=== PATIENT | male | born 1965 | race Caucasian/White ===

== ENCOUNTER 2016-11-04 05:54 | Observation (INO) | payer MEDICARE, MEDICAID ==
[2016-11-04] VITALS (7 sets, daily range): BP systolic 104–140; BP diastolic 55–72; PULSE 74–98; RESP 16–19; TEMP 97.4–99; O2SAT 95–99
[~2016-11-04] VITALS: Ht 167.6 cm; Wt 62.8 kg
[~2016-11-04 05:54] MED LIST: 1-ME1LIQ PO; ACET325 PO; ASPI1TAB7 PO; BISA10R PR; CLON.1 PO; DIAL800T3 PO; FERR324T4 PO; FURO20 PO; HYDR100T2 PO; IMOD2TAB PO; LANTUS2P SQ; LEVA250T14 PO; LISI-366 PO; LORTA5 PO; METO50TA PO; MILKSUS5 PO; NOVOLOGP2 SQ; PARO40TA PO; PRIL20CA PO; SEVEL800 PO; TAMS0.4C67 PO
--- NOTE | 2016-11-04 06:04 | PD ---
HPI Chief Complaint: Hyperglycemia Time Seen by Provider: 06:01 Travel History International Travel<30 days: No Contact w/Intl Traveler<30days: No Traveled to known affect area: No History of Present Illness HPI Patient arrives to the ER by EMS from [facility]. He is 50 and he is diabetic and suffers with end-stage renal disease. He is dialyzed Saturday. He was dialyzed yesterday (Saturday). His blood sugar has been high for about 2 days or so. Earlier this morning about 4 hours prior to ER transport he received 20 units of insulin with a plan to repeat blood glucose and if no improvement call EMS. When EMS arrived on scene his blood glucose was read as high the bedside. In the ER the patient is reported by EMS due to have vomited green emesis for the past 2 days, nonbloody. No fever. He complains of pain in the left middle finger worse with palpation. PFSH Past Medical History Hx Anticoagulant Therapy: Yes Anemia: Yes Anxiety: Yes Depression: Yes Heart Rhythm Problems: No Cancer: No Cardiovascular Problems: Yes High Cholesterol: Yes Chest Pain: No Congestive Heart Failure: No Cerebrovascular Accident: Yes Coronary Artery Disease: Yes Diabetes: Yes Dialysis: Yes (M,W,F) Diminished Hearing: No Endocrine: Yes Gastrointestinal Disorders: Yes (GERD) GERD: Yes Genitourinary: Yes Hiatal Hernia: No Hypertension: Yes Immune Disorder: No Kidney Stones: No Musculoskeletal: No Neurologic: Yes (TIA HX x2, ATAXIA) Psychiatric: Yes (ANXIETY/ DEPRESSION) Reproductive: No Respiratory: No Immunizations Current: Yes Myocardial Infarction: Yes (X 2) Pneumonia: Yes (X 2) Renal Failure: Yes Seizures: No Thyroid Disease: No Ulcer: No Past Surgical History Appendectomy: Yes Other Surgery: Yes (SHUNT PLACED TO LEFT ARM ) Social History Alcohol Use: No Tobacco Use: Yes (12 PPD) Substance Use: No Allergies-Medications (Allergen,Severity, Reaction): Coded Allergies: Bee Sting (Unverified Allergy, Severe, 11/04/16) Contrast Media (Unverified Allergy, Severe, 11/04/16) Reported Meds & Prescriptions Reported Meds & Active Scripts Active Reported Prochlorperazine Maleate 10 Mg Tab 10 Mg PO Q4H PRN Glucagon Inj 1 Mg/Ml Inj 1 Mg IM ONCE PRN Novolog Inj (Insulin Aspart) 1,000 Unit/10 Ml Vial 0 SQ DIRECTED Sliding Scale as directed. Nepro (Nutritional Supplements) 1 Liq Liq Tamsulosin (Tamsulosin HCl) 0.4 Mg Cap 0.4 Mg PO DAILY Renvela (Sevelamer Carbonate) 800 Mg Tab 800 Mg PO TID Omeprazole 20 Mg Tab 20 Mg PO DAILY Metoprolol Tartrate 50 Mg Tab 75 Mg PO BID Lisinopril 40 Mg Tab 40 Mg PO DAILY Hydralazine (Hydralazine HCl) 100 Mg Tab 100 Mg PO Q8HR Take with meals Furosemide 20 Mg Tab 20 Mg PO DAILY Folbee Plus (B-Complex W/ C & Folic Acid) 1 Tab 1 Tab PO DAILY Ferrous Sulfate 325 Mg Tab 325 Mg PO DAILY Escitalopram (Escitalopram Oxalate) 10 Mg Tab 10 Mg PO DAILY Bupropion HCl 75 Mg Tab 75 Mg PO TID Aspirin 81 Mg Chew 81 Mg CHEW DAILY Amlodipine (Amlodipine Besylate) 10 Mg Tab 10 Mg PO DAILY Review of Systems Except as stated in HPI: all other systems reviewed are Neg Physical Exam Narrative GENERAL: 50-year-old male pleasant and appears quite dehydrated and chronically ill SKIN: Warm and dry. HEAD: Atraumatic. Normocephalic. EYES: Pupils equal and round. No scleral icterus. No injection or drainage. ENT: No nasal bleeding or discharge. Mucous membranes are quite dry NECK: Trachea midline. No JVD. CARDIOVASCULAR: Regular rate and rhythm. No murmur appreciated. RESPIRATORY: No accessory muscle use. Clear to auscultation. Breath sounds equal bilaterally. GASTROINTESTINAL: Abdomen soft, non-tender, nondistended. Hepatic and splenic margins not palpable. MUSCULOSKELETAL: No obvious deformities. No clubbing. No cyanosis. No edema. Along the ulnar aspect of the left middle finger there is a paronychia. NEUROLOGICAL: Awake and alert. No obvious cranial nerve deficits. Motor grossly within normal limits. Normal speech. PSYCHIATRIC: Appropriate mood and affect; insight and judgment normal. Data Data Last Documented VS Vital Signs Date Time Temp Pulse Resp B/P Pulse Ox O2 Delivery O2 Flow Rate FiO2 11/04/16 07:14 84 19 104/55 Room Air 11/04/16 05:59 99.0 99 Orders Complete Blood Count With Diff (11/04/16 06:01) Comprehensive Metabolic Panel (11/04/16 06:01) Magnesium (Mg) (11/04/16 06:01) Phosphorus (Po4) (11/04/16 06:01) Beta Hydroxybutyrate (Acetone) (11/04/16 06:01) Osmolality,Serum (11/04/16 06:01) Lactic Acid (11/04/16 06:01) Arterial Blood Gas (Abg) (11/04/16 06:01) Blood Glucose (11/04/16 06:01) Blood Glucose (11/04/16 07:01) Ecg Monitoring (11/04/16 06:01) Iv Access Insert/Monitor (11/04/16 06:01) Oximetry (11/04/16 06:01) NPO (11/04/16 06:01) Sodium Chloride 0.9% Flush (Ns Flush) (11/04/16 06:15) Lipase (11/04/16 06:01) Blood Glucose (11/04/16 06:01) Insulin Human Regular Inj (Novolin R Inj (11/04/16 06:15) Sodium Chlorid 0.9% 500 Ml Inj (Ns 500 M (11/04/16 06:30) Chest, Single Ap (11/04/16 ) Piperacil-Tazo 2.25 Gm Premix (Zosyn 2.2 (11/04/16 07:15) Vancomycin Inj (Vancomycin Inj) (11/04/16 07:15) Blood Culture (11/04/16 07:01) Bedside Glucose ONCE (11/04/16 07:14) Admit Order (Ed Use Only) (11/04/16 07:15) Labs Laboratory Tests Test 11/04/16 11/04/16 06:05 06:19 Sodium Level 136 MEQ/L Potassium Level 3.1 MEQ/L Chloride Level 93 MEQ/L Carbon Dioxide Level 24.0 MEQ/L Anion Gap 19 MEQ/L Blood Urea Nitrogen 29 MG/DL Creatinine 5.60 MG/DL Estimat Glomerular Filtration 11 ML/MIN Rate Random Glucose 443 MG/DL Serum Osmolality 329 MOSM/KG Lactic Acid Level 3.7 mmol/L Calcium Level 8.8 MG/DL Phosphorus Level 2.6 MG/DL Magnesium Level 2.5 MG/DL Total Bilirubin 0.4 MG/DL Aspartate Amino Transf 10 U/L (AST/SGOT) Alanine Aminotransferase 19 U/L (ALT/SGPT) Alkaline Phosphatase 150 U/L Total Protein 7.1 GM/DL Albumin 3.3 GM/DL Lipase 291 U/L B-Hydroxybutyrate 4.17 MMOL/L White Blood Count 14.0 TH/MM3 Red Blood Count 2.97 MIL/MM3 Hemoglobin 10.2 GM/DL Hematocrit 29.9 % Mean Corpuscular Volume 100.9 FL Mean Corpuscular Hemoglobin 34.5 PG Mean Corpuscular Hemoglobin 34.2 % Concent Red Cell Distribution Width 14.2 % Platelet Count 359 TH/MM3 Mean Platelet Volume 8.1 FL Neutrophils (%) (Auto) 84.1 % Lymphocytes (%) (Auto) 7.8 % Monocytes (%) (Auto) 7.2 % Eosinophils (%) (Auto) 0.3 % Basophils (%) (Auto) 0.6 % Neutrophils # (Auto) 11.8 TH/MM3 Lymphocytes # (Auto) 1.1 TH/MM3 Monocytes # (Auto) 1.0 TH/MM3 Eosinophils # (Auto) 0.0 TH/MM3 Basophils # (Auto) 0.1 TH/MM3 CBC Comment DIFF FINAL Differential Comment Blood Gas Puncture Site RT BRACHIAL Blood Gas Patient Temperature 98.6 Blood Gas HCO3 24 mmol/L Blood Gas Base Excess 0.1 mmol/L Blood Gas Oxygen Saturation 95 % Arterial Blood pH 7.46 Arterial Blood Partial 34 mmHg Pressure CO2 Arterial Blood Partial 102 mmHG Pressure O2 Arterial Blood Oxygen Content 14.1 Vol % Arterial Blood 1.4 % Carboxyhemoglobin Arterial Blood Methemoglobin 1.4 % Blood Gas Hemoglobin 10.5 G/DL Oxygen Delivery Device RA Blood Gas Inspired Oxygen 21 % MDM Medical Decision Making Medical Screen Exam Complete: Yes Emergency Medical Condition: Yes Medical Record Reviewed: Yes Differential Diagnosis Diabetic ketoacidosis, electrolyte imbalance, sepsis, anemia Narrative Course CBC & BMP Diagram 11/04/16 06:05 LA 3.7 LFTs essentially normal Lipase 291 ABG 7.457 / 33.8 / 23.5 Beta hydroxybutyrate 4.17 Anion gap 19 The patient has received 10 units of insulin. He received 500 cc normal saline. He'll require admission for management of hyperglycemia with metabolic acidosis. D/w Jean Saldaña for [facility]. Nephrology is Dr Kelly Reyes. Diagnosis Primary Impression: DKA, type 1 Qualified Code: E10.10 - Type 1 diabetes mellitus with ketoacidosis without coma Additional Impressions: Vomiting Qualified Code: R11.2 - Non-intractable vomiting with nausea, unspecified vomiting type ESRD (end stage renal disease) Admitting Information Admitting Physician Requests: Admit Scripts Insulin Detemir Inj (Levemir Inj)1,000 unit/ 10 ML Vial4 Units SQ HS #30 INJECTION Prov:Ree Galeana MD 11/05/16 Amoxicillin-Clavulanate (Augmentin)500-125 mg [id number] Mg PO Q8HR 7 Days Prov:Ree Galeana MD 11/05/16 Mango Granados MD Nov 04, 2016 06:04
[2016-11-04] MEDS ORDERED: INSULIN HUMAN REGULAR 1,000 UNITS/10 ML VIAL IVP ONE (06:15)
[2016-11-04] MEDS ORDERED: SODIUM CHLORIDE 0.9% FLUSH 5 ML FLUSH IVF PRN (06:15)
--- NOTE | 2016-11-04 06:19 | PD ---
Physical Exam Date Seen by Provider: Nov 04, 2016 Time Seen by Provider: 06:17 Narrative Left middle finger: Patient has a paronychia Data Data Last Documented VS Vital Signs Date Time Temp Pulse Resp B/P Pulse Ox O2 Delivery O2 Flow Rate FiO2 11/04/16 05:59 99.0 90 16 140/72 99 Orders Complete Blood Count With Diff (11/04/16 06:01) Comprehensive Metabolic Panel (11/04/16 06:01) Magnesium (Mg) (11/04/16 06:01) Phosphorus (Po4) (11/04/16 06:01) Beta Hydroxybutyrate (Acetone) (11/04/16 06:01) Osmolality,Serum (11/04/16 06:01) Lactic Acid (11/04/16 06:01) Urinalysis - C+S If Indicated (11/04/16 06:01) Arterial Blood Gas (Abg) (11/04/16 06:01) Blood Glucose (11/04/16 06:01) Blood Glucose (11/04/16 07:01) Ecg Monitoring (11/04/16 06:01) Iv Access Insert/Monitor (11/04/16 06:01) Oximetry (11/04/16 06:01) NPO (11/04/16 06:01) Sodium Chloride 0.9% Flush (Ns Flush) (11/04/16 06:15) Lipase (11/04/16 06:01) Blood Glucose (11/04/16 06:01) Insulin Human Regular Inj (Novolin R Inj (11/04/16 06:15) MDM Medical Record Reviewed: Yes Supervised Visit with OSCAR: Yes Differential Diagnosis ' Narrative Course Incision and drainage of the left middle finger paronychia has been performed Procedures Procedure Narrative Incision and drainage left paronychia: The skin is prepped with ethyl chloride as a topical refrigerant. After adequate anesthesia and 11 blade scalpel is used to make a stab incision along the lateral edge of the nailbed. Purulent material is expressed. Patient tolerates procedure well. Dressing applied. Condition: Stable Scot Pichardo Nov 04, 2016 06:19
[2016-11-04 06:21] LABS: AUTOMATED NEUTROPHIL # 11.8 TH/MM3 (1.8-7.7); BASOPHIL # 0.1 TH/MM3 (0-0.2); BASOPHIL % 0.6 % (0.0-2.0); EOSINOPHIL % 0.3 % (0.0-4.0); HEMATOCRIT 29.9 % (39.0-51.0); HEMO FLAGS DIFF FINAL; LYMPH % 7.8 % (9.0-44.0); LYMPHOCYTE # 1.1 TH/MM3 (1.0-4.8); MEAN CELL VOLUME 100.9 FL (80.0-100.0); MEAN CORPUSCULAR HEMOGLOBIN 34.5 PG (27.0-34.0); MEAN CORPUSCULAR HGB CONC 34.2 % (32.0-36.0); MONO % 7.2 % (0.0-8.0); NEUT % 84.1 % (16.0-70.0); PLATELET COUNT 359 TH/MM3 (150-450); RED BLOOD COUNT 2.97 MIL/MM3 (4.50-5.90); RED CELL DISTRIBUTION WIDTH 14.2 % (11.6-17.2)
[2016-11-04] MEDS ORDERED: SODIUM CHLORID 0.9% 500 ML INJ 500 ML IV ONE (06:30)
[2016-11-04 06:31] LABS: BLOOD GAS BASE EXCESS 0.1 mmol/L (-2-2); BLOOD GAS CARBOXYHEMOGLOBIN 1.4 % (0-4); BLOOD GAS HCO3 24 mmol/L (22-26); BLOOD GAS METHEMOGLOBIN 1.4 % (0-2); BLOOD GAS O2 HGB SATURATION 95 % (90-100); BLOOD GAS OXYGEN CONTENT 14.1 Vol % (12.0-20.0); BLOOD GAS PCO2 34 mmHg (38-42); BLOOD GAS PO2 102 mmHG (61-120); BLOOD GAS TOTAL HGB 10.5 G/DL (12.0-16.0); CRITICAL VALUE NO; TEMP CORR TO 98.6
[2016-11-04 06:32] LABS: DRAW SITE RT BRACHIAL; FIO2 21 %; NUMBER OF ARTERIAL PUNCTURES 1; OXYGEN DEVICE RA; STAT YES
[2016-11-04 06:38] LABS: ANION GAP 19 MEQ/L (5-15); AST (GOT) 10 U/L (15-37); BLOOD UREA NITROGEN 29 MG/DL (7-18); CHLORIDE 93 MEQ/L (98-107); GLOMERULAR FILTRATION RATE 11 ML/MIN (>89); MAGNESIUM 2.5 MG/DL (1.5-2.5); POTASSIUM 3.1 MEQ/L (3.5-5.1); SODIUM (NA) 136 MEQ/L (136-145)
[2016-11-04] MEDS ORDERED: SEVEL800 PO ×2 (06:38)
[2016-11-04] MEDS ORDERED: IBUP800T23 PO (06:38)
[2016-11-04] MEDS ORDERED: LISI40TA PO (06:38)
[2016-11-04] MEDS ORDERED: OMEP20TA PO (06:38)
[2016-11-04] MEDS ORDERED: FURO20TA PO (06:38)
[2016-11-04] MEDS ORDERED: BUPR75TA PO (06:38)
[2016-11-04] MEDS ORDERED: NEPRLIQ (06:38)
[2016-11-04] MEDS ORDERED: METO50TA PO (06:38)
[2016-11-04] MEDS ORDERED: HYDR-3801 PO (06:38)
[2016-11-04] MEDS ORDERED: FERR325T PO (06:38)
[2016-11-04] MEDS ORDERED: INSU1INJ14 SQ (06:38)
[2016-11-04] MEDS ORDERED: AMLO10TA2 PO (06:38)
[2016-11-04] MEDS ORDERED: ESCI10TA PO (06:38)
[2016-11-04] MEDS ORDERED: GLUC0.8I2 IM (06:38)
[2016-11-04] MEDS ORDERED: FOLBTAB2 PO (06:38)
[2016-11-04] MEDS ORDERED: NOVOLOGP2 SQ (06:38)
[2016-11-04] MEDS ORDERED: NOVOLOGSS SQ ×2 (06:38)
[2016-11-04] MEDS ORDERED: ASPI81CH PO (06:38)
[2016-11-04] MEDS ORDERED: TAMS0.4C4 PO (06:38)
[2016-11-04] MEDS ORDERED: PROC10TA PO (06:38)
[2016-11-04 06:43] LABS: ALKALINE PHOSPHATASE 150 U/L (45-117); ALT (GPT) 19 U/L (12-78); BETA-HYDROXYBUTYRATE 4.17 MMOL/L (0.00-0.39); TOTAL BILIRUBIN ADULT 0.4 MG/DL (0.2-1.0)
[2016-11-04] MEDS ORDERED: VANCOMYCIN INJ 1,000 MG in SODIUM CHLOR 0.9% 250 ML INJ 250 ML IV SCH (07:15)
[2016-11-04] MEDS ORDERED: PIPERACIL-TAZO 2.25 GM PREMIX 50 ML IV ONE (07:15)
[2016-11-04] MEDS ORDERED: SODIUM CHLORIDE 0.9% FLUSH 5 ML FLUSH FLUSH PRN (07:30)
[2016-11-04] MEDS ORDERED: ACETAMINOPHEN 325 MG TAB PO PRN (07:30)
[2016-11-04] MEDS ORDERED: ONDANSETRON HCL 4 MG/2 ML VIAL IVP PRN (07:30)
[2016-11-04] MEDS ORDERED: NALOXONE HCL 0.4 MG/ML AMP IV PRN (07:30)
--- NOTE | 2016-11-04 07:32 | RADRPT ---
EXAM DATE/TIME: 11/04/2016 07:14 [place] COMPARISON: CHEST SINGLE AP, July 02, 2015, 14:11. INDICATIONS : Fever MEDICAL HISTORY : None. SURGICAL HISTORY : None. ENCOUNTER: Initial ACUITY: 1 day PAIN SCORE: Non-responsive. LOCATION: Bilateral chest FINDINGS: A single view of the chest demonstrates the lungs to be symmetrically aerated without evidence of mas s, infiltrate or effusion. Previously noted infiltrate in the right lower lung has resolved. The card iomediastinal contours are unremarkable. Osseous structures are intact. CONCLUSION: No acute disease. Thanh Borja MD on November 04, 2016 at 7:30 Board Certified Radiologist. This report was verified electronically.
[2016-11-04] MEDS ORDERED: DEXTROSE 50% IN WATER 50 ML VIAL(D50) IV PUSH PRN (07:45)
[2016-11-04] MEDS ORDERED: GLUCAGON 1 MG/ML VIAL OTHER PRN (07:45)
--- NOTE | 2016-11-04 08:20 | HHI.HP ---
HPI Service [facility] Primary Care Physician Steve Tobar M.D. Admission Diagnosis DKA Diagnoses: Travel History International Travel<30 Days: No Contact w/Intl Traveler <30 Da: No Traveled to Known Affected Are: No Past Family Social History Reported Medications Reported Meds & Active Scripts Active Reported Prochlorperazine Maleate 10 Mg Tab 10 Mg PO Q4H PRN Ibuprofen 800 Mg Tab 800 Mg PO Q8H PRN Glucagon Inj 1 Mg/Ml Inj 1 Mg IM ONCE PRN Tresiba Flextouch Pen Inj (Insulin Degludec Inj) 300 unit/3 ML Pen 50 Units SQ HS Novolog Inj (Insulin Aspart) 1,000 Unit/10 Ml Vial 0 SQ DIRECTED Sliding Scale as directed. Novolog Inj (Insulin Aspart) 100 Unit/Ml Inj 7 SQ HS Novolog Inj (Insulin Aspart) 100 Unit/Ml Inj 15 SQ BID Nepro (Nutritional Supplements) 1 Liq Liq Tamsulosin (Tamsulosin HCl) 0.4 Mg Cap 0.4 Mg PO DAILY Renvela (Sevelamer Carbonate) 800 Mg Tab 800 Mg PO TID Renvela (Sevelamer Carbonate) 800 Mg Tab 800 Mg PO BID Omeprazole 20 Mg Tab 20 Mg PO DAILY Metoprolol Tartrate 50 Mg Tab 75 Mg PO BID Lisinopril 40 Mg Tab 40 Mg PO DAILY Hydralazine (Hydralazine HCl) 100 Mg Tab 100 Mg PO Q8HR Take with meals Furosemide 20 Mg Tab 20 Mg PO DAILY Folbee Plus (B-Complex W/ C & Folic Acid) 1 Tab 1 Tab PO DAILY Ferrous Sulfate 325 Mg Tab 325 Mg PO DAILY Escitalopram (Escitalopram Oxalate) 10 Mg Tab 10 Mg PO DAILY Bupropion HCl 75 Mg Tab 75 Mg PO TID Aspirin 81 Mg Chew 81 Mg CHEW DAILY Amlodipine (Amlodipine Besylate) 10 Mg Tab 10 Mg PO DAILY Allergies: Coded Allergies: Bee Sting (Unverified Allergy, Severe, 11/04/16) Contrast Media (Unverified Allergy, Severe, 11/04/16) Active Ordered Medications Inpatient Medications Acetaminophen (Tylenol) 650 mg Q4H PRN PO TEMP > 100.4; Start 11/04/16 at 07:30 Dextrose (D50w (Vial) Inj) 25 ml UNSCH PRN IV PUSH HYPOGLYCEMIA-SEE COMMENTS; Start 11/04/16 at 07:45 Glucagon (Glucagon Inj) 1 mg UNSCH PRN OTHER HYPOGLYCEMIA-SEE COMMENTS; Start 11/04/16 at 07:45 Heparin Sodium (Porcine) (Heparin Inj) 5,000 units Q12H SQ ; Start 11/04/16 at 08:00 Insulin Aspart (NovoLOG SUPPLEMENTAL SCALE) 1 ACHS SLIDING SCALE SQ ; Start at 11:00 Insulin Human Regular 10 units 10 units ONCE ONCE IVP Last administered on 06:27; Start 11/04/16 at 06:15; Stop 11/04/16 at 06:16; Status DC IV Flush (NS Flush) 2 ml BID FLUSH ; Start 11/04/16 at 09:00 Naloxone HCl (Narcan Inj) 0.4 mg UNSCH PRN IV SEE LABEL COMMENTS; Start at 07:30 Ondansetron HCl (Zofran Inj) 4 mg Q6H PRN IVP NAUSEA OR VOMITING; Start at 07:30 Piperacillin Sod/ Tazobactam Sod 50 ml @ 100 mls/hr ONCE ONCE IV Last administered on 11/04/16 07:50; Start 11/04/16 at 07:15; Stop 11/04/16 at 07:44 ; Status DC Sodium Chloride (NS 1000 ml Inj) 1,000 ml @ 50 mls/hr Q20H IV ; Start 11/04/16 at 07:23 Vancomycin HCl 1000 mg/Sodium Chloride 250 ml @ 250 mls/hr VOLTAGE TESTER IV ; Start 11/04/16 at 07:15; Stop 11/07/16 at 07:14 Physical Exam Vital Signs Vital Signs Date Time Temp Pulse Resp B/P Pulse Ox O2 Delivery O2 Flow Rate FiO2 11/04/16 07:14 84 19 104/55 Room Air 11/04/16 05:59 99.0 90 16 140/72 99 Physical Exam GENERAL: This is a well-nourished, well-developed patient, in no apparent distress. SKIN: No rashes, ecchymoses or lesions. Cool and dry. HEAD: Atraumatic. Normocephalic. No temporal or scalp tenderness. EYES: Pupils equal round and reactive. Extraocular motions intact. No scleral icterus. No injection or drainage. ENT: Nose without bleeding, purulent drainage or septal hematoma. Throat without erythema, tonsillar hypertrophy or exudate. Uvula midline. Airway patent. NECK: Trachea midline. No JVD or lymphadenopathy. Supple, nontender, no meningeal signs. CARDIOVASCULAR: Regular rate and rhythm without murmurs, gallops, or rubs. RESPIRATORY: Clear to auscultation. Breath sounds equal bilaterally. No wheezes , rales, or rhonchi. GASTROINTESTINAL: Abdomen soft, non-tender, nondistended. No hepato-splenomegaly , or palpable masses. No guarding. MUSCULOSKELETAL: Extremities without clubbing, cyanosis, or edema. No joint tenderness, effusion, or edema noted. No calf tenderness. Negative Homans sign bilaterally. NEUROLOGICAL: Awake and alert. Cranial nerves II through XII intact. Motor and sensory grossly within normal limits. Five out of 5 muscle strength in all muscle groups. Normal speech. Laboratory Laboratory Tests Test 11/04/16 11/04/16 06:05 06:19 White Blood Count 14.0 Red Blood Count 2.97 Hemoglobin 10.2 Hematocrit 29.9 Mean Corpuscular Volume 100.9 Mean Corpuscular Hemoglobin 34.5 Mean Corpuscular Hemoglobin 34.2 Concent Red Cell Distribution Width 14.2 Platelet Count 359 Mean Platelet Volume 8.1 Neutrophils (%) (Auto) 84.1 Lymphocytes (%) (Auto) 7.8 Monocytes (%) (Auto) 7.2 Eosinophils (%) (Auto) 0.3 Basophils (%) (Auto) 0.6 Neutrophils # (Auto) 11.8 Lymphocytes # (Auto) 1.1 Monocytes # (Auto) 1.0 Eosinophils # (Auto) 0.0 Basophils # (Auto) 0.1 CBC Comment DIFF FINAL Differential Comment Sodium Level 136 Potassium Level 3.1 Chloride Level 93 Carbon Dioxide Level 24.0 Anion Gap 19 Blood Urea Nitrogen 29 Creatinine 5.60 Estimat Glomerular Filtration 11 Rate Random Glucose 443 Serum Osmolality 329 Lactic Acid Level 3.7 Calcium Level 8.8 Phosphorus Level 2.6 Magnesium Level 2.5 Total Bilirubin 0.4 Aspartate Amino Transf 10 (AST/SGOT) Alanine Aminotransferase 19 (ALT/SGPT) Alkaline Phosphatase 150 Total Protein 7.1 Albumin 3.3 Lipase 291 B-Hydroxybutyrate 4.17 Blood Gas Puncture Site RT BRACHIAL Blood Gas Patient Temperature 98.6 Blood Gas HCO3 24 Blood Gas Base Excess 0.1 Blood Gas Oxygen Saturation 95 Arterial Blood pH 7.46 Arterial Blood Partial 34 Pressure CO2 Arterial Blood Partial 102 Pressure O2 Arterial Blood Oxygen Content 14.1 Arterial Blood 1.4 Carboxyhemoglobin Arterial Blood Methemoglobin 1.4 Blood Gas Hemoglobin 10.5 Oxygen Delivery Device RA Blood Gas Inspired Oxygen 21 Date/Time Procedure Status Source Growth 11/04/16 07:20 Aerobic Blood Culture Received Blood Peripheral Pending 11/04/16 07:20 Anaerobic Blood Culture Received Blood Peripheral Pending Result Diagram: 11/04/16 0605 11/04/16 0605 Imaging Last Impressions Chest X-Ray 11/04/16 0000 Signed Impressions: Service Date/Time: Friday, November 04, 2016 07:14 - CONCLUSION: No acute disease. Thanh Borja MD Assessment and Plan Problem List: (1) Hyperglycemia due to type 1 diabetes mellitus (2) Leukocytosis (3) Vomiting (4) ESRD (end stage renal disease) (5) Hypertension (6) Anemia of renal disease (7) Lactic acid acidosis Physician Certification 2 Midnight Certification Type: Admission for Inpatient Services Order for Inpatient Services The services are ordered in accordance with Medicare regulations or non- Medicare payer requirements, as applicable. In the case of services not specified as inpatient-only, they are appropriately provided as inpatient services in accordance with the 2-midnight benchmark. Estimated LOS (days): 2 2 days is the estimated time the patient will need to remain in the hospital, assuming treatment plan goals are met and no additional complications. Post-Hospital Plan: SNF Problem Qualifiers (1) Vomiting: Qualified Code: R11.2 - Non-intractable vomiting with nausea, unspecified vomiting type Yandy Goldstein Nov 04, 2016 08:19
[2016-11-04] MEDS ORDERED: SEVELAMER CARBONATE 800 MG TAB PO SCH (09:00)
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
[2016-11-04] MEDS: SODIUM CHLORIDE 0.9% FLUSH 5 ML FLUSH FLUSH SCH ×2 (09:55→20:54)
[2016-11-04] MEDS: HEPARIN SODIUM - SQ 10,000 UNITS/ML VIAL SQ SCH ×2 (09:55→20:54)
[2016-11-04] MEDS: TAMSULOSIN HCL 0.4 MG CAP PO SCH ×2 (10:00→13:45)
[2016-11-04] MEDS: buPROPion HCL 75 MG TAB PO SCH ×3 (10:00→19:44)
[2016-11-04] MEDS: ESCITALOPRAM OXALATE 10 MG TAB PO SCH (10:00)
[2016-11-04] MEDS ORDERED: INSULIN DETEMIR 100 UNITS/ML VIAL SQ SCH (10:00)
[2016-11-04] MEDS: ASPIRIN 81 MG CHEW TAB CHEW SCH (10:00)
[2016-11-04 10:13] LABS: BICARBONATE 30.8 MEQ/L (21.0-32.0); POTASSIUM 3.3 MEQ/L (3.5-5.1)
[2016-11-04] MEDS ORDERED: DEXTROSE 5% IN WATE 1000ML INJ 1,000 ML IV SCH (11:00)
[2016-11-04] MEDS: INSULIN ASPART SUPPLEMENTAL SCALE SQ SCH ×3 (11:00→20:55)
[2016-11-04] MEDS: SODIUM CHLOR 0.9% 1000 ML INJ 1,000 ML IV SCH (11:04)
[2016-11-04] MEDS ORDERED: MORPHINE SULFATE 4 MG/ML INJ IV PUSH PRN (17:00)
[2016-11-04] MEDS: PIPERACIL-TAZO 2.25 GM PREMIX 50 ML IV SCH ×2 (17:05→23:58)
[2016-11-04] MEDS: ACETAMINOPHEN/HYDROcodone 325 MG/5 MG TAB PO PRN ×2 (17:13→23:57)
[2016-11-04] MEDS: INSULIN DETEMIR 100 UNITS/ML VIAL SQ SCH (20:54)
[2016-11-05] VITALS (8 sets, daily range): BP systolic 106–171; BP diastolic 54–76; PULSE 76–100; RESP 17–20; TEMP 97.2–98; O2SAT 96–99
[2016-11-05] MEDS: SODIUM CHLOR 0.9% 1000 ML INJ 1,000 ML IV SCH (04:09)
[2016-11-05] MEDS: ACETAMINOPHEN/HYDROcodone 325 MG/5 MG TAB PO PRN ×3 (04:48→20:35)
[2016-11-05] MEDS: INSULIN ASPART SUPPLEMENTAL SCALE SQ SCH ×4 (06:09→20:34)
[2016-11-05 07:45] LABS: AUTOMATED NEUTROPHIL # 9.5 TH/MM3 (1.8-7.7); BASOPHIL # 0.1 TH/MM3 (0-0.2); BASOPHIL % 0.7 % (0.0-2.0); EOSINOPHIL # 0.2 TH/MM3 (0-0.4); EOSINOPHIL % 1.4 % (0.0-4.0); HEMATOCRIT 27.9 % (39.0-51.0); HEMO FLAGS DIFF FINAL; LYMPH % 10.9 % (9.0-44.0); LYMPHOCYTE # 1.3 TH/MM3 (1.0-4.8); MEAN CELL VOLUME 100.6 FL (80.0-100.0); MEAN CORPUSCULAR HEMOGLOBIN 34.5 PG (27.0-34.0); MEAN CORPUSCULAR HGB CONC 34.3 % (32.0-36.0); MONO % 5.7 % (0.0-8.0); NEUT % 81.3 % (16.0-70.0); PLATELET COUNT 243 TH/MM3 (150-450); RED BLOOD COUNT 2.78 MIL/MM3 (4.50-5.90); RED CELL DISTRIBUTION WIDTH 13.8 % (11.6-17.2); WHITE BLOOD COUNT 11.7 TH/MM3 (4.0-11.0)
[2016-11-05 08:28] LABS: ANION GAP 12 MEQ/L (5-15); BICARBONATE 29.5 MEQ/L (21.0-32.0); BLOOD UREA NITROGEN 31 MG/DL (7-18); CHLORIDE 96 MEQ/L (98-107); GLOMERULAR FILTRATION RATE 8 ML/MIN (>89); SODIUM (NA) 137 MEQ/L (136-145)
[2016-11-05] MEDS: PANTOPRAZOLE SOD 40 MG DELAYED RELEASE TAB PO SCH (09:13)
[2016-11-05] MEDS: buPROPion HCL 75 MG TAB PO SCH ×3 (09:13→17:43)
[2016-11-05] MEDS: ASPIRIN 81 MG CHEW TAB CHEW SCH (09:13)
[2016-11-05] MEDS: ESCITALOPRAM OXALATE 10 MG TAB PO SCH (09:13)
[2016-11-05] MEDS: TAMSULOSIN HCL 0.4 MG CAP PO SCH (09:14)
[2016-11-05] MEDS: SODIUM CHLORIDE 0.9% FLUSH 5 ML FLUSH FLUSH SCH ×2 (09:14→20:34)
[2016-11-05] MEDS: HEPARIN SODIUM - SQ 10,000 UNITS/ML VIAL SQ SCH ×2 (09:15→20:34)
[2016-11-05] MEDS: PIPERACIL-TAZO 2.25 GM PREMIX 50 ML IV SCH ×2 (09:15→16:56)
[2016-11-05] MEDS ORDERED: SODIUM CHLOR 0.9% 1000 ML INJ 1,000 ML IV PRN ×3 (10:03)
[2016-11-05] MEDS ORDERED: MANNITOL 12.5 GM/50 ML VIAL IV PRN (10:15)
[2016-11-05] MEDS ORDERED: GELATIN 12 MM/7 MM FOAM TOP PRN (10:15)
[2016-11-05] MEDS ORDERED: diphenhydrAMINE HCL 25 MG CAP PO PRN (10:15)
[2016-11-05] MEDS ORDERED: HEPARIN SODIUM - IV 10,000 UNITS/10 ML VIAL IVF PRN (10:15)
[2016-11-05] MEDS ORDERED: GENTAMICIN SULFATE (DIALYSIS USE ONLY) 20 MG/2 ML VIAL IV PRN (10:15)
[2016-11-05] MEDS ORDERED: ONDANSETRON HCL 4 MG/2 ML VIAL IV PRN (10:15)
[2016-11-05] MEDS ORDERED: ALBUMIN HUMAN 25% 25 GM/100 ML BAGP IV PRN (10:15)
[2016-11-05] MEDS ORDERED: POTASSIUM CHLORIDE 10 MEQ CONTROLLED RELEASE TAB PO ONE (10:15)
[2016-11-05] MEDS ORDERED: HEPARIN SODIUM - IV 10,000 UNITS/10 ML VIAL PRN (10:15)
[2016-11-05] MEDS ORDERED: NITROGLYCERIN 0.4 MG SL 25 TABS/BTL SL PRN (10:15)
[2016-11-05] MEDS ORDERED: ACETAMINOPHEN 325 MG TAB PO PRN (10:15)
[2016-11-05] MEDS ORDERED: SODIUM CHLORIDE 0.9% FLUSH 5 ML FLUSH IVF PRN (10:15)
[2016-11-05] MEDS ORDERED: cloNIDine HCL 0.1 MG TAB PO PRN (10:15)
[2016-11-05] MEDS ORDERED: EPOETIN ALFA 4,000 UNITS/ML VIAL IV PRN (10:15)
--- NOTE | 2016-11-05 10:16 | PD.CONS ---
HPI Service Nephrology Consult Requested By Reason for Consult Known to our services for ESRD on HD Primary Care Physician Steve Tobar M.D. History of Present Illness The patient is a 50 yo [place] male who is known to our services for ESRD on HD TTS. He came to this facility on 11/04 with complaints of vomiting. It was noted that his blood sugars were very elevated and a beta-hydroxybutyrate level was drawn which indicated that he was in DKA. He has a long-standing hx of DM and is often not controlled. He was also c/o L middle finger pain which was noted to have a paronychia which was drained. Did have his regular HD on Saturday that was uneventful. He reports no longer having nausea or vomiting. 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 hypertensive nephrosclerosis Insulin-dependent diabetes mellitus Hypertension History of CVA x2 with chronic aphasia Anemia renal disease Secondary hyperparathyroidism renal disease Past Surgical History L upper arm AVF formation Appendectomy Reported Medications Reported Meds & Active Scripts Active Reported Prochlorperazine Maleate 10 Mg Tab 10 Mg PO Q4H PRN Ibuprofen 800 Mg Tab 800 Mg PO Q8H PRN Glucagon Inj 1 Mg/Ml Inj 1 Mg IM ONCE PRN Tresiba Flextouch Pen Inj (Insulin Degludec Inj) 300 unit/3 ML Pen 50 Units SQ HS Novolog Inj (Insulin Aspart) 1,000 Unit/10 Ml Vial 0 SQ DIRECTED Sliding Scale as directed. Novolog Inj (Insulin Aspart) 100 Unit/Ml Inj 7 SQ HS Novolog Inj (Insulin Aspart) 100 Unit/Ml Inj 15 SQ BID Nepro (Nutritional Supplements) 1 Liq Liq Tamsulosin (Tamsulosin HCl) 0.4 Mg Cap 0.4 Mg PO DAILY Renvela (Sevelamer Carbonate) 800 Mg Tab 800 Mg PO TID Renvela (Sevelamer Carbonate) 800 Mg Tab 800 Mg PO BID Omeprazole 20 Mg Tab 20 Mg PO DAILY Metoprolol Tartrate 50 Mg Tab 75 Mg PO BID Lisinopril 40 Mg Tab 40 Mg PO DAILY Hydralazine (Hydralazine HCl) 100 Mg Tab 100 Mg PO Q8HR Take with meals Furosemide 20 Mg Tab 20 Mg PO DAILY Folbee Plus (B-Complex W/ C & Folic Acid) 1 Tab 1 Tab PO DAILY Ferrous Sulfate 325 Mg Tab 325 Mg PO DAILY Escitalopram (Escitalopram Oxalate) 10 Mg Tab 10 Mg PO DAILY Bupropion HCl 75 Mg Tab 75 Mg PO TID Aspirin 81 Mg Chew 81 Mg CHEW DAILY Amlodipine (Amlodipine Besylate) 10 Mg Tab 10 Mg PO DAILY Active Ordered Medications Current Medications Medications (Trade) Dose Ordered Sig/Mateo Route Start Time Stop Time Status Last Admin IV Flush 2 ml 2 ml UNSCH PRN IVF 11/04/16 06:15 (NS 1000 ml Inj) 1,000 ml @ 50 mls/hr Q20H IV 11/04/16 07:23 11/05/16 04:09 (NS Flush) 2 ml UNSCH PRN FLUSH 11/04/16 07:30 (NS Flush) 2 ml BID FLUSH 11/04/16 09:00 11/05/16 09:14 (Tylenol) 650 mg Q4H PRN PO 11/04/16 07:30 (Zofran Inj) 4 mg Q6H PRN IVP 11/04/16 07:30 (Heparin Inj) 5,000 units Q12H SQ 11/04/16 08:00 11/05/16 09:15 (Narcan Inj) 0.4 mg UNSCH PRN IV 11/04/16 07:30 (D50w (Vial) Inj) 25 ml UNSCH PRN IV PUSH 11/04/16 07:45 (Glucagon Inj) 1 mg UNSCH PRN OTHER 11/04/16 07:45 (Aspirin Chew) 81 mg DAILY CHEW 11/04/16 10:00 11/05/16 09:13 (Wellbutrin) 75 mg TID PO 11/04/16 10:00 11/05/16 09:13 (Lexapro) 10 mg DAILY PO 11/04/16 10:00 11/05/16 09:13 (Renvela) 1,600 mg TuThSa@, PO 11/06/16 09:00 (Flomax) 0.4 mg DAILY PO 11/04/16 10:00 11/05/16 09:14 Sevelamer Carbonate 1600 mg 1,600 mg SuMoWeFr@1300 PO 11/05/16 13:00 (Zosyn 2.25 Gm Premix) 50 ml @ 100 mls/hr Q8H IV 11/04/16 16:00 11/05/16 09:15 (Protonix) 40 mg DAILY PO 11/05/16 09:00 11/05/16 09:13 ([place] 5-325 Mg) 1 tab Q4H PRN PO 11/04/16 17:00 11/05/16 09:14 (Morphine Inj) 2 mg Q3H PRN IV PUSH 11/04/16 17:00 (Levemir Inj) 4 units HS SQ 11/04/16 21:00 11/04/16 20:54 Family History Noncontributory Social History Lives in a nursing facility Chronic tobacco use No EtOH use No illicits (Stella Faulkner) Physical Exam Vital Signs Vital Signs Date Time Temp Pulse Resp B/P Pulse Ox O2 Delivery O2 Flow Rate FiO2 11/05/16 06:55 97.2 80 20 137/65 96 11/05/16 04:03 98.0 76 17 106/54 96 11/05/16 01:28 98.0 80 17 126/65 96 11/04/16 21:01 97.4 89 18 119/60 95 11/04/16 20:00 98 11/04/16 18:13 17 11/04/16 12:00 97.6 74 18 120/65 96 Physical Exam GENERAL: Was sleeping on entering room. Arousable. Says he is ready to go home. SKIN: Warm and dry. HEAD: Atraumatic. Normocephalic. EYES: Pupils equal and round. No scleral icterus. No injection or drainage. ENT: No nasal bleeding or discharge. Mucous membranes pink and moist. NECK: Trachea midline. No JVD. CARDIOVASCULAR: Regular rate and rhythm. RESPIRATORY: No accessory muscle use. Clear to auscultation. Breath sounds equal bilaterally. GASTROINTESTINAL: Abdomen soft, non-tender, nondistended. Hepatic and splenic margins not palpable. MUSCULOSKELETAL: Extremities without clubbing, cyanosis, or edema. No obvious deformities. NEUROLOGICAL: Awake and alert. Aphasic speech pattern PSYCHIATRIC: Appropriate mood and affect; insight and judgment normal. Laboratory Laboratory Tests Test 11/04/16 11/05/16 11/05/16 12:23 06:09 07:09 Lactic Acid Level 1.0 White Blood Count 11.7 Red Blood Count 2.78 Hemoglobin 9.6 Hematocrit 27.9 Mean Corpuscular Volume 100.6 Mean Corpuscular Hemoglobin 34.5 Mean Corpuscular Hemoglobin 34.3 Concent Red Cell Distribution Width 13.8 Platelet Count 243 Mean Platelet Volume 7.9 Neutrophils (%) (Auto) 81.3 Lymphocytes (%) (Auto) 10.9 Monocytes (%) (Auto) 5.7 Eosinophils (%) (Auto) 1.4 Basophils (%) (Auto) 0.7 Neutrophils # (Auto) 9.5 Lymphocytes # (Auto) 1.3 Monocytes # (Auto) 0.7 Eosinophils # (Auto) 0.2 Basophils # (Auto) 0.1 CBC Comment DIFF FINAL Differential Comment Sodium Level 137 Potassium Level 3.0 Chloride Level 96 Carbon Dioxide Level 29.5 Anion Gap 12 Blood Urea Nitrogen 31 Creatinine 7.06 Estimat Glomerular Filtration 8 Rate Random Glucose 53 Calcium Level 8.8 Vitamin B12 Level GREATER THAN 2000 Folate GREATER THAN 20.0 Date/Time Procedure Status Source Growth 11/04/16 07:20 Aerobic Blood Culture Received Blood Peripheral Pending 11/04/16 07:20 Anaerobic Blood Culture Received Blood Peripheral Pending (Stella Faulkner) Result Diagram: 11/05/16 0609 11/05/16 0709 Imaging Last Impressions Chest X-Ray 11/04/16 0000 Signed Impressions: Service Date/Time: Friday, November 04, 2016 07:14 - CONCLUSION: No acute disease. Thanh Borja MD (Stella Faulkner) Assessment and Plan Problem List: (1) ESRD (end stage renal disease) Plan: Continue on HD as per TTS schedule. D/C IVF Adjusted Renvela Medications should be adjusted for the patient's ESRD. Avoid gadolinium. (2) DKA, type 1 Plan: Mgmt as per primary. (3) Hypokalemia Plan: Repletion ordered today. (4) Anemia of renal disease Plan: Continue on Epo with HD (5) Hypertension Plan: BP stable. Continue on home regimen (6) Paronychia of left middle finger Plan: s/p I&D. Mgmt as per primary (Stella Faulkner) Assessment and Plan The exam, history, and the medical decision-making described in the above note were completed with the assistance of the MADDY. I reviewed and agree with the findings presented. (Wilfredo Reyes MD) Problem Qualifiers (1) DKA, type 1: Qualified Code: E10.10 - Type 1 diabetes mellitus with ketoacidosis without coma (2) Hypertension: Qualified Code: I10 - Essential hypertension Stella Faulkner Nov 05, 2016 10:16 Wilfredo Reyes MD Nov 06, 2016 12:35
[2016-11-05] MEDS ORDERED: SEVELAMER CARBONATE 800 MG TAB PO SCH (13:00)
--- NOTE | 2016-11-05 14:18 | HHI.PR ---
Subjective Remarks "I feel better" no fever no cough no cp no sob eating well no n/v no diarrhea asking when he is going home blood sugars now 270s, yesterday dropped to 50-110s Objective Objective Results - Vital Signs Date Time Temp Pulse Resp B/P Pulse Ox O2 Delivery O2 Flow Rate FiO2 11/05/16 11:05 97.9 90 20 118/61 96 11/05/16 06:55 97.2 80 20 137/65 96 11/05/16 04:03 98.0 76 17 106/54 96 11/05/16 01:28 98.0 80 17 126/65 96 11/04/16 21:01 97.4 89 18 119/60 95 11/04/16 20:00 98 11/04/16 18:13 17 I/O 11/04/16 11/04/16 11/04/16 11/05/16 11/05/16 11/05/16 07:00 15:00 23:00 07:00 15:00 23:00 Intake Total 700 ml Balance 700 ml Intake IV Total 700 ml # Voids 1 2 Result Diagram: 11/05/16 0609 11/05/16 0709 Imaging Last Impressions Chest X-Ray 11/04/16 0000 Signed Impressions: Service Date/Time: Friday, November 04, 2016 07:14 - CONCLUSION: No acute disease. Thanh Borja MD Other Results Laboratory Tests Test 11/05/16 11/05/16 06:09 07:09 White Blood Count 11.7 Red Blood Count 2.78 Hemoglobin 9.6 Hematocrit 27.9 Mean Corpuscular Volume 100.6 Mean Corpuscular Hemoglobin 34.5 Mean Corpuscular Hemoglobin 34.3 Concent Red Cell Distribution Width 13.8 Platelet Count 243 Mean Platelet Volume 7.9 Neutrophils (%) (Auto) 81.3 Lymphocytes (%) (Auto) 10.9 Monocytes (%) (Auto) 5.7 Eosinophils (%) (Auto) 1.4 Basophils (%) (Auto) 0.7 Neutrophils # (Auto) 9.5 Lymphocytes # (Auto) 1.3 Monocytes # (Auto) 0.7 Eosinophils # (Auto) 0.2 Basophils # (Auto) 0.1 CBC Comment DIFF FINAL Differential Comment Sodium Level 137 Potassium Level 3.0 Chloride Level 96 Carbon Dioxide Level 29.5 Anion Gap 12 Blood Urea Nitrogen 31 Creatinine 7.06 Estimat Glomerular Filtration 8 Rate Random Glucose 53 Calcium Level 8.8 Vitamin B12 Level GREATER THAN 2000 Folate GREATER THAN 20.0 Date/Time Procedure Status Source Growth 11/04/16 07:20 Aerobic Blood Culture - Preliminary Resulted Blood Peripheral NO GROWTH IN 1 DAY 11/04/16 07:20 Anaerobic Blood Culture - Preliminary Resulted Blood Peripheral NO GROWTH IN 1 DAY ROS General: Other (12 point ROS completed, unreliable. ) Physical Exam Physical Exam GENERAL: This is a well-nourished, chronically ill appearing male SKIN: No rashes, ecchymoses or lesions. Cool and dry. HEAD: Atraumatic. Normocephalic. No temporal or scalp tenderness. EYES: Pupils equal round and reactive. Extraocular motions intact. No scleral icterus. No injection or drainage. ENT: Nose without bleeding, purulent drainage or septal hematoma. Throat without erythema, tonsillar hypertrophy or exudate. Uvula midline. Airway patent. Acetone odor to breath. NECK: Trachea midline. No JVD or lymphadenopathy. Supple, nontender, no meningeal signs. CARDIOVASCULAR: Regular rate and rhythm without murmurs, gallops, or rubs. RESPIRATORY: Faint exp. wheeze, diminished at bases. GASTROINTESTINAL: Abdomen soft, non-tender, nondistended. No hepato-splenomegaly , or palpable masses. No guarding. MUSCULOSKELETAL: Extremities without clubbing, cyanosis, or edema. No joint tenderness, effusion, or edema noted. No calf tenderness. Negative Homans sign bilaterally. Left arm with AVF + B/T. Tenderness and mild swelling to left hand middle finger, dressing in place. NEUROLOGICAL: Awake, speech slightly dysarthric from previous stroke, slow to respond but otherwise appropriate, left upper extremity weakness, facial droop. Following commands. Urinary Catheter: No Vascular Central Line Catheter: No A/P Diagnosis: (1) Hyperglycemia due to type 1 diabetes mellitus (2) Leukocytosis (3) Vomiting (4) ESRD (end stage renal disease) (5) Hypertension (6) Anemia of renal disease (7) Lactic acid acidosis (8) Dehydration (9) Paronychia of left middle finger (10) CAD (coronary artery disease) (11) History of CVA with residual deficit (12) Hypokalemia Assessment and Plan 50-year-old male with history of type 1 diabetes and prior stroke, presented from skilled nursing with elevated blood glucose and reported nausea vomiting 2. Was found with lactic acidosis, mild fever 99, presence of paronychia left middle finger. Admitted for hyperglycemia, elevated hydroxybutyrate consistent with DKA, possible sepsis. -Continue with empiric antibiotics Follow cultures-negative so far Repeat lactic acid 1 Nausea and vomiting with dehydration, now resolved -monitor for now -Antiemetics PRN DKA Blood glucose has come down to 110, we will start sliding scale, Accu-Cheks before meals and at bedtime with insulin therapy as needed -labile blood sugars, today elevated 200s Paronychia, status post I&D of left middle finger -Follow cultures Continue with antibiotic End-stage renal disease on dialysis Saturday and Saturday Consult nephrology for management, input appreciated -nephro replaced K po History of CVA with residual left-sided weakness Continue with home medication History of Hypertension, blood pressure noted 100s BP remains 110, continue to hold Anxiety and depression Continue with home medication Heparin for DVT prophylaxis Protonix for GI prophylaxis Repeat labs in the morning PT eval and tx Labs reviewed, K replaced lactic acid better poss. discharge tomorrow based on cultures D/W RN D/W Dr. Galeana D/W pt and mother This patient was seen by myself and Dr. Galeana, this note is written on his behalf Problem Qualifiers (1) Leukocytosis: Qualified Code: D72.829 - Leukocytosis, unspecified type (2) Vomiting: Qualified Code: R11.2 - Non-intractable vomiting with nausea, unspecified vomiting type (3) Hypertension: Qualified Code: I10 - Essential hypertension (4) CAD (coronary artery disease): Qualified Code: I25.10 - Coronary artery disease involving teller coronary artery of teller heart without angina pectoris Yandy Goldstein Nov 05, 2016 14:17
[2016-11-05] MEDS ORDERED: AUGM500T7 PO (18:50)
[2016-11-05] MEDS ORDERED: LEVEMIR SQ (18:50)
[2016-11-05] MEDS: AMOXICILLIN/CLAVULANATE K 500 MG TAB PO SCH (20:34)
[2016-11-05] MEDS: INSULIN DETEMIR 100 UNITS/ML VIAL SQ SCH (20:34)
[2016-11-06] VITALS: BP 170/76; PULSE 80; RESP 18; TEMP 97.7; O2SAT 100
[2016-11-06] MEDS: AMOXICILLIN/CLAVULANATE K 500 MG TAB PO SCH ×2 (05:03→14:09)
[2016-11-06 05:55] VITALS: BP 181/79; PULSE 80; RESP 18; TEMP 96.4; O2SAT 99
[2016-11-06] MEDS: INSULIN ASPART SUPPLEMENTAL SCALE SQ SCH ×2 (06:32→11:00)
[2016-11-06 07:56] LABS: HEMATOCRIT 25.4 % (39.0-51.0); MEAN CELL VOLUME 98.6 FL (80.0-100.0); MEAN CORPUSCULAR HEMOGLOBIN 34.3 PG (27.0-34.0); MEAN CORPUSCULAR HGB CONC 34.8 % (32.0-36.0); PLATELET COUNT 167 TH/MM3 (150-450); RED BLOOD COUNT 2.58 MIL/MM3 (4.50-5.90); RED CELL DISTRIBUTION WIDTH 13.7 % (11.6-17.2); REVIEW FLAG FINAL; WHITE BLOOD COUNT 6.7 TH/MM3 (4.0-11.0)
[2016-11-06] MEDS: HEPARIN SODIUM - SQ 10,000 UNITS/ML VIAL SQ SCH (08:00)
[2016-11-06 08:08] LABS: BICARBONATE 27.8 MEQ/L (21.0-32.0); POTASSIUM 4.1 MEQ/L (3.5-5.1)
[2016-11-06] MEDS ORDERED: SEVELAMER CARBONATE 800 MG TAB PO SCH (09:00)
[2016-11-06] MEDS: ASPIRIN 81 MG CHEW TAB CHEW SCH (09:00)
[2016-11-06] MEDS: buPROPion HCL 75 MG TAB PO SCH ×2 (09:00→14:09)
[2016-11-06] MEDS ORDERED: CALCITRIOL 0.25 MCG CAP PO SCH (09:00)
[2016-11-06] MEDS: ESCITALOPRAM OXALATE 10 MG TAB PO SCH (09:00)
[2016-11-06] MEDS: SODIUM CHLORIDE 0.9% FLUSH 5 ML FLUSH FLUSH SCH (09:00)
[2016-11-06] MEDS: SEVELAMER CARBONATE 800 MG TAB PO SCH ×2 (09:00→14:10)
[2016-11-06] MEDS: TAMSULOSIN HCL 0.4 MG CAP PO SCH (09:00)
[2016-11-06] MEDS: PANTOPRAZOLE SOD 40 MG DELAYED RELEASE TAB PO SCH (09:00)
--- NOTE | 2016-11-06 09:55 | HHI.NPPN ---
Subjective History of Present Illness The patient is a 50 yo [place] male who is known to our services for ESRD on HD TTS. He came to this facility on 11/04 with complaints of vomiting. It was noted that his blood sugars were very elevated and a beta-hydroxybutyrate level was drawn which indicated that he was in DKA. He has a long-standing hx of DM and is often not controlled. He was also c/o L middle finger pain which was noted to have a paronychia which was drained. Did have his regular HD on Saturday that was uneventful. He reports no longer having nausea or vomiting. Interval History Seen during HD today. Tolerating session well. Resting. (Stella Faulkner) Objective Data Data 11/05/16 11/06/16 19:00 07:00 # Voids 4 2 # Bowel Movements 0 Vital Signs Date Time Temp Pulse Resp B/P Pulse Ox O2 Delivery O2 Flow Rate FiO2 11/06/16 05:55 96.4 80 18 181/79 99 11/06/16 00:00 97.7 80 18 170/76 100 11/05/16 23:30 79 11/05/16 21:00 97.9 83 18 171/74 97 11/05/16 15:35 97.5 100 20 137/76 99 11/05/16 11:05 97.9 90 20 118/61 96 11/05/16 10:55 98 21 (Stella Faulkner) -: 11/06/16 0630 11/06/16 0712 Medication Review Current Medications Medications (Trade) Dose Ordered Sig/Mateo Route Start Time Stop Time Status Last Admin (NS Flush) 2 ml UNSCH PRN IVF 11/04/16 06:15 (NS Flush) 2 ml UNSCH PRN FLUSH 11/04/16 07:30 (NS Flush) 2 ml BID FLUSH 11/04/16 09:00 11/05/16 20:34 (Tylenol) 650 mg Q4H PRN PO 11/04/16 07:30 (Zofran Inj) 4 mg Q6H PRN IVP 11/04/16 07:30 (Heparin Inj) 5,000 units Q12H SQ 11/04/16 08:00 11/05/16 20:34 (Narcan Inj) 0.4 mg UNSCH PRN IV 11/04/16 07:30 (D50w (Vial) Inj) 25 ml UNSCH PRN IV PUSH 11/04/16 07:45 (Glucagon Inj) 1 mg UNSCH PRN OTHER 11/04/16 07:45 (Aspirin Chew) 81 mg DAILY CHEW 11/04/16 10:00 11/05/16 09:13 (Wellbutrin) 75 mg TID PO 11/04/16 10:00 11/05/16 17:43 (Lexapro) 10 mg DAILY PO 11/04/16 10:00 11/05/16 09:13 (Flomax) 0.4 mg DAILY PO 11/04/16 10:00 11/05/16 09:14 (Protonix) 40 mg DAILY PO 11/05/16 09:00 11/05/16 09:13 ([place] 5-325 Mg) 1 tab Q4H PRN PO 11/04/16 17:00 11/05/16 20:35 (Morphine Inj) 2 mg Q3H PRN IV PUSH 11/04/16 17:00 (Levemir Inj) 4 units HS SQ 11/04/16 21:00 11/05/16 20:34 Sevelamer Carbonate 1600 mg 1,600 mg TID PO 11/06/16 09:00 (NS 1000 ml Inj) 1,000 ml @ 0 mls/hr Q0M PRN IV 11/05/16 10:03 Heparin Sodium (Porcine) 8000 units 8,000 units UNSCH PRN IVF 11/05/16 10:15 Sodium Chloride 1,000 ml @ 200 mls/hr Q5H PRN IV 11/05/16 10:03 (NS 1000 ml Inj) 1,000 ml @ 0 mls/hr Q0M PRN IV 11/05/16 10:03 (Mannitol Inj) 12.5 gm UNSCH PRN IV 11/05/16 10:15 (Albumin 25% Inj) 25 gm UNSCH PRN IV 11/05/16 10:15 (NS Flush) 5 ml UNSCH PRN IVF 11/05/16 10:15 (Heparin Inj) UNSCH PRN .XX 11/05/16 10:15 (Gentamicin (Dialysis) Inj) 20 mg UNSCH PRN IV 11/05/16 10:15 (Zofran Inj) 4 mg UNSCH PRN IV 11/05/16 10:15 (Tylenol) 650 mg UNSCH PRN PO 11/05/16 10:15 (Benadryl) 25 mg UNSCH PRN PO 11/05/16 10:15 (Nitrostat Sl) 0.4 mg UNSCH PRN SL 11/05/16 10:15 (Catapres) 0.1 mg UNSCH PRN PO 11/05/16 10:15 11/06/16 05:03 (Epogen Inj) 3,000 units UNSCH PRN IV 11/05/16 10:15 (Gelfoam 12 Mm/7 Mm Top) 1 foam UNSCH PRN TOP 11/05/16 10:15 (Rocaltrol) 1 mcg TuThSa PO 11/06/16 09:00 (Augmentin) 500 mg Q8HR PO 11/05/16 22:00 11/11/16 23:00 11/06/16 05:03 (Stella Faulkner) Physical Exam General Appearance: No Acute Distress, Comfortable (Stella Faulkner) Neck Neck Exam: Neck Supple, Trachea Midline (Stella Faulkner) Pulmonary Resp Exam: Clear Bilaterally, No Distress (Stella Faulkner) Cardiology CV Exam: Regular, Normal Sinus Rhythm (Stella Faulkner) Gastrointestinal/Abdomen GI Exam: Soft, Non-Tender (Stella Faulkner) Integumentary Skin Exam: Clear, Warm (Stella Faulkner) Extremeties Extremities Exam: Trace Edema Extremeties Remarks BLE (Stella Faulkner) Assessment/Plan Problem List: (1) ESRD (end stage renal disease) Plan: Seen during HD today. Continue TTS schedule Medications should be adjusted for the patient's ESRD. Avoid gadolinium. (2) DKA, type 1 Plan: Mgmt as per primary. (3) Hypokalemia Plan: Resolved with supplement (4) Anemia of renal disease Plan: Continue on Epo with HD (5) Hypertension Plan: BP stable. Continue on home regimen (6) Paronychia of left middle finger Plan: s/p I&D. Mgmt as per primary (Stella Faulkner) Plan The exam, history, and the medical decision-making described in the above note were completed with the assistance of the PA-C. I reviewed and agree with the findings presented. I attest that I had a [id number] encounter with the patient on the same day, and personally performed and documented my assessment and findings in the medical record. (Wilfredo Reyes MD) Problem Qualifiers (1) DKA, type 1: Qualified Code: E10.10 - Type 1 diabetes mellitus with ketoacidosis without coma (2) Hypertension: Qualified Code: I10 - Essential hypertension Stella Faulkner Nov 06, 2016 09:55 Wilfredo Reyes MD Nov 06, 2016 12:35
[2016-11-06 12:00] VITALS: BP 135/64; PULSE 80; RESP 18; TEMP 96.9; O2SAT 98
[2016-11-06 16:00] VITALS: BP 132/68; PULSE 80; RESP 20; TEMP 96.9; O2SAT 99
--- NOTE | 2016-11-06 18:38 | HHI.PR ---
Subjective Remarks No complaints of pain Alert, responsive Appetite good No chest pain no shortness of breath Objective Objective Results - Vital Signs Date Time Temp Pulse Resp B/P Pulse Ox O2 Delivery O2 Flow Rate FiO2 11/06/16 16:00 96.9 80 20 132/68 99 11/06/16 12:00 96.9 80 18 135/64 98 11/06/16 05:55 96.4 80 18 181/79 99 11/06/16 00:00 97.7 80 18 170/76 100 11/05/16 23:30 79 11/05/16 21:00 97.9 83 18 171/74 97 I/O 11/05/16 11/05/16 11/05/16 11/06/16 11/06/16 11/06/16 07:00 15:00 23:00 07:00 15:00 23:00 Intake Total 700 ml 360 ml Output Total 3400 ml Balance 700 ml -3040 ml Intake Oral 360 ml IV Total 700 ml Output Urine Total 400 ml Hemodialysis 3000 ml # Voids 2 4 2 # Bowel Movements 0 Result Diagram: 11/06/16 0630 11/06/16 0712 Physical Exam Physical Exam Physical Exam GENERAL: This is a well-nourished, chronically ill appearing male SKIN: No rashes, ecchymoses or lesions. Cool and dry. HEAD: Atraumatic. Normocephalic. No temporal or scalp tenderness. EYES: Pupils equal round and reactive. Extraocular motions intact. No scleral icterus. No injection or drainage. ENT: Nose without bleeding, purulent drainage or septal hematoma. Throat without erythema, tonsillar hypertrophy or exudate. Uvula midline. Airway patent. Acetone odor to breath. NECK: Trachea midline. No JVD or lymphadenopathy. Supple, nontender, no meningeal signs. CARDIOVASCULAR: Regular rate and rhythm without murmurs, gallops, or rubs. RESPIRATORY: Faint exp. wheeze, diminished at bases. GASTROINTESTINAL: Abdomen soft, non-tender, nondistended. No hepato-splenomegaly , or palpable masses. No guarding. MUSCULOSKELETAL: Extremities without clubbing, cyanosis, or edema. No joint tenderness, effusion, or edema noted. No calf tenderness. Negative Homans sign bilaterally. Left arm with AVF + B/T. Tenderness and mild swelling to left hand middle finger, dressing in place. NEUROLOGICAL: Awake, speech slightly dysarthric from previous stroke, slow to respond but otherwise appropriate, left upper extremity weakness, facial droop. Following commands. Urinary Catheter: No Vascular Central Line Catheter: No Objective Remarks Ready to go home A/P Assessment and Plan Diagnosis: (1) Hyperglycemia due to type 1 diabetes mellitus (2) Leukocytosis (3) Vomiting (4) ESRD (end stage renal disease) (5) Hypertension (6) Anemia of renal disease (7) Lactic acid acidosis (8) Dehydration (9) Paronychia of left middle finger (10) CAD (coronary artery disease) (11) History of CVA with residual deficit (12) Hypokalemia Assessment and Plan 50-year-old male with history of type 1 diabetes and prior stroke, [facility] elevated blood glucose and reported nausea vomiting 2. Was found with lactic acidosis, mild fever 99, presence of paronychia left middle finger. Admitted for hyperglycemia, elevated hydroxybutyrate consistent with DKA, possible sepsis. -Continue with empiric antibiotics Follow cultures-negative so far Repeat lactic acid 1 Nausea and vomiting with dehydration, now resolved -monitor for now -Antiemetics PRN DKA resolved Blood glucose has come down to 110, we will start sliding scale, Accu-Cheks before meals and at bedtime with insulin therapy as needed -labile blood sugars, today elevated 200s Paronychia, status post I&D of left middle finger -Follow cultures Continue with antibiotic End-stage renal disease on dialysis Saturday and Saturday Consult nephrology for management, input appreciated -nephro replaced K po stable History of CVA with residual left-sided weakness Continue with home medication History of Hypertension, blood pressure noted 100s BP remains 110, continue to hold Anxiety and depression Continue with home medication Heparin for DVT prophylaxis Protonix for GI prophylaxis Repeat labs in the morning PT eval and tx Labs reviewed, K replaced Patient is stable with labs and vital signs. Will return to SNF. Stable on discharge Discussed with Dr. Galeana Discharge Planning SNF Discussed With: Nurse, Family (patient), Other (Dr. Galeana. Patient seen on his behalf) Hortencia Birch Nov 06, 2016 18:38
--- NOTE | 2016-11-07 07:04 | HHI.DS ---
Discharge Summary Admission Date Nov 04, 2016 at 07:24 Discharge Date: Nov 06, 2016 Admitting Diagnosis DKA (1) Hyperglycemia due to type 1 diabetes mellitus Diagnosis: Principal (2) Leukocytosis Diagnosis: Principal (3) Vomiting Diagnosis: Secondary (4) ESRD (end stage renal disease) Diagnosis: Secondary (5) Hypertension Diagnosis: Secondary (6) Anemia of renal disease Diagnosis: Secondary (7) Lactic acid acidosis Diagnosis: Secondary (8) Dehydration Diagnosis: Secondary (9) Paronychia of left middle finger Diagnosis: Secondary (10) CAD (coronary artery disease) Diagnosis: Secondary (11) History of CVA with residual deficit Diagnosis: Secondary (12) Hypokalemia Diagnosis: Principal Brief History This was a 50-year-old male from a local [facility] with history of type 1 diabetes, prior CVA x 2 with left-sided weakness, end-stage renal disease on dialysis Saturday, hypertension, COPD, anxiety depression. Patient presented to the emergency room for evaluation of elevated blood sugars. Patient was also vomiting for the last 2 days, no reported fever, no chills. Emesis cleared color. He complained of pain to the left middle finger worse with palpation. Patient was evaluated in the emergency room, he was noted with leukocytosis, WBC 14, hemoglobin 10.2, hematocrit 29.2. Elevated neutrophil count, no bandemia. Lactic acid was 3.7. Blood glucose was 443, B- hydroxybutyrate was 4.17. Patient was given a 500 cc bolus normal saline, regular insulin 10 units IV push were given. Cultures were obtained, patient was started empirically on antibiotics. He underwent I&D of left middle finger paronychia. Patient is evaluated in room 1507. Denies any abdominal pain, no diarrhea, bowels are moving regularly no blood. Has not had any more episodes of nausea vomiting. Denies any recent cough. Chest x-ray does not reveal any significant findings. Patient was admitted for further evaluation and treatment. CBC/BMP: 11/06/16 0630 11/06/16 0712 Significant Findings Laboratory Tests Test 11/04/16 11/05/16 11/05/16 11/06/16 09:36 06:09 07:09 06:30 Potassium Level 3.3 MEQ/L 3.0 MEQ/L (3.5-5.1) (3.5-5.1) Blood Urea Nitrogen 29 MG/DL (7-18) 31 MG/DL (7-18) Creatinine 5.78 MG/DL 7.06 MG/DL (0.60-1.30) (0.60-1.30) Estimat Glomerular Filtration 10 ML/MIN (>89) 8 ML/MIN (>89) Rate Random Glucose 111 MG/DL 53 MG/DL (74-106) (74-106) White Blood Count 11.7 TH/MM3 (4.0-11.0) Red Blood Count 2.78 MIL/MM3 2.58 MIL/MM3 (4.50-5.90) (4.50-5.90) Hemoglobin 9.6 GM/DL 8.8 GM/DL (13.0-17.0) (13.0-17.0) Hematocrit 27.9 % 25.4 % (39.0-51.0) (39.0-51.0) Mean Corpuscular Volume 100.6 FL (80.0-100.0) Mean Corpuscular Hemoglobin 34.5 PG 34.3 PG (27.0-34.0) (27.0-34.0) Neutrophils (%) (Auto) 81.3 % (16.0-70.0) Neutrophils # (Auto) 9.5 TH/MM3 (1.8-7.7) Chloride Level 96 MEQ/L (98-107) Vitamin B12 Level GREATER THAN 2000 PG/ML (193-986) Folate GREATER THAN 20.0 NG/ML (3.1-17.5) Test 11/06/16 07:12 Sodium Level 133 MEQ/L (136-145) Chloride Level 92 MEQ/L (98-107) Blood Urea Nitrogen 34 MG/DL (7-18) Creatinine 8.85 MG/DL (0.60-1.30) Estimat Glomerular Filtration 6 ML/MIN (>89) Rate Random Glucose 156 MG/DL (74-106) Phosphorus Level 5.7 MG/DL (2.5-4.9) Albumin 2.7 GM/DL (3.4-5.0) Imaging Last Impressions Chest X-Ray 11/04/16 0000 Signed Impressions: Service Date/Time: Friday, November 04, 2016 07:14 - CONCLUSION: No acute disease. Thanh Borja MD PE at Discharge Physical Exam GENERAL: This is a well-nourished, chronically ill appearing male SKIN: No rashes, ecchymoses or lesions. Cool and dry. HEAD: Atraumatic. Normocephalic. No temporal or scalp tenderness. EYES: Pupils equal round and reactive. Extraocular motions intact. No scleral icterus. No injection or drainage. ENT: Nose without bleeding, purulent drainage or septal hematoma. Throat without erythema, tonsillar hypertrophy or exudate. Uvula midline. Airway patent. Acetone odor to breath. NECK: Trachea midline. No JVD or lymphadenopathy. Supple, nontender, no meningeal signs. CARDIOVASCULAR: Regular rate and rhythm without murmurs, gallops, or rubs. RESPIRATORY: Faint exp. wheeze, diminished at bases. GASTROINTESTINAL: Abdomen soft, non-tender, nondistended. No hepato-splenomegaly , or palpable masses. No guarding. MUSCULOSKELETAL: Extremities without clubbing, cyanosis, or edema. No joint tenderness, effusion, or edema noted. No calf tenderness. Negative Homans sign bilaterally. Left arm with AVF + B/T. Tenderness and mild swelling to left hand middle finger, dressing in place. NEUROLOGICAL: Awake, speech slightly dysarthric from previous stroke, slow to respond but otherwise appropriate, left upper extremity weakness, facial droop. Following commands. Urinary Catheter: No Vascular Central Line Catheter: No Objective Remarks Ready to go home Hospital Course These are the diagnosis used for patient treatment plan. (1) Hyperglycemia due to type 1 diabetes mellitus (2) Leukocytosis (3) Vomiting (4) ESRD (end stage renal disease) (5) Hypertension (6) Anemia of renal disease (7) Lactic acid acidosis (8) Dehydration (9) Paronychia of left middle finger (10) CAD (coronary artery disease) (11) History of CVA with residual deficit (12) Hypokalemia 50-year-old male with history of type 1 diabetes and prior stroke, presented from [facility] with elevated blood glucose and reported nausea vomiting 2. Was found with lactic acidosis, mild fever 99, presence of paronychia left middle finger. Admitted for hyperglycemia, elevated hydroxybutyrate consistent with DKA, possible sepsis. empiric antibiotics were initiated and continue through hospital stay. Blood cultures were done and had negative findings. Repeat lactic acid 1 for accurate medical plan. Other labs were treated for abnormals such as low Potassium level, and stablized. This was a relavant finding related to patient hyperglycemia and possible sepsis. Potassium given and stablized, verified with repeat labs. Gentle hydration stablized Nausea and vomiting and was monitored throughout hospital stay. -Antiemetics were given PRN DKA resolved quickly with appropriate treatment plan. Patient was chronically ill, but responded well to his fluids, insulin and meds that were reconciled. Blood glucose came down to 110, sliding scale was initiated , Accu-Cheks before meals and at bedtime with insulin therapy as needed stablized blood sugar. There were a few labile blood sugars elevated 200s, but were aggressively treated and normalized. Paronychia, status post I&D of left middle finger Wound cultures were followed Continue with antibiotic coverage per treatement plan. Stablized and will maintain antibiotics and plan. End-stage renal disease on dialysis Saturday and Saturday Consult nephrology for management, input appreciated -nephro replaced K po stable History of CVA with residual left-sided weakness Continue with home medication History of Hypertension, blood pressure noted 100s BP remains 110, continue to hold Anxiety and depression Continue with home medication during hospital stay. Heparin for DVT prophylaxis initiated along with Protonix for GI prophylaxis Repeat labs in the morning and monitored for positive trends. PT eval and treated during hospital stay for strengthing. Patient is stable with labs and vital signs on 11-06-16. Will return to SNF. Stable on discharge Patient examined day of discharge and agreed with plan to return to his home/ SNF. Pt Condition on Discharge: Stable Discharge Disposition: Discharge to SNF Discharge Instructions DIET: Follow Instructions for: Diabetic Diet Activities you can perform: Continue Bedrest New Medications: Amoxicillin-Clavulanate (Augmentin) 500-125 mg Tab 500 MG PO Q8HR Infection Days 7 TAB Insulin Detemir Inj (Levemir Inj) 1,000 unit/ 10 ML Vial 4 UNITS SQ HS diabetes #30 INJECTION Continued Medications: Amlodipine (Amlodipine) 10 Mg Tab 10 MG PO DAILY Blood Pressure Management #30 Ref 0 TAB Aspirin (Aspirin) 81 Mg Chew 81 MG CHEW DAILY Ref 0 TAB B-Complex W/ C & Folic Acid (Folbee Plus) 1 Tab 1 TAB PO DAILY Nutritional Supplement #30 Ref 0 TAB Bupropion HCl (Bupropion HCl) 75 Mg Tab 75 MG PO TID Control Depression Ref 0 TAB Escitalopram (Escitalopram) 10 Mg Tab 10 MG PO DAILY #30 Ref 0 TAB Ferrous Sulfate (Ferrous Sulfate) 325 Mg Tab 325 MG PO DAILY Nutritional Supplement #30 Ref 0 TAB Furosemide (Furosemide) 20 Mg Tab 20 MG PO DAILY #30 Ref 0 TAB Glucagon Inj (Glucagon Inj) 1 Mg/Ml Inj 1 MG IM ONCE PRN Blood Sugar Management #1 Ref 0 VIAL Hydralazine (Hydralazine) 100 Mg Tab 100 MG PO Q8HR Take with meals Blood Pressure Management Ref 0 TAB Insulin Aspart Inj (Novolog Inj) 1,000 Unit/10 Ml Vial 0 SQ DIRECTED Sliding Scale as directed. Blood Sugar Management #10 Ref 0 ML Lisinopril (Lisinopril) 40 Mg Tab 40 MG PO DAILY Blood Pressure Management #30 Ref 0 TAB Metoprolol Tartrate (Metoprolol Tartrate) 50 Mg Tab 75 MG PO BID #60 Ref 0 TAB Nutritional Supplements (Nepro) 1 Liq Liq Omeprazole (Omeprazole) 20 Mg Tab 20 MG PO DAILY #30 Ref 0 TAB Prochlorperazine Maleate (Prochlorperazine Maleate) 10 Mg Tab 10 MG PO Q4H PRN NAUSEA OR VOMITING Ref 0 TAB Sevelamer Carbonate (Renvela) 800 Mg Tab 800 MG PO TID Control phosphorous levels #90 Ref 0 TAB Tamsulosin (Tamsulosin) 0.4 Mg Cap 0.4 MG PO DAILY Manage Prostate Problems #30 Ref 0 CAP Discontinued Medications: Ibuprofen (Ibuprofen) 800 Mg Tab 800 MG PO Q8H PRN PAIN SCALE 1 TO 4 Ref 0 TAB Insulin Aspart Inj (Novolog Inj) 100 Unit/Ml Inj 15 SQ BID Insulin Aspart Inj (Novolog Inj) 100 Unit/Ml Inj 7 SQ HS Insulin Degludec Inj (Tresiba Flextouch Pen Inj) 300 unit/3 ML Pen 50 UNITS SQ HS Blood Sugar Management #15 Ref 0 ML Sevelamer Carbonate (Renvela) 800 Mg Tab 800 MG PO BID Control phosphorous levels #90 Ref 0 TAB Additional Information Follow up with PCP. Hortencia Birch Nov 07, 2016 07:04
== END 2016-11-06 17:39 ==
LOC: NEPC 05:54 → NEDA 07:24 → INTOOBSV 07:24 → N05A 08:46
PROVIDERS: ADMIT Specialist; ATTEND Specialist
DX: E10.10 Type 1 diabetes mellitus with ketoacidosis without coma (principal); D72.829 Elevated white blood cell count, unspecified; N18.6 End stage renal disease; I12.0 Hypertensive chronic kidney disease with stage 5 chronic kidney disease or end stage renal disease; D63.1 Anemia in chronic kidney disease; E10.22 Type 1 diabetes mellitus with diabetic chronic kidney disease; L03.012 Cellulitis of left finger; E86.0 Dehydration; E87.6 Hypokalemia; N25.81 Secondary hyperparathyroidism of renal origin; I25.10 Atherosclerotic heart disease of native coronary artery without angina pectoris; I69.354 Hemiplegia and hemiparesis following cerebral infarction affecting left non-dominant side; I69.320 Aphasia following cerebral infarction; J44.9 Chronic obstructive pulmonary disease, unspecified; F41.9 Anxiety disorder, unspecified; F32.9 Major depressive disorder, single episode, unspecified; I25.2 Old myocardial infarction; K21.9 Gastro-esophageal reflux disease without esophagitis; E78.00 Pure hypercholesterolemia, unspecified; F17.210 Nicotine dependence, cigarettes, uncomplicated; Z79.4 Long term (current) use of insulin; Z99.2 Dependence on renal dialysis
CPT/HCPCS: 10060; 36600; 71010; 80048; 80053; 80069; 82010; 82607; 82746; 82805; 82948; 83605; 83690; 83735; 83930; 84100; 85025; 85027; 87040; 92526; 92610; 96361; 96374; 97162; 99285; G0257; G0378; G8987; G8988; J1644; J1815; J2543; J7030; J7040; J7070; Q4081; 90935

== ENCOUNTER 2016-12-08 00:59 | Inpatient (IN) | payer MEDICARE, MEDICAID ==
[2016-12-08] VITALS (17 sets, daily range): BP systolic 19–125; BP diastolic 42–87; PULSE 86–109; RESP 14–24; TEMP 97.7–98.4; O2SAT 91–100
[~2016-12-08] VITALS: Ht 165.1 cm; Wt 57.9 kg
[~2016-12-08 00:59] MED LIST changes: -1-ME1LIQ PO; -ACET325 PO; +AMLO10TA2 PO; -ASPI1TAB7 PO; +ASPI81CH PO; +AUGM500T7 PO; -BISA10R PR; +BUPR75TA PO; -CLON.1 PO; -DIAL800T3 PO; +ESCI10TA PO; -FERR324T4 PO; +FERR325T PO; +FOLBTAB2 PO; -FURO20 PO; +FURO20TA PO; +GLUC0.8I2 IM; +HYDR-3801 PO; -HYDR100T2 PO; -IMOD2TAB PO; -LANTUS2P SQ; -LEVA250T14 PO; +LEVEMIR SQ; -LISI-366 PO; +LISI40TA PO; -LORTA5 PO; -MILKSUS5 PO; +NEPRLIQ; +OMEP20TA PO; -PARO40TA PO; -PRIL20CA PO; +PROC10TA PO; +TAMS0.4C4 PO; -TAMS0.4C67 PO
[2016-12-08] MEDS ORDERED: SODIUM CHLORIDE 0.9% FLUSH 5 ML FLUSH IVF PRN ×3 (01:15→11:30)
[2016-12-08] MEDS ORDERED: ONDANSETRON HCL 4 MG/2 ML VIAL IVP ONE (01:15)
[2016-12-08] MEDS ORDERED: SODIUM CHLOR 0.9% 250 ML INJ 250 ML IV ONE ×2 (01:15→02:15)
[2016-12-08] MEDS ORDERED: PANTOPRAZOLE INJ 80 MG in SODIUM CHLORIDE 0.9% INJ 100 ML IV SCH (02:15)
[2016-12-08] MEDS ORDERED: PANTOPRAZOLE INJ 80 MG in SODIUM CHLORIDE 0.9% INJ 35 ML IV ONE ×2 (02:15→05:15)
--- NOTE | 2016-12-08 02:39 | RADRPT ---
EXAM DATE/TIME: 12/08/2016 02:21 [facility] COMPARISON: CHEST SINGLE AP, November 04, 2016, 7:14. INDICATIONS : Cough. MEDICAL HISTORY : Myocardial infarction. SURGICAL HISTORY : None. ENCOUNTER: Initial ACUITY: 1 day PAIN SCORE: 0/10 LOCATION: Bilateral chest FINDINGS: A single view of the chest demonstrates the lungs to be symmetrically aerated without evidence of mas s, infiltrate or effusion. The cardiomediastinal contours are unremarkable. Osseous structures are intact. CONCLUSION: No acute disease. Bruce Mayorga MD on December 08, 2016 at 2:36 Board Certified Radiologist. This report was verified electronically.
[2016-12-08 02:59] LABS: AUTOMATED NEUTROPHIL # 14.8 TH/MM3 (1.8-7.7); BASOPHIL # 0.1 TH/MM3 (0-0.2); BASOPHIL % 0.4 % (0.0-2.0); BICARBONATE 9.6 MEQ/L (21.0-32.0); HEMATOCRIT 36.5 % (39.0-51.0); HEMO FLAGS DIFF FINAL; LYMPH % 2.1 % (9.0-44.0); LYMPHOCYTE # 0.3 TH/MM3 (1.0-4.8); MEAN CORPUSCULAR HEMOGLOBIN 33.9 PG (27.0-34.0); MONO % 6.6 % (0.0-8.0); NEUT % 90.9 % (16.0-70.0); PLATELET COUNT 197 TH/MM3 (150-450); POTASSIUM 4.8 MEQ/L (3.5-5.1); RED BLOOD COUNT 3.23 MIL/MM3 (4.50-5.90); RED CELL DISTRIBUTION WIDTH 15.9 % (11.6-17.2); WHITE BLOOD COUNT 16.3 TH/MM3 (4.0-11.0)
[2016-12-08 03:07] LABS: APTT (PATIENT) 24.1 SEC (24.3-30.1); PROTHROMBIN TIME - PATIENT 11.3 SEC (9.8-11.6)
[2016-12-08 03:12] LABS: BETA-HYDROXYBUTYRATE 10.97 MMOL/L (0.00-0.39); INDIRECT BILIRUBIN 0.6 MG/DL (0.0-0.8); TOTAL BILIRUBIN ADULT 0.7 MG/DL (0.2-1.0)
[2016-12-08] MEDS ORDERED: DEXT 5%-NACL 0.9% 1000 ML INJ 1,000 ML IV SCH ×3 (03:17→13:00)
[2016-12-08] MEDS ORDERED: SODIUM CHLORID 0.9% 500 ML INJ 500 ML IV ONE (03:30)
[2016-12-08] MEDS ORDERED: INSULIN HUMAN REGULAR 1,000 UNITS/10 ML VIAL IV PUSH ONE ×3 (03:30→05:30)
[2016-12-08] MEDS ORDERED: INSULIN REGULAR (IV INFUSION) 100 UNITS in SODIUM CHLORIDE 0.9% INJ 99 ML IV SCH ×2 (03:30→04:00)
[2016-12-08] MEDS ORDERED: POTASSIUM CHLOR 20 MEQ PREMIX 100 ML IV PRN ×4 (03:30)
[2016-12-08 03:50] LABS: BLOOD GAS BASE EXCESS -20.9 mmol/L (-2-2); BLOOD GAS HCO3 7 mmol/L (22-26); BLOOD GAS METHEMOGLOBIN 2.2 % (0-2); BLOOD GAS O2 HGB SATURATION 81 % (90-100); BLOOD GAS OXYGEN CONTENT 12.6 Vol % (12.0-20.0); BLOOD GAS PCO2 22 mmHg (38-42); BLOOD GAS PO2 66 mmHG (61-120); TEMP CORR TO 98.6
[2016-12-08 03:51] LABS: CRITICAL VALUE YES; DRAW SITE RT BRACHIAL; FIO2 21 %; NUMBER OF ARTERIAL PUNCTURES 1; STAT YES; ULNAR PULSE PRESENT
--- NOTE | 2016-12-08 03:58 | PD ---
HPI Chief Complaint: GI Complaint Time Seen by Provider: 01:12 Travel History International Travel<30 days: No Contact w/Intl Traveler<30days: No Traveled to known affect area: No History of Present Illness HPI Patient is a 51 year old male who is sent in from [place] for coffee ground emesis. He says that he has been vomiting dark brown for 4 days. He says he doesn't feel well. He is unable to provide much other history. He has been admitted for the past for DKA. PFSH Past Medical History Hx Anticoagulant Therapy: Yes Anemia: Yes Anxiety: Yes Depression: Yes Heart Rhythm Problems: No Cancer: No Cardiovascular Problems: Yes High Cholesterol: Yes Chest Pain: No Congestive Heart Failure: No Cerebrovascular Accident: Yes Coronary Artery Disease: Yes Diabetes: Yes Patient Takes Glucophage: No Dialysis: Yes (M,W,F) Diminished Hearing: No Endocrine: Yes Gastrointestinal Disorders: Yes (GERD) GERD: Yes Genitourinary: Yes Hiatal Hernia: No Hypertension: Yes Immune Disorder: No Kidney Stones: No Musculoskeletal: No Neurologic: Yes (TIA HX x2, ATAXIA) Psychiatric: Yes (ANXIETY/ DEPRESSION) Reproductive: No Respiratory: No Immunizations Current: Yes Myocardial Infarction: Yes (X 2) Pneumonia: Yes (X 2) Renal Failure: Yes Seizures: No Thyroid Disease: No Ulcer: No Past Surgical History Appendectomy: Yes Other Surgery: Yes (SHUNT PLACED TO LEFT ARM ) Social History Alcohol Use: No Tobacco Use: No (1/2 PPD) Substance Use: No Allergies-Medications (Allergen,Severity, Reaction): Coded Allergies: Bee Sting (Unverified Allergy, Severe, 11/04/16) Contrast Media (Unverified Allergy, Severe, 11/04/16) Reported Meds & Prescriptions Reported Meds & Active Scripts Active Levemir Inj (Insulin Detemir) 1,000 unit/ 10 ML Vial 4 Units SQ HS Augmentin (Amoxicillin-Clavulanate) 500-125 mg Tab 500 Mg PO Q8HR 7 Days Reported Prochlorperazine Maleate 10 Mg Tab 10 Mg PO Q4H PRN Glucagon Inj 1 Mg/Ml Inj 1 Mg IM ONCE PRN Novolog Inj (Insulin Aspart) 1,000 Unit/10 Ml Vial 0 SQ DIRECTED Sliding Scale as directed. Nepro (Nutritional Supplements) 1 Liq Liq Tamsulosin (Tamsulosin HCl) 0.4 Mg Cap 0.4 Mg PO DAILY Renvela (Sevelamer Carbonate) 800 Mg Tab 800 Mg PO TID Omeprazole 20 Mg Tab 20 Mg PO DAILY Metoprolol Tartrate 50 Mg Tab 75 Mg PO BID Lisinopril 40 Mg Tab 40 Mg PO DAILY Hydralazine (Hydralazine HCl) 100 Mg Tab 100 Mg PO Q8HR Take with meals Furosemide 20 Mg Tab 20 Mg PO DAILY Folbee Plus (B-Complex W/ C & Folic Acid) 1 Tab 1 Tab PO DAILY Ferrous Sulfate 325 Mg Tab 325 Mg PO DAILY Escitalopram (Escitalopram Oxalate) 10 Mg Tab 10 Mg PO DAILY Bupropion HCl 75 Mg Tab 75 Mg PO TID Aspirin 81 Mg Chew 81 Mg CHEW DAILY Amlodipine (Amlodipine Besylate) 10 Mg Tab 10 Mg PO DAILY Review of Systems ROS Limitations: Clinical Condition, Altered Mental Status Physical Exam Narrative GENERAL: Awake and alert, appears uncomfortable. Ketones on breath. SKIN: Warm and dry. HEAD: Atraumatic. Normocephalic. EYES: Pupils equal and round. No scleral icterus. ENT: Dry mucous membranes, dark brown sputum. NECK: Trachea midline. No JVD. CARDIOVASCULAR: Regular rate and rhythm. RESPIRATORY: No accessory muscle use. Clear to auscultation. Breath sounds equal bilaterally. GASTROINTESTINAL: Abdomen soft, non-tender, nondistended. MUSCULOSKELETAL: Extremities without clubbing, cyanosis, or edema. No obvious deformities. NEUROLOGICAL: Awake and alert. No obvious cranial nerve deficits. Motor grossly within normal limits. Five out of 5 muscle strength in the arms and legs. Data Data Last Documented VS Vital Signs Date Time Temp Pulse Resp B/P Pulse Ox O2 Delivery O2 Flow Rate FiO2 12/08/16 03:00 100 22 115/50 91 Nasal Cannula 2 Orders Basic Metabolic Panel (Bmp) (12/08/16 01:12) Complete Blood Count With Diff (12/08/16 01:12) Lipase (12/08/16 01:12) Lactic Acid (12/08/16 01:12) Prothrombin Time / Inr (Pt) (12/08/16 01:12) Act Partial Throm Time (Ptt) (12/08/16 01:12) Urinalysis - C+S If Indicated (12/08/16 01:12) Ua Includes Microscopic (12/08/16 01:12) Iv Access Insert/Monitor (12/08/16 01:12) Ecg Monitoring (12/08/16 01:12) Oximetry (12/08/16 01:12) Ondansetron Inj (Zofran Inj) (12/08/16 01:15) Sodium Chloride 0.9% Flush (Ns Flush) (12/08/16 01:15) Hepatic Functional Panel (12/08/16 01:12) Beta Hydroxybutyrate (Acetone) (12/08/16 01:12) Sodium Chlor 0.9% 250 Ml Inj (Ns 250 Ml (12/08/16 01:15) Chest, Single Ap (12/08/16 ) Sodium Chlor 0.9% 250 Ml Inj (Ns 250 Ml (12/08/16 02:15) Pantoprazole Inj (Protonix Inj) (12/08/16 02:15) Pantoprazole Inj (Protonix Inj) (12/08/16 02:15) Dext 5%-Nacl 0.9% 1000 Ml Inj (D5w-Ns 10 (12/08/16 03:17) Insulin Human Regular Inj (Novolin R Inj (12/08/16 03:30) Insulin Regular (Iv Infusion) (Novolin R (12/08/16 03:30) Potassium Chlor 20 Meq Premix (Kcl 20 Me (12/08/16 03:30) Potassium Chlor 20 Meq Premix (Kcl 20 Me (12/08/16 03:30) Potassium Chlor 20 Meq Premix (Kcl 20 Me (12/08/16 03:30) Potassium Chlor 20 Meq Premix (Kcl 20 Me (12/08/16 03:30) Sodium Chlorid 0.9% 500 Ml Inj (Ns 500 M (12/08/16 03:30) Dext 5%-Nacl 0.9% 1000 Ml Inj (D5w-Ns 10 (12/08/16 03:19) Insulin Human Regular Inj (Novolin R Inj (12/08/16 03:30) Arterial Blood Gas (Abg) (12/08/16 03:33) Sodium Chlor 0.9% 1000 Ml Inj (Ns 1000 M (12/08/16 04:00) ^ Notify Dr: Other (12/08/16 03:55) Bedside Glucose .As Directed (12/08/16 03:55) ^ Hypoglycemia Cc <80 Mg/Dl (12/08/16 03:55) Insulin Regular (Iv Infusion) (Novolin R (12/08/16 04:00) Dextrose 50% In Jacquelyn (Vial) Inj (D50w (Vi (12/08/16 04:00) Misc Information (12/08/16 04:00) Sodium Chlor 0.9% 1000 Ml Inj (Ns 1000 M (12/08/16 04:00) Sodium Bicarbonate 8.4% Inj (Sodium Bica (12/08/16 04:00) Sodium Bicarbonate 8.4% Inj (Sodium Bica (12/08/16 04:00) Blood Culture (12/08/16 03:56) Troponin I (12/08/16 03:56) Admit Order (Ed Use Only) (12/08/16 ) Consult Gastroenterology (12/08/16 ) Labs Laboratory Tests Test 12/08/16 12/08/16 12/08/16 01:12 02:10 03:33 Lactic Acid Level 4.1 mmol/L White Blood Count 16.3 TH/MM3 Red Blood Count 3.23 MIL/MM3 Hemoglobin 11.0 GM/DL Hematocrit 36.5 % Mean Corpuscular Volume 113.0 FL Mean Corpuscular Hemoglobin 33.9 PG Mean Corpuscular Hemoglobin 30.0 % Concent Red Cell Distribution Width 15.9 % Platelet Count 197 TH/MM3 Mean Platelet Volume 9.9 FL Neutrophils (%) (Auto) 90.9 % Lymphocytes (%) (Auto) 2.1 % Monocytes (%) (Auto) 6.6 % Eosinophils (%) (Auto) 0.0 % Basophils (%) (Auto) 0.4 % Neutrophils # (Auto) 14.8 TH/MM3 Lymphocytes # (Auto) 0.3 TH/MM3 Monocytes # (Auto) 1.1 TH/MM3 Eosinophils # (Auto) 0.0 TH/MM3 Basophils # (Auto) 0.1 TH/MM3 CBC Comment DIFF FINAL Differential Comment Prothrombin Time 11.3 SEC Prothromb Time International 1.0 RATIO Ratio Activated Partial 24.1 SEC Thromboplast Time Sodium Level 130 MEQ/L Potassium Level 4.8 MEQ/L Chloride Level 86 MEQ/L Carbon Dioxide Level 9.6 MEQ/L Anion Gap 34 MEQ/L Blood Urea Nitrogen 67 MG/DL Creatinine 7.81 MG/DL Estimat Glomerular Filtration 7 ML/MIN Rate Random Glucose 929 MG/DL Calcium Level 9.0 MG/DL Total Bilirubin 0.7 MG/DL Direct Bilirubin 0.1 MG/DL Indirect Bilirubin 0.6 MG/DL Aspartate Amino Transf 17 U/L (AST/SGOT) Alanine Aminotransferase 17 U/L (ALT/SGPT) Alkaline Phosphatase 120 U/L Total Protein 5.9 GM/DL Albumin 2.7 GM/DL Lipase 54 U/L B-Hydroxybutyrate 10.97 MMOL/L Blood Gas Puncture Site RT BRACHIAL Blood Gas Patient Temperature 98.6 Blood Gas HCO3 7 mmol/L Blood Gas Base Excess -20.9 mmol/L Blood Gas Oxygen Saturation 81 % Arterial Blood pH 7.12 Arterial Blood Partial 22 mmHg Pressure CO2 Arterial Blood Partial 66 mmHG Pressure O2 Arterial Blood Oxygen Content 12.6 Vol % Arterial Blood 2.0 % Carboxyhemoglobin Arterial Blood Methemoglobin 2.2 % Blood Gas Hemoglobin 11.0 G/DL Blood Gas Inspired Oxygen 21 % MDM Medical Decision Making Medical Screen Exam Complete: Yes Emergency Medical Condition: Yes Medical Record Reviewed: Yes Differential Diagnosis DKA vs GI bleed vs sepsis Narrative Course Patient is a 51 year old male who comes in because of coffee ground emesis at his [place]. Exam shows patient smells of ketones, is obviously uncomfortable. IV established, patient placed on panel monitor. Labs show glucose of 929. AG is 34 and pH is 7.1 Patient given IVF, with careful attention paid to not fluid overload due to ESRD. Given Insulin bolus and started on Insulin drip. Started on protonix for history of coffee ground emesis. Patient admitted to the ICU. Critical Care Narrative Critical Care: The total critical care time was 35 minutes. Time to perform other separately billable procedures was not included in the critical care time. [facility] Point of Care Internal Pos. & Neg. Controls: Passed Fecal Specimen Occult Blood: Negative Diagnosis Primary Impression: DKA, type 1 Qualified Code: E10.10 - Type 1 diabetes mellitus with ketoacidosis without coma Additional Impressions: UGIB (upper gastrointestinal bleed) Lactic acidosis Admitting Information Admitting Physician Requests: Admit Shakira Troy MD Dec 08, 2016 03:58
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
[2016-12-08] MEDS ORDERED: MISC INFORMATION XX ONE (04:00)
[2016-12-08] MEDS ORDERED: RESP: ALBUTEROL 2.5 MG/IPRATROPIUM 0.5 MG NEB (PRN) INH (04:00)
[2016-12-08] MEDS ORDERED: MISCELLANEOUS NURSING INFORMATION XX SCH (04:00)
[2016-12-08] MEDS ORDERED: CHLORHEXIDINE GLUCONATE 2 % 1 PACK (2 CLOTHS) TOP PRN (04:00)
[2016-12-08] MEDS ORDERED: SODIUM CHLOR 0.9% 1000 ML INJ 1,000 ML IV ONE ×4 (04:00→09:15)
[2016-12-08] MEDS ORDERED: SODIUM CHLOR 0.9% 1000 ML INJ 1,000 ML IV SCH (04:00)
[2016-12-08] MEDS ORDERED: DEXTROSE 50% IN WATER 50 ML VIAL(D50) IV PUSH PRN (04:00)
[2016-12-08] MEDS ORDERED: SODIUM BICARBONATE 8.4% INJ 50 MEQ/50 ML SYR IV PUSH ONE ×2 (04:00)
[2016-12-08] MEDS ORDERED: SODIUM CHLORIDE 0.9% FLUSH 5 ML FLUSH IV FLUSH PRN (04:00)
[2016-12-08] MEDS ORDERED: Vancomycin Consult Pharmacy 1 EA OTHER SCH (04:15)
[2016-12-08] MEDS: PIPERACIL-TAZO 2.25 GM PREMIX 50 ML IV SCH ×3 (04:35→19:50)
[2016-12-08] MEDS ORDERED: VANCOMYCIN INJ 1,000 MG in SODIUM CHLOR 0.9% 250 ML INJ 250 ML IV ONE (05:00)
[2016-12-08 05:41] LABS: BLOOD GAS BASE EXCESS -15.2 mmol/L (-2-2); BLOOD GAS CARBOXYHEMOGLOBIN 2.5 % (0-4); BLOOD GAS HCO3 10 mmol/L (22-26); BLOOD GAS METHEMOGLOBIN 2.2 % (0-2); BLOOD GAS O2 HGB SATURATION 93 % (90-100); BLOOD GAS OXYGEN CONTENT 14.4 Vol % (12.0-20.0); BLOOD GAS PCO2 23 mmHg (38-42); BLOOD GAS PO2 138 mmHG (61-120); BLOOD GAS TOTAL HGB 10.8 G/DL (12.0-16.0); TEMP CORR TO 98.6
[2016-12-08 05:42] LABS: CRITICAL VALUE YES; DRAW SITE RT BRACHIAL; FIO2 21 %; NUMBER OF ARTERIAL PUNCTURES 1; ULNAR PULSE PRESENT
[2016-12-08 05:43] LABS: STAT NO
[2016-12-08 09:49] LABS: BLOOD GAS BASE EXCESS -3.2 mmol/L (-2-2); BLOOD GAS CARBOXYHEMOGLOBIN 2.2 % (0-4); BLOOD GAS HCO3 21 mmol/L (22-26); BLOOD GAS METHEMOGLOBIN 1.3 % (0-2); BLOOD GAS O2 HGB SATURATION 96 % (90-100); BLOOD GAS OXYGEN CONTENT 14.4 Vol % (12.0-20.0); BLOOD GAS PCO2 34 mmHg (38-42); BLOOD GAS PO2 155 mmHg (61-120); BLOOD GAS TOTAL HGB 10.5 G/DL (12.0-16.0); CRITICAL VALUE NO; DRAW SITE RT BRACHIAL; LITER FLOW 3 L/M; NUMBER OF ARTERIAL PUNCTURES 1; OXYGEN DEVICE NASAL CANNULA; STAT NO; TEMP CORR TO 98.6; ULNAR PULSE PRESENT
[2016-12-08] MEDS: SODIUM CHLORIDE 0.9% FLUSH 5 ML FLUSH IV FLUSH SCH ×2 (10:06→19:49)
[2016-12-08 11:22] LABS: BICARBONATE 13.1 MEQ/L (21.0-32.0)
[2016-12-08] MEDS ORDERED: SODIUM CHLOR 0.9% 1000 ML INJ 1,000 ML IV PRN ×5 (11:22→11:25)
[2016-12-08] MEDS ORDERED: ALBUMIN HUMAN 25% 25 GM/100 ML BAGP IV PRN ×2 (11:30)
[2016-12-08] MEDS ORDERED: ONDANSETRON HCL 4 MG/2 ML VIAL IV PRN ×2 (11:30)
[2016-12-08] MEDS ORDERED: diphenhydrAMINE HCL 25 MG CAP PO PRN ×2 (11:30)
[2016-12-08] MEDS ORDERED: NITROGLYCERIN 0.4 MG SL 25 TABS/BTL SL PRN ×2 (11:30)
[2016-12-08] MEDS ORDERED: ACETAMINOPHEN 325 MG TAB PO PRN ×2 (11:30)
[2016-12-08] MEDS ORDERED: GENTAMICIN SULFATE (DIALYSIS USE ONLY) 20 MG/2 ML VIAL IV PRN ×2 (11:30)
[2016-12-08] MEDS ORDERED: GELATIN 12 MM/7 MM FOAM TOP PRN (11:30)
[2016-12-08] MEDS ORDERED: cloNIDine HCL 0.1 MG TAB PO PRN ×2 (11:30)
[2016-12-08] MEDS ORDERED: HEPARIN SODIUM - IV 10,000 UNITS/10 ML VIAL IVF PRN ×2 (11:30)
[2016-12-08] MEDS ORDERED: HEPARIN SODIUM - IV 10,000 UNITS/10 ML VIAL PRN ×2 (11:30)
[2016-12-08] MEDS ORDERED: MANNITOL 12.5 GM/50 ML VIAL IV PRN ×2 (11:30)
[2016-12-08 11:43] LABS: CALCIUM-PROTEIN CORRECTED 7.7 MG/DL (8.5-10.1)
[2016-12-08 11:45] LABS: POTASSIUM 2.3 MEQ/L (3.5-5.1)
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
[2016-12-08] MEDS: GELATIN 12 MM/7 MM FOAM TOP PRN (14:30)
--- NOTE | 2016-12-08 14:50 | PD.CONS ---
HPI Consult Requested By Reason for Consult End-stage renal disease. Primary Care Physician Steve Tobar M.D. History of Present Illness This patient is a 51-year-old male with a history of multiple medical problems including diabetes mellitus, hypertension, previous CVA and end-stage renal disease. Patient receives hemodialysis as an outpatient TTS. Patient presented to the emergency room with hematemesis but was subsequently noted to have a blood sugar of 929 and evidence of metabolic acidosis. Patient also hypotensive. Being treated empirically for possible sepsis by critical care as well as for diabetic ketoacidosis. Review of Systems Constitutional: COMPLAINS OF: Weight loss, Change in appetite, DENIES: Diaphoretic episodes, Fatigue, Fever, Weight gain, Chills, Dizziness, Night Sweats Cardiovascular: DENIES: Chest pain, Palpitations, Syncope, Dyspnea on Exertion , PND, Lower Extremity Edema, Orthopnea, Claudication Gastrointestinal: COMPLAINS OF: Vomiting, DENIES: Abdominal pain, Black stools , Bloody stools, Constipation, Diarrhea, Nausea, Difficulty Swallowing, Anorexia Musculoskeletal: COMPLAINS OF: Joint pain, DENIES: Muscle aches, Stiffness, Joint Swelling, Back pain, Neck pain Psychiatric: COMPLAINS OF: Confusion Past Family Social History Allergies: Coded Allergies: Bee Sting (Unverified Allergy, Severe, 11/04/16) Contrast Media (Unverified Allergy, Severe, 11/04/16) Past Medical History End-stage renal disease Diabetes mellitus Hypertension History of CVA Anemia renal disease Secondary hyperparathyroidism of renal disease COPD. Past Surgical History Placement of a left upper extremity brachiocephalic fistula. Appendectomy. Reported Medications Reported Meds & Active Scripts Active Levemir Inj (Insulin Detemir) 1,000 unit/ 10 ML Vial 4 Units SQ HS Augmentin (Amoxicillin-Clavulanate) 500-125 mg Tab 500 Mg PO Q8HR 7 Days Reported Prochlorperazine Maleate 10 Mg Tab 10 Mg PO Q4H PRN Glucagon Inj 1 Mg/Ml Inj 1 Mg IM ONCE PRN Novolog Inj (Insulin Aspart) 1,000 Unit/10 Ml Vial 0 SQ DIRECTED Sliding Scale as directed. Nepro (Nutritional Supplements) 1 Liq Liq Tamsulosin (Tamsulosin HCl) 0.4 Mg Cap 0.4 Mg PO DAILY Renvela (Sevelamer Carbonate) 800 Mg Tab 800 Mg PO TID Omeprazole 20 Mg Tab 20 Mg PO DAILY Metoprolol Tartrate 50 Mg Tab 75 Mg PO BID Lisinopril 40 Mg Tab 40 Mg PO DAILY Hydralazine (Hydralazine HCl) 100 Mg Tab 100 Mg PO Q8HR Take with meals Furosemide 20 Mg Tab 20 Mg PO DAILY Folbee Plus (B-Complex W/ C & Folic Acid) 1 Tab 1 Tab PO DAILY Ferrous Sulfate 325 Mg Tab 325 Mg PO DAILY Escitalopram (Escitalopram Oxalate) 10 Mg Tab 10 Mg PO DAILY Bupropion HCl 75 Mg Tab 75 Mg PO TID Aspirin 81 Mg Chew 81 Mg CHEW DAILY Amlodipine (Amlodipine Besylate) 10 Mg Tab 10 Mg PO DAILY Active Ordered Medications Current Medications Ondansetron HCl (Zofran Inj) 4 mg ONCE ONCE IVP Last administered on 12/08/16 01:48; Start 12/08/16 at 01:15; Stop 12/08/16 at 01:16; Status DC IV Flush 2 ml 2 ml UNSCH PRN IVF FLUSH AFTER USING IV ACCESS; Start 12/08/16 at 01:15; Stop 12/08/16 at 04:08; Status DC Sodium Chloride 250 ml @ 250 mls/hr BOLUS ONCE IV Last administered on 01:47; Start 12/08/16 at 01:15; Stop 12/08/16 at 02:14; Status DC Sodium Chloride 250 ml @ 250 mls/hr BOLUS ONCE IV Last administered on 02:20; Start 12/08/16 at 02:15; Stop 12/08/16 at 03:14; Status DC Pantoprazole Sodium 80 mg/ Sodium Chloride 100 ml @ 10 mls/hr CONTINUOUS IV Last administered on 12/08/16 03:49; Start 12/08/16 at 02:15; Stop 12/08/16 at 06: 21; Status DC Pantoprazole Sodium 80 mg/ Sodium Chloride 35 ml @ 420 mls/hr BOLUS ONCE IV Last administered on 12/08/16 02:20; Start 12/08/16 at 02:15; Stop 12/08/16 at 02: 19; Status DC Dextrose/Sodium Chloride (D5W-NS 1000 ml Inj) 1,000 ml @ 200 mls/hr Q5H IV ; Start 12/08/16 at 03:17; Stop 12/08/16 at 03:26; Status DC Insulin Human Regular 6 units 6 units BOLUS ONCE IV PUSH ; Start 12/08/16 at 03: 30; Stop 12/08/16 at 03:30; Status DC Insulin Human Regular 100 units/ Sodium Chloride 100 ml @ 0 mls/hr TITRATE IV ; Start 12/08/16 at 03:30; Stop 12/08/16 at 03:30; Status DC Potassium Chloride 100 ml @ 50 mls/hr Q2H PRN IV SEE LABEL COMMENTS; Start 12/08/16 at 03:30; Stop 12/08/16 at 03:30; Status DC Potassium Chloride 100 ml @ 50 mls/hr Q2H PRN IV SEE LABEL COMMENTS; Start 12/08/16 at 03:30; Stop 12/08/16 at 03:30; Status DC Potassium Chloride 100 ml @ 50 mls/hr Q2H PRN IV SEE LABEL COMMENTS; Start 12/08/16 at 03:30; Stop 12/08/16 at 03:30; Status DC Potassium Chloride 100 ml @ 50 mls/hr Q2H PRN IV SEE LABEL COMMENTS; Start 12/08/16 at 03:30; Stop 12/08/16 at 03:30; Status DC Sodium Chloride 500 ml @ 500 mls/hr BOLUS ONCE IV Last administered on 03:41; Start 12/08/16 at 03:30; Stop 12/08/16 at 04:29; Status DC Dextrose/Sodium Chloride (D5W-NS 1000 ml Inj) 1,000 ml @ 200 mls/hr Q5H IV ; Start 12/08/16 at 03:19; Stop 12/08/16 at 12:29; Status DC Insulin Human Regular 6 units 6 units BOLUS ONCE IV PUSH Last administered on 12/08/16 03:42; Start 12/08/16 at 03:30; Stop 12/08/16 at 03:31; Status DC Sodium Chloride 1,000 ml @ 999 mls/hr BOLUS ONCE IV Last administered on 04:13; Start 12/08/16 at 04:00; Stop 12/08/16 at 05:00; Status DC Insulin Human Regular/Sodium Chloride (NovoLIN R (IV INFUSION)/NS Inj) 100 ml @ 0 mls/hr TITRATE IV Last administered on 3/4/17at 04:37; Start 12/08/16 at 04:00 Dextrose (D50w (Vial) Inj) 25 ml UNSCH PRN IV PUSH SEE LABEL COMMENTS; Start at 04:00 Miscellaneous Information 1 1 ONCE ONCE XX ; Start 12/08/16 at 04:00; Stop at 04:01; Status DC Sodium Chloride (NS 1000 ml Inj) 1,000 ml @ 50 mls/hr Q20H IV ; Start 12/08/16 at 04:00 Sodium Bicarbonate (Sodium Bicarbonate 8.4% Inj) 50 meq ONCE ONCE IV PUSH Last administered on 12/08/16 04:12; Start 12/08/16 at 04:00; Stop 12/08/16 at 04: 01; Status DC Sodium Bicarbonate (Sodium Bicarbonate 8.4% Inj) 50 meq ONCE ONCE IV PUSH Last administered on 12/08/16 04:24; Start 12/08/16 at 04:00; Stop 12/08/16 at 04: 01; Status DC IV Flush (NS Flush) 2 ml UNSCH PRN IV FLUSH FLUSH AFTER USING IV ACCESS; Start 12/08/16 at 04:00 IV Flush (NS Flush) 2 ml BID IV FLUSH Last administered on 12/08/16 10:06; Start 12/08/16 at 09:00 Albuterol/ Ipratropium (Duoneb Neb) 1 ampule Q4HR NEB PRN INH WHEEZING; Start 12/08/16 at 04:00 Miscellaneous Information 1 Q361D XX ; Start 12/08/16 at 04:00 Chlorhexidine Gluconate (Chlorhexidine 2% Cloth) 3 pack Taper DAILY@04 TOP ; Start 12/08/16 at 04:00; Stop 12/04/17 at 03:59 Chlorhexidine Gluconate 3 pack 3 pack UNSCH PRN TOP HYGIENIC CARE; Start at 04:00 Pantoprazole Sodium 80 mg/ Sodium Chloride 35 ml @ 420 mls/hr ONCE ONCE IV ; Start 12/08/16 at 05:15; Stop 12/08/16 at 05:19; Status DC Pantoprazole Sodium 80 mg/ Sodium Chloride 100 ml @ 10 mls/hr Q10H IV ; Start 12/08/16 at 05:15 Piperacillin Sod/ Tazobactam Sod 50 ml @ 100 mls/hr Q8H IV Last administered on 12/08/16 12:12; Start 12/08/16 at 04:15 Vancomycin HCl 1000 mg/Sodium Chloride 250 ml @ 250 mls/hr ONCE ONCE IV ; Start 12/08/16 at 05:00; Stop 12/08/16 at 05:59; Status DC Pharmacy Profile Note 0 ml @ 0 mls/hr UNSCH OTHER ; Start 12/08/16 at 04:15; Stop 12/08/16 at 11:22; Status DC Sodium Chloride (NS 1000 ml Inj) 1,000 ml @ 999 mls/hr BOLUS ONCE IV ; Start 12/08/16 at 05:30; Stop 12/08/16 at 06:30; Status DC Insulin Human Regular 10 units 10 units ONCE ONCE IV PUSH Last administered on 12/08/16 05:00; Start 12/08/16 at 05:30; Stop 12/08/16 at 05:31; Status DC Sodium Chloride 1,000 ml @ 999 mls/hr BOLUS ONCE IV Last administered on 10:06; Start 12/08/16 at 08:15; Stop 12/08/16 at 09:15; Status DC Sodium Chloride 1,000 ml @ 999 mls/hr BOLUS ONCE IV Last administered on 10:06; Start 12/08/16 at 09:15; Stop 12/08/16 at 10:21; Status DC Sodium Chloride (NS 1000 ml Inj) 1,000 ml @ 0 mls/hr Q0M PRN IV For Prime & Rinse Back; Start 12/08/16 at 11:25; Status UNV Heparin Sodium (Porcine) 8000 units 8,000 units UNSCH PRN IVF WITH DIALYSIS; Start 12/08/16 at 11:30; Status UNV Sodium Chloride 1,000 ml @ 200 mls/hr Q5H PRN IV WITH DIALYSIS; Start 12/08/16 at 11:25; Status UNV Sodium Chloride (NS 1000 ml Inj) 1,000 ml @ 0 mls/hr Q0M PRN IV WITH DIALYSIS; Start 12/08/16 at 11:25; Status UNV Mannitol (Mannitol Inj) 12.5 gm UNSCH PRN IV WITH DIALYSIS; Start 12/08/16 at 11 :30; Status UNV Albumin Human (Albumin 25% Inj) 25 gm UNSCH PRN IV WITH DIALYSIS; Start at 11:30; Status UNV IV Flush (NS Flush) 5 ml UNSCH PRN IVF WITH DIALYSIS; Start 12/08/16 at 11:30; Status UNV Heparin Sodium (Porcine) (Heparin Inj) UNSCH PRN .XX WITH DIALYSIS; Start 12/08 at 11:30; Status UNV Gentamicin Sulfate (Gentamicin (Dialysis) Inj) 20 mg UNSCH PRN IV WITH DIALYSIS ; Start 12/08/16 at 11:30; Status UNV Ondansetron HCl (Zofran Inj) 4 mg UNSCH PRN IV WITH DIALYSIS; Start 12/08/16 at 11:30; Status UNV Acetaminophen (Tylenol) 650 mg UNSCH PRN PO for headach, pain, temp > 101F; Start 12/08/16 at 11:30; Status UNV Diphenhydramine HCl (Benadryl) 25 mg UNSCH PRN PO for hives/itching/anaphylaxis ; Start 12/08/16 at 11:30; Status UNV Nitroglycerin (Nitrostat Sl) 0.4 mg UNSCH PRN SL CHEST PAIN; Start 12/08/16 at 11:30; Status UNV Clonidine (Catapres) 0.1 mg UNSCH PRN PO for BP > 180/100 X 2 readings; Start 12/08/16 at 11:30; Status UNV Gelatin 1 foam 1 foam UNSCH PRN TOP SEE LABEL COMMENTS; Start 12/08/16 at 11:30 ; Status UNV Sodium Chloride (NS 1000 ml Inj) 1,000 ml @ 0 mls/hr Q0M PRN IV For Prime & Rinse Back; Start 12/08/16 at 11:22 Heparin Sodium (Porcine) 8000 units 8,000 units UNSCH PRN IVF WITH DIALYSIS; Start 12/08/16 at 11:30 Sodium Chloride 1,000 ml @ 200 mls/hr Q5H PRN IV WITH DIALYSIS; Start 12/08/16 at 11:22 Sodium Chloride (NS 1000 ml Inj) 1,000 ml @ 0 mls/hr Q0M PRN IV WITH DIALYSIS; Start 12/08/16 at 11:22 Mannitol (Mannitol Inj) 12.5 gm UNSCH PRN IV WITH DIALYSIS; Start 12/08/16 at 11 :30 Albumin Human (Albumin 25% Inj) 25 gm UNSCH PRN IV WITH DIALYSIS; Start at 11:30 IV Flush (NS Flush) 5 ml UNSCH PRN IVF WITH DIALYSIS; Start 12/08/16 at 11:30 Heparin Sodium (Porcine) (Heparin Inj) UNSCH PRN .XX WITH DIALYSIS; Start 12/08 at 11:30 Gentamicin Sulfate (Gentamicin (Dialysis) Inj) 20 mg UNSCH PRN IV WITH DIALYSIS ; Start 12/08/16 at 11:30 Ondansetron HCl (Zofran Inj) 4 mg UNSCH PRN IV WITH DIALYSIS; Start 12/08/16 at 11:30 Acetaminophen (Tylenol) 650 mg UNSCH PRN PO for headach, pain, temp > 101F; Start 12/08/16 at 11:30 Diphenhydramine HCl (Benadryl) 25 mg UNSCH PRN PO for hives/itching/anaphylaxis ; Start 12/08/16 at 11:30 Nitroglycerin (Nitrostat Sl) 0.4 mg UNSCH PRN SL CHEST PAIN; Start 12/08/16 at 11:30 Clonidine (Catapres) 0.1 mg UNSCH PRN PO for BP > 180/100 X 2 readings; Start 12/08/16 at 11:30 Gelatin 1 foam 1 foam UNSCH PRN TOP SEE LABEL COMMENTS Last administered on 12/08 14:30; Start 12/08/16 at 11:30 Dextrose/Sodium Chloride (D5W-NS 1000 ml Inj) 1,000 ml @ 50 mls/hr Q20H IV Last administered on 12/08/16 13:24; Start 12/08/16 at 13:00 Family History Noncontributory to current complaint. Social History No current history of alcohol or illicit drug use. Physical Exam Vital Signs Vital Signs Date Time Temp Pulse Resp B/P Pulse Ox O2 Delivery O2 Flow Rate FiO2 12/08/16 14:00 105 12/08/16 12:00 101 12/08/16 12:00 98.0 101 20 121/58 100 12/08/16 10:00 108 12/08/16 08:19 98 Nasal Cannula 3.00 12/08/16 08:00 97.8 99 14 89/42 100 12/08/16 08:00 99 12/08/16 06:27 97.7 105 20 92/60 95 12/08/16 05:53 61 18 99/49 100 Nasal Cannula 4 12/08/16 04:50 86 18 19/51 100 Nasal Cannula 4 12/08/16 04:00 102 20 109/52 100 Nasal Cannula 4 12/08/16 03:00 100 22 115/50 91 Nasal Cannula 2 12/08/16 02:00 100 24 108/52 Nasal Cannula 2 12/08/16 01:02 92 16 108/87 98 Physical Exam GENERAL: Patient was seen during dialysis. Not currently in respiratory distress. Clinically appears to have lost some weight. SKIN: Warm and dry. HEAD: Normocephalic. EYES: No scleral icterus. No injection or drainage. NECK: Supple, trachea midline. No JVD or lymphadenopathy. CARDIOVASCULAR: Regular rate and rhythm without murmurs, gallops, or rubs. RESPIRATORY: Breath sounds equal bilaterally. No accessory muscle use. GASTROINTESTINAL: Abdomen soft, non-tender, nondistended. MUSCULOSKELETAL: No cyanosis, or edema. BACK: Nontender without obvious deformity. No CVA tenderness. Laboratory Laboratory Tests Test 12/08/16 12/08/16 12/08/16 12/08/16 01:12 02:10 03:33 04:45 Lactic Acid Level 4.1 White Blood Count 16.3 Red Blood Count 3.23 Hemoglobin 11.0 Hematocrit 36.5 Mean Corpuscular Volume 113.0 Mean Corpuscular Hemoglobin 33.9 Mean Corpuscular Hemoglobin 30.0 Concent Red Cell Distribution Width 15.9 Platelet Count 197 Mean Platelet Volume 9.9 Neutrophils (%) (Auto) 90.9 Lymphocytes (%) (Auto) 2.1 Monocytes (%) (Auto) 6.6 Eosinophils (%) (Auto) 0.0 Basophils (%) (Auto) 0.4 Neutrophils # (Auto) 14.8 Lymphocytes # (Auto) 0.3 Monocytes # (Auto) 1.1 Eosinophils # (Auto) 0.0 Basophils # (Auto) 0.1 CBC Comment DIFF FINAL Differential Comment Prothrombin Time 11.3 Prothromb Time International 1.0 Ratio Activated Partial 24.1 Thromboplast Time Sodium Level 130 Potassium Level 4.8 Chloride Level 86 Carbon Dioxide Level 9.6 Anion Gap 34 Blood Urea Nitrogen 67 Creatinine 7.81 Estimat Glomerular Filtration 7 Rate Random Glucose 929 Calcium Level 9.0 Total Bilirubin 0.7 Direct Bilirubin 0.1 Indirect Bilirubin 0.6 Aspartate Amino Transf 17 (AST/SGOT) Alanine Aminotransferase 17 (ALT/SGPT) Alkaline Phosphatase 120 Total Protein 5.9 Albumin 2.7 Lipase 54 B-Hydroxybutyrate 10.97 Blood Gas Puncture Site RT BRACHIAL Blood Gas Patient Temperature 98.6 Blood Gas HCO3 7 Blood Gas Base Excess -20.9 Blood Gas Oxygen Saturation 81 Arterial Blood pH 7.12 Arterial Blood Partial 22 Pressure CO2 Arterial Blood Partial 66 Pressure O2 Arterial Blood Oxygen Content 12.6 Arterial Blood 2.0 Carboxyhemoglobin Arterial Blood Methemoglobin 2.2 Blood Gas Hemoglobin 11.0 Blood Gas Inspired Oxygen 21 Troponin I 0.08 Test 12/08/16 12/08/16 12/08/16 12/08/16 05:28 06:44 08:15 09:40 Blood Gas Puncture Site RT BRACHIAL RT BRACHIAL Blood Gas Patient Temperature 98.6 98.6 Blood Gas HCO3 10 21 Blood Gas Base Excess -15.2 -3.2 Blood Gas Oxygen Saturation 93 96 Arterial Blood pH 7.28 7.41 Arterial Blood Partial 23 34 Pressure CO2 Arterial Blood Partial 138 155 Pressure O2 Arterial Blood Oxygen Content 14.4 14.4 Arterial Blood 2.5 2.2 Carboxyhemoglobin Arterial Blood Methemoglobin 2.2 1.3 Blood Gas Hemoglobin 10.8 10.5 Blood Gas Inspired Oxygen 21 Nasal Screen MRSA (PCR) NEGATIVE Sodium Level 147 Potassium Level 2.3 Chloride Level 113 Carbon Dioxide Level 13.1 Anion Gap 21 Blood Urea Nitrogen 49 Creatinine 5.79 Estimat Glomerular Filtration 10 Rate Random Glucose 240 Calcium Level 6.2 Protein Corrected Calcium 7.7 Troponin I 0.07 Total Protein 4.1 Oxygen Delivery Device NASAL CANNULA Blood Gas Liter Flow 3 Test 12/08/16 10:05 Lactic Acid Level 2.2 Date/Time Procedure Status Source Growth 12/08/16 04:45 Aerobic Blood Culture Received Blood Line Pending 12/08/16 04:45 Anaerobic Blood Culture Received Blood Line Pending Result Diagram: 12/08/16 0210 12/08/16 0815 Imaging Last 48 hours Impressions Chest X-Ray 12/08/16 0000 Signed Impressions: Service Date/Time: Thursday, December 08, 2016 02:21 - CONCLUSION: No acute disease. Bruce Mayorga MD Assessment and Plan Problem List: (1) ESRD (end stage renal disease) Plan: Hemodialysis today. Patient was seen during his dialysis treatment. Access appears to be intact without evidence of infection. Access is working well. Minimal fluid removal as patient is hypotensive and there is no evidence of fluid overload clinically. This will help to improve his metabolic acidosis. Avoid gadolinium. Medication should be adjusted for his end-stage renal disease when indicated. (2) Hypotension Plan: Most likely secondary to intravascular volume depletion. Gentle hydration. (3) Diabetic ketoacidosis Plan: Defer management to critical care. (4) Hypertension Plan: Hold hypertensive medications pending improvement in blood pressure. Problem Qualifiers (1) Hypotension: Qualified Code: I95.9 - Hypotension, unspecified hypotension type (2) Diabetic ketoacidosis: Wilfredo Reyes MD Dec 08, 2016 14:50
[2016-12-08] MEDS: PANTOPRAZOLE INJ 80 MG in SODIUM CHLORIDE 0.9% INJ 100 ML IV SCH ×2 (15:57→23:29)
[2016-12-08 18:14] LABS: BASOPHIL % 0.4 % (0.0-2.0); EOSINOPHIL % 0.1 % (0.0-4.0); HEMATOCRIT 31.6 % (39.0-51.0); HEMO FLAGS DIFF FINAL; LYMPH % 6.1 % (9.0-44.0); LYMPHOCYTE # 0.5 TH/MM3 (1.0-4.8); MEAN CORPUSCULAR HEMOGLOBIN 35.3 PG (27.0-34.0); NEUT % 88.4 % (16.0-70.0); PLATELET COUNT 150 TH/MM3 (150-450); RED BLOOD COUNT 3.04 MIL/MM3 (4.50-5.90); RED CELL DISTRIBUTION WIDTH 14.4 % (11.6-17.2)
[2016-12-08 18:29] LABS: BETA-HYDROXYBUTYRATE 0.73 MMOL/L (0.00-0.39)
[2016-12-08 19:49] LABS: BICARBONATE 28.2 MEQ/L (21.0-32.0); POTASSIUM 3.3 MEQ/L (3.5-5.1)
[2016-12-08] MEDS ORDERED: GLUCAGON 1 MG/ML VIAL OTHER PRN (20:00)
[2016-12-08] MEDS: INSULIN NovoLIN REGULAR SUPPLEMENTAL SCALE SQ SCH ×2 (20:00→23:00)
[2016-12-08] MEDS ORDERED: DC previous DKA orders (HMC 1917) XX ONE (20:00)
[2016-12-08] MEDS ORDERED: DC Insulin drip 2 hrs post basal insulin dose XX ONE (20:00)
[2016-12-08] MEDS ORDERED: INSULIN DETEMIR 100 UNITS/ML VIAL SQ SCH (20:00)
[2016-12-08] MEDS: DEXTROSE 50% IN WATER 50 ML VIAL(D50) IV PUSH PRN (23:29)
[2016-12-08 23:49] LABS: HEMATOCRIT 27.3 % (39.0-51.0); REVIEW FLAG FINAL
[2016-12-09] VITALS (14 sets, daily range): BP systolic 84–117; BP diastolic 38–65; PULSE 77–101; RESP 14–24; TEMP 97.4–98.7; O2SAT 96–100
[2016-12-09] MEDS: DEXTROSE 50% IN WATER 50 ML VIAL(D50) IV PUSH PRN ×3 (00:35→14:52)
[2016-12-09] MEDS: INSULIN NovoLIN REGULAR SUPPLEMENTAL SCALE SQ SCH ×7 (02:00→21:26)
[2016-12-09] MEDS: DEXTROSE 5% IN WATE 1000ML INJ 1,000 ML IV SCH ×2 (03:00→23:00)
[2016-12-09] MEDS: CHLORHEXIDINE GLUCONATE 2 % 1 PACK (2 CLOTHS) TOP SCH (04:00)
--- NOTE | 2016-12-09 05:07 | RADRPT ---
EXAM DATE/TIME: 12/09/2016 03:48 [facility] COMPARISON: CHEST SINGLE AP, December 08, 2016, 2:21. INDICATIONS : Shortness of breath, possible pulmonary disease. MEDICAL HISTORY : Myocardial infarction. SURGICAL HISTORY : None. ENCOUNTER: Subsequent ACUITY: 2 days PAIN SCORE: 0/10 LOCATION: Bilateral chest FINDINGS: A single view of the chest demonstrates the lungs to be symmetrically aerated without evidence of mas s, infiltrate or effusion. The cardiomediastinal contours are unremarkable. Osseous structures are intact. CONCLUSION: Stable chest with no focal lung disease Bruce Mayorga MD on December 09, 2016 at 5:05 Board Certified Radiologist. This report was verified electronically.
[2016-12-09] MEDS: PIPERACIL-TAZO 2.25 GM PREMIX 50 ML IV SCH ×3 (05:48→20:12)
[2016-12-09 06:15] LABS: AUTOMATED NEUTROPHIL # 8.4 TH/MM3 (1.8-7.7); BASOPHIL % 0.4 % (0.0-2.0); EOSINOPHIL % 0.1 % (0.0-4.0); HEMATOCRIT 29.4 % (39.0-51.0); HEMO FLAGS DIFF FINAL; LYMPH % 3.7 % (9.0-44.0); LYMPHOCYTE # 0.3 TH/MM3 (1.0-4.8); MEAN CELL VOLUME 106.1 FL (80.0-100.0); MEAN CORPUSCULAR HEMOGLOBIN 36.2 PG (27.0-34.0); MEAN CORPUSCULAR HGB CONC 34.1 % (32.0-36.0); MONO % 4.5 % (0.0-8.0); NEUT % 91.3 % (16.0-70.0); PLATELET COUNT 137 TH/MM3 (150-450); RED BLOOD COUNT 2.77 MIL/MM3 (4.50-5.90); WHITE BLOOD COUNT 9.2 TH/MM3 (4.0-11.0)
[2016-12-09 06:54] LABS: ALKALINE PHOSPHATASE 103 U/L (45-117); ALT (GPT) 18 U/L (12-78); ANION GAP 12 MEQ/L (5-15); AST (GOT) 34 U/L (15-37); BICARBONATE 27.2 MEQ/L (21.0-32.0); BLOOD UREA NITROGEN 46 MG/DL (7-18); CHLORIDE 104 MEQ/L (98-107); GLOMERULAR FILTRATION RATE 10 ML/MIN (>89); POTASSIUM 3.2 MEQ/L (3.5-5.1); SODIUM (NA) 143 MEQ/L (136-145); TOTAL BILIRUBIN ADULT 0.3 MG/DL (0.2-1.0)
[2016-12-09] MEDS ORDERED: INSULIN DETEMIR 100 UNITS/ML VIAL SQ SCH (07:00)
--- NOTE | 2016-12-09 07:50 | HHI.CCPN ---
Subjective Remarks/Hospital Course Patient is a 50-year-old male alf resident with history of type 1 diabetes, prior CVA x 2, end-stage renal disease on dialysis Saturday, hypertension, COPD, anxiety depression who was sent from the alf to the ER for evaluation of coffee ground emesis. In the ER hemoglobin was 11, WBC count 16.3 with 91% neutrophils. He was found to have a blood sugar of 929, lactic acid of 4.1 and anion gap of 34. Beta hydroxybutyric acid was also elevated at 10.97 indicating DKA. He was given 6 units of IV insulin, and was started on DKA insulin protocol without including the IV fluids due to end-stage renal disease. He received 1 L of normal saline bolus. I evaluated the patient in the ED he appears critically ill very dehydrated. I have ordered 2 more additional liters of fluid bolus, and started him ICU insulin protocol algorithm 2. Normal saline maintenance fluid will be given at 50 ML per hour with additional boluses as needed. Patient appears septic at this time source is unclear. Had been placed on empiric Zosyn and vancomycin. Patient is a very poor historian and not much history can be obtained from him. 12/09 Patient s/p HD yesterday off insulin drip. On D5W@50ml/hr ( had 2 hypoglycemic episodes last night and given D50x2). Afebrile. Objective Vital Signs Date Time Temp Pulse Resp B/P Pulse Ox O2 Delivery O2 Flow Rate FiO2 12/09/16 06:00 94 12/09/16 04:00 15 84/49 99 12/09/16 00:00 98.7 12/08/16 19:48 21 12/08/16 08:19 Nasal Cannula 3.00 Intake and Output 12/08/16 12/08/16 12/09/16 08:00 16:00 00:00 Intake Total 362 ml 1201 ml Output Total 0 ml Balance 362 ml 1201 ml Result Diagram: 12/09/16 0520 12/09/16 0540 Other Results Laboratory Tests Test 12/08/16 12/08/16 12/08/16 12/08/16 08:15 09:40 10:05 17:24 Sodium Level 147 MEQ/L 145 MEQ/L Potassium Level 2.3 MEQ/L 3.3 MEQ/L Chloride Level 113 MEQ/L 103 MEQ/L Carbon Dioxide Level 13.1 MEQ/L 28.2 MEQ/L Anion Gap 21 MEQ/L 14 MEQ/L Blood Urea Nitrogen 49 MG/DL 38 MG/DL Creatinine 5.79 MG/DL 5.24 MG/DL Estimat Glomerular Filtration 10 ML/MIN 12 ML/MIN Rate Random Glucose 240 MG/DL 119 MG/DL Calcium Level 6.2 MG/DL 8.5 MG/DL Protein Corrected Calcium 7.7 MG/DL Troponin I 0.07 NG/ML 0.14 NG/ML Total Protein 4.1 GM/DL Blood Gas Puncture Site RT BRACHIAL Blood Gas Patient Temperature 98.6 Blood Gas HCO3 21 mmol/L Blood Gas Base Excess -3.2 mmol/L Blood Gas Oxygen Saturation 96 % Arterial Blood pH 7.41 Arterial Blood Partial 34 mmHg Pressure CO2 Arterial Blood Partial 155 mmHg Pressure O2 Arterial Blood Oxygen Content 14.4 Vol % Arterial Blood 2.2 % Carboxyhemoglobin Arterial Blood Methemoglobin 1.3 % Blood Gas Hemoglobin 10.5 G/DL Oxygen Delivery Device NASAL CANNULA Blood Gas Liter Flow 3 L/M Lactic Acid Level 2.2 mmol/L White Blood Count 9.0 TH/MM3 Red Blood Count 3.04 MIL/MM3 Hemoglobin 10.7 GM/DL Hematocrit 31.6 % Mean Corpuscular Volume 104.0 FL Mean Corpuscular Hemoglobin 35.3 PG Mean Corpuscular Hemoglobin 34.0 % Concent Red Cell Distribution Width 14.4 % Platelet Count 150 TH/MM3 Mean Platelet Volume 9.3 FL Neutrophils (%) (Auto) 88.4 % Lymphocytes (%) (Auto) 6.1 % Monocytes (%) (Auto) 5.0 % Eosinophils (%) (Auto) 0.1 % Basophils (%) (Auto) 0.4 % Neutrophils # (Auto) 8.0 TH/MM3 Lymphocytes # (Auto) 0.5 TH/MM3 Monocytes # (Auto) 0.4 TH/MM3 Eosinophils # (Auto) 0.0 TH/MM3 Basophils # (Auto) 0.0 TH/MM3 CBC Comment DIFF FINAL Differential Comment B-Hydroxybutyrate 0.73 MMOL/L Test 12/08/16 12/09/16 12/09/16 23:34 05:20 05:40 Hemoglobin 9.4 GM/DL 10.0 GM/DL Hematocrit 27.3 % 29.4 % Troponin I 0.16 NG/ML White Blood Count 9.2 TH/MM3 Red Blood Count 2.77 MIL/MM3 Mean Corpuscular Volume 106.1 FL Mean Corpuscular Hemoglobin 36.2 PG Mean Corpuscular Hemoglobin 34.1 % Concent Red Cell Distribution Width 14.0 % Platelet Count 137 TH/MM3 Mean Platelet Volume 8.7 FL Neutrophils (%) (Auto) 91.3 % Lymphocytes (%) (Auto) 3.7 % Monocytes (%) (Auto) 4.5 % Eosinophils (%) (Auto) 0.1 % Basophils (%) (Auto) 0.4 % Neutrophils # (Auto) 8.4 TH/MM3 Lymphocytes # (Auto) 0.3 TH/MM3 Monocytes # (Auto) 0.4 TH/MM3 Eosinophils # (Auto) 0.0 TH/MM3 Basophils # (Auto) 0.0 TH/MM3 CBC Comment DIFF FINAL Differential Comment Sodium Level 143 MEQ/L Potassium Level 3.2 MEQ/L Chloride Level 104 MEQ/L Carbon Dioxide Level 27.2 MEQ/L Anion Gap 12 MEQ/L Blood Urea Nitrogen 46 MG/DL Creatinine 6.21 MG/DL Estimat Glomerular Filtration 10 ML/MIN Rate Random Glucose 191 MG/DL Calcium Level 8.6 MG/DL Total Bilirubin 0.3 MG/DL Aspartate Amino Transf 34 U/L (AST/SGOT) Alanine Aminotransferase 18 U/L (ALT/SGPT) Alkaline Phosphatase 103 U/L Total Protein 5.5 GM/DL Albumin 2.1 GM/DL Imaging Last Impressions Chest X-Ray 12/09/16 0600 Signed Impressions: Service Date/Time: Friday, December 09, 2016 03:48 - CONCLUSION: Stable chest with no focal lung disease Bruce Mayorga MD Objective Remarks GENERAL: This is a chronically ill appearing male male, who appears in moderate distress SKIN: No rashes, ecchymoses or lesions. Cool and dry. HEAD: Atraumatic. Normocephalic. EYES: Pupils equal round and reactive ENT: Nose without bleeding, oral mucositis very dry NECK: Trachea midline. No JVD or lymphadenopathy. Supple CARDIOVASCULAR: Regular rate and rhythm without murmurs, gallops, or rubs. RESPIRATORY: Air entry equal bilaterally GASTROINTESTINAL: Abdomen soft, non-tender, nondistended. No hepato-splenomegaly , or palpable masses. Well-healed midline scar MUSCULOSKELETAL: Extremities without clubbing, cyanosis, Left arm with AVF , ++ edema RUE NEUROLOGICAL: Somnolent wakes up easily. Follows commands in all 4 extremities. A/P Assessment and Plan NEURO: Acute metabolic encephalopathy History of CVA 2 -Minimize sedation, monitor neuro status closely -Hold aspirin secondary to GI bleed RESP: Tobacco abuse Probable COPD -COntinue with oxygen keep sat >92% -DuoNeb every 6 hours when necessary -Incentive spirometry CV: Lactic acidosis..resolving History of hypertension Coronary artery disease Mild elevated trop -Monitor HR and BP keep MAP>65mmHg -Check 2D echo to eval LV function GI: Coffee-ground emesis/upper GI bleed -GI is following, on Protonix drip. H/H stable -For EGD tomorrow : End-stage renal disease -Monitor renal function closely. Previous records indicate patient is on Saturday schedule -Nephrology is following. HD per renal. ID: Sepsis Gram positive bacteremia Lactic acidosis.. resolving -Continue with abx ( Zosyn) Give Vanco 1gram x1, monitor for signs of infections ( Fever, WBC) CXR 3/4 no focal disease. BC 3/4: GPC in 4 bottles, check BC x 2 sets today. HEME: Anemia of chronic disease -Monitor CBC ENDO: Diabetic ketoacidosis Type 1 diabetes -SSI with accuchecks. On D5W@50ml/hr for hypoglycemic episodes. PROPH: -Bilateral lower extremity SCDs. Avoid chemical DVT prophylaxis secondary to upper GI bleed. IV Protonix infusion Check Doppler US RUE LINES: -Utilize peripheral IVs, central line if needed Level 3 González Manning MD Dec 09, 2016 07:50
[2016-12-09] MEDS ORDERED: POTASSIUM CHLOR 20 MEQ PREMIX 100 ML IV ONE (08:00)
[2016-12-09] MEDS: SODIUM CHLORIDE 0.9% FLUSH 5 ML FLUSH IV FLUSH SCH ×2 (08:04→20:12)
[2016-12-09] MEDS ORDERED: VANCOMYCIN INJ 1,000 MG in SODIUM CHLOR 0.9% 250 ML INJ 250 ML IV ONE (10:00)
--- NOTE | 2016-12-09 10:36 | RADRPT ---
EXAM DATE/TIME: 12/09/2016 09:59 [facility] COMPARISON: No previous studies available for comparison. INDICATIONS : Right arm swelling. MEDICAL HISTORY : Myocardial infarction. Hypercholesterolemia. Hypertension. GERD. ESRD. Cardiovascular problems. CV A. CAD. Diabetic. Dialysis. TIA. SURGICAL HISTORY : Appendectomy. Left arm AVF. ENCOUNTER: Initial ACUITY: 1 day PAIN SCORE: 5/10 LOCATION: Right arm. FINDINGS: There are abnormal intraluminal echoes within the proximal basilic vein representing nonocclusive thr ombus. The remaining veins of the right upper extremity including the internal jugular vein are paten t. CONCLUSION: 1. There is nonocclusive small area of thrombus within the proximal right basilic vein. 2. Remaining veins of the right upper extremity are patent. Bruce Rossi MD on December 09, 2016 at 10:34 Board Certified Radiologist. This report was verified electronically.
--- NOTE | 2016-12-09 11:07 | PD.PROCEDR ---
Central Line Procedure REASON FOR PROCEDURE Central venous access PROCEDURE PERFORMED Central line placement: Right subclavian CVP CONSENT Informed consent for procedure was obtained. The risks and benefits of the procedure were discussed to include but limited to bleeding, clot formation, infection, and even . ANESTHESIA Local injection of 1% Lidocaine DESCRIPTION OF THE PROCEDURE The patient was placed in supine, mild Trendelenburg position. The area was exposed and cleansed with ChloraPrep, times two. Large sterile drape was used to cover the patient, with the site exposed, under sterile conditions including cap, face mask, sterile gown, and sterile gloves. On single attempt, the introducer needle was inserted with negative pressure in syringe and venous flash was obtained. The guide wire was then advanced without any restriction and the needle was removed. The dilator was used without any complications. Using Seldinger technique the catheter was advanced over the guide wire to a depth of 20 centimeters. The guide wire was removed. All ports were aspirated with dark venous blood return and flushed easily with sterile saline. All ports were capped. Antibiotic disc was placed around central line at puncture site. The central line was secured to the skin with two interrupted 2.0 silk sutures. The area was bandaged with sterile see-through central line bandage. RADIOLOGICAL DATA CXR ordered to verify line placement COMPLICATIONS: No apparent complications ESTIMATED BLOOD LOSS: Less than 1 cc. González Manning MD Dec 09, 2016 11:07
--- NOTE | 2016-12-09 11:10 | RADRPT ---
EXAM DATE/TIME: 12/09/2016 10:49 [facility] COMPARISON: CHEST SINGLE AP, December 09, 2016, 3:48. INDICATIONS : Evaluate central line placement MEDICAL HISTORY : Myocardial infarction. SURGICAL HISTORY : None. ENCOUNTER: Subsequent ACUITY: 3 days PAIN SCORE: 0/10 LOCATION: chest FINDINGS: AP expiratory view of the chest demonstrates right subclavian central line in place with distal tip i n the superior vena cava. No pneumothorax is visualized. No acute pulmonary abnormality is seen. CONCLUSION: The right subclavian central line distal tip is in the superior vena cava. Bruce Rossi MD on December 09, 2016 at 11:08 Board Certified Radiologist. This report was verified electronically.
[2016-12-09] MEDS: PANTOPRAZOLE INJ 80 MG in SODIUM CHLORIDE 0.9% INJ 100 ML IV SCH (11:14)
[2016-12-09 14:25] LABS: POTASSIUM 3.4 MEQ/L (3.5-5.1)
--- NOTE | 2016-12-09 18:08 | HHI.GIFU ---
Subjective Remarks More alert today. Continues to have melena. Nurse reports 8 melanotic stools- no vomiting. C/O abdominal pain. Off insulin gtt. (Larissa Pinon) Objective Vitals I&O Vital Signs Date Time Temp Pulse Resp B/P Pulse Ox O2 Delivery O2 Flow Rate FiO2 12/09/16 16:00 80 12/09/16 16:00 98.7 82 18 109/48 98 12/09/16 14:00 83 12/09/16 12:00 98.7 90 20 104/43 99 12/09/16 12:00 90 12/09/16 10:00 77 12/09/16 08:30 98 Nasal Cannula 2.00 12/09/16 08:00 97.4 86 14 117/62 100 12/09/16 08:00 86 12/09/16 06:00 94 12/09/16 04:00 89 15 84/49 99 12/09/16 04:00 89 12/09/16 02:00 91 12/09/16 00:00 98.7 101 23 110/65 97 12/09/16 00:00 100 12/08/16 22:00 109 12/08/16 20:00 98.2 101 17 109/59 97 12/08/16 20:00 105 12/08/16 19:48 94 21 I/O 12/08/16 12/08/16 12/08/16 12/09/16 12/09/16 12/09/16 07:00 15:00 23:00 07:00 15:00 23:00 Intake Total 362 ml 1201 ml 657 ml 547 ml Output Total 0 ml 0 ml 0 ml Balance 362 ml 1201 ml 657 ml 547 ml Intake Oral 700 ml 240 ml IV Total 362 ml 501 ml 417 ml 547 ml Output Urine Total 0 ml 0 ml 0 ml # Bowel Movements 3 1 1 7 Laboratory Laboratory Tests Test 12/08/16 12/09/16 12/09/16 12/09/16 23:34 05:20 05:40 12:40 Hemoglobin 9.4 10.0 Hematocrit 27.3 29.4 Troponin I 0.16 White Blood Count 9.2 Red Blood Count 2.77 Mean Corpuscular Volume 106.1 Mean Corpuscular Hemoglobin 36.2 Mean Corpuscular Hemoglobin 34.1 Concent Red Cell Distribution Width 14.0 Platelet Count 137 Mean Platelet Volume 8.7 Neutrophils (%) (Auto) 91.3 Lymphocytes (%) (Auto) 3.7 Monocytes (%) (Auto) 4.5 Eosinophils (%) (Auto) 0.1 Basophils (%) (Auto) 0.4 Neutrophils # (Auto) 8.4 Lymphocytes # (Auto) 0.3 Monocytes # (Auto) 0.4 Eosinophils # (Auto) 0.0 Basophils # (Auto) 0.0 CBC Comment DIFF FINAL Differential Comment Sodium Level 143 143 Potassium Level 3.2 3.4 Chloride Level 104 101 Carbon Dioxide Level 27.2 28.0 Anion Gap 12 14 Blood Urea Nitrogen 46 50 Creatinine 6.21 6.11 Estimat Glomerular Filtration 10 10 Rate Random Glucose 191 41 Calcium Level 8.6 9.2 Total Bilirubin 0.3 Aspartate Amino Transf 34 (AST/SGOT) Alanine Aminotransferase 18 (ALT/SGPT) Alkaline Phosphatase 103 Total Protein 5.5 Albumin 2.1 Date/Time Procedure Status Source Growth 12/09/16 12:55 Aerobic Blood Culture Received Blood Peripheral Pending 12/09/16 12:55 Anaerobic Blood Culture Received Blood Peripheral Pending 12/08/16 04:45 Aerobic Blood Culture - Preliminary Resulted Blood Line Streptococcus Species 12/08/16 04:45 Anaerobic Blood Culture - Preliminary Resulted Gram Positive Cocci Imaging Last Impressions Chest X-Ray 12/09/16 0600 Signed Impressions: Service Date/Time: Friday, December 09, 2016 03:48 - CONCLUSION: Stable chest with no focal lung disease Bruce Mayorga MD Upper Extremity Ultrasound 12/09/16 0000 Signed Impressions: Service Date/Time: Friday, December 09, 2016 09:59 - CONCLUSION: 1. There is nonocclusive small area of thrombus within the proximal right basilic vein. 2. Remaining veins of the right upper extremity are patent. Bruce Rossi MD Physical Exam HEENT: Normocephalic; atraumatic; no jaundice. CHEST: CTA CARDIAC: RRR ABDOMEN: Soft, nondistended, nontender; no hepatosplenomegaly; bowel sounds are present in all four quadrants. EXTREMITIES: No clubbing, cyanosis, or edema. SKIN: Normal; no rash; no jaundice. 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 Sent to ER for coffee ground emesis. He does have a remote hx of PUD. It is hard to say if his n/v caused his DKA, or if persistent n/v from DKA caused [address] Tear. He has not had vomiting since being up in unit, however he has had 8 melanotic stools today. HH is stable, 10.0/29.4. Protonix Gtt. Okay for clears. EGD in am. - Anemia secondary to acute blood loss. HH 10.0/29.4. - DKA, Type I DM. Off insulin gtt. - ESRD with multiple electrolyte abnormalities. Dialysis, //Sat. - Hx CVA 2, HTN, COPD, anxiety and depression per primary. PLAN: - Plan for egd in am - Obtain consents - Clear liquids - NPO after MN - D/C protonix gtt - Protonix 40mg IV BID - Monitor HH - Transfuse as necessary - Supportive care - Further recommendations to follow based on results of above - Pt seen and examined by Dr. Reinoso and myself and this note is written on his behalf (Larissa Pinon) Physician Comments Patient Seen and examined Agree with above Continue with current supportive care Monitor labs Plan for EGD tomorrow (Ben Reinoso MD) Larissa Pinon Dec 09, 2016 18:08 Ben Reinoso MD Dec 09, 2016 19:29
[2016-12-09 18:59] LABS: BICARBONATE 27.5 MEQ/L (21.0-32.0); POTASSIUM 3.4 MEQ/L (3.5-5.1)
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
[2016-12-09] MEDS: PANTOPRAZOLE SODIUM 40 MG VIAL IV PUSH SCH (20:12)
[2016-12-10] VITALS (12 sets, daily range): BP systolic 111–165; BP diastolic 55–71; PULSE 77–89; RESP 17–22; TEMP 98.2–98.3; O2SAT 95–100
[2016-12-10] MEDS: INSULIN NovoLIN REGULAR SUPPLEMENTAL SCALE SQ SCH ×8 (00:33→22:47)
[2016-12-10] MEDS: CHLORHEXIDINE GLUCONATE 2 % 1 PACK (2 CLOTHS) TOP SCH (04:00)
[2016-12-10] MEDS: PIPERACIL-TAZO 2.25 GM PREMIX 50 ML IV SCH ×3 (04:02→20:49)
[2016-12-10 06:45] LABS: BICARBONATE 22.5 MEQ/L (21.0-32.0); POTASSIUM 3.9 MEQ/L (3.5-5.1)
[2016-12-10 06:48] LABS: AUTOMATED NEUTROPHIL # 5.7 TH/MM3 (1.8-7.7); BASOPHIL % 0.6 % (0.0-2.0); EOSINOPHIL % 0.8 % (0.0-4.0); HEMATOCRIT 26.4 % (39.0-51.0); HEMO FLAGS DIFF FINAL; LYMPH % 4.4 % (9.0-44.0); LYMPHOCYTE # 0.3 TH/MM3 (1.0-4.8); MEAN CORPUSCULAR HEMOGLOBIN 34.7 PG (27.0-34.0); MEAN CORPUSCULAR HGB CONC 33.6 % (32.0-36.0); MONO % 3.2 % (0.0-8.0); PLATELET COUNT 112 TH/MM3 (150-450); RED BLOOD COUNT 2.56 MIL/MM3 (4.50-5.90); RED CELL DISTRIBUTION WIDTH 14.4 % (11.6-17.2); WHITE BLOOD COUNT 6.3 TH/MM3 (4.0-11.0)
--- NOTE | 2016-12-10 07:38 | HHI.CCPN ---
Subjective Remarks/Hospital Course Patient is a 50-year-old male skilled nursing resident with history of type 1 diabetes, prior CVA x 2, end-stage renal disease on dialysis Saturday, hypertension, COPD, anxiety depression who was sent from the skilled nursing to the ER for evaluation of coffee ground emesis. In the ER hemoglobin was 11, WBC count 16.3 with 91% neutrophils. He was found to have a blood sugar of 929, lactic acid of 4.1 and anion gap of 34. Beta hydroxybutyric acid was also elevated at 10.97 indicating DKA. He was given 6 units of IV insulin, and was started on DKA insulin protocol without including the IV fluids due to end-stage renal disease. He received 1 L of normal saline bolus. I evaluated the patient in the ED he appears critically ill very dehydrated. I have ordered 2 more additional liters of fluid bolus, and started him ICU insulin protocol algorithm 2. Normal saline maintenance fluid will be given at 50 ML per hour with additional boluses as needed. Patient appears septic at this time source is unclear. Had been placed on empiric Zosyn and vancomycin. Patient is a very poor historian and not much history can be obtained from him. 12/09 Patient s/p HD yesterday off insulin drip. On D5W@50ml/hr ( had 2 hypoglycemic episodes last night and given D50x2). Afebrile. 12/10 No acute events overnight. Afebrile. BC from 12/08: GPC, Strep species. For possible EGD today Objective Vital Signs Date Time Temp Pulse Resp B/P Pulse Ox O2 Delivery O2 Flow Rate FiO2 12/10/16 06:00 78 12/10/16 04:00 98.3 20 136/63 95 12/09/16 20:09 Nasal Cannula 1.00 12/08/16 19:48 21 Intake and Output 12/09/16 12/09/16 12/10/16 08:00 16:00 00:00 Intake Total 657 ml 547 ml 693 ml Output Total 0 ml 0 ml 0 ml Balance 657 ml 547 ml 693 ml Result Diagram: 12/10/16 0618 12/10/16 0618 Other Results Laboratory Tests Test 12/09/16 12/09/16 12/10/16 12:40 18:06 06:18 Sodium Level 143 MEQ/L 138 MEQ/L 137 MEQ/L Potassium Level 3.4 MEQ/L 3.4 MEQ/L 3.9 MEQ/L Chloride Level 101 MEQ/L 99 MEQ/L 98 MEQ/L Carbon Dioxide Level 28.0 MEQ/L 27.5 MEQ/L 22.5 MEQ/L Anion Gap 14 MEQ/L 12 MEQ/L 17 MEQ/L Blood Urea Nitrogen 50 MG/DL 50 MG/DL 56 MG/DL Creatinine 6.11 MG/DL 6.48 MG/DL 7.02 MG/DL Estimat Glomerular Filtration 10 ML/MIN 9 ML/MIN 8 ML/MIN Rate Random Glucose 41 MG/DL 184 MG/DL 174 MG/DL Calcium Level 9.2 MG/DL 8.3 MG/DL 8.4 MG/DL White Blood Count 6.3 TH/MM3 Red Blood Count 2.56 MIL/MM3 Hemoglobin 8.9 GM/DL Hematocrit 26.4 % Mean Corpuscular Volume 103.0 FL Mean Corpuscular Hemoglobin 34.7 PG Mean Corpuscular Hemoglobin 33.6 % Concent Red Cell Distribution Width 14.4 % Platelet Count 112 TH/MM3 Mean Platelet Volume 8.7 FL Neutrophils (%) (Auto) 91.0 % Lymphocytes (%) (Auto) 4.4 % Monocytes (%) (Auto) 3.2 % Eosinophils (%) (Auto) 0.8 % Basophils (%) (Auto) 0.6 % Neutrophils # (Auto) 5.7 TH/MM3 Lymphocytes # (Auto) 0.3 TH/MM3 Monocytes # (Auto) 0.2 TH/MM3 Eosinophils # (Auto) 0.0 TH/MM3 Basophils # (Auto) 0.0 TH/MM3 CBC Comment DIFF FINAL Differential Comment Imaging Last Impressions Chest X-Ray 12/09/16 0600 Signed Impressions: Service Date/Time: Friday, December 09, 2016 03:48 - CONCLUSION: Stable chest with no focal lung disease Bruce Mayorga MD Upper Extremity Ultrasound 12/09/16 0000 Signed Impressions: Service Date/Time: Friday, December 09, 2016 09:59 - CONCLUSION: 1. There is nonocclusive small area of thrombus within the proximal right basilic vein. 2. Remaining veins of the right upper extremity are patent. Bruce Rossi MD Objective Remarks GENERAL: This is a chronically ill appearing male male lying in bed in NAD SKIN: No rashes, ecchymoses or lesions. Cool and dry. HEAD: Atraumatic. Normocephalic. EYES: Pupils equal round and reactive ENT: Nose without bleeding, oral mucositis very dry NECK: Trachea midline. No JVD or lymphadenopathy. Supple CARDIOVASCULAR: Regular rate and rhythm without murmurs, gallops, or rubs. RESPIRATORY: Air entry equal bilaterally GASTROINTESTINAL: Abdomen soft, non-tender, nondistended. No hepato-splenomegaly , or palpable masses. Well-healed midline scar MUSCULOSKELETAL: Extremities without clubbing, cyanosis, Left arm with AVF , ++ edema RUE NEUROLOGICAL: Somnolent wakes up easily. Follows commands in all 4 extremities. A/P Assessment and Plan NEURO: Acute metabolic encephalopathy History of CVA 2 -Minimize sedation, monitor neuro status closely -Hold aspirin secondary to GI bleed RESP: Tobacco abuse Probable COPD -Continue with oxygen keep sat >92% -DuoNeb every 6 hours when necessary -Incentive spirometry CV: Lactic acidosis..resolving History of hypertension Coronary artery disease Mild elevated trop -Monitor HR and BP keep MAP>65mmHg -Check 2D echo to eval LV function GI: Coffee-ground emesis/upper GI bleed -GI is following, on Protonix 40mg BID. For EGD today : End-stage renal disease -Monitor renal function closely. Previous records indicate patient is on Saturday schedule -Nephrology is following. HD per renal. ID: Sepsis Strep bacteremia Lactic acidosis.. resolving -Continue with abx ( Zosyn) Given Vanco 1gram x1 dose yesterday, monitor for signs of infections ( Fever, WBC) CXR 3/ no focal disease. BC 3: GPC, Strep species in 4 bottles,follow up on repeat BC. -ID is following HEME: Anemia of chronic disease -Monitor CBC ENDO: Diabetic ketoacidosis Type 1 diabetes -SSI with accuchecks. On D5W@50ml/hr for hypoglycemic episodes. PROPH: -Bilateral lower extremity SCDs. Avoid chemical DVT prophylaxis secondary to upper GI bleed. IV Protonix 40mg BID - Doppler US RUE: nonocclusive small area of thrombus within the proximal right basilic vein. Remaining veins of the right upper extremity are patent. LINES: -Right subclavian CVP placed 12/09 Will sign off and transfer care to [facility] Level 2 González Manning MD Dec 10, 2016 07:38
[2016-12-10] MEDS: PANTOPRAZOLE SODIUM 40 MG VIAL IV PUSH SCH ×2 (08:52→20:48)
[2016-12-10] MEDS: SODIUM CHLORIDE 0.9% FLUSH 5 ML FLUSH IV FLUSH SCH ×2 (08:52→20:49)
--- NOTE | 2016-12-10 11:21 | HHI.NPPN ---
Subjective History of Present Illness This patient is a 51-year-old male with a history of multiple medical problems including diabetes mellitus, hypertension, previous CVA and end-stage renal disease. Patient receives hemodialysis as an outpatient TTS. Patient presented to the emergency room with hematemesis but was subsequently noted to have a blood sugar of 929 and evidence of metabolic acidosis. Patient was also hypotensive. Blood cultures now apparently growing a strep species. Review of Systems General Constitutional: Fatigue Objective Data Data 12/09/16 12/10/16 19:00 07:00 Intake Total 547 ml 1125 ml Output Total 0 ml 0 ml Balance 547 ml 1125 ml Intake Oral 350 ml IV Total 547 ml 775 ml Output Urine Total 0 ml 0 ml # Bowel Movements 7 6 Vital Signs Date Time Temp Pulse Resp B/P Pulse Ox O2 Delivery O2 Flow Rate FiO2 12/10/16 08:00 98.3 87 21 165/71 100 12/10/16 06:00 78 12/10/16 04:00 98.3 78 20 136/63 95 12/10/16 04:00 81 12/10/16 02:00 77 12/10/16 00:00 81 12/10/16 00:00 98.3 81 17 111/55 96 12/09/16 22:00 96 12/09/16 20:09 98 Nasal Cannula 1.00 12/09/16 20:00 98.7 84 24 106/38 96 12/09/16 20:00 84 12/09/16 18:00 78 12/09/16 16:00 80 12/09/16 16:00 98.7 82 18 109/48 98 12/09/16 14:00 83 12/09/16 12:00 98.7 90 20 104/43 99 12/09/16 12:00 90 -: 12/10/16 0618 12/10/16 0618 Microbiology 12/09/16 Aerobic Blood Culture - Preliminary, Resulted NO GROWTH IN 1 DAY 12/09/16 Anaerobic Blood Culture - Preliminary, Resulted NO GROWTH IN 1 DAY 12/09/16 Aerobic Blood Culture, Received Pending 12/09/16 Anaerobic Blood Culture, Received Pending Physical Exam General Appearance: No Acute Distress, Comfortable Eyes Eye Exam: Sclera White Neck Neck Exam: Trachea Midline Pulmonary Resp Exam: Clear Bilaterally, Breath Sounds Equal, No Distress Cardiology CV Exam: Regular, Normal Sinus Rhythm Gastrointestinal/Abdomen GI Exam: Soft, Non-Tender Integumentary Skin Exam: Clear, Warm, Dry Extremeties Extremities Exam: No Edema Assessment/Plan Problem List: (1) ESRD (end stage renal disease) Plan: Continue hemodialysis Tuesdays, and Saturdays. Avoid gadolinium. Medication should be adjusted for his end-stage renal disease when indicated. (2) Bacteremia Plan: Strep species noted. Origin uncertain. No evidence of infection of dialysis access clinically. We'll defer to infectious disease regarding evaluation and management. (3) Hypertension Plan: Hold hypertensive medications pending improvement in blood pressure. (4) DKA, type 1 Plan: Management per primary care physician. (5) Anemia of renal disease Plan: Initiate therapy with Epogen. Problem Qualifiers (1) DKA, type 1: Qualified Code: E10.10 - Type 1 diabetes mellitus with ketoacidosis without coma Wilfredo Reyes MD Dec 10, 2016 11:21
[2016-12-10] MEDS: DEXTROSE 5% IN WATE 1000ML INJ 1,000 ML IV SCH (19:00)
[2016-12-10] MEDS ORDERED: PROPOFOL 200 MG/20 ML AMP IV ONE (19:29)
[2016-12-10] MEDS ORDERED: DO NOT ADM ANY ANTICOAGULANT DRUGS XX PRN (20:15)
[2016-12-11] VITALS (12 sets, daily range): BP systolic 114–184; BP diastolic 55–94; PULSE 71–93; RESP 18–26; TEMP 97.8–98.5; O2SAT 95–99
[2016-12-11] MEDS: CHLORHEXIDINE GLUCONATE 2 % 1 PACK (2 CLOTHS) TOP SCH (03:36)
[2016-12-11] MEDS: INSULIN NovoLIN REGULAR SUPPLEMENTAL SCALE SQ SCH ×3 (03:36→08:00)
[2016-12-11] MEDS: PIPERACIL-TAZO 2.25 GM PREMIX 50 ML IV SCH (03:36)
[2016-12-11 06:05] LABS: AUTOMATED NEUTROPHIL # 4.8 TH/MM3 (1.8-7.7); BASOPHIL # 0.1 TH/MM3 (0-0.2); BASOPHIL % 1.2 % (0.0-2.0); EOSINOPHIL # 0.1 TH/MM3 (0-0.4); EOSINOPHIL % 1.3 % (0.0-4.0); HEMATOCRIT 25.4 % (39.0-51.0); HEMO FLAGS DIFF FINAL; LYMPH % 7.2 % (9.0-44.0); LYMPHOCYTE # 0.4 TH/MM3 (1.0-4.8); MEAN CELL VOLUME 101.1 FL (80.0-100.0); MEAN CORPUSCULAR HEMOGLOBIN 34.3 PG (27.0-34.0); MEAN CORPUSCULAR HGB CONC 33.9 % (32.0-36.0); MONO % 5.8 % (0.0-8.0); NEUT % 84.5 % (16.0-70.0); PLATELET COUNT 122 TH/MM3 (150-450); RED BLOOD COUNT 2.52 MIL/MM3 (4.50-5.90); RED CELL DISTRIBUTION WIDTH 14.2 % (11.6-17.2); WHITE BLOOD COUNT 5.6 TH/MM3 (4.0-11.0)
[2016-12-11 06:44] LABS: BICARBONATE 22.2 MEQ/L (21.0-32.0)
[2016-12-11] MEDS ORDERED: DEXTROSE 50% IN WATER 50 ML VIAL(D50) IV PUSH PRN (08:15)
[2016-12-11] MEDS ORDERED: GLUCAGON 1 MG/ML VIAL OTHER PRN (08:15)
[2016-12-11] MEDS: PANTOPRAZOLE SODIUM 40 MG VIAL IV PUSH SCH ×2 (08:20→20:06)
[2016-12-11] MEDS: SODIUM CHLORIDE 0.9% FLUSH 5 ML FLUSH IV FLUSH SCH ×2 (08:20→20:06)
[2016-12-11] MEDS: INSULIN DETEMIR 100 UNITS/ML VIAL SQ SCH ×2 (08:21→20:06)
--- NOTE | 2016-12-11 08:34 | EC ---
Study Study Date:12/10/2016 STUDY CONCLUSIONS SUMMARY - Left ventricle: The cavity size was normal. Wall thickness was normal. Systolic function was vigorous. The estimated ejection fraction was in the range of 65% to 70%. Wall motion was normal; there were no regional wall motion abnormalities. - Aortic valve: Valve area: 2.37cm^2 (Vmax). - Mitral valve: Moderately calcified annulus. If LV function is below 40, please consider prescribing an ACEI or ARB or document rationale for non-use. PROCEDURE DATA STUDY STATUS: Elective. Procedure: Transthoracic echocardiography. Image quality was good. Scanning was performed from the parasternal, apical, and subcostal acoustic windows. Study completion: The patient tolerated the procedure well. Transthoracic echocardiography. M-mode, complete 2D, complete spectral Doppler, and color Doppler. Height: Height: 65in. Weight: Weight: 119.8lb. Body mass index: BMI: 20kg/m^2. Body surface area: BSA: 1.59m^2. Patient status: Inpatient. CARDIAC ANATOMY LEFT VENTRICLE: The cavity size was normal. Wall thickness was normal. Systolic function was vigorous. The estimated ejection fraction was in the range of 65% to 70%. Wall motion was normal; there were no regional wall motion abnormalities. AORTIC VALVE: Trileaflet; normal thickness leaflets. Doppler: Transvalvular velocity was within the normal range. There was no stenosis. No regurgitation. Valve area: 2.37cm^2 (Vmax). Indexed valve area: 1.49cm^2/m^2 (Vmax). Peak gradient: 17mm Hg (S). AORTA: Aortic root: The aortic root was normal in size and mildly calcified. MITRAL VALVE: Moderately calcified annulus. Doppler: Transvalvular velocity was within the normal range. There was no evidence for stenosis. No regurgitation. Peak gradient: 5mm Hg (D). LEFT ATRIUM: The atrium was normal in size. RIGHT VENTRICLE: The cavity size was normal. Wall thickness was normal. PULMONIC VALVE: Doppler: Transvalvular velocity was within the normal range. There was no evidence for stenosis. No regurgitation. TRICUSPID VALVE: Structurally normal valve. Doppler: Transvalvular velocity was within the normal range. Trace to mild regurgitation. PULMONARY ARTERY: The main pulmonary artery was normal-sized. Systolic pressure was within the normal range. RIGHT ATRIUM: The atrium was normal in size. PERICARDIUM: There was no pericardial effusion. SYSTEMIC VEINS: Inferior vena cava: The vessel was normal in size. Patient weight: 119.8lb _Ejection fraction:_ 65-75% _Fractional shortening:_ 32% up to 5Kg 5-11.5Kg 11.6-22.9Kg 23-45Kg 45-57Kg Aortic Root 7-13 <17 13-22 17-27 17-27 LA diam 6-13 <23 24-38 33-47 37-40 RVID 10-17 7-15 7-15 7-18 8-17 LVIDd 12-22 <32 24-38 33-47 37-40 LVPW 2-4 3-6 5-7 6-8 7-8 IVS 2-4 3-6 5-7 6-8 7-8 BASIC MEASUREMENTS ADULT NORMAL Left ventricle LV internal dimension, ED, chordal 43.6 mm 43-52 level, PLAX LV internal dimension, ES, chordal 30.4 mm 23-38 level, PLAX Fractional shortening, chordal level, 30 % >29 PLAX LV posterior wall thickness, ED 8.51 mm IVS/LVPW ratio, ED 1.04 <1.3 Ventricular septum Septal thickness, ED 8.89 mm Aortic valve Leaflet separation 18 mm 15-26 BASIC MEASUREMENTS ADULT NORMAL Aortic valve Leaflet separation 18 mm 15-26 Aorta Root diameter, ED 31 mm 20-37 Left atrium Anterior-posterior dimension, ES 34 mm 19-40 Anterior-posterior dimension index, ES 2.14 cm/m^2 <2.2 LA/aortic root ratio 1.1 DOPPLER MEASUREMENTS ADULT NORMAL Main pulmonary artery Pressure, S 15 mm Hg =30 Aortic valve Peak velocity, S 205 cm/s Peak gradient, S 17 mm Hg Valve area, Vmax 2.37 cm^2 Valve area index, Vmax 1.49 cm^2/m^2 Mitral valve Peak E-wave velocity 114 cm/s Peak A-wave velocity 133 cm/s Deceleration time *271 ms 150-230 Peak gradient, D 5 mm Hg Peak E/A ratio 0.9 Tricuspid valve Regurgitant peak velocity 176 cm/s Peak RV-RA gradient, S 12 mm Hg Maximal regurgitant velocity 176 cm/s Systemic veins Estimated CVP 10 mm Hg Right ventricle RV pressure, S 22 mm Hg <30 Pulmonic valve Peak velocity, S 128 cm/s LEGEND: Mean values are shown as u=mean value. Asterisk (*) [place] values outside specified normal range. Prepared and signed by Adan Goodwin [id number]
--- NOTE | 2016-12-11 09:29 | HHI.GIFU ---
Subjective Remarks Resting in bed. Reports that he is hungry and would like his breakfast. No nausea or vomiting or abdominal pain. No obvious active bleeding. Objective Vitals I&O Vital Signs Date Time Temp Pulse Resp B/P Pulse Ox O2 Delivery O2 Flow Rate FiO2 12/11/16 06:00 73 12/11/16 04:00 98.0 89 26 149/81 97 12/11/16 04:00 71 12/11/16 02:00 77 12/11/16 00:00 98.5 87 19 114/55 95 12/11/16 00:00 87 12/10/16 22:00 86 12/10/16 20:35 100 Nasal Cannula 2.00 12/10/16 20:25 85 16 98 Nasal Cannula 3 12/10/16 20:15 88 16 160/85 98 Nasal Cannula 3 12/10/16 20:00 89 19 149/65 97 12/10/16 20:00 119 16 151/94 99 Nasal Cannula 3 12/10/16 19:50 98.2 93 20 126/58 100 Nasal Cannula 3 12/10/16 16:00 98.3 79 22 142/63 99 12/10/16 12:00 82 21 124/59 97 12/10/16 11:55 98.2 12/10/16 11:29 96 Nasal Cannula 2.00 I/O 12/10/16 12/10/16 12/10/16 12/11/16 12/11/16 12/11/16 07:00 15:00 23:00 07:00 15:00 23:00 Intake Total 432 ml 0 ml 1018 ml 798 ml Output Total 0 ml 0 ml 0 ml 0 ml Balance 432 ml 0 ml 1018 ml 798 ml Intake Oral 0 ml 60 ml 350 ml IV Total 432 ml 758 ml 448 ml Other 200 ml Output Urine Total 0 ml 0 ml 0 ml 0 ml # Bowel Movements 3 2 2 2 Laboratory Laboratory Tests Test 12/11/16 05:30 White Blood Count 5.6 Red Blood Count 2.52 Hemoglobin 8.6 Hematocrit 25.4 Mean Corpuscular Volume 101.1 Mean Corpuscular Hemoglobin 34.3 Mean Corpuscular Hemoglobin 33.9 Concent Red Cell Distribution Width 14.2 Platelet Count 122 Mean Platelet Volume 9.1 Neutrophils (%) (Auto) 84.5 Lymphocytes (%) (Auto) 7.2 Monocytes (%) (Auto) 5.8 Eosinophils (%) (Auto) 1.3 Basophils (%) (Auto) 1.2 Neutrophils # (Auto) 4.8 Lymphocytes # (Auto) 0.4 Monocytes # (Auto) 0.3 Eosinophils # (Auto) 0.1 Basophils # (Auto) 0.1 CBC Comment DIFF FINAL Differential Comment Sodium Level 134 Potassium Level 4.0 Chloride Level 95 Carbon Dioxide Level 22.2 Anion Gap 17 Blood Urea Nitrogen 68 Creatinine 8.72 Estimat Glomerular Filtration 6 Rate Random Glucose 240 Calcium Level 8.0 Date/Time Procedure Status Source Growth 12/09/16 12:55 Aerobic Blood Culture - Preliminary Resulted Blood Peripheral NO GROWTH IN 1 DAY 12/09/16 12:55 Anaerobic Blood Culture - Preliminary Resulted Blood Peripheral NO GROWTH IN 1 DAY 12/08/16 04:40 Aerobic Blood Culture - Final Complete Blood Line Viridans Streptococcus Grp 12/08/16 04:40 Anaerobic Blood Culture - Final Complete Viridans Streptococcus Grp Imaging Last Impressions Chest X-Ray 12/09/16 0600 Signed Impressions: Service Date/Time: Friday, December 09, 2016 03:48 - CONCLUSION: Stable chest with no focal lung disease Bruce Mayorga MD Upper Extremity Ultrasound 12/09/16 0000 Signed Impressions: Service Date/Time: Friday, December 09, 2016 09:59 - CONCLUSION: 1. There is nonocclusive small area of thrombus within the proximal right basilic vein. 2. Remaining veins of the right upper extremity are patent. Bruce Rossi MD Physical Exam HEENT: Normocephalic; atraumatic; no jaundice. CHEST: CTA CARDIAC: RRR ABDOMEN: Soft, nondistended, nontender; no hepatosplenomegaly; bowel sounds are present in all four quadrants. EXTREMITIES: No clubbing, cyanosis, or edema. SKIN: Normal; no rash; no jaundice. [employer]: Lethargic, oriented to self and place Assessment and Plan Plan ASSESSMENT: - Upper GIB, Coffee ground emesis, Melena. Sent to ER for coffee ground emesis. He does have a remote hx of PUD. S/P EGD (12/11/16)---> Duodenal ulcers, gastritis, esophagitis. Pathology pending. Tolerating diet. H&H 8.6/25.4. No nausea, vomiting, active bleeding. - Anemia secondary to acute blood loss. H&H 8.6/25.4 - DKA, Type I DM. IMPROVED. - ESRD with multiple electrolyte abnormalities. Dialysis, //Sat. - Hx CVA 2, HTN, COPD, anxiety and depression per primary. PLAN: - Renal diet - Protonix with BID dosing - Monitor HH - Transfuse as necessary - Supportive care - Further recommendations to follow based on results of above - Pt seen and examined by Dr. Tenorio and myself and this note is written on his behalf Larissa Pinon Dec 11, 2016 09:29
--- NOTE | 2016-12-11 09:37 | HHI.NPPN ---
Subjective History of Present Illness This patient is a 51-year-old male with a history of multiple medical problems including diabetes mellitus, hypertension, previous CVA and end-stage renal disease. Patient receives hemodialysis as an outpatient TTS. Patient presented to the emergency room with hematemesis but was subsequently noted to have a blood sugar of 929 and evidence of metabolic acidosis. Patient was also hypotensive. Blood cultures now apparently growing a strep species. Interval History Pt feeling OK today. Says he is hungry. s/p EGD this AM. Pending HD today. Review of Systems General Constitutional: Fatigue Objective Data Data 12/10/16 12/11/16 19:00 07:00 Intake Total 654 ml 1162 ml Output Total 0 ml 0 ml Balance 654 ml 1162 ml Intake Oral 60 ml 350 ml IV Total 594 ml 612 ml Other 200 ml Output Urine Total 0 ml 0 ml # Bowel Movements 4 2 Vital Signs Date Time Temp Pulse Resp B/P Pulse Ox O2 Delivery O2 Flow Rate FiO2 12/11/16 06:00 73 12/11/16 04:00 98.0 89 26 149/81 97 12/11/16 04:00 71 12/11/16 02:00 77 12/11/16 00:00 98.5 87 19 114/55 95 12/11/16 00:00 87 12/10/16 22:00 86 12/10/16 20:35 100 Nasal Cannula 2.00 12/10/16 20:25 85 16 98 Nasal Cannula 3 12/10/16 20:15 88 16 160/85 98 Nasal Cannula 3 12/10/16 20:00 89 19 149/65 97 12/10/16 20:00 119 16 151/94 99 Nasal Cannula 3 12/10/16 19:50 98.2 93 20 126/58 100 Nasal Cannula 3 12/10/16 16:00 98.3 79 22 142/63 99 12/10/16 12:00 82 21 124/59 97 12/10/16 11:55 98.2 12/10/16 11:29 96 Nasal Cannula 2.00 -: 12/11/16 0530 12/11/16 0530 Imaging Last Impressions Chest X-Ray 12/09/16 0600 Signed Impressions: Service Date/Time: Friday, December 09, 2016 03:48 - CONCLUSION: Stable chest with no focal lung disease Bruce Mayorga MD Upper Extremity Ultrasound 12/09/16 0000 Signed Impressions: Service Date/Time: Friday, December 09, 2016 09:59 - CONCLUSION: 1. There is nonocclusive small area of thrombus within the proximal right basilic vein. 2. Remaining veins of the right upper extremity are patent. Bruce Rossi MD Medication Review Current Medications Medications (Trade) Dose Ordered Sig/Mateo Route Start Time Stop Time Status Last Admin (NS Flush) 2 ml UNSCH PRN IV FLUSH 12/08/16 04:00 (NS Flush) 2 ml BID IV FLUSH 12/08/16 09:00 12/11/16 08:20 Miscellaneous Information 1 Q361D XX 12/08/16 04:00 (Chlorhexidine 2% Cloth) 3 pack Taper DAILY@04 TOP 12/08/16 04:00 12/04/17 03:59 12/11/16 03:36 Chlorhexidine Gluconate 3 pack 3 pack UNSCH PRN TOP 12/08/16 04:00 (NS 1000 ml Inj) 1,000 ml @ 0 mls/hr Q0M PRN IV 12/08/16 11:22 Heparin Sodium (Porcine) 8000 units 8,000 units UNSCH PRN IVF 12/08/16 11:30 Sodium Chloride 1,000 ml @ 200 mls/hr Q5H PRN IV 12/08/16 11:22 (NS 1000 ml Inj) 1,000 ml @ 0 mls/hr Q0M PRN IV 12/08/16 11:22 (Mannitol Inj) 12.5 gm UNSCH PRN IV 12/08/16 11:30 (Albumin 25% Inj) 25 gm UNSCH PRN IV 12/08/16 11:30 (NS Flush) 5 ml UNSCH PRN IVF 12/08/16 11:30 (Heparin Inj) UNSCH PRN .XX 12/08/16 11:30 (Gentamicin (Dialysis) Inj) 20 mg UNSCH PRN IV 12/08/16 11:30 (Zofran Inj) 4 mg UNSCH PRN IV 12/08/16 11:30 (Tylenol) 650 mg UNSCH PRN PO 12/08/16 11:30 (Benadryl) 25 mg UNSCH PRN PO 12/08/16 11:30 (Nitrostat Sl) 0.4 mg UNSCH PRN SL 12/08/16 11:30 (Catapres) 0.1 mg UNSCH PRN PO 12/08/16 11:30 Gelatin 1 foam 1 foam UNSCH PRN TOP 12/08/16 11:30 12/08/16 14:30 Dextrose 1,000 ml @ 50 mls/hr Q20H IV 12/09/16 03:00 12/10/16 19:00 (Zosyn 2.25 Gm Premix) 50 ml @ 100 mls/hr Q8H IV 12/10/16 04:00 12/11/16 03:36 (Protonix Inj) 40 mg Q12H IV PUSH 12/09/16 20:00 12/11/16 08:20 Miscellaneous Information ALL NURSING DEPARTME... UNSCH PRN XX 12/10/16 20:15 12/11/16 20:14 (D50w (Vial) Inj) 25 ml UNSCH PRN IV PUSH 12/11/16 08:15 (Glucagon Inj) 1 mg UNSCH PRN OTHER 12/11/16 08:15 (NovoLOG INJ) 4 units TIDAC SQ 12/11/16 12:00 (Levemir Inj) 7 units Q12HR SQ 12/11/16 09:00 12/11/16 08:21 Physical Exam General Appearance: No Acute Distress, Comfortable Eyes Eye Exam: Sclera White Neck Neck Exam: Trachea Midline Pulmonary Resp Exam: Clear Bilaterally, Breath Sounds Equal, No Distress Cardiology CV Exam: Regular, Normal Sinus Rhythm Gastrointestinal/Abdomen GI Exam: Soft, Non-Tender Integumentary Skin Exam: Clear, Warm Extremeties Extremities Exam: No Edema Neurologic Neuro Exam: Alert, Awake Assessment/Plan Problem List: (1) ESRD (end stage renal disease) Plan: Continue hemodialysis Tuesdays, and Saturdays. Avoid gadolinium. Medication should be adjusted for his end-stage renal disease when indicated. (2) Bacteremia Plan: Strep species noted. Origin uncertain. No evidence of infection of dialysis access clinically. We'll defer to infectious disease regarding evaluation and management. (3) Hypertension Plan: Hold hypertensive medications pending improvement in blood pressure. (4) DKA, type 1 Plan: Management per primary care physician. (5) Anemia of renal disease Plan: Initiate therapy with Epogen. Problem Qualifiers (1) DKA, type 1: Qualified Code: E10.10 - Type 1 diabetes mellitus with ketoacidosis without coma Stella Faulkner Dec 11, 2016 09:37
--- NOTE | 2016-12-11 11:01 | HHI.PR ---
Subjective Remarks Follow-up for DKA, ESRD. She does currently doing well. Denies any chest pain , shortness of breath, fever or chills. Tolerating diet well. Objective Vitals Vital Signs Date Time Temp Pulse Resp B/P Pulse Ox O2 Delivery O2 Flow Rate FiO2 12/11/16 06:00 73 12/11/16 04:00 98.0 89 26 149/81 97 12/11/16 04:00 71 12/11/16 02:00 77 12/11/16 00:00 98.5 87 19 114/55 95 12/11/16 00:00 87 12/10/16 22:00 86 12/10/16 20:35 100 Nasal Cannula 2.00 12/10/16 20:25 85 16 98 Nasal Cannula 3 12/10/16 20:15 88 16 160/85 98 Nasal Cannula 3 12/10/16 20:00 89 19 149/65 97 12/10/16 20:00 119 16 151/94 99 Nasal Cannula 3 12/10/16 19:50 98.2 93 20 126/58 100 Nasal Cannula 3 12/10/16 16:00 98.3 79 22 142/63 99 12/10/16 12:00 82 21 124/59 97 12/10/16 11:55 98.2 12/10/16 11:29 96 Nasal Cannula 2.00 I/O 12/10/16 12/10/16 12/10/16 12/11/16 12/11/16 12/11/16 07:00 15:00 23:00 07:00 15:00 23:00 Intake Total 432 ml 0 ml 1018 ml 798 ml Output Total 0 ml 0 ml 0 ml 0 ml Balance 432 ml 0 ml 1018 ml 798 ml Intake Oral 0 ml 60 ml 350 ml IV Total 432 ml 758 ml 448 ml Other 200 ml Output Urine Total 0 ml 0 ml 0 ml 0 ml # Bowel Movements 3 2 2 2 Result Diagram: 12/11/16 0530 12/11/16 0530 Imaging Last Impressions Chest X-Ray 12/09/16 0600 Signed Impressions: Service Date/Time: Friday, December 09, 2016 03:48 - CONCLUSION: Stable chest with no focal lung disease Bruce Mayorga MD Upper Extremity Ultrasound 12/09/16 0000 Signed Impressions: Service Date/Time: Friday, December 09, 2016 09:59 - CONCLUSION: 1. There is nonocclusive small area of thrombus within the proximal right basilic vein. 2. Remaining veins of the right upper extremity are patent. Bruce Rossi MD Objective Remarks GENERAL: Alert, NAD. SKIN: Warm and dry. HEAD: Normocephalic. EYES: No scleral icterus. No injection or drainage. NECK: Supple, trachea midline. No JVD or lymphadenopathy. CARDIOVASCULAR: Regular rate and rhythm without murmurs, gallops, or rubs. RESPIRATORY: Breath sounds equal bilaterally. No accessory muscle use. GASTROINTESTINAL: Abdomen soft, non-tender, nondistended. MUSCULOSKELETAL: No cyanosis, or edema. BACK: Nontender without obvious deformity. No CVA tenderness. Procedures None. A/P Problem List: (1) Diabetic ketoacidosis ICD Code: E13.10 Status: Acute (2) Hypotension ICD Code: I95.9 Status: Acute (3) Severe sepsis ICD Code: A41.9 Status: Acute (4) UGIB (upper gastrointestinal bleed) ICD Code: K92.2 Status: Acute (5) Lactic acidosis ICD Code: E87.2 Status: Acute (6) Leukocytosis ICD Code: D72.829 Status: Acute (7) Hyperglycemia due to type 1 diabetes mellitus ICD Code: E10.65 Status: Acute (8) History of CVA with residual deficit ICD Code: I69.30 Status: Acute (9) CAD (coronary artery disease) ICD Code: I25.10 Status: Acute (10) ESRD (end stage renal disease) ICD Code: N18.6 Status: Chronic Assessment and Plan Mr. Wyatt is a 51-year-old male with a history of type 1 diabetes, CVA, ESRD currently on dialysis on Saturday and Saturday who [facility] to coffee ground emesis. In the ER hemoglobin was 11, WBC count 16.3 with 91% neutrophils. He was found to have a blood sugar of 929, lactic acid of 4.1 and anion gap of 34. Beta hydroxybutyric acid was also elevated at 10.97 indicating DKA. He was given 6 units of IV insulin, and was started on DKA insulin protocol. Patient was also started on Vanc and Zosyn for suspected sepsis. Blood culture grew viridans streptococcus. - Diabetic ketoacidosis - Type 1 diabetes mellitus - And iron gap improved from 34 to 17. - Start Levemir 7 units twice a day and pre-meal insulin coverage. Continue sliding scale insulin. - Will check BMP in the AM. - Viridans Strep bacteremia - Echo negative for any vegetations. - Currently on Ceftriaxone 2g Qday. ID following. Patient denies any recent dental work. - Upper GI bleed - s/p EGD 12/11/2016 --> Duodenal ulcers, gastritis, esophagitis. - anemia secondary to acute GI blood loss. - Continue Protonix BID. - Transfuse as needed for Hgb < 7.0. - ESRD - HD on , , Sat. - Nephrology is following. Full code. SCDs. Problem Qualifiers (1) Diabetic ketoacidosis: (2) Hypotension: Qualified Code: I95.9 - Hypotension, unspecified hypotension type (3) CAD (coronary artery disease): Meño Purcell DO Dec 11, 2016 11:01 am
[2016-12-11] MEDS: INSULIN ASPART SUPPLEMENTAL SCALE SQ SCH ×3 (13:00→20:06)
[2016-12-11] MEDS: INSULIN ASPART 1,000 UNITS/10 ML VIAL SQ SCH ×2 (13:00→17:00)
[2016-12-11] MEDS: cefTRIAXone INJ 2,000 MG in SODIUM CHLORIDE 0.9% INJ 100 ML IV SCH (14:05)
[2016-12-11] MEDS: DEXTROSE 5% IN WATE 1000ML INJ 1,000 ML IV SCH (18:53)
--- NOTE | 2016-12-11 19:41 | HHI.IDPN ---
Subjective Subjective Remarks delayed entry - pt seen around 1300 No more bleeding EGD showed PUD repeat BC negative 2Decho negative Antibiotics CFTX Allergies: Coded Allergies: Bee Sting (Unverified Allergy, Severe, 11/04/16) Contrast Media (Unverified Allergy, Severe, 11/04/16) Objective . Vital Signs Date Time Temp Pulse Resp B/P Pulse Ox O2 Delivery O2 Flow Rate FiO2 12/11/16 15:17 99 Nasal Cannula 21 12/11/16 12:00 97.8 73 18 121/58 98 12/11/16 08:00 97.9 90 24 184/94 98 12/11/16 06:00 73 12/11/16 04:00 98.0 89 26 149/81 97 12/11/16 04:00 71 12/11/16 02:00 77 12/11/16 00:00 98.5 87 19 114/55 95 12/11/16 00:00 87 12/10/16 22:00 86 12/10/16 20:35 100 Nasal Cannula 2.00 12/10/16 20:25 85 16 98 Nasal Cannula 3 12/10/16 20:15 88 16 160/85 98 Nasal Cannula 3 12/10/16 20:00 89 19 149/65 97 12/10/16 20:00 119 16 151/94 99 Nasal Cannula 3 12/10/16 19:50 98.2 93 20 126/58 100 Nasal Cannula 3 12/10/16 12/10/16 12/11/16 15:00 23:00 07:00 Intake Total 0 ml 1018 ml 798 ml Output Total 0 ml 0 ml 0 ml Balance 0 ml 1018 ml 798 ml Intake Oral 0 ml 60 ml 350 ml IV Total 758 ml 448 ml Other 200 ml Output Urine Total 0 ml 0 ml 0 ml # Bowel Movements 2 2 2 . Laboratory Tests Test 12/10/16 12/11/16 06:18 05:30 White Blood Count 6.3 TH/MM3 5.6 TH/MM3 Red Blood Count 2.56 MIL/MM3 2.52 MIL/MM3 Hemoglobin 8.9 GM/DL 8.6 GM/DL Hematocrit 26.4 % 25.4 % Mean Corpuscular Volume 103.0 FL 101.1 FL Mean Corpuscular Hemoglobin 34.7 PG 34.3 PG Mean Corpuscular Hemoglobin 33.6 % 33.9 % Concent Red Cell Distribution Width 14.4 % 14.2 % Platelet Count 112 TH/MM3 122 TH/MM3 Mean Platelet Volume 8.7 FL 9.1 FL Neutrophils (%) (Auto) 91.0 % 84.5 % Lymphocytes (%) (Auto) 4.4 % 7.2 % Monocytes (%) (Auto) 3.2 % 5.8 % Eosinophils (%) (Auto) 0.8 % 1.3 % Basophils (%) (Auto) 0.6 % 1.2 % Neutrophils # (Auto) 5.7 TH/MM3 4.8 TH/MM3 Lymphocytes # (Auto) 0.3 TH/MM3 0.4 TH/MM3 Monocytes # (Auto) 0.2 TH/MM3 0.3 TH/MM3 Eosinophils # (Auto) 0.0 TH/MM3 0.1 TH/MM3 Basophils # (Auto) 0.0 TH/MM3 0.1 TH/MM3 CBC Comment DIFF FINAL DIFF FINAL Differential Comment Laboratory Tests Test 12/10/16 12/11/16 06:18 05:30 Sodium Level 137 MEQ/L 134 MEQ/L Potassium Level 3.9 MEQ/L 4.0 MEQ/L Chloride Level 98 MEQ/L 95 MEQ/L Carbon Dioxide Level 22.5 MEQ/L 22.2 MEQ/L Anion Gap 17 MEQ/L 17 MEQ/L Blood Urea Nitrogen 56 MG/DL 68 MG/DL Creatinine 7.02 MG/DL 8.72 MG/DL Estimat Glomerular Filtration 8 ML/MIN 6 ML/MIN Rate Random Glucose 174 MG/DL 240 MG/DL Calcium Level 8.4 MG/DL 8.0 MG/DL Microbiology Date/Time Procedure Status Source Growth 12/09/16 12:40 Aerobic Blood Culture - Preliminary Resulted Blood Peripheral NO GROWTH IN 2 DAYS 12/09/16 12:40 Anaerobic Blood Culture - Preliminary Resulted Blood Peripheral NO GROWTH IN 2 DAYS 12/09/16 12:55 Aerobic Blood Culture - Preliminary Resulted Blood Peripheral NO GROWTH IN 2 DAYS 12/09/16 12:55 Anaerobic Blood Culture - Preliminary Resulted Blood Peripheral NO GROWTH IN 2 DAYS Imaging Last Impressions Chest X-Ray 12/09/16 0600 Signed Impressions: Service Date/Time: Friday, December 09, 2016 03:48 - CONCLUSION: Stable chest with no focal lung disease Bruce Mayorga MD Upper Extremity Ultrasound 12/09/16 0000 Signed Impressions: Service Date/Time: Friday, December 09, 2016 09:59 - CONCLUSION: 1. There is nonocclusive small area of thrombus within the proximal right basilic vein. 2. Remaining veins of the right upper extremity are patent. Bruce Rossi MD Physical Exam CONSTITUTIONAL/GENERAL: This is a thin chronically ill appearing male patient, in no apparent distress. TUBES/LINES/DRAINS: SKIN: No jaundice, rashes, or lesions. Ecchymoses on upper extremities. No wounds seen anteriorly. Skin temperature appropriate. Not diaphoretic. ENT: oral mucosae moist CARDIOVASCULAR: Regular rate and rhythm without murmurs, gallops, or rubs. No JVD. Peripheral pulses symmetric. RESPIRATORY/CHEST: Symmetric, unlabored respirations. Clear to auscultation. Breath sounds equal bilaterally. No wheezes, rales, or rhonchi. GASTROINTESTINAL: Abdomen soft, non-tender, nondistended. well healed median laparomy scar MUSCULOSKELETAL: Extremities without clubbing, cyanosis, NEUROLOGICAL: Awake and alert. Motor and sensory grossly within normal limits. Follows commands. Assessment & Plan Remarks Streptococcal bacteremia ? source DKA GIB 2/2 PUD - cont CFTX - fu repeat BC ? possibly Ana Lilia Gomez MD Dec 11, 2016 19:40
[2016-12-12] VITALS (10 sets, daily range): BP systolic 120–154; BP diastolic 60–76; PULSE 73–97; RESP 20–28; TEMP 98–99; O2SAT 94–99
[2016-12-12] MEDS: CHLORHEXIDINE GLUCONATE 2 % 1 PACK (2 CLOTHS) TOP SCH (04:00)
[2016-12-12] MEDS: INSULIN ASPART SUPPLEMENTAL SCALE SQ SCH ×3 (05:08→21:05)
[2016-12-12 05:41] LABS: AUTOMATED NEUTROPHIL # 4.7 TH/MM3 (1.8-7.7); BASOPHIL % 0.3 % (0.0-2.0); EOSINOPHIL % 0.8 % (0.0-4.0); HEMATOCRIT 24.2 % (39.0-51.0); HEMO FLAGS DIFF FINAL; LYMPH % 6.3 % (9.0-44.0); LYMPHOCYTE # 0.3 TH/MM3 (1.0-4.8); MEAN CELL VOLUME 100.5 FL (80.0-100.0); MEAN CORPUSCULAR HEMOGLOBIN 34.8 PG (27.0-34.0); MEAN CORPUSCULAR HGB CONC 34.7 % (32.0-36.0); MONO % 6.6 % (0.0-8.0); PLATELET COUNT 120 TH/MM3 (150-450); RED BLOOD COUNT 2.41 MIL/MM3 (4.50-5.90); WHITE BLOOD COUNT 5.5 TH/MM3 (4.0-11.0)
[2016-12-12 06:06] LABS: BICARBONATE 29.4 MEQ/L (21.0-32.0); POTASSIUM 3.1 MEQ/L (3.5-5.1)
--- NOTE | 2016-12-12 06:39 | MR ---
cc: RAYO TENORIO M.D. DATE OF : 1965 DATE OF PROCEDURE: 12/10/2016 PROCEDURE: Upper gastrointestinal endoscopy with biopsy. ENDOSCOPIST: Rayo Tenorio MD MEDICATIONS: Propofol administered by Anesthesia. INSTRUMENT: Pentax upper endoscope. INDICATION: A 61-year-old male with nausea, vomiting, . PROCEDURE: After informing the patient about the procedure and complications, consent was signed. The patient was placed in his left lateral decubitus position. Adequate sedation was achieved by propofol. The scope was placed in the mouth and advanced under video guidance to the second portion of the duodenum. The scope was withdrawn back to the stomach. Retroflexion was performed. Biopsies from the duodenal ulcers and stomach body for gastropathy and gastritis and from the mid and distal esophagus for severe grade B esophagitis and possible Love esophagitis. FINDINGS: 1. Esophagus - Diffuse esophagitis throughout the whole esophagus with significant discoloration, grade B, possible Love. Biopsy was done. 2. Stomach - Severe gastropathy and gastritis. Biopsy was done. 3. Multiple ulcers in the duodenum. Biopsy was done. 4. No active bleeding. RECOMMENDATIONS: 1. No NSAIDs. 2. No alcohol. 3. Continue Protonix. 4. If biopsy positive for Love, the patient will need fluconazole. 5. Better control of diabetes. 6. EGD in six weeks. 7. Diet - Clear liquid, advance as tolerated. Rayo Tenorio MD AH/SSB /7:50 PM /6:18 AM
[2016-12-12] MEDS: SODIUM CHLORIDE 0.9% FLUSH 5 ML FLUSH IV FLUSH SCH ×2 (09:00→21:00)
[2016-12-12] MEDS ORDERED: POTASSIUM CHLORIDE 20 MEQ CONTROLLED RELEASE TAB PO ONE (09:00)
[2016-12-12] MEDS: DEXTROSE 5% IN WATE 1000ML INJ 1,000 ML IV SCH (11:00)
[2016-12-12] MEDS: POTASSIUM CHLOR 20 MEQ PREMIX 100 ML IV SCH ×2 (11:00→13:00)
[2016-12-12] MEDS ORDERED: LOPERAMIDE HCL 2 MG CAP PO PRN (11:15)
[2016-12-12] MEDS ORDERED: DEXTROSE 50% IN WATER 50 ML VIAL(D50) IV PUSH PRN (11:15)
[2016-12-12] MEDS ORDERED: GLUCAGON 1 MG/ML VIAL OTHER PRN (11:15)
[2016-12-12] MEDS: INSULIN ASPART 1,000 UNITS/10 ML VIAL SQ SCH ×2 (12:00→19:40)
[2016-12-12] MEDS: PANTOPRAZOLE SODIUM 40 MG VIAL IV PUSH SCH ×2 (12:03→20:59)
[2016-12-12] MEDS: cefTRIAXone INJ 2,000 MG in SODIUM CHLORIDE 0.9% INJ 100 ML IV SCH (14:00)
[2016-12-12 14:35] LABS: C. DIFF EPI 027 PRESUMPTIVE POSITIVE (NEGATIVE); C. DIFF TOXIN PCR POSITIVE (NEGATIVE)
--- NOTE | 2016-12-12 14:43 | HHI.GIFU ---
Subjective Remarks Resting in bed in no distress. States he wants to go home. No n/v/abdominal pain. Reports that he has had 12 liquid stools today. This was confirmed by the nurse. Objective Vitals I&O Vital Signs Date Time Temp Pulse Resp B/P Pulse Ox O2 Delivery O2 Flow Rate FiO2 12/12/16 12:00 87 12/12/16 12:00 98.1 87 28 126/74 94 12/12/16 10:03 97 21 12/12/16 10:00 80 12/12/16 08:00 98.2 75 27 120/60 95 12/12/16 08:00 73 12/12/16 06:00 80 12/12/16 04:00 98.2 76 21 124/73 98 12/12/16 04:00 76 12/12/16 02:00 77 12/12/16 00:00 93 12/12/16 00:00 99.0 93 21 151/76 98 12/11/16 22:00 84 12/11/16 21:30 98 21 12/11/16 20:00 97.8 93 21 129/70 98 12/11/16 20:00 93 12/11/16 17:00 143/77 12/11/16 16:00 98.0 74 20 12/11/16 15:17 99 Nasal Cannula 21 I/O 12/11/16 12/11/16 12/11/16 12/12/16 12/12/16 12/12/16 07:00 15:00 23:00 07:00 15:00 23:00 Intake Total 798 ml 1664 ml 305 ml Output Total 0 ml 10 ml Balance 798 ml 1654 ml 305 ml Intake Oral 350 ml 800 ml IV Total 448 ml 864 ml 305 ml Output Urine Total 0 ml 10 ml # Bowel Movements 2 3 4 Laboratory Laboratory Tests Test 12/12/16 12/12/16 04:57 11:30 White Blood Count 5.5 Red Blood Count 2.41 Hemoglobin 8.4 Hematocrit 24.2 Mean Corpuscular Volume 100.5 Mean Corpuscular Hemoglobin 34.8 Mean Corpuscular Hemoglobin 34.7 Concent Red Cell Distribution Width 14.0 Platelet Count 120 Mean Platelet Volume 8.7 Neutrophils (%) (Auto) 86.0 Lymphocytes (%) (Auto) 6.3 Monocytes (%) (Auto) 6.6 Eosinophils (%) (Auto) 0.8 Basophils (%) (Auto) 0.3 Neutrophils # (Auto) 4.7 Lymphocytes # (Auto) 0.3 Monocytes # (Auto) 0.4 Eosinophils # (Auto) 0.0 Basophils # (Auto) 0.0 CBC Comment DIFF FINAL Differential Comment Sodium Level 138 Potassium Level 3.1 Chloride Level 98 Carbon Dioxide Level 29.4 Anion Gap 11 Blood Urea Nitrogen 34 Creatinine 5.48 Estimat Glomerular Filtration 11 Rate Random Glucose 102 Calcium Level 8.1 Phosphorus Level 3.1 Magnesium Level 1.5 Albumin 1.7 Stool C. difficile Toxin (PCR) POSITIVE Stl C. difficile Toxin PRESUMPTIVE Epiderm 027 POSITIVE Date/Time Procedure Status Source Growth 12/09/16 12:55 Aerobic Blood Culture - Preliminary Resulted Blood Peripheral NO GROWTH IN 3 DAYS 12/09/16 12:55 Anaerobic Blood Culture - Preliminary Resulted Blood Peripheral NO GROWTH IN 3 DAYS 12/08/16 04:45 Aerobic Blood Culture - Final Complete Blood Line Viridans Streptococcus Grp 12/08/16 04:45 Anaerobic Blood Culture - Final Complete Viridans Streptococcus Grp Imaging Last Impressions Chest X-Ray 12/09/16 0600 Signed Impressions: Service Date/Time: Friday, December 09, 2016 03:48 - CONCLUSION: Stable chest with no focal lung disease Bruce Mayorga MD Upper Extremity Ultrasound 12/09/16 0000 Signed Impressions: Service Date/Time: Friday, December 09, 2016 09:59 - CONCLUSION: 1. There is nonocclusive small area of thrombus within the proximal right basilic vein. 2. Remaining veins of the right upper extremity are patent. Bruce Rossi MD Physical Exam HEENT: Normocephalic; atraumatic; no jaundice. CHEST: CTA CARDIAC: RRR ABDOMEN: Soft, nondistended, nontender; no hepatosplenomegaly; bowel sounds are present in all four quadrants. EXTREMITIES: No clubbing, cyanosis, or edema. SKIN: Normal; no rash; no jaundice. 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 Sent to ER for coffee ground emesis. He does have a remote hx of PUD. S/P EGD (12/11/16)---> Duodenal ulcers, gastritis, esophagitis. Pathology pending. Tolerating diet. H&H 8.4/24.2. No nausea, vomiting, active bleeding. - C. Difficile Diarrhea. (027 +). 1st episode. Flagyl. 12 bm's today. CDiff just came back positive. - Anemia secondary to acute blood loss. H&H 8.4/24.2. - DKA, Type I DM. IMPROVED. - ESRD with multiple electrolyte abnormalities. Dialysis, Tues//Sat. - Hx CVA 2, HTN, COPD, anxiety and depression per primary. PLAN: - Renal diet - Await pathology - Protonix with BID dosing - Monitor HH - Transfuse as necessary - Add Flagyl 500mg po q8h - Supportive care - Further recommendations to follow based on results of above - Pt seen and examined by Dr. Tenorio and myself and this note is written on his behalf Larissa Pinon Dec 12, 2016 14:43
--- NOTE | 2016-12-12 15:01 | HHI.PR ---
Subjective Remarks Follow-up for DKA, ESRD. Patient is having a lot of diarrhea. No fever, chills. Wants to be transferred to the regular floor. Objective Vitals Vital Signs Date Time Temp Pulse Resp B/P Pulse Ox O2 Delivery O2 Flow Rate FiO2 12/12/16 12:00 87 12/12/16 12:00 98.1 87 28 126/74 94 12/12/16 10:03 97 21 12/12/16 10:00 80 12/12/16 08:00 98.2 75 27 120/60 95 12/12/16 08:00 73 12/12/16 06:00 80 12/12/16 04:00 98.2 76 21 124/73 98 12/12/16 04:00 76 12/12/16 02:00 77 12/12/16 00:00 93 12/12/16 00:00 99.0 93 21 151/76 98 12/11/16 22:00 84 12/11/16 21:30 98 21 12/11/16 20:00 97.8 93 21 129/70 98 12/11/16 20:00 93 12/11/16 17:00 143/77 12/11/16 16:00 98.0 74 20 12/11/16 15:17 99 Nasal Cannula 21 I/O 12/11/16 12/11/16 12/11/16 12/12/16 12/12/16 12/12/16 07:00 15:00 23:00 07:00 15:00 23:00 Intake Total 798 ml 1664 ml 305 ml Output Total 0 ml 10 ml Balance 798 ml 1654 ml 305 ml Intake Oral 350 ml 800 ml IV Total 448 ml 864 ml 305 ml Output Urine Total 0 ml 10 ml # Bowel Movements 2 3 4 Result Diagram: 12/12/16 0457 12/12/16 0457 Imaging Last Impressions Chest X-Ray 12/09/16 0600 Signed Impressions: Service Date/Time: Friday, December 09, 2016 03:48 - CONCLUSION: Stable chest with no focal lung disease Bruce Mayorga MD Upper Extremity Ultrasound 12/09/16 0000 Signed Impressions: Service Date/Time: Friday, December 09, 2016 09:59 - CONCLUSION: 1. There is nonocclusive small area of thrombus within the proximal right basilic vein. 2. Remaining veins of the right upper extremity are patent. Bruce Rossi MD Objective Remarks GENERAL: Alert, NAD. SKIN: Warm and dry. HEAD: Normocephalic. EYES: No scleral icterus. No injection or drainage. NECK: Supple, trachea midline. No JVD or lymphadenopathy. CARDIOVASCULAR: Regular rate and rhythm without murmurs, gallops, or rubs. RESPIRATORY: Breath sounds equal bilaterally. No accessory muscle use. GASTROINTESTINAL: Abdomen soft, non-tender, nondistended. MUSCULOSKELETAL: No cyanosis, or edema. BACK: Nontender without obvious deformity. No CVA tenderness. Procedures None. A/P Problem List: (1) Diabetic ketoacidosis ICD Code: E13.10 Status: Acute (2) Hypotension ICD Code: I95.9 Status: Acute (3) Severe sepsis ICD Code: A41.9 Status: Acute (4) UGIB (upper gastrointestinal bleed) ICD Code: K92.2 Status: Acute (5) Lactic acidosis ICD Code: E87.2 Status: Acute (6) Leukocytosis ICD Code: D72.829 Status: Acute (7) Hyperglycemia due to type 1 diabetes mellitus ICD Code: E10.65 Status: Acute (8) History of CVA with residual deficit ICD Code: I69.30 Status: Acute (9) CAD (coronary artery disease) ICD Code: I25.10 Status: Acute (10) ESRD (end stage renal disease) ICD Code: N18.6 Status: Chronic Assessment and Plan Mr. Wyatt is a 51-year-old male with a history of type 1 diabetes, CVA, ESRD currently on dialysis on Saturday and Saturday who was admitted to the hospital from his [facility] due to coffee ground emesis. In the ER hemoglobin was 11, WBC count 16.3 with 91% neutrophils. He was found to have a blood sugar of 929, lactic acid of 4.1 and anion gap of 34. Beta hydroxybutyric acid was also elevated at 10.97 indicating DKA. He was given 6 units of IV insulin, and was started on DKA insulin protocol. Patient was also started on Vanc and Zosyn for suspected sepsis. Blood culture grew viridans streptococcus. - Diabetic ketoacidosis - Type 1 diabetes mellitus - And iron gap improved from 34 to 17. - Reduce insulin regimen. Levemir 5 units QHS, pre-meal 2 units TIDAC, sliding scale insulin - low. - Anion gap much improved 17 --> 11. - Viridans Strep bacteremia - Echo negative for any vegetations. - Currently on Ceftriaxone 2g Qday. ID following. Patient denies any recent dental work. - Diarrhea - will check C. Diff PCR. If negative, we can start Imodium - Upper GI bleed - s/p EGD 12/11/2016 --> Duodenal ulcers, gastritis, esophagitis. - anemia secondary to acute GI blood loss. - Continue Protonix BID. - Transfuse as needed for Hgb < 7.0. - ESRD - HD on , , Sat. - Nephrology is following. Full code. SCDs. Problem Qualifiers (1) Diabetic ketoacidosis: (2) Hypotension: Qualified Code: I95.9 - Hypotension, unspecified hypotension type (3) CAD (coronary artery disease): Meño Purcell DO Dec 12, 2016 3:01 pm
[2016-12-12] MEDS ORDERED: POTASSIUM CHLOR 20 MEQ PREMIX 100 ML IV SCH (16:00)
--- NOTE | 2016-12-12 18:26 | HHI.NPPN ---
Subjective History of Present Illness This patient is a 51-year-old male with a history of multiple medical problems including diabetes mellitus, hypertension, previous CVA and end-stage renal disease. Patient receives hemodialysis as an outpatient TTS. Patient presented to the emergency room with hematemesis but was subsequently noted to have a blood sugar of 929 and evidence of metabolic acidosis. Patient was also hypotensive. Blood cultures now apparently growing a strep species. Interval History Patient indicated that he was having diarrhea. Review of Systems General Constitutional: Fatigue Objective Data Data 12/11/16 12/12/16 19:00 07:00 Intake Total 1105 ml 864 ml Output Total 10 ml Balance 1095 ml 864 ml Intake Oral 560 ml 240 ml IV Total 545 ml 624 ml Output Urine Total 10 ml # Bowel Movements 1 6 Vital Signs Date Time Temp Pulse Resp B/P Pulse Ox O2 Delivery O2 Flow Rate FiO2 12/12/16 12:00 87 12/12/16 12:00 98.1 87 28 126/74 94 12/12/16 10:03 97 21 12/12/16 10:00 80 12/12/16 08:00 98.2 75 27 120/60 95 12/12/16 08:00 73 12/12/16 06:00 80 12/12/16 04:00 98.2 76 21 124/73 98 12/12/16 04:00 76 12/12/16 02:00 77 12/12/16 00:00 93 12/12/16 00:00 99.0 93 21 151/76 98 12/11/16 22:00 84 12/11/16 21:30 98 21 12/11/16 20:00 97.8 93 21 129/70 98 12/11/16 20:00 93 -: 12/12/16 0457 12/12/16 0457 Medication Review Current Medications Ondansetron HCl (Zofran Inj) 4 mg ONCE ONCE IVP Last administered on 12/08/16t 01:48; Start 12/08/16 at 01:15; Stop 12/08/16 at 01:16; Status DC IV Flush 2 ml 2 ml UNSCH PRN IVF FLUSH AFTER USING IV ACCESS; Start 12/08/16 at 01:15; Stop 12/08/16 at 04:08; Status DC Sodium Chloride 250 ml @ 250 mls/hr BOLUS ONCE IV Last administered on 01:47; Start 12/08/16 at 01:15; Stop 12/08/16 at 02:14; Status DC Sodium Chloride 250 ml @ 250 mls/hr BOLUS ONCE IV Last administered on 02:20; Start 12/08/16 at 02:15; Stop 12/08/16 at 03:14; Status DC Pantoprazole Sodium 80 mg/ Sodium Chloride 100 ml @ 10 mls/hr CONTINUOUS IV Last administered on 12/08/16 03:49; Start 12/08/16 at 02:15; Stop 12/08/16 at 06: 21; Status DC Pantoprazole Sodium 80 mg/ Sodium Chloride 35 ml @ 420 mls/hr BOLUS ONCE IV Last administered on 12/08/16 02:20; Start 12/08/16 at 02:15; Stop 12/08/16 at 02: 19; Status DC Dextrose/Sodium Chloride (D5W-NS 1000 ml Inj) 1,000 ml @ 200 mls/hr Q5H IV ; Start 12/08/16 at 03:17; Stop 12/08/16 at 03:26; Status DC Insulin Human Regular 6 units 6 units BOLUS ONCE IV PUSH ; Start 12/08/16 at 03: 30; Stop 12/08/16 at 03:30; Status DC Insulin Human Regular 100 units/ Sodium Chloride 100 ml @ 0 mls/hr TITRATE IV ; Start 12/08/16 at 03:30; Stop 12/08/16 at 03:30; Status DC Potassium Chloride 100 ml @ 50 mls/hr Q2H PRN IV SEE LABEL COMMENTS; Start 12/08/16 at 03:30; Stop 12/08/16 at 03:30; Status DC Potassium Chloride 100 ml @ 50 mls/hr Q2H PRN IV SEE LABEL COMMENTS; Start 12/08/16 at 03:30; Stop 12/08/16 at 03:30; Status DC Potassium Chloride 100 ml @ 50 mls/hr Q2H PRN IV SEE LABEL COMMENTS; Start 12/08/16 at 03:30; Stop 12/08/16 at 03:30; Status DC Potassium Chloride 100 ml @ 50 mls/hr Q2H PRN IV SEE LABEL COMMENTS; Start 12/08/16 at 03:30; Stop 12/08/16 at 03:30; Status DC Sodium Chloride 500 ml @ 500 mls/hr BOLUS ONCE IV Last administered on 03:41; Start 12/08/16 at 03:30; Stop 12/08/16 at 04:29; Status DC Dextrose/Sodium Chloride (D5W-NS 1000 ml Inj) 1,000 ml @ 200 mls/hr Q5H IV ; Start 12/08/16 at 03:19; Stop 12/08/16 at 12:29; Status DC Insulin Human Regular 6 units 6 units BOLUS ONCE IV PUSH Last administered on 12/08/16 03:42; Start 12/08/16 at 03:30; Stop 12/08/16 at 03:31; Status DC Sodium Chloride 1,000 ml @ 999 mls/hr BOLUS ONCE IV Last administered on 04:13; Start 12/08/16 at 04:00; Stop 12/08/16 at 05:00; Status DC Insulin Human Regular/Sodium Chloride (NovoLIN R (IV INFUSION)/NS Inj) 100 ml @ 0 mls/hr TITRATE IV Last administered on 12/08/16 04:37; Start 12/08/16 at 04:00 ; Stop 12/08/16 at 22:00; Status DC Dextrose (D50w (Vial) Inj) 25 ml UNSCH PRN IV PUSH SEE LABEL COMMENTS; Start at 04:00; Stop 12/08/16 at 22:00; Status DC Miscellaneous Information 1 1 ONCE ONCE XX Last administered on 12/08/16 04:00 ; Start 12/08/16 at 04:00; Stop 12/08/16 at 04:01; Status DC Sodium Chloride (NS 1000 ml Inj) 1,000 ml @ 50 mls/hr Q20H IV ; Start 12/08/16 at 04:00; Stop 12/09/16 at 02:55; Status DC Sodium Bicarbonate (Sodium Bicarbonate 8.4% Inj) 50 meq ONCE ONCE IV PUSH Last administered on 12/08/16 04:12; Start 12/08/16 at 04:00; Stop 12/08/16 at 04: 01; Status DC Sodium Bicarbonate (Sodium Bicarbonate 8.4% Inj) 50 meq ONCE ONCE IV PUSH Last administered on 12/08/16 04:24; Start 12/08/16 at 04:00; Stop 12/08/16 at 04: 01; Status DC IV Flush (NS Flush) 2 ml UNSCH PRN IV FLUSH FLUSH AFTER USING IV ACCESS; Start 12/08/16 at 04:00 IV Flush (NS Flush) 2 ml BID IV FLUSH Last administered on 12/11/16 20:06; Start 12/08/16 at 09:00 Albuterol/ Ipratropium (Duoneb Neb) 1 ampule Q4HR NEB PRN INH WHEEZING; Start 12/08/16 at 04:00 Miscellaneous Information 1 Q361D XX ; Start 12/08/16 at 04:00 Chlorhexidine Gluconate (Chlorhexidine 2% Cloth) 3 pack Taper DAILY@04 TOP Last administered on 12/12/16 04:00; Start 12/08/16 at 04:00; Stop 12/04/17 at 03 :59 Chlorhexidine Gluconate 3 pack 3 pack UNSCH PRN TOP HYGIENIC CARE; Start at 04:00 Pantoprazole Sodium 80 mg/ Sodium Chloride 35 ml @ 420 mls/hr ONCE ONCE IV ; Start 12/08/16 at 05:15; Stop 12/08/16 at 05:19; Status DC Pantoprazole Sodium 80 mg/ Sodium Chloride 100 ml @ 10 mls/hr Q10H IV Last administered on 12/09/16 11:14; Start 12/08/16 at 05:15; Stop 12/09/16 at 18:10; Status DC Piperacillin Sod/ Tazobactam Sod 50 ml @ 100 mls/hr Q8H IV Last administered on 12/09/16 20:12; Start 12/08/16 at 04:15; Stop 12/10/16 at 03:00; Status DC Vancomycin HCl 1000 mg/Sodium Chloride 250 ml @ 250 mls/hr ONCE ONCE IV ; Start 12/08/16 at 05:00; Stop 12/08/16 at 05:59; Status DC Pharmacy Profile Note 0 ml @ 0 mls/hr UNSCH OTHER ; Start 12/08/16 at 04:15; Stop 12/08/16 at 11:22; Status DC Sodium Chloride (NS 1000 ml Inj) 1,000 ml @ 999 mls/hr BOLUS ONCE IV ; Start 12/08/16 at 05:30; Stop 12/08/16 at 06:30; Status DC Insulin Human Regular 10 units 10 units ONCE ONCE IV PUSH Last administered on 12/08/16 05:00; Start 12/08/16 at 05:30; Stop 12/08/16 at 05:31; Status DC Sodium Chloride 1,000 ml @ 999 mls/hr BOLUS ONCE IV Last administered on 10:06; Start 12/08/16 at 08:15; Stop 12/08/16 at 09:15; Status DC Sodium Chloride 1,000 ml @ 999 mls/hr BOLUS ONCE IV Last administered on 10:06; Start 12/08/16 at 09:15; Stop 12/08/16 at 10:21; Status DC Sodium Chloride (NS 1000 ml Inj) 1,000 ml @ 0 mls/hr Q0M PRN IV For Prime & Rinse Back; Start 12/08/16 at 11:25; Status UNV Heparin Sodium (Porcine) 8000 units 8,000 units UNSCH PRN IVF WITH DIALYSIS; Start 12/08/16 at 11:30; Status UNV Sodium Chloride 1,000 ml @ 200 mls/hr Q5H PRN IV WITH DIALYSIS; Start 12/08/16 at 11:25; Status UNV Sodium Chloride (NS 1000 ml Inj) 1,000 ml @ 0 mls/hr Q0M PRN IV WITH DIALYSIS; Start 12/08/16 at 11:25; Status UNV Mannitol (Mannitol Inj) 12.5 gm UNSCH PRN IV WITH DIALYSIS; Start 12/08/16 at 11 :30; Status UNV Albumin Human (Albumin 25% Inj) 25 gm UNSCH PRN IV WITH DIALYSIS; Start at 11:30; Status UNV IV Flush (NS Flush) 5 ml UNSCH PRN IVF WITH DIALYSIS; Start 12/08/16 at 11:30; Status UNV Heparin Sodium (Porcine) (Heparin Inj) UNSCH PRN .XX WITH DIALYSIS; Start 12/08 at 11:30; Status UNV Gentamicin Sulfate (Gentamicin (Dialysis) Inj) 20 mg UNSCH PRN IV WITH DIALYSIS ; Start 12/08/16 at 11:30; Status UNV Ondansetron HCl (Zofran Inj) 4 mg UNSCH PRN IV WITH DIALYSIS; Start 12/08/16 at 11:30; Status UNV Acetaminophen (Tylenol) 650 mg UNSCH PRN PO for headach, pain, temp > 101F; Start 12/08/16 at 11:30; Status UNV Diphenhydramine HCl (Benadryl) 25 mg UNSCH PRN PO for hives/itching/anaphylaxis ; Start 12/08/16 at 11:30; Status UNV Nitroglycerin (Nitrostat Sl) 0.4 mg UNSCH PRN SL CHEST PAIN; Start 12/08/16 at 11:30; Status UNV Clonidine (Catapres) 0.1 mg UNSCH PRN PO for BP > 180/100 X 2 readings; Start 12/08/16 at 11:30; Status UNV Gelatin 1 foam 1 foam UNSCH PRN TOP SEE LABEL COMMENTS; Start 12/08/16 at 11:30 ; Status UNV Sodium Chloride (NS 1000 ml Inj) 1,000 ml @ 0 mls/hr Q0M PRN IV For Prime & Rinse Back; Start 12/08/16 at 11:22 Heparin Sodium (Porcine) 8000 units 8,000 units UNSCH PRN IVF WITH DIALYSIS; Start 12/08/16 at 11:30 Sodium Chloride 1,000 ml @ 200 mls/hr Q5H PRN IV WITH DIALYSIS; Start 12/08/16 at 11:22 Sodium Chloride (NS 1000 ml Inj) 1,000 ml @ 0 mls/hr Q0M PRN IV WITH DIALYSIS; Start 12/08/16 at 11:22 Mannitol (Mannitol Inj) 12.5 gm UNSCH PRN IV WITH DIALYSIS; Start 12/08/16 at 11 :30 Albumin Human (Albumin 25% Inj) 25 gm UNSCH PRN IV WITH DIALYSIS; Start at 11:30 IV Flush (NS Flush) 5 ml UNSCH PRN IVF WITH DIALYSIS; Start 12/08/16 at 11:30 Heparin Sodium (Porcine) (Heparin Inj) UNSCH PRN .XX WITH DIALYSIS; Start 12/08 at 11:30 Gentamicin Sulfate (Gentamicin (Dialysis) Inj) 20 mg UNSCH PRN IV WITH DIALYSIS ; Start 12/08/16 at 11:30 Ondansetron HCl (Zofran Inj) 4 mg UNSCH PRN IV WITH DIALYSIS; Start 12/08/16 at 11:30 Acetaminophen (Tylenol) 650 mg UNSCH PRN PO for headach, pain, temp > 101F; Start 12/08/16 at 11:30 Diphenhydramine HCl (Benadryl) 25 mg UNSCH PRN PO for hives/itching/anaphylaxis ; Start 12/08/16 at 11:30 Nitroglycerin (Nitrostat Sl) 0.4 mg UNSCH PRN SL CHEST PAIN; Start 12/08/16 at 11:30 Clonidine (Catapres) 0.1 mg UNSCH PRN PO for BP > 180/100 X 2 readings; Start 12/08/16 at 11:30 Gelatin 1 foam 1 foam UNSCH PRN TOP SEE LABEL COMMENTS Last administered on 12/08 14:30; Start 12/08/16 at 11:30 Dextrose/Sodium Chloride (D5W-NS 1000 ml Inj) 1,000 ml @ 50 mls/hr Q20H IV Last administered on 12/08/16 13:24; Start 12/08/16 at 13:00; Stop 12/09/16 at 02: 55; Status DC Miscellaneous Information 1 ONCE ONCE XX Last administered on 12/08/16 20:00; Start 12/08/16 at 20:00; Stop 12/08/16 at 20:09; Status DC Miscellaneous Information 1 ONCE ONCE XX Last administered on 12/08/16 20:00; Start 12/08/16 at 20:00; Stop 12/08/16 at 20:08; Status DC Insulin Detemir (Levemir Inj) 12 units Q12H SQ Last administered on 12/08/16 20 :20; Start 12/08/16 at 20:00; Stop 12/09/16 at 02:57; Status DC Insulin Human Regular (NovoLIN R SUPPLEMENTAL SCALE) 1 Q3HR SQ Last administered on 12/11/16 08:00; Start 12/08/16 at 20:00; Stop 12/11/16 at 08:12; Status DC Dextrose (D50w (Vial) Inj) 25 ml UNSCH PRN IV PUSH HYPOGLYCEMIA-SEE COMMENTS Last administered on 12/09/16 14:52; Start 12/08/16 at 20:00; Stop 12/11/16 at 08: 12; Status DC Glucagon 1 mg 1 mg UNSCH PRN OTHER HYPOGLYCEMIA-SEE COMMENTS Last administered on 12/09/16 03:45; Start 12/08/16 at 20:00; Stop 12/11/16 at 08:12; Status DC Dextrose (D5W 1000 ml Inj) 1,000 ml @ 50 mls/hr Q20H IV Last administered on 18:53; Start 12/09/16 at 03:00 Insulin Detemir 6 units 6 units Q12H SQ ; Start 12/09/16 at 07:00; Stop 12/09/16 at 07:50; Status DC Potassium Chloride 100 ml @ 50 mls/hr BOLUS ONCE IV Last administered on 08:04; Start 12/09/16 at 08:00; Stop 12/09/16 at 09:59; Status DC Vancomycin HCl 1000 mg/Sodium Chloride 250 ml @ 250 mls/hr ONCE ONCE IV Last administered on 12/09/16 11:14; Start 12/09/16 at 10:00; Stop 12/09/16 at 10:59; Status DC Piperacillin Sod/ Tazobactam Sod (Zosyn 2.25 Gm Premix) 50 ml @ 100 mls/hr Q8H IV Last administered on 12/11/16 03:36; Start 12/10/16 at 04:00; Stop 12/11/16 at 13:16; Status DC Pantoprazole Sodium (Protonix Inj) 40 mg Q12H IV PUSH Last administered on 12:03; Start 12/09/16 at 20:00 Epoetin Mark (Epogen Inj) 10,000 units WITH DIALYSIS SQ ; Start 12/10/16 at 11: 30 Propofol (Diprivan 200 Mg/20 ml Inj) 200 mg STK-MED ONCE IV ; Start 12/10/16 at 19:29; Stop 12/10/16 at 20:08; Status DC Miscellaneous Information ALL NURSING DEPARTME... UNSCH PRN XX SEE LABEL COMMENTS; Start 12/10/16 at 20:15; Stop 12/11/16 at 20:14; Status DC Dextrose (D50w (Vial) Inj) 25 ml UNSCH PRN IV PUSH HYPOGLYCEMIA-SEE COMMENTS; Start 12/11/16 at 08:15; Stop 12/12/16 at 11:35; Status DC Glucagon (Glucagon Inj) 1 mg UNSCH PRN OTHER HYPOGLYCEMIA-SEE COMMENTS; Start 12/11/16 at 08:15; Stop 12/12/16 at 11:35; Status DC Insulin Aspart (NovoLOG SUPPLEMENTAL SCALE) 1 ACHS SLIDING SCALE SQ Last administered on 12/11/16 13:00; Start 12/11/16 at 11:00; Stop 12/12/16 at 11:17; Status DC Insulin Aspart (NovoLOG INJ) 4 units TIDAC SQ Last administered on 12/11/16 13: 00; Start 12/11/16 at 12:00; Stop 12/12/16 at 11:17; Status DC Insulin Detemir 7 units 7 units Q12HR SQ Last administered on 12/11/16 20:06; Start 12/11/16 at 09:00; Stop 12/12/16 at 11:17; Status DC Ceftriaxone Sodium/Sodium Chloride (Rocephin Inj/NS Inj) 100 ml @ 200 mls/hr Q24H IV Last administered on 12/12/16 14:00; Start 12/11/16 at 14:00 Potassium Chloride 20 meq 20 meq ONCE ONCE PO Last administered on 12/12/16 12 :03; Start 12/12/16 at 09:00; Stop 12/12/16 at 09:06; Status DC Potassium Chloride 100 ml @ 50 mls/hr Q2H IV Last administered on 12/12/16 13: 00; Start 12/12/16 at 11:00; Stop 12/12/16 at 14:59; Status DC Potassium Chloride (KCl 20 Meq Premix Inj) 100 ml @ 50 mls/hr Q2H IV ; Start at 16:00; Stop 12/12/16 at 16:00; Status DC Loperamide HCl (Imodium) 2 mg Q6H PRN PO DIARRHEA; Start 12/12/16 at 11:15; Stop 12/12/16 at 15:02; Status DC Insulin Aspart (NovoLOG INJ) 2 units TIDAC SQ Last administered on 12/12/16 12: 00; Start 12/12/16 at 12:00 Insulin Detemir (Levemir Inj) 5 units HS SQ ; Start 12/12/16 at 21:00 Dextrose (D50w (Vial) Inj) 25 ml UNSCH PRN IV PUSH HYPOGLYCEMIA-SEE COMMENTS; Start 12/12/16 at 11:15 Glucagon (Glucagon Inj) 1 mg UNSCH PRN OTHER HYPOGLYCEMIA-SEE COMMENTS; Start 12/12/16 at 11:15 Insulin Aspart (NovoLOG SUPPLEMENTAL SCALE) 1 ACHS SLIDING SCALE SQ Last administered on 12/12/16t 15:37; Start 12/12/16 at 16:00 Metronidazole (Flagyl) 500 mg Q8HR PO ; Start 12/12/16 at 22:00 Vancomycin HCl (VANCOMYCIN for oral use only) 125 mg Q6H PO ; Start 12/12/16 at 16:00; Stop 12/26/16 at 15:59 Physical Exam General Appearance: No Acute Distress, Comfortable Eyes Eye Exam: Sclera White Neck Neck Exam: Trachea Midline Pulmonary Resp Exam: Clear Bilaterally, Breath Sounds Equal, No Distress Cardiology CV Exam: Regular, Normal Sinus Rhythm Gastrointestinal/Abdomen GI Exam: Soft, Non-Tender Integumentary Skin Exam: Clear, Warm Extremeties Extremities Exam: No Edema Neurologic Neuro Exam: Alert, Awake Assessment/Plan Problem List: (1) ESRD (end stage renal disease) Plan: Continue hemodialysis Tuesdays, and Saturdays. Avoid gadolinium. Medication should be adjusted for his end-stage renal disease when indicated. (2) Bacteremia Plan: Strep viridans isolated. Origin uncertain Infectious disease following. Apparently being considered for a JOSE. (3) Hypertension Plan: Hold hypertensive medications pending improvement in blood pressure. (4) DKA, type 1 Plan: Management per primary care physician. (5) Anemia of renal disease Plan: Initiate therapy with Epogen. Problem Qualifiers (1) DKA, type 1: Qualified Code: E10.10 - Type 1 diabetes mellitus with ketoacidosis without coma Wilfredo Reyes MD Dec 12, 2016 18:26
--- NOTE | 2016-12-12 19:29 | HHI.IDPN ---
Subjective Subjective Remarks delayed entry - pt seen around 1500 + diarrhea C.diff + Antibiotics CFTX Allergies: Coded Allergies: Bee Sting (Unverified Allergy, Severe, 11/04/16) Contrast Media (Unverified Allergy, Severe, 11/04/16) Objective . Vital Signs Date Time Temp Pulse Resp B/P Pulse Ox O2 Delivery O2 Flow Rate FiO2 12/12/16 16:00 98.0 97 20 123/72 99 12/12/16 12:00 87 12/12/16 12:00 98.1 87 28 126/74 94 12/12/16 10:03 97 21 12/12/16 10:00 80 12/12/16 08:00 98.2 75 27 120/60 95 12/12/16 08:00 73 12/12/16 06:00 80 12/12/16 04:00 98.2 76 21 124/73 98 12/12/16 04:00 76 12/12/16 02:00 77 12/12/16 00:00 93 12/12/16 00:00 99.0 93 21 151/76 98 12/11/16 22:00 84 12/11/16 21:30 98 21 12/11/16 20:00 97.8 93 21 129/70 98 12/11/16 20:00 93 12/11/16 12/11/16 12/12/16 15:00 23:00 07:00 Intake Total 1664 ml 305 ml Output Total 10 ml Balance 1654 ml 305 ml Intake Oral 800 ml IV Total 864 ml 305 ml Output Urine Total 10 ml # Bowel Movements 3 4 . Laboratory Tests Test 12/11/16 12/12/16 05:30 04:57 White Blood Count 5.6 TH/MM3 5.5 TH/MM3 Red Blood Count 2.52 MIL/MM3 2.41 MIL/MM3 Hemoglobin 8.6 GM/DL 8.4 GM/DL Hematocrit 25.4 % 24.2 % Mean Corpuscular Volume 101.1 FL 100.5 FL Mean Corpuscular Hemoglobin 34.3 PG 34.8 PG Mean Corpuscular Hemoglobin 33.9 % 34.7 % Concent Red Cell Distribution Width 14.2 % 14.0 % Platelet Count 122 TH/MM3 120 TH/MM3 Mean Platelet Volume 9.1 FL 8.7 FL Neutrophils (%) (Auto) 84.5 % 86.0 % Lymphocytes (%) (Auto) 7.2 % 6.3 % Monocytes (%) (Auto) 5.8 % 6.6 % Eosinophils (%) (Auto) 1.3 % 0.8 % Basophils (%) (Auto) 1.2 % 0.3 % Neutrophils # (Auto) 4.8 TH/MM3 4.7 TH/MM3 Lymphocytes # (Auto) 0.4 TH/MM3 0.3 TH/MM3 Monocytes # (Auto) 0.3 TH/MM3 0.4 TH/MM3 Eosinophils # (Auto) 0.1 TH/MM3 0.0 TH/MM3 Basophils # (Auto) 0.1 TH/MM3 0.0 TH/MM3 CBC Comment DIFF FINAL DIFF FINAL Differential Comment Laboratory Tests Test 12/11/16 12/12/16 05:30 04:57 Sodium Level 134 MEQ/L 138 MEQ/L Potassium Level 4.0 MEQ/L 3.1 MEQ/L Chloride Level 95 MEQ/L 98 MEQ/L Carbon Dioxide Level 22.2 MEQ/L 29.4 MEQ/L Anion Gap 17 MEQ/L 11 MEQ/L Blood Urea Nitrogen 68 MG/DL 34 MG/DL Creatinine 8.72 MG/DL 5.48 MG/DL Estimat Glomerular Filtration 6 ML/MIN 11 ML/MIN Rate Random Glucose 240 MG/DL 102 MG/DL Calcium Level 8.0 MG/DL 8.1 MG/DL Phosphorus Level 3.1 MG/DL Magnesium Level 1.5 MG/DL Albumin 1.7 GM/DL Imaging Last Impressions Chest X-Ray 12/09/16 0600 Signed Impressions: Service Date/Time: Friday, December 09, 2016 03:48 - CONCLUSION: Stable chest with no focal lung disease Bruce Mayorga MD Upper Extremity Ultrasound 12/09/16 0000 Signed Impressions: Service Date/Time: Friday, December 09, 2016 09:59 - CONCLUSION: 1. There is nonocclusive small area of thrombus within the proximal right basilic vein. 2. Remaining veins of the right upper extremity are patent. Bruce oRssi MD Physical Exam CONSTITUTIONAL/GENERAL: This is a thin chronically ill appearing male patient, in no apparent distress. TUBES/LINES/DRAINS: SKIN: No jaundice, rashes, or lesions. Ecchymoses on upper extremities. No wounds seen anteriorly. Skin temperature appropriate. Not diaphoretic. ENT: oral mucosae moist CARDIOVASCULAR: Regular rate and rhythm without murmurs, gallops, or rubs. No JVD. Peripheral pulses symmetric. RESPIRATORY/CHEST: Symmetric, unlabored respirations. Clear to auscultation. Breath sounds equal bilaterally. No wheezes, rales, or rhonchi. GASTROINTESTINAL: Abdomen soft, non-tender, slightly distended. well healed median laparomy scar MUSCULOSKELETAL: Extremities without clubbing, cyanosis, NEUROLOGICAL: Awake and alert. Motor and sensory grossly within normal limits. Follows commands. Assessment & Plan Remarks Streptococcal bacteremia ? source likely GI - doubt endovasc infx, repeat BC negative DKA GIB 2/2 PUD New issue - C.diff , hypervirulent 027 strain - cont CFTX x 2 weeks - fu repeat BC untill final JOSE only in case of new positive BC or other findings suspicious for endovasc infx - stat oral vancomycin - anticipate to cont vanco x 2 weeks after systemic abx completed Ana Lilia Park MD Dec 12, 2016 19:29
[2016-12-12] MEDS: VANCOMYCIN 500 MG VIAL (FOR ORAL USE ONLY) PO SCH ×2 (19:40→20:59)
[2016-12-12] MEDS: metroNIDAZOLE 500 MG TAB PO SCH (20:59)
[2016-12-12] MEDS: INSULIN DETEMIR 100 UNITS/ML VIAL SQ SCH (21:05)
[2016-12-13] VITALS (7 sets, daily range): BP systolic 139–151; BP diastolic 64–77; PULSE 88–108; RESP 18–24; TEMP 96.8–99.6; O2SAT 95–100
[2016-12-13] MEDS: CHLORHEXIDINE GLUCONATE 2 % 1 PACK (2 CLOTHS) TOP SCH (04:00)
[2016-12-13] MEDS: DEXTROSE 5% IN WATE 1000ML INJ 1,000 ML IV SCH (05:39)
[2016-12-13] MEDS: metroNIDAZOLE 500 MG TAB PO SCH ×2 (05:41→14:00)
[2016-12-13] MEDS: VANCOMYCIN 500 MG VIAL (FOR ORAL USE ONLY) PO SCH ×4 (05:47→22:10)
[2016-12-13] MEDS: INSULIN ASPART SUPPLEMENTAL SCALE SQ SCH ×4 (05:48→22:11)
[2016-12-13] MEDS: SODIUM CHLORIDE 0.9% FLUSH 5 ML FLUSH IV FLUSH SCH ×2 (09:00→22:10)
[2016-12-13] MEDS: PANTOPRAZOLE SODIUM 40 MG VIAL IV PUSH SCH ×2 (10:23→22:10)
[2016-12-13] MEDS: INSULIN ASPART 1,000 UNITS/10 ML VIAL SQ SCH ×3 (10:24→16:34)
--- NOTE | 2016-12-13 10:53 | HHI.PR ---
Subjective Remarks f/u for bacteremia and C difficile. Patient stated that he feels fatigue. continues to have diarrhea. remains afebrile. Denied any SOB, lightheadedness, dizziness. Objective Vitals Vital Signs Date Time Temp Pulse Resp B/P Pulse Ox O2 Delivery O2 Flow Rate FiO2 12/13/16 08:00 99.1 88 20 151/73 95 12/13/16 04:00 96.8 92 20 139/69 96 12/13/16 00:00 98.8 98 21 139/71 97 12/12/16 20:00 98.6 84 21 154/74 97 12/12/16 16:00 98.0 97 20 123/72 99 12/12/16 12:00 87 12/12/16 12:00 98.1 87 28 126/74 94 I/O 12/12/16 12/12/16 12/12/16 12/13/16 12/13/16 12/13/16 07:00 15:00 23:00 07:00 15:00 23:00 Intake Total 305 ml 632 ml 120 ml 240 ml Output Total 50 ml Balance 305 ml 582 ml 120 ml 240 ml Intake Oral 320 ml 120 ml 240 ml IV Total 305 ml 312 ml Output Urine Total 50 ml # Voids 1 3 # Bowel Movements 4 10 4 3 Result Diagram: 12/12/16 0457 12/12/16 0457 Objective Remarks GENERAL: CARDIOVASCULAR: Regular rate and rhythm without murmurs, gallops, or rubs. RESPIRATORY: Breath sounds equal bilaterally. No accessory muscle use. GASTROINTESTINAL: Abdomen soft, non-tender, nondistended. MUSCULOSKELETAL: No cyanosis, or edema. BACK: Nontender without obvious deformity. No CVA tenderness. Procedures None. Medications and IVs Current Medications Ondansetron HCl (Zofran Inj) 4 mg ONCE ONCE IVP Last administered on 12/08/16 01:48; Start 12/08/16 at 01:15; Stop 12/08/16 at 01:16; Status DC IV Flush 2 ml 2 ml UNSCH PRN IVF FLUSH AFTER USING IV ACCESS; Start 12/08/16 at 01:15; Stop 12/08/16 at 04:08; Status DC Sodium Chloride 250 ml @ 250 mls/hr BOLUS ONCE IV Last administered on 01:47; Start 12/08/16 at 01:15; Stop 12/08/16 at 02:14; Status DC Sodium Chloride 250 ml @ 250 mls/hr BOLUS ONCE IV Last administered on 02:20; Start 12/08/16 at 02:15; Stop 12/08/16 at 03:14; Status DC Pantoprazole Sodium 80 mg/ Sodium Chloride 100 ml @ 10 mls/hr CONTINUOUS IV Last administered on 12/08/16 03:49; Start 12/08/16 at 02:15; Stop 12/08/16 at 06: 21; Status DC Pantoprazole Sodium 80 mg/ Sodium Chloride 35 ml @ 420 mls/hr BOLUS ONCE IV Last administered on 12/08/16 02:20; Start 12/08/16 at 02:15; Stop 12/08/16 at 02: 19; Status DC Dextrose/Sodium Chloride (D5W-NS 1000 ml Inj) 1,000 ml @ 200 mls/hr Q5H IV ; Start 12/08/16 at 03:17; Stop 12/08/16 at 03:26; Status DC Insulin Human Regular 6 units 6 units BOLUS ONCE IV PUSH ; Start 12/08/16 at 03: 30; Stop 12/08/16 at 03:30; Status DC Insulin Human Regular 100 units/ Sodium Chloride 100 ml @ 0 mls/hr TITRATE IV ; Start 12/08/16 at 03:30; Stop 12/08/16 at 03:30; Status DC Potassium Chloride 100 ml @ 50 mls/hr Q2H PRN IV SEE LABEL COMMENTS; Start 12/08/16 at 03:30; Stop 12/08/16 at 03:30; Status DC Potassium Chloride 100 ml @ 50 mls/hr Q2H PRN IV SEE LABEL COMMENTS; Start 12/08/16 at 03:30; Stop 12/08/16 at 03:30; Status DC Potassium Chloride 100 ml @ 50 mls/hr Q2H PRN IV SEE LABEL COMMENTS; Start 12/08/16 at 03:30; Stop 12/08/16 at 03:30; Status DC Potassium Chloride 100 ml @ 50 mls/hr Q2H PRN IV SEE LABEL COMMENTS; Start 12/08/16 at 03:30; Stop 12/08/16 at 03:30; Status DC Sodium Chloride 500 ml @ 500 mls/hr BOLUS ONCE IV Last administered on 03:41; Start 12/08/16 at 03:30; Stop 12/08/16 at 04:29; Status DC Dextrose/Sodium Chloride (D5W-NS 1000 ml Inj) 1,000 ml @ 200 mls/hr Q5H IV ; Start 12/08/16 at 03:19; Stop 12/08/16 at 12:29; Status DC Insulin Human Regular 6 units 6 units BOLUS ONCE IV PUSH Last administered on 12/08/16 03:42; Start 12/08/16 at 03:30; Stop 12/08/16 at 03:31; Status DC Sodium Chloride 1,000 ml @ 999 mls/hr BOLUS ONCE IV Last administered on 04:13; Start 12/08/16 at 04:00; Stop 12/08/16 at 05:00; Status DC Insulin Human Regular/Sodium Chloride (NovoLIN R (IV INFUSION)/NS Inj) 100 ml @ 0 mls/hr TITRATE IV Last administered on 12/08/16 04:37; Start 12/08/16 at 04:00 ; Stop 12/08/16 at 22:00; Status DC Dextrose (D50w (Vial) Inj) 25 ml UNSCH PRN IV PUSH SEE LABEL COMMENTS; Start at 04:00; Stop 12/08/16 at 22:00; Status DC Miscellaneous Information 1 1 ONCE ONCE XX Last administered on 12/08/16 04:00 ; Start 12/08/16 at 04:00; Stop 12/08/16 at 04:01; Status DC Sodium Chloride (NS 1000 ml Inj) 1,000 ml @ 50 mls/hr Q20H IV ; Start 12/08/16 at 04:00; Stop 12/09/16 at 02:55; Status DC Sodium Bicarbonate (Sodium Bicarbonate 8.4% Inj) 50 meq ONCE ONCE IV PUSH Last administered on 12/08/16 04:12; Start 12/08/16 at 04:00; Stop 12/08/16 at 04: 01; Status DC Sodium Bicarbonate (Sodium Bicarbonate 8.4% Inj) 50 meq ONCE ONCE IV PUSH Last administered on 12/08/16 04:24; Start 12/08/16 at 04:00; Stop 12/08/16 at 04: 01; Status DC IV Flush (NS Flush) 2 ml UNSCH PRN IV FLUSH FLUSH AFTER USING IV ACCESS; Start 12/08/16 at 04:00 IV Flush (NS Flush) 2 ml BID IV FLUSH Last administered on 12/12/16 21:00; Start 12/08/16 at 09:00 Albuterol/ Ipratropium (Duoneb Neb) 1 ampule Q4HR NEB PRN INH WHEEZING; Start 12/08/16 at 04:00 Miscellaneous Information 1 Q361D XX ; Start 12/08/16 at 04:00 Chlorhexidine Gluconate (Chlorhexidine 2% Cloth) Taper DAILY@04 TOP Last administered on 12/12/16 04:00; Start 12/08/16 at 04:00; Stop 12/04/17 at 03:59 Chlorhexidine Gluconate 3 pack 3 pack UNSCH PRN TOP HYGIENIC CARE; Start at 04:00 Pantoprazole Sodium 80 mg/ Sodium Chloride 35 ml @ 420 mls/hr ONCE ONCE IV ; Start 12/08/16 at 05:15; Stop 12/08/16 at 05:19; Status DC Pantoprazole Sodium 80 mg/ Sodium Chloride 100 ml @ 10 mls/hr Q10H IV Last administered on 12/09/16 11:14; Start 12/08/16 at 05:15; Stop 12/09/16 at 18:10; Status DC Piperacillin Sod/ Tazobactam Sod 50 ml @ 100 mls/hr Q8H IV Last administered on 12/09/16 20:12; Start 12/08/16 at 04:15; Stop 12/10/16 at 03:00; Status DC Vancomycin HCl 1000 mg/Sodium Chloride 250 ml @ 250 mls/hr ONCE ONCE IV ; Start 12/08/16 at 05:00; Stop 12/08/16 at 05:59; Status DC Pharmacy Profile Note 0 ml @ 0 mls/hr UNSCH OTHER ; Start 12/08/16 at 04:15; Stop 12/08/16 at 11:22; Status DC Sodium Chloride (NS 1000 ml Inj) 1,000 ml @ 999 mls/hr BOLUS ONCE IV ; Start 12/08/16 at 05:30; Stop 12/08/16 at 06:30; Status DC Insulin Human Regular 10 units 10 units ONCE ONCE IV PUSH Last administered on 12/08/16 05:00; Start 12/08/16 at 05:30; Stop 12/08/16 at 05:31; Status DC Sodium Chloride 1,000 ml @ 999 mls/hr BOLUS ONCE IV Last administered on 10:06; Start 12/08/16 at 08:15; Stop 12/08/16 at 09:15; Status DC Sodium Chloride 1,000 ml @ 999 mls/hr BOLUS ONCE IV Last administered on 10:06; Start 12/08/16 at 09:15; Stop 12/08/16 at 10:21; Status DC Sodium Chloride (NS 1000 ml Inj) 1,000 ml @ 0 mls/hr Q0M PRN IV For Prime & Rinse Back; Start 12/08/16 at 11:25; Status UNV Heparin Sodium (Porcine) 8000 units 8,000 units UNSCH PRN IVF WITH DIALYSIS; Start 12/08/16 at 11:30; Status UNV Sodium Chloride 1,000 ml @ 200 mls/hr Q5H PRN IV WITH DIALYSIS; Start 12/08/16 at 11:25; Status UNV Sodium Chloride (NS 1000 ml Inj) 1,000 ml @ 0 mls/hr Q0M PRN IV WITH DIALYSIS; Start 12/08/16 at 11:25; Status UNV Mannitol (Mannitol Inj) 12.5 gm UNSCH PRN IV WITH DIALYSIS; Start 12/08/16 at 11 :30; Status UNV Albumin Human (Albumin 25% Inj) 25 gm UNSCH PRN IV WITH DIALYSIS; Start at 11:30; Status UNV IV Flush (NS Flush) 5 ml UNSCH PRN IVF WITH DIALYSIS; Start 12/08/16 at 11:30; Status UNV Heparin Sodium (Porcine) (Heparin Inj) UNSCH PRN .XX WITH DIALYSIS; Start 12/08 at 11:30; Status UNV Gentamicin Sulfate (Gentamicin (Dialysis) Inj) 20 mg UNSCH PRN IV WITH DIALYSIS ; Start 12/08/16 at 11:30; Status UNV Ondansetron HCl (Zofran Inj) 4 mg UNSCH PRN IV WITH DIALYSIS; Start 12/08/16 at 11:30; Status UNV Acetaminophen (Tylenol) 650 mg UNSCH PRN PO for headach, pain, temp > 101F; Start 12/08/16 at 11:30; Status UNV Diphenhydramine HCl (Benadryl) 25 mg UNSCH PRN PO for hives/itching/anaphylaxis ; Start 12/08/16 at 11:30; Status UNV Nitroglycerin (Nitrostat Sl) 0.4 mg UNSCH PRN SL CHEST PAIN; Start 12/08/16 at 11:30; Status UNV Clonidine (Catapres) 0.1 mg UNSCH PRN PO for BP > 180/100 X 2 readings; Start 12/08/16 at 11:30; Status UNV Gelatin 1 foam 1 foam UNSCH PRN TOP SEE LABEL COMMENTS; Start 12/08/16 at 11:30 ; Status UNV Sodium Chloride (NS 1000 ml Inj) 1,000 ml @ 0 mls/hr Q0M PRN IV For Prime & Rinse Back; Start 12/08/16 at 11:22 Heparin Sodium (Porcine) 8000 units 8,000 units UNSCH PRN IVF WITH DIALYSIS; Start 12/08/16 at 11:30 Sodium Chloride 1,000 ml @ 200 mls/hr Q5H PRN IV WITH DIALYSIS; Start 12/08/16 at 11:22 Sodium Chloride (NS 1000 ml Inj) 1,000 ml @ 0 mls/hr Q0M PRN IV WITH DIALYSIS; Start 12/08/16 at 11:22 Mannitol (Mannitol Inj) 12.5 gm UNSCH PRN IV WITH DIALYSIS; Start 12/08/16 at 11 :30 Albumin Human (Albumin 25% Inj) 25 gm UNSCH PRN IV WITH DIALYSIS; Start at 11:30 IV Flush (NS Flush) 5 ml UNSCH PRN IVF WITH DIALYSIS; Start 12/08/16 at 11:30 Heparin Sodium (Porcine) (Heparin Inj) UNSCH PRN .XX WITH DIALYSIS; Start 12/08 at 11:30 Gentamicin Sulfate (Gentamicin (Dialysis) Inj) 20 mg UNSCH PRN IV WITH DIALYSIS ; Start 12/08/16 at 11:30 Ondansetron HCl (Zofran Inj) 4 mg UNSCH PRN IV WITH DIALYSIS; Start 12/08/16 at 11:30 Acetaminophen (Tylenol) 650 mg UNSCH PRN PO for headach, pain, temp > 101F; Start 12/08/16 at 11:30 Diphenhydramine HCl (Benadryl) 25 mg UNSCH PRN PO for hives/itching/anaphylaxis ; Start 12/08/16 at 11:30 Nitroglycerin (Nitrostat Sl) 0.4 mg UNSCH PRN SL CHEST PAIN; Start 12/08/16 at 11:30 Clonidine (Catapres) 0.1 mg UNSCH PRN PO for BP > 180/100 X 2 readings; Start 12/08/16 at 11:30 Gelatin 1 foam 1 foam UNSCH PRN TOP SEE LABEL COMMENTS Last administered on 12/08 14:30; Start 12/08/16 at 11:30 Dextrose/Sodium Chloride (D5W-NS 1000 ml Inj) 1,000 ml @ 50 mls/hr Q20H IV Last administered on 12/08/16 13:24; Start 12/08/16 at 13:00; Stop 12/09/16 at 02: 55; Status DC Miscellaneous Information 1 ONCE ONCE XX Last administered on 12/08/16 20:00; Start 12/08/16 at 20:00; Stop 12/08/16 at 20:09; Status DC Miscellaneous Information 1 ONCE ONCE XX Last administered on 12/08/16 20:00; Start 12/08/16 at 20:00; Stop 12/08/16 at 20:08; Status DC Insulin Detemir (Levemir Inj) 12 units Q12H SQ Last administered on 12/08/16 20 :20; Start 12/08/16 at 20:00; Stop 12/09/16 at 02:57; Status DC Insulin Human Regular (NovoLIN R SUPPLEMENTAL SCALE) 1 Q3HR SQ Last administered on 12/11/16 08:00; Start 12/08/16 at 20:00; Stop 12/11/16 at 08:12; Status DC Dextrose (D50w (Vial) Inj) 25 ml UNSCH PRN IV PUSH HYPOGLYCEMIA-SEE COMMENTS Last administered on 12/09/16 14:52; Start 12/08/16 at 20:00; Stop 12/11/16 at 08: 12; Status DC Glucagon 1 mg 1 mg UNSCH PRN OTHER HYPOGLYCEMIA-SEE COMMENTS Last administered on 12/09/16 03:45; Start 12/08/16 at 20:00; Stop 12/11/16 at 08:12; Status DC Dextrose (D5W 1000 ml Inj) 1,000 ml @ 50 mls/hr Q20H IV Last administered on 05:39; Start 12/09/16 at 03:00 Insulin Detemir 6 units 6 units Q12H SQ ; Start 12/09/16 at 07:00; Stop 12/09/16 at 07:50; Status DC Potassium Chloride 100 ml @ 50 mls/hr BOLUS ONCE IV Last administered on 08:04; Start 12/09/16 at 08:00; Stop 12/09/16 at 09:59; Status DC Vancomycin HCl 1000 mg/Sodium Chloride 250 ml @ 250 mls/hr ONCE ONCE IV Last administered on 12/09/16 11:14; Start 12/09/16 at 10:00; Stop 12/09/16 at 10:59; Status DC Piperacillin Sod/ Tazobactam Sod (Zosyn 2.25 Gm Premix) 50 ml @ 100 mls/hr Q8H IV Last administered on 12/11/16 03:36; Start 12/10/16 at 04:00; Stop 12/11/16 at 13:16; Status DC Pantoprazole Sodium (Protonix Inj) 40 mg Q12H IV PUSH Last administered on 10:23; Start 12/09/16 at 20:00 Epoetin Mark (Epogen Inj) 10,000 units WITH DIALYSIS SQ ; Start 12/10/16 at 11: 30 Propofol (Diprivan 200 Mg/20 ml Inj) 200 mg STK-MED ONCE IV ; Start 12/10/16 at 19:29; Stop 12/10/16 at 20:08; Status DC Miscellaneous Information ALL NURSING DEPARTME... UNSCH PRN XX SEE LABEL COMMENTS; Start 12/10/16 at 20:15; Stop 12/11/16 at 20:14; Status DC Dextrose (D50w (Vial) Inj) 25 ml UNSCH PRN IV PUSH HYPOGLYCEMIA-SEE COMMENTS; Start 12/11/16 at 08:15; Stop 12/12/16 at 11:35; Status DC Glucagon (Glucagon Inj) 1 mg UNSCH PRN OTHER HYPOGLYCEMIA-SEE COMMENTS; Start 12/11/16 at 08:15; Stop 12/12/16 at 11:35; Status DC Insulin Aspart (NovoLOG SUPPLEMENTAL SCALE) 1 ACHS SLIDING SCALE SQ Last administered on 12/11/16 13:00; Start 12/11/16 at 11:00; Stop 12/12/16 at 11:17; Status DC Insulin Aspart (NovoLOG INJ) 4 units TIDAC SQ Last administered on 12/11/16 13: 00; Start 12/11/16 at 12:00; Stop 12/12/16 at 11:17; Status DC Insulin Detemir 7 units 7 units Q12HR SQ Last administered on 12/11/16 20:06; Start 12/11/16 at 09:00; Stop 12/12/16 at 11:17; Status DC Ceftriaxone Sodium/Sodium Chloride (Rocephin Inj/NS Inj) 100 ml @ 200 mls/hr Q24H IV Last administered on 12/12/16 14:00; Start 12/11/16 at 14:00 Potassium Chloride 20 meq 20 meq ONCE ONCE PO Last administered on 12/12/16 12 :03; Start 12/12/16 at 09:00; Stop 12/12/16 at 09:06; Status DC Potassium Chloride 100 ml @ 50 mls/hr Q2H IV Last administered on 12/12/16 13: 00; Start 12/12/16 at 11:00; Stop 12/12/16 at 14:59; Status DC Potassium Chloride (KCl 20 Meq Premix Inj) 100 ml @ 50 mls/hr Q2H IV ; Start at 16:00; Stop 12/12/16 at 16:00; Status DC Loperamide HCl (Imodium) 2 mg Q6H PRN PO DIARRHEA; Start 12/12/16 at 11:15; Stop 12/12/16 at 15:02; Status DC Insulin Aspart (NovoLOG INJ) 2 units TIDAC SQ Last administered on 12/13/16 10: 24; Start 12/12/16 at 12:00 Insulin Detemir (Levemir Inj) 5 units HS SQ Last administered on 12/12/16 21:05 ; Start 12/12/16 at 21:00 Dextrose (D50w (Vial) Inj) 25 ml UNSCH PRN IV PUSH HYPOGLYCEMIA-SEE COMMENTS; Start 12/12/16 at 11:15 Glucagon (Glucagon Inj) 1 mg UNSCH PRN OTHER HYPOGLYCEMIA-SEE COMMENTS; Start 12/12/16 at 11:15 Insulin Aspart (NovoLOG SUPPLEMENTAL SCALE) 1 ACHS SLIDING SCALE SQ Last administered on 12/12/16 21:05; Start 12/12/16 at 16:00 Metronidazole (Flagyl) 500 mg Q8HR PO Last administered on 12/13/16 05:41; Start 12/12/16 at 22:00 Vancomycin HCl (VANCOMYCIN for oral use only) 125 mg Q6H PO Last administered on 12/13/16 10:24; Start 12/12/16 at 16:00; Stop 12/26/16 at 15:59 A/P Problem List: (1) Diabetic ketoacidosis ICD Code: E13.10 Status: Acute (2) Hypotension ICD Code: I95.9 Status: Acute (3) Severe sepsis ICD Code: A41.9 Status: Acute (4) UGIB (upper gastrointestinal bleed) ICD Code: K92.2 Status: Acute (5) Lactic acidosis ICD Code: E87.2 Status: Acute (6) Leukocytosis ICD Code: D72.829 Status: Acute (7) Hyperglycemia due to type 1 diabetes mellitus ICD Code: E10.65 Status: Acute (8) History of CVA with residual deficit ICD Code: I69.30 Status: Acute (9) CAD (coronary artery disease) ICD Code: I25.10 Status: Acute (10) ESRD (end stage renal disease) ICD Code: N18.6 Status: Chronic Assessment and Plan Mr. Wyatt is a 51-year-old male with a history of type 1 diabetes, CVA, ESRD currently on dialysis on Saturday and Saturday who was admitted to the hospital from his care home due to coffee ground emesis. In the ER hemoglobin was 11, WBC count 16.3 with 91% neutrophils. He was found to have a blood sugar of 929, lactic acid of 4.1 and anion gap of 34. Beta hydroxybutyric acid was also elevated at 10.97 indicating DKA. He was given 6 units of IV insulin, and was started on DKA insulin protocol. Patient was also started on Vanc and Zosyn for suspected sepsis. Blood culture grew viridans streptococcus. - Diabetic ketoacidosis - Type 1 diabetes mellitus - And iron gap improved from 34 to 17. - in Levemir 5 units QHS, pre-meal 2 units TIDAC, sliding scale insulin - low. - Anion gap much improved 17 --> 11. - Viridans Strep bacteremia - Echo negative for any vegetations. - Currently on Ceftriaxone 2g Qday. ID following. -per ID most likely need 2 weeks of IV antibiotics. - Diarrhea + C. Diff PCR. on vancomycin. will need 2 weeks more after completed course of treatment. - Upper GI bleed - s/p EGD 12/11/2016 --> Duodenal ulcers, gastritis, esophagitis. - anemia secondary to acute GI blood loss. - Continue Protonix BID. - Transfuse as needed for Hgb < 7.0. - ESRD - HD on , , Sat. - Nephrology is following. Full code. SCDs. Problem Qualifiers (1) Diabetic ketoacidosis: (2) Hypotension: Qualified Code: I95.9 - Hypotension, unspecified hypotension type (3) CAD (coronary artery disease): Tamy Cook MD Dec 13, 2016 10:53
[2016-12-13] MEDS ORDERED: MAGNESIUM SULFATE 1 GM PREMIX 100 ML IV ONE (11:30)
[2016-12-13] MEDS: cefTRIAXone INJ 2,000 MG in SODIUM CHLORIDE 0.9% INJ 100 ML IV SCH (14:00)
--- NOTE | 2016-12-13 15:27 | HHI.GIFU ---
Subjective Remarks Resting in bed. No active bleeding. States he is still having diarrhea, but has improved. This is down to 5 bms today- from 12 yesterday. Objective Vitals I&O Vital Signs Date Time Temp Pulse Resp B/P Pulse Ox O2 Delivery O2 Flow Rate FiO2 12/13/16 12:00 98.5 91 18 139/77 100 12/13/16 08:00 99.1 88 20 151/73 95 12/13/16 04:00 96.8 92 20 139/69 96 12/13/16 00:00 98.8 98 21 139/71 97 12/12/16 20:00 98.6 84 21 154/74 97 12/12/16 16:00 98.0 97 20 123/72 99 I/O 12/12/16 12/12/16 12/12/16 12/13/16 12/13/16 12/13/16 07:00 15:00 23:00 07:00 15:00 23:00 Intake Total 305 ml 632 ml 120 ml 240 ml Output Total 50 ml Balance 305 ml 582 ml 120 ml 240 ml Intake Oral 320 ml 120 ml 240 ml IV Total 305 ml 312 ml Output Urine Total 50 ml # Voids 1 3 # Bowel Movements 4 10 4 3 Laboratory Date/Time Procedure Status Source Growth 12/09/16 12:55 Aerobic Blood Culture - Preliminary Resulted Blood Peripheral NO GROWTH IN 4 DAYS 12/09/16 12:55 Anaerobic Blood Culture - Preliminary Resulted Blood Peripheral NO GROWTH IN 4 DAYS Imaging Last Impressions Chest X-Ray 12/09/16 0600 Signed Impressions: Service Date/Time: Friday, December 09, 2016 03:48 - CONCLUSION: Stable chest with no focal lung disease Bruce Mayorga MD Upper Extremity Ultrasound 12/09/16 0000 Signed Impressions: Service Date/Time: Friday, December 09, 2016 09:59 - CONCLUSION: 1. There is nonocclusive small area of thrombus within the proximal right basilic vein. 2. Remaining veins of the right upper extremity are patent. Bruce Rossi MD Physical Exam HEENT: Normocephalic; atraumatic; no jaundice. CHEST: CTA CARDIAC: RRR ABDOMEN: Soft, nondistended, nontender; no hepatosplenomegaly; bowel sounds are present in all four quadrants. EXTREMITIES: No clubbing, cyanosis, or edema. SKIN: Normal; no rash; no jaundice. 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 Sent to ER for coffee ground emesis. He does have a remote hx of PUD. S/P EGD (12/11/16)---> Duodenal ulcers, gastritis, esophagitis. Pathology fibrinopurulent exudate consistent with ulcer base and attached minute fragment of superficial small intestinal mucosa negative for malignancy. Reactive/ chemical gastropathy. Fibrinopurulent exudate. Tolerating diet. H&H 8.4/24.2. No nausea, vomiting, active bleeding. - C. Difficile Diarrhea. (027 +). 1st episode. Flagyl. Oral Vanco. Improved , down from 12 BMs to 5. - Anemia secondary to acute blood loss. H&H 8.4/24.2. - DKA, Type I DM. IMPROVED. - ESRD with multiple electrolyte abnormalities. Dialysis, Tues/Thurs/Sat. - Hx CVA 2, HTN, COPD, anxiety and depression per primary. PLAN: - Renal diet - Protonix with BID dosing - Monitor HH - Transfuse as necessary - Flagyl/Oral Vanco per ID - Monitor stool output - Supportive care - Further recommendations to follow based on results of above - Pt seen and examined by Dr. Tenorio and myself and this note is written on his behalf Larissa Pinon Dec 13, 2016 15:27
[2016-12-13] MEDS: metroNIDAZOLE 500 MG INJ 100 ML IV SCH ×2 (16:33→23:13)
--- NOTE | 2016-12-13 18:46 | HHI.NPPN ---
Subjective History of Present Illness This patient is a 51-year-old male with a history of multiple medical problems including diabetes mellitus, hypertension, previous CVA and end-stage renal disease. Patient receives hemodialysis as an outpatient TTS. Patient presented to the emergency room with hematemesis but was subsequently noted to have a blood sugar of 929 and evidence of metabolic acidosis. Patient was also hypotensive. Blood cultures now apparently growing a strep species. Interval History Patient was seen during his dialysis session today. The dialysis access is working well. Patient indicated he was still having diarrhea. Review of Systems General Constitutional: Fatigue Objective Data Data 12/12/16 12/13/16 19:00 07:00 Intake Total 632 ml 360 ml Output Total 50 ml Balance 582 ml 360 ml Intake Oral 320 ml 360 ml IV Total 312 ml Output Urine Total 50 ml # Voids 4 # Bowel Movements 10 7 Vital Signs Date Time Temp Pulse Resp B/P Pulse Ox O2 Delivery O2 Flow Rate FiO2 12/13/16 16:00 98.8 95 20 148/64 100 12/13/16 12:00 98.5 91 18 139/77 100 12/13/16 08:00 99.1 88 20 151/73 95 12/13/16 04:00 96.8 92 20 139/69 96 12/13/16 00:00 98.8 98 21 139/71 97 12/12/16 20:00 98.6 84 21 154/74 97 -: 12/12/16 0457 12/12/16 0457 Physical Exam General Appearance: No Acute Distress, Comfortable Eyes Eye Exam: Sclera White Neck Neck Exam: Trachea Midline Pulmonary Resp Exam: Clear Bilaterally, Breath Sounds Equal, No Distress Cardiology CV Exam: Regular, Normal Sinus Rhythm Gastrointestinal/Abdomen GI Exam: Soft, Non-Tender Integumentary Skin Exam: Clear, Warm Extremeties Extremities Exam: No Edema Neurologic Neuro Exam: Alert, Awake Assessment/Plan Problem List: (1) ESRD (end stage renal disease) Plan: Continue hemodialysis Tuesdays, and Saturdays. Avoid gadolinium. Medication should be adjusted for his end-stage renal disease when indicated. (2) Bacteremia Plan: Strep viridans isolated. Origin uncertain Infectious disease following. Repeat blood cultures are negative. Infection is not dialysis related and outpatient antibiotics will not be covered by the dialysis unit although antibiotics can be administered at the dialysis facility 3 days a week if provided to the facility. Administration of antibiotics on other days will have to be arranged by casey saw operator if required.. (3) Hypertension Plan: Hold hypertensive medications pending improvement in blood pressure. (4) DKA, type 1 Plan: Management per primary care physician. (5) Anemia of renal disease Plan: Initiate therapy with Epogen. Problem Qualifiers (1) DKA, type 1: Qualified Code: E10.10 - Type 1 diabetes mellitus with ketoacidosis without coma Wilfredo Reyes MD Dec 13, 2016 18:46
[2016-12-13] MEDS: EPOETIN ALFA 10,000 UNITS/ML VIAL SQ SCH (19:10)
[2016-12-13] MEDS: INSULIN DETEMIR 100 UNITS/ML VIAL SQ SCH (22:10)
[2016-12-14] VITALS (7 sets, daily range): BP systolic 112–166; BP diastolic 62–81; PULSE 79–110; RESP 18–26; TEMP 97.6–98.7; O2SAT 95–100
[2016-12-14] MEDS: DEXTROSE 5% IN WATE 1000ML INJ 1,000 ML IV SCH (02:51)
[2016-12-14] MEDS: CHLORHEXIDINE GLUCONATE 2 % 1 PACK (2 CLOTHS) TOP SCH (03:00)
[2016-12-14] MEDS: VANCOMYCIN 500 MG VIAL (FOR ORAL USE ONLY) PO SCH ×4 (04:27→22:32)
[2016-12-14 06:02] LABS: HEMATOCRIT 24.8 % (39.0-51.0); MEAN CELL VOLUME 101.1 FL (80.0-100.0); MEAN CORPUSCULAR HEMOGLOBIN 34.6 PG (27.0-34.0); MEAN CORPUSCULAR HGB CONC 34.2 % (32.0-36.0); PLATELET COUNT 111 TH/MM3 (150-450); RED BLOOD COUNT 2.46 MIL/MM3 (4.50-5.90); RED CELL DISTRIBUTION WIDTH 13.8 % (11.6-17.2); REVIEW FLAG FINAL; WHITE BLOOD COUNT 3.8 TH/MM3 (4.0-11.0)
[2016-12-14 06:49] LABS: BICARBONATE 30.1 MEQ/L (21.0-32.0); POTASSIUM 3.6 MEQ/L (3.5-5.1)
[2016-12-14] MEDS: metroNIDAZOLE 500 MG INJ 100 ML IV SCH ×3 (06:49→22:33)
[2016-12-14] MEDS: INSULIN ASPART SUPPLEMENTAL SCALE SQ SCH ×4 (06:57→20:32)
[2016-12-14] MEDS: SODIUM CHLORIDE 0.9% FLUSH 5 ML FLUSH IV FLUSH SCH ×2 (09:00→20:31)
[2016-12-14] MEDS: INSULIN ASPART 1,000 UNITS/10 ML VIAL SQ SCH ×3 (09:43→16:25)
[2016-12-14] MEDS: PANTOPRAZOLE SODIUM 40 MG VIAL IV PUSH SCH ×2 (09:45→20:31)
[2016-12-14] MEDS: SODIUM CHLOR 0.9% 1000 ML INJ 1,000 ML IV SCH (11:15)
--- NOTE | 2016-12-14 11:16 | HHI.PR ---
Subjective Remarks f/u for bacteremia and C diff. Per patient's nurse he continues to have lots of diarrhea. Patient stated he is weak but feels better. He asking to go home. Denied any abdominal pain but continues to have diarrhea. Denied any N/V remains afebrile. Objective Vitals Vital Signs Date Time Temp Pulse Resp B/P Pulse Ox O2 Delivery O2 Flow Rate FiO2 12/14/16 08:00 98.3 85 18 141/63 96 12/14/16 07:39 95 12/14/16 00:00 98.7 110 22 166/77 100 12/13/16 20:00 99.6 108 24 139/67 97 12/13/16 19:56 95 21 12/13/16 16:00 98.8 95 20 148/64 100 12/13/16 12:00 98.5 91 18 139/77 100 I/O 12/13/16 12/13/16 12/13/16 12/14/16 12/14/16 12/14/16 07:00 15:00 23:00 07:00 15:00 23:00 Intake Total 240 ml 1000 ml Output Total 3000 ml Balance 240 ml 1000 ml -3000 ml Intake Oral 240 ml 1000 ml Hemodialysis 3000 ml # Voids 3 0 1 # Bowel Movements 3 5 Result Diagram: 12/14/16 0458 12/14/16 0458 Objective Remarks GENERAL: CARDIOVASCULAR: Regular rate and rhythm without murmurs, gallops, or rubs. RESPIRATORY: Breath sounds equal bilaterally. No accessory muscle use. GASTROINTESTINAL: Abdomen soft, non-tender, nondistended. MUSCULOSKELETAL: No cyanosis, or edema. BACK: Nontender without obvious deformity. No CVA tenderness. Procedures None. Medications and IVs Current Medications Ondansetron HCl (Zofran Inj) 4 mg ONCE ONCE IVP Last administered on 12/08/16 01:48; Start 12/08/16 at 01:15; Stop 12/08/16 at 01:16; Status DC IV Flush 2 ml 2 ml UNSCH PRN IVF FLUSH AFTER USING IV ACCESS; Start 12/08/16 at 01:15; Stop 12/08/16 at 04:08; Status DC Sodium Chloride 250 ml @ 250 mls/hr BOLUS ONCE IV Last administered on 01:47; Start 12/08/16 at 01:15; Stop 12/08/16 at 02:14; Status DC Sodium Chloride 250 ml @ 250 mls/hr BOLUS ONCE IV Last administered on 02:20; Start 12/08/16 at 02:15; Stop 12/08/16 at 03:14; Status DC Pantoprazole Sodium 80 mg/ Sodium Chloride 100 ml @ 10 mls/hr CONTINUOUS IV Last administered on 12/08/16 03:49; Start 12/08/16 at 02:15; Stop 12/08/16 at 06: 21; Status DC Pantoprazole Sodium 80 mg/ Sodium Chloride 35 ml @ 420 mls/hr BOLUS ONCE IV Last administered on 12/08/16 02:20; Start 12/08/16 at 02:15; Stop 12/08/16 at 02: 19; Status DC Dextrose/Sodium Chloride (D5W-NS 1000 ml Inj) 1,000 ml @ 200 mls/hr Q5H IV ; Start 12/08/16 at 03:17; Stop 12/08/16 at 03:26; Status DC Insulin Human Regular 6 units 6 units BOLUS ONCE IV PUSH ; Start 12/08/16 at 03: 30; Stop 12/08/16 at 03:30; Status DC Insulin Human Regular 100 units/ Sodium Chloride 100 ml @ 0 mls/hr TITRATE IV ; Start 12/08/16 at 03:30; Stop 12/08/16 at 03:30; Status DC Potassium Chloride 100 ml @ 50 mls/hr Q2H PRN IV SEE LABEL COMMENTS; Start 12/08/16 at 03:30; Stop 12/08/16 at 03:30; Status DC Potassium Chloride 100 ml @ 50 mls/hr Q2H PRN IV SEE LABEL COMMENTS; Start 12/08/16 at 03:30; Stop 12/08/16 at 03:30; Status DC Potassium Chloride 100 ml @ 50 mls/hr Q2H PRN IV SEE LABEL COMMENTS; Start 12/08/16 at 03:30; Stop 12/08/16 at 03:30; Status DC Potassium Chloride 100 ml @ 50 mls/hr Q2H PRN IV SEE LABEL COMMENTS; Start 12/08/16 at 03:30; Stop 12/08/16 at 03:30; Status DC Sodium Chloride 500 ml @ 500 mls/hr BOLUS ONCE IV Last administered on 03:41; Start 12/08/16 at 03:30; Stop 12/08/16 at 04:29; Status DC Dextrose/Sodium Chloride (D5W-NS 1000 ml Inj) 1,000 ml @ 200 mls/hr Q5H IV ; Start 12/08/16 at 03:19; Stop 12/08/16 at 12:29; Status DC Insulin Human Regular 6 units 6 units BOLUS ONCE IV PUSH Last administered on 12/08/16 03:42; Start 12/08/16 at 03:30; Stop 12/08/16 at 03:31; Status DC Sodium Chloride 1,000 ml @ 999 mls/hr BOLUS ONCE IV Last administered on 04:13; Start 12/08/16 at 04:00; Stop 12/08/16 at 05:00; Status DC Insulin Human Regular/Sodium Chloride (NovoLIN R (IV INFUSION)/NS Inj) 100 ml @ 0 mls/hr TITRATE IV Last administered on 12/08/16 04:37; Start 12/08/16 at 04:00 ; Stop 12/08/16 at 22:00; Status DC Dextrose (D50w (Vial) Inj) 25 ml UNSCH PRN IV PUSH SEE LABEL COMMENTS; Start at 04:00; Stop 12/08/16 at 22:00; Status DC Miscellaneous Information 1 1 ONCE ONCE XX Last administered on 12/08/16 04:00 ; Start 12/08/16 at 04:00; Stop 12/08/16 at 04:01; Status DC Sodium Chloride (NS 1000 ml Inj) 1,000 ml @ 50 mls/hr Q20H IV ; Start 12/08/16 at 04:00; Stop 12/09/16 at 02:55; Status DC Sodium Bicarbonate (Sodium Bicarbonate 8.4% Inj) 50 meq ONCE ONCE IV PUSH Last administered on 12/08/16 04:12; Start 12/08/16 at 04:00; Stop 12/08/16 at 04: 01; Status DC Sodium Bicarbonate (Sodium Bicarbonate 8.4% Inj) 50 meq ONCE ONCE IV PUSH Last administered on 12/08/16 04:24; Start 12/08/16 at 04:00; Stop 12/08/16 at 04: 01; Status DC IV Flush (NS Flush) 2 ml UNSCH PRN IV FLUSH FLUSH AFTER USING IV ACCESS; Start 12/08/16 at 04:00 IV Flush (NS Flush) 2 ml BID IV FLUSH Last administered on 12/14/16 09:00; Start 12/08/16 at 09:00 Albuterol/ Ipratropium (Duoneb Neb) 1 ampule Q4HR NEB PRN INH WHEEZING; Start 12/08/16 at 04:00 Miscellaneous Information 1 Q361D XX ; Start 12/08/16 at 04:00 Chlorhexidine Gluconate (Chlorhexidine 2% Cloth) Taper DAILY@04 TOP Last administered on 12/12/16 04:00; Start 12/08/16 at 04:00; Stop 12/04/17 at 03:59 Chlorhexidine Gluconate 3 pack 3 pack UNSCH PRN TOP HYGIENIC CARE; Start at 04:00 Pantoprazole Sodium 80 mg/ Sodium Chloride 35 ml @ 420 mls/hr ONCE ONCE IV ; Start 12/08/16 at 05:15; Stop 12/08/16 at 05:19; Status DC Pantoprazole Sodium 80 mg/ Sodium Chloride 100 ml @ 10 mls/hr Q10H IV Last administered on 12/09/16 11:14; Start 12/08/16 at 05:15; Stop 12/09/16 at 18:10; Status DC Piperacillin Sod/ Tazobactam Sod 50 ml @ 100 mls/hr Q8H IV Last administered on 12/09/16 20:12; Start 12/08/16 at 04:15; Stop 12/10/16 at 03:00; Status DC Vancomycin HCl 1000 mg/Sodium Chloride 250 ml @ 250 mls/hr ONCE ONCE IV ; Start 12/08/16 at 05:00; Stop 12/08/16 at 05:59; Status DC Pharmacy Profile Note 0 ml @ 0 mls/hr UNSCH OTHER ; Start 12/08/16 at 04:15; Stop 12/08/16 at 11:22; Status DC Sodium Chloride (NS 1000 ml Inj) 1,000 ml @ 999 mls/hr BOLUS ONCE IV ; Start 12/08/16 at 05:30; Stop 12/08/16 at 06:30; Status DC Insulin Human Regular 10 units 10 units ONCE ONCE IV PUSH Last administered on 12/08/16 05:00; Start 12/08/16 at 05:30; Stop 12/08/16 at 05:31; Status DC Sodium Chloride 1,000 ml @ 999 mls/hr BOLUS ONCE IV Last administered on 10:06; Start 12/08/16 at 08:15; Stop 12/08/16 at 09:15; Status DC Sodium Chloride 1,000 ml @ 999 mls/hr BOLUS ONCE IV Last administered on 10:06; Start 12/08/16 at 09:15; Stop 12/08/16 at 10:21; Status DC Sodium Chloride (NS 1000 ml Inj) 1,000 ml @ 0 mls/hr Q0M PRN IV For Prime & Rinse Back; Start 12/08/16 at 11:25; Status UNV Heparin Sodium (Porcine) 8000 units 8,000 units UNSCH PRN IVF WITH DIALYSIS; Start 12/08/16 at 11:30; Status UNV Sodium Chloride 1,000 ml @ 200 mls/hr Q5H PRN IV WITH DIALYSIS; Start 12/08/16 at 11:25; Status UNV Sodium Chloride (NS 1000 ml Inj) 1,000 ml @ 0 mls/hr Q0M PRN IV WITH DIALYSIS; Start 12/08/16 at 11:25; Status UNV Mannitol (Mannitol Inj) 12.5 gm UNSCH PRN IV WITH DIALYSIS; Start 12/08/16 at 11 :30; Status UNV Albumin Human (Albumin 25% Inj) 25 gm UNSCH PRN IV WITH DIALYSIS; Start at 11:30; Status UNV IV Flush (NS Flush) 5 ml UNSCH PRN IVF WITH DIALYSIS; Start 12/08/16 at 11:30; Status UNV Heparin Sodium (Porcine) (Heparin Inj) UNSCH PRN .XX WITH DIALYSIS; Start 12/08 at 11:30; Status UNV Gentamicin Sulfate (Gentamicin (Dialysis) Inj) 20 mg UNSCH PRN IV WITH DIALYSIS ; Start 12/08/16 at 11:30; Status UNV Ondansetron HCl (Zofran Inj) 4 mg UNSCH PRN IV WITH DIALYSIS; Start 12/08/16 at 11:30; Status UNV Acetaminophen (Tylenol) 650 mg UNSCH PRN PO for headach, pain, temp > 101F; Start 12/08/16 at 11:30; Status UNV Diphenhydramine HCl (Benadryl) 25 mg UNSCH PRN PO for hives/itching/anaphylaxis ; Start 12/08/16 at 11:30; Status UNV Nitroglycerin (Nitrostat Sl) 0.4 mg UNSCH PRN SL CHEST PAIN; Start 12/08/16 at 11:30; Status UNV Clonidine (Catapres) 0.1 mg UNSCH PRN PO for BP > 180/100 X 2 readings; Start 12/08/16 at 11:30; Status UNV Gelatin 1 foam 1 foam UNSCH PRN TOP SEE LABEL COMMENTS; Start 12/08/16 at 11:30 ; Status UNV Sodium Chloride (NS 1000 ml Inj) 1,000 ml @ 0 mls/hr Q0M PRN IV For Prime & Rinse Back; Start 12/08/16 at 11:22 Heparin Sodium (Porcine) 8000 units 8,000 units UNSCH PRN IVF WITH DIALYSIS; Start 12/08/16 at 11:30 Sodium Chloride 1,000 ml @ 200 mls/hr Q5H PRN IV WITH DIALYSIS; Start 12/08/16 at 11:22 Sodium Chloride (NS 1000 ml Inj) 1,000 ml @ 0 mls/hr Q0M PRN IV WITH DIALYSIS; Start 12/08/16 at 11:22 Mannitol (Mannitol Inj) 12.5 gm UNSCH PRN IV WITH DIALYSIS; Start 12/08/16 at 11 :30 Albumin Human (Albumin 25% Inj) 25 gm UNSCH PRN IV WITH DIALYSIS; Start at 11:30 IV Flush (NS Flush) 5 ml UNSCH PRN IVF WITH DIALYSIS; Start 12/08/16 at 11:30 Heparin Sodium (Porcine) (Heparin Inj) UNSCH PRN .XX WITH DIALYSIS; Start 12/08 at 11:30 Gentamicin Sulfate (Gentamicin (Dialysis) Inj) 20 mg UNSCH PRN IV WITH DIALYSIS ; Start 12/08/16 at 11:30 Ondansetron HCl (Zofran Inj) 4 mg UNSCH PRN IV WITH DIALYSIS; Start 12/08/16 at 11:30 Acetaminophen (Tylenol) 650 mg UNSCH PRN PO for headach, pain, temp > 101F; Start 12/08/16 at 11:30 Diphenhydramine HCl (Benadryl) 25 mg UNSCH PRN PO for hives/itching/anaphylaxis ; Start 12/08/16 at 11:30 Nitroglycerin (Nitrostat Sl) 0.4 mg UNSCH PRN SL CHEST PAIN; Start 12/08/16 at 11:30 Clonidine (Catapres) 0.1 mg UNSCH PRN PO for BP > 180/100 X 2 readings; Start 12/08/16 at 11:30 Gelatin 1 foam 1 foam UNSCH PRN TOP SEE LABEL COMMENTS Last administered on 12/08 14:30; Start 12/08/16 at 11:30 Dextrose/Sodium Chloride (D5W-NS 1000 ml Inj) 1,000 ml @ 50 mls/hr Q20H IV Last administered on 12/08/16 13:24; Start 12/08/16 at 13:00; Stop 12/09/16 at 02: 55; Status DC Miscellaneous Information 1 ONCE ONCE XX Last administered on 12/08/16 20:00; Start 12/08/16 at 20:00; Stop 12/08/16 at 20:09; Status DC Miscellaneous Information 1 ONCE ONCE XX Last administered on 12/08/16 20:00; Start 12/08/16 at 20:00; Stop 12/08/16 at 20:08; Status DC Insulin Detemir (Levemir Inj) 12 units Q12H SQ Last administered on 12/08/16 20 :20; Start 12/08/16 at 20:00; Stop 12/09/16 at 02:57; Status DC Insulin Human Regular (NovoLIN R SUPPLEMENTAL SCALE) 1 Q3HR SQ Last administered on 12/11/16 08:00; Start 12/08/16 at 20:00; Stop 12/11/16 at 08:12; Status DC Dextrose (D50w (Vial) Inj) 25 ml UNSCH PRN IV PUSH HYPOGLYCEMIA-SEE COMMENTS Last administered on 12/09/16 14:52; Start 12/08/16 at 20:00; Stop 12/11/16 at 08: 12; Status DC Glucagon 1 mg 1 mg UNSCH PRN OTHER HYPOGLYCEMIA-SEE COMMENTS Last administered on 12/09/16 03:45; Start 12/08/16 at 20:00; Stop 12/11/16 at 08:12; Status DC Dextrose (D5W 1000 ml Inj) 1,000 ml @ 50 mls/hr Q20H IV Last administered on 05:39; Start 12/09/16 at 03:00; Stop 12/14/16 at 11:04; Status DC Insulin Detemir 6 units 6 units Q12H SQ ; Start 12/09/16 at 07:00; Stop 12/09/16 at 07:50; Status DC Potassium Chloride 100 ml @ 50 mls/hr BOLUS ONCE IV Last administered on 08:04; Start 12/09/16 at 08:00; Stop 12/09/16 at 09:59; Status DC Vancomycin HCl 1000 mg/Sodium Chloride 250 ml @ 250 mls/hr ONCE ONCE IV Last administered on 12/09/16 11:14; Start 12/09/16 at 10:00; Stop 12/09/16 at 10:59; Status DC Piperacillin Sod/ Tazobactam Sod (Zosyn 2.25 Gm Premix) 50 ml @ 100 mls/hr Q8H IV Last administered on 12/11/16 03:36; Start 12/10/16 at 04:00; Stop 12/11/16 at 13:16; Status DC Pantoprazole Sodium (Protonix Inj) 40 mg Q12H IV PUSH Last administered on 12/14 09:45; Start 12/09/16 at 20:00 Epoetin Mark (Epogen Inj) 10,000 units WITH DIALYSIS SQ Last administered on 19:10; Start 12/10/16 at 11:30 Propofol (Diprivan 200 Mg/20 ml Inj) 200 mg STK-MED ONCE IV ; Start 12/10/16 at 19:29; Stop 12/10/16 at 20:08; Status DC Miscellaneous Information ALL NURSING DEPARTME... UNSCH PRN XX SEE LABEL COMMENTS; Start 12/10/16 at 20:15; Stop 12/11/16 at 20:14; Status DC Dextrose (D50w (Vial) Inj) 25 ml UNSCH PRN IV PUSH HYPOGLYCEMIA-SEE COMMENTS; Start 12/11/16 at 08:15; Stop 12/12/16 at 11:35; Status DC Glucagon (Glucagon Inj) 1 mg UNSCH PRN OTHER HYPOGLYCEMIA-SEE COMMENTS; Start 12/11/16 at 08:15; Stop 12/12/16 at 11:35; Status DC Insulin Aspart (NovoLOG SUPPLEMENTAL SCALE) 1 ACHS SLIDING SCALE SQ Last administered on 12/11/16 13:00; Start 12/11/16 at 11:00; Stop 12/12/16 at 11:17; Status DC Insulin Aspart (NovoLOG INJ) 4 units TIDAC SQ Last administered on 12/11/16 13: 00; Start 12/11/16 at 12:00; Stop 12/12/16 at 11:17; Status DC Insulin Detemir 7 units 7 units Q12HR SQ Last administered on 12/11/16 20:06; Start 12/11/16 at 09:00; Stop 12/12/16 at 11:17; Status DC Ceftriaxone Sodium/Sodium Chloride (Rocephin Inj/NS Inj) 100 ml @ 200 mls/hr Q24H IV Last administered on 12/14/16 14:04; Start 12/11/16 at 14:00 Potassium Chloride 20 meq 20 meq ONCE ONCE PO Last administered on 12/12/16 12 :03; Start 12/12/16 at 09:00; Stop 12/12/16 at 09:06; Status DC Potassium Chloride 100 ml @ 50 mls/hr Q2H IV Last administered on 12/12/16 13: 00; Start 12/12/16 at 11:00; Stop 12/12/16 at 14:59; Status DC Potassium Chloride (KCl 20 Meq Premix Inj) 100 ml @ 50 mls/hr Q2H IV ; Start at 16:00; Stop 12/12/16 at 16:00; Status DC Loperamide HCl (Imodium) 2 mg Q6H PRN PO DIARRHEA; Start 12/12/16 at 11:15; Stop 12/12/16 at 15:02; Status DC Insulin Aspart (NovoLOG INJ) 2 units TIDAC SQ Last administered on 12/14/16 13 :06; Start 12/12/16 at 12:00 Insulin Detemir (Levemir Inj) 5 units HS SQ Last administered on 12/13/16 22:10 ; Start 12/12/16 at 21:00 Dextrose (D50w (Vial) Inj) 25 ml UNSCH PRN IV PUSH HYPOGLYCEMIA-SEE COMMENTS; Start 12/12/16 at 11:15 Glucagon (Glucagon Inj) 1 mg UNSCH PRN OTHER HYPOGLYCEMIA-SEE COMMENTS; Start 12/12/16 at 11:15 Insulin Aspart (NovoLOG SUPPLEMENTAL SCALE) 1 ACHS SLIDING SCALE SQ Last administered on 12/14/16 13:06; Start 12/12/16 at 16:00 Metronidazole (Flagyl) 500 mg Q8HR PO Last administered on 12/13/16 14:00; Start 12/12/16 at 22:00; Stop 12/13/16 at 14:39; Status DC Vancomycin HCl 125 mg 125 mg Q6H PO Last administered on 12/13/16 10:24; Start 12/12/16 at 16:00; Stop 12/13/16 at 14:39; Status DC Magnesium Sulfate/ Dextrose (Magnesium Sulfate 1 Gm Premix) 100 ml @ 100 mls/ hr ONCE ONCE IV Last administered on 12/13/16 11:58; Start 12/13/16 at 11:30; Stop 12/13/16 at 12:29; Status DC Vancomycin HCl 500 mg 500 mg Q6H PO Last administered on 12/14/16 09:48; Start 12/13/16 at 16:00 Metronidazole 100 ml @ 100 mls/hr Q8H IV Last administered on 12/14/16 14:12 ; Start 12/13/16 at 15:00 Sodium Chloride (NS 1000 ml Inj) 1,000 ml @ 50 mls/hr Q20H IV Last administered on 12/14/16 11:15; Start 12/14/16 at 11:15 A/P Problem List: (1) Diabetic ketoacidosis ICD Code: E13.10 Status: Acute (2) Hypotension ICD Code: I95.9 Status: Acute (3) Severe sepsis ICD Code: A41.9 Status: Acute (4) UGIB (upper gastrointestinal bleed) ICD Code: K92.2 Status: Acute (5) Lactic acidosis ICD Code: E87.2 Status: Acute (6) Leukocytosis ICD Code: D72.829 Status: Acute (7) Hyperglycemia due to type 1 diabetes mellitus ICD Code: E10.65 Status: Acute (8) History of CVA with residual deficit ICD Code: I69.30 Status: Acute (9) CAD (coronary artery disease) ICD Code: I25.10 Status: Acute (10) ESRD (end stage renal disease) ICD Code: N18.6 Status: Chronic Assessment and Plan Mr. Wyatt is a 51-year-old male with a history of type 1 diabetes, CVA, ESRD currently on dialysis on Saturday and Saturday who was admitted to the hospital from his custodial due to coffee ground emesis. In the ER hemoglobin was 11, WBC count 16.3 with 91% neutrophils. He was found to have a blood sugar of 929, lactic acid of 4.1 and anion gap of 34. Beta hydroxybutyric acid was also elevated at 10.97 indicating DKA. He was given 6 units of IV insulin, and was started on DKA insulin protocol. Patient was also started on Vanc and Zosyn for suspected sepsis. Blood culture grew viridans streptococcus. - Diabetic ketoacidosis - Type 1 diabetes mellitus - And iron gap improved from 34 to 17. - on Levemir 5 units QHS, pre-meal 2 units TIDAC, sliding scale insulin - low. - Anion gap much improved 17 --> 11. - Viridans Strep bacteremia - Echo negative for any vegetations. - Currently on Ceftriaxone 2g Qday. ID following. -per ID most likely need 2 weeks of IV antibiotics. - Diarrhea + C. Diff PCR. on vancomycin. will need 2 weeks more after completed course of treatment. - Upper GI bleed - s/p EGD 12/11/2016 --> Duodenal ulcers, gastritis, esophagitis. - anemia secondary to acute GI blood loss. - Continue Protonix BID. - Transfuse as needed for Hgb < 7.0. - ESRD - HD on , , Sat. - Nephrology is following. Full code. SCDs. Discharge Planning okay discharge once cleared by ID and patient able to get antibiotics infusion. Problem Qualifiers (1) Diabetic ketoacidosis: (2) Hypotension: Qualified Code: I95.9 - Hypotension, unspecified hypotension type (3) CAD (coronary artery disease): Tamy Cook MD Dec 14, 2016 11:16
--- NOTE | 2016-12-14 12:57 | HHI.NPPN ---
Subjective History of Present Illness This patient is a 51-year-old male with a history of multiple medical problems including diabetes mellitus, hypertension, previous CVA and end-stage renal disease. Patient receives hemodialysis as an outpatient TTS. Patient presented to the emergency room with hematemesis but was subsequently noted to have a blood sugar of 929 and evidence of metabolic acidosis. Patient was also hypotensive. Blood cultures now apparently growing a strep species. Interval History Pt feeling OK. C diff positive. BMs slowing down but still with diarrhea. Appetite OK. (Stella Faulkner) Review of Systems General Constitutional: Fatigue (Stella Faulkner) Gastrointestinal Gastrointestinal: Diarrhea (Stella Faulkner) Objective Data Data 12/13/16 12/14/16 19:00 07:00 Intake Total 1000 ml Output Total 3000 ml Balance 1000 ml -3000 ml Intake Oral 1000 ml Hemodialysis 3000 ml # Voids 0 1 # Bowel Movements 5 Vital Signs Date Time Temp Pulse Resp B/P Pulse Ox O2 Delivery O2 Flow Rate FiO2 12/14/16 08:00 98.3 85 18 141/63 96 12/14/16 07:39 95 12/14/16 00:00 98.7 110 22 166/77 100 12/13/16 20:00 99.6 108 24 139/67 97 12/13/16 19:56 95 21 12/13/16 16:00 98.8 95 20 148/64 100 (Stella Faulkner) -: 12/14/16 0458 12/14/16 0458 Imaging Last Impressions Chest X-Ray 12/09/16 0600 Signed Impressions: Service Date/Time: Friday, December 09, 2016 03:48 - CONCLUSION: Stable chest with no focal lung disease Bruce Mayorga MD Upper Extremity Ultrasound 12/09/16 0000 Signed Impressions: Service Date/Time: Friday, December 09, 2016 09:59 - CONCLUSION: 1. There is nonocclusive small area of thrombus within the proximal right basilic vein. 2. Remaining veins of the right upper extremity are patent. Bruce Rossi MD Medication Review Current Medications Medications (Trade) Dose Ordered Sig/Mateo Route Start Time Stop Time Status Last Admin (NS Flush) 2 ml UNSCH PRN IV FLUSH 12/08/16 04:00 (NS Flush) 2 ml BID IV FLUSH 12/08/16 09:00 12/14/16 09:00 Miscellaneous Information 1 Q361D XX 12/08/16 04:00 (Chlorhexidine 2% Cloth) Taper DAILY@04 TOP 12/08/16 04:00 12/04/17 03:59 12/12/16 04:00 Chlorhexidine Gluconate 3 pack 3 pack UNSCH PRN TOP 12/08/16 04:00 (NS 1000 ml Inj) 1,000 ml @ 0 mls/hr Q0M PRN IV 12/08/16 11:22 Heparin Sodium (Porcine) 8000 units 8,000 units UNSCH PRN IVF 12/08/16 11:30 Sodium Chloride 1,000 ml @ 200 mls/hr Q5H PRN IV 12/08/16 11:22 (NS 1000 ml Inj) 1,000 ml @ 0 mls/hr Q0M PRN IV 12/08/16 11:22 (Mannitol Inj) 12.5 gm UNSCH PRN IV 12/08/16 11:30 (Albumin 25% Inj) 25 gm UNSCH PRN IV 12/08/16 11:30 (NS Flush) 5 ml UNSCH PRN IVF 12/08/16 11:30 (Heparin Inj) UNSCH PRN .XX 12/08/16 11:30 (Gentamicin (Dialysis) Inj) 20 mg UNSCH PRN IV 12/08/16 11:30 (Zofran Inj) 4 mg UNSCH PRN IV 12/08/16 11:30 (Tylenol) 650 mg UNSCH PRN PO 12/08/16 11:30 (Benadryl) 25 mg UNSCH PRN PO 12/08/16 11:30 (Nitrostat Sl) 0.4 mg UNSCH PRN SL 12/08/16 11:30 (Catapres) 0.1 mg UNSCH PRN PO 12/08/16 11:30 (Gelfoam 12 Mm/7 Mm Top) 1 foam UNSCH PRN TOP 12/08/16 11:30 12/08/16 14:30 Pantoprazole Sodium 40 mg 40 mg Q12H IV PUSH 12/09/16 20:00 12/14/16 09:45 (Rocephin Inj/NS Inj) 100 ml @ 200 mls/hr Q24H IV 12/11/16 14:00 12/13/16 14:00 (NovoLOG INJ) 2 units TIDAC SQ 12/12/16 12:00 12/14/16 09:43 (Levemir Inj) 5 units HS SQ 12/12/16 21:00 12/13/16 22:10 (D50w (Vial) Inj) 25 ml UNSCH PRN IV PUSH 12/12/16 11:15 (Glucagon Inj) 1 mg UNSCH PRN OTHER 12/12/16 11:15 Vancomycin HCl 500 mg 500 mg Q6H PO 12/13/16 16:00 12/14/16 09:48 Metronidazole 100 ml @ 100 mls/hr Q8H IV 12/13/16 15:00 12/14/16 06:49 (NS 1000 ml Inj) 1,000 ml @ 75 mls/hr [id number] IV 12/14/16 11:15 (Stella Faulkner) Physical Exam General Appearance: No Acute Distress, Comfortable (Stella Faulkner) Eyes Eye Exam: Sclera White (Stella Faulkner) Neck Neck Exam: Trachea Midline (Stella Faulkner) Pulmonary Resp Exam: Clear Bilaterally, Breath Sounds Equal, No Distress (Stella Faulkner) Cardiology CV Exam: Regular, Normal Sinus Rhythm (Stella Faulkner) Gastrointestinal/Abdomen GI Exam: Soft, Non-Tender (Stella Faulkner) Integumentary Skin Exam: Clear, Warm (Stella Faulkner) Extremeties Extremities Exam: Trace Edema Extremeties Remarks bilat feet and ankles (Stella Fualkner) Neurologic Neuro Exam: Alert, Awake (Stella Faulkner) Assessment/Plan Problem List: (1) ESRD (end stage renal disease) Plan: Continue hemodialysis Tuesdays, and Saturdays. OK for gentle hydration. Monitor closely for signs of fluid overload. Decrease IV to 50mL/hr Avoid gadolinium. Medication should be adjusted for his end-stage renal disease when indicated. (2) Bacteremia Plan: Strep viridans isolated. Origin uncertain Infectious disease following. Repeat blood cultures are negative. Infection is not dialysis related and outpatient antibiotics will not be covered by the dialysis unit although antibiotics can be administered at the dialysis facility 3 days a week if provided to the facility. Administration of antibiotics on other days will have to be arranged by case management rn if required. (3) Hypertension Plan: Hold hypertensive medications pending improvement in blood pressure. (4) DKA, type 1 Plan: Management per primary care physician. (5) Anemia of renal disease Plan: Initiate therapy with Epogen. (6) C. difficile diarrhea Plan: on po vanc (Stella Faulkner) Problem Qualifiers (1) DKA, type 1: Qualified Code: E10.10 - Type 1 diabetes mellitus with ketoacidosis without coma Stella Faulkner Dec 14, 2016 12:57 Wilfredo Reyes MD Dec 16, 2016 12:34
[2016-12-14] MEDS: cefTRIAXone INJ 2,000 MG in SODIUM CHLORIDE 0.9% INJ 100 ML IV SCH (14:04)
--- NOTE | 2016-12-14 14:52 | HHI.GIFU ---
Subjective Remarks Resting in bed. Denies any bleeding. No n/v. No abdominal pain. Only one bowel movement today and states that it is becoming more formed. (Larissa Pinon) Objective Vitals I&O Vital Signs Date Time Temp Pulse Resp B/P Pulse Ox O2 Delivery O2 Flow Rate FiO2 12/14/16 12:00 98.0 89 18 120/65 98 12/14/16 08:00 98.3 85 18 141/63 96 12/14/16 07:39 95 12/14/16 00:00 98.7 110 22 166/77 100 12/13/16 20:00 99.6 108 24 139/67 97 12/13/16 19:56 95 21 12/13/16 16:00 98.8 95 20 148/64 100 I/O 12/13/16 12/13/16 12/13/16 12/14/16 12/14/16 12/14/16 07:00 15:00 23:00 07:00 15:00 23:00 Intake Total 240 ml 1000 ml Output Total 3000 ml Balance 240 ml 1000 ml -3000 ml Intake Oral 240 ml 1000 ml Hemodialysis 3000 ml # Voids 3 0 1 # Bowel Movements 3 5 Laboratory Laboratory Tests Test 12/14/16 04:58 White Blood Count 3.8 Red Blood Count 2.46 Hemoglobin 8.5 Hematocrit 24.8 Mean Corpuscular Volume 101.1 Mean Corpuscular Hemoglobin 34.6 Mean Corpuscular Hemoglobin 34.2 Concent Red Cell Distribution Width 13.8 Platelet Count 111 Mean Platelet Volume 8.6 Sodium Level 138 Potassium Level 3.6 Chloride Level 97 Carbon Dioxide Level 30.1 Anion Gap 11 Blood Urea Nitrogen 22 Creatinine 5.26 Estimat Glomerular Filtration 12 Rate Random Glucose 221 Calcium Level 8.0 Imaging Last Impressions Chest X-Ray 12/09/16 0600 Signed Impressions: Service Date/Time: Friday, December 09, 2016 03:48 - CONCLUSION: Stable chest with no focal lung disease Bruce Mayorga MD Upper Extremity Ultrasound 12/09/16 0000 Signed Impressions: Service Date/Time: Friday, December 09, 2016 09:59 - CONCLUSION: 1. There is nonocclusive small area of thrombus within the proximal right basilic vein. 2. Remaining veins of the right upper extremity are patent. Bruce Rossi MD Physical Exam HEENT: Normocephalic; atraumatic; no jaundice. CHEST: CTA CARDIAC: RRR ABDOMEN: Soft, nondistended, nontender; no hepatosplenomegaly; bowel sounds are present in all four quadrants. EXTREMITIES: No clubbing, cyanosis, or edema. SKIN: Normal; no rash; no jaundice. NURSE PRACTITIONER PHYSICIAN ASSISTANT: Lethargic, oriented to self and place (Larissa Pinon) Assessment and Plan Plan ASSESSMENT: - Upper GIB, Coffee ground emesis, Melena. Sent to ER for coffee ground emesis. He does have a remote hx of PUD. S/P EGD (12/11/16)---> Duodenal ulcers, gastritis, esophagitis. Pathology fibrinopurulent exudate consistent with ulcer base and attached minute fragment of superficial small intestinal mucosa negative for malignancy. Reactive/ chemical gastropathy. Fibrinopurulent exudate. Tolerating diet. H&H 8.5/24.8. No nausea, vomiting, active bleeding. - C. Difficile Diarrhea. (027 +). 1st episode. Flagyl. Oral Vanco. Only one bowel movement today- states more formed. - Anemia secondary to acute blood loss. H&H 8.5/24.8 - DKA, Type I DM. IMPROVED. - ESRD with multiple electrolyte abnormalities. Dialysis, Tu//Sat. - Hx CVA 2, HTN, COPD, anxiety and depression per primary. PLAN: - Renal diet - Protonix with BID dosing - Flagyl/Oral Vanco per ID - Monitor stool output - Monitor labs - GI will sign off, please reconsult as needed - Pt seen and examined by Dr. Li and myself and this note is written on his behalf (Larissa Pinon) Physician Comments Seen and examined with ISMAEL, still with diarrhea, ID on case. No gi bleed. Continue protonix. Gi fu as needed. or upon dc. Thank you (Bethany Li MD) Larissa Pinon Dec 14, 2016 14:52 Bethany Li MD Dec 17, 2016 18:35
[2016-12-14] MEDS: INSULIN DETEMIR 100 UNITS/ML VIAL SQ SCH (20:31)
[2016-12-15] VITALS (7 sets, daily range): BP systolic 118–145; BP diastolic 62–70; PULSE 72–83; RESP 18–24; TEMP 97.7–99; O2SAT 94–98
[2016-12-15] MEDS: CHLORHEXIDINE GLUCONATE 2 % 1 PACK (2 CLOTHS) TOP SCH (04:00)
[2016-12-15] MEDS: INSULIN ASPART SUPPLEMENTAL SCALE SQ SCH ×4 (06:14→21:17)
[2016-12-15] MEDS: VANCOMYCIN 500 MG VIAL (FOR ORAL USE ONLY) PO SCH ×4 (06:14→23:31)
[2016-12-15] MEDS: SODIUM CHLOR 0.9% 1000 ML INJ 1,000 ML IV SCH (06:15)
[2016-12-15] MEDS: metroNIDAZOLE 500 MG INJ 100 ML IV SCH ×3 (06:15→23:31)
[2016-12-15 07:43] LABS: BICARBONATE 29.3 MEQ/L (21.0-32.0); POTASSIUM 3.4 MEQ/L (3.5-5.1)
[2016-12-15] MEDS: INSULIN ASPART 1,000 UNITS/10 ML VIAL SQ SCH ×3 (08:00→16:59)
--- NOTE | 2016-12-15 11:35 | HHI.NPPN ---
Subjective History of Present Illness This patient is a 51-year-old male with a history of multiple medical problems including diabetes mellitus, hypertension, previous CVA and end-stage renal disease. Patient receives hemodialysis as an outpatient TTS. Patient presented to the emergency room with hematemesis but was subsequently noted to have a blood sugar of 929 and evidence of metabolic acidosis. Patient was also hypotensive. Blood cultures now apparently growing a strep species. Interval History Seen during HD. tolerating tx well. Diarrhea resolved (Stella Faulkner) Review of Systems General Constitutional: Fatigue (Stella Faulkner) Objective Data Data 12/14/16 12/15/16 19:00 07:00 Intake Total 480 ml 726 ml Balance 480 ml 726 ml Intake Oral 480 ml IV Total 726 ml # Voids 2 0 # Bowel Movements 1 4 Vital Signs Date Time Temp Pulse Resp B/P Pulse Ox O2 Delivery O2 Flow Rate FiO2 12/15/16 09:58 98 21 12/15/16 08:00 98.3 72 18 145/70 98 12/15/16 04:00 98.1 81 24 122/70 95 12/15/16 00:00 98.0 79 24 118/62 96 12/14/16 22:00 98.4 80 24 112/70 96 12/14/16 20:00 97.6 79 26 114/62 97 12/14/16 16:00 98.4 80 18 130/81 97 12/14/16 12:00 98.0 89 18 120/65 98 (Stella Faulkner) -: 12/14/16 0458 12/15/16 0620 Medication Review Current Medications Medications (Trade) Dose Ordered Sig/Mateo Route Start Time Stop Time Status Last Admin (NS Flush) 2 ml UNSCH PRN IV FLUSH 12/08/16 04:00 12/14/16 22:33 (NS Flush) 2 ml BID IV FLUSH 12/08/16 09:00 12/14/16 20:31 Miscellaneous Information 1 Q361D XX 12/08/16 04:00 (Chlorhexidine 2% Cloth) Taper DAILY@04 TOP 12/08/16 04:00 12/04/17 03:59 12/12/16 04:00 Chlorhexidine Gluconate 3 pack 3 pack UNSCH PRN TOP 12/08/16 04:00 (NS 1000 ml Inj) 1,000 ml @ 0 mls/hr Q0M PRN IV 12/08/16 11:22 Heparin Sodium (Porcine) 8000 units 8,000 units UNSCH PRN IVF 12/08/16 11:30 Sodium Chloride 1,000 ml @ 200 mls/hr Q5H PRN IV 12/08/16 11:22 (NS 1000 ml Inj) 1,000 ml @ 0 mls/hr Q0M PRN IV 12/08/16 11:22 (Mannitol Inj) 12.5 gm UNSCH PRN IV 12/08/16 11:30 (Albumin 25% Inj) 25 gm UNSCH PRN IV 12/08/16 11:30 (NS Flush) 5 ml UNSCH PRN IVF 12/08/16 11:30 (Heparin Inj) UNSCH PRN .XX 12/08/16 11:30 (Gentamicin (Dialysis) Inj) 20 mg UNSCH PRN IV 12/08/16 11:30 (Zofran Inj) 4 mg UNSCH PRN IV 12/08/16 11:30 (Tylenol) 650 mg UNSCH PRN PO 12/08/16 11:30 (Benadryl) 25 mg UNSCH PRN PO 12/08/16 11:30 (Nitrostat Sl) 0.4 mg UNSCH PRN SL 12/08/16 11:30 (Catapres) 0.1 mg UNSCH PRN PO 12/08/16 11:30 (Gelfoam 12 Mm/7 Mm Top) 1 foam UNSCH PRN TOP 12/08/16 11:30 12/08/16 14:30 Pantoprazole Sodium 40 mg 40 mg Q12H IV PUSH 12/09/16 20:00 12/14/16 20:31 (Rocephin Inj/NS Inj) 100 ml @ 200 mls/hr Q24H IV 12/11/16 14:00 12/14/16 14:04 (NovoLOG INJ) 2 units TIDAC SQ 12/12/16 12:00 12/14/16 16:25 (Levemir Inj) 5 units HS SQ 12/12/16 21:00 12/14/16 20:31 (D50w (Vial) Inj) 25 ml UNSCH PRN IV PUSH 12/12/16 11:15 (Glucagon Inj) 1 mg UNSCH PRN OTHER 12/12/16 11:15 Vancomycin HCl 500 mg 500 mg Q6H PO 12/13/16 16:00 12/15/16 06:14 Metronidazole 100 ml @ 100 mls/hr Q8H IV 12/13/16 15:00 12/15/16 06:15 (NS 1000 ml Inj) 1,000 ml @ 50 mls/hr Q20H IV 12/14/16 11:15 12/15/16 06:15 (Stella Faulkner) Physical Exam General Appearance: No Acute Distress, Comfortable (Stella Faulkner) Eyes Eye Exam: Sclera White (Stella Faulkner) Neck Neck Exam: Trachea Midline (Stella Faulkner) Pulmonary Resp Exam: Clear Bilaterally, Breath Sounds Equal, No Distress (Stella Faulkner) Cardiology CV Exam: Regular, Normal Sinus Rhythm (Stella Faulkner) Gastrointestinal/Abdomen GI Exam: Soft, Non-Tender (Stella Faulkner) Integumentary Skin Exam: Clear, Warm (Stella Faulkner) Extremeties Extremities Exam: No Edema (Stella Faulkner) Neurologic Neuro Exam: Alert, Awake (Stella Faulkner) Assessment/Plan Problem List: (1) ESRD (end stage renal disease) Plan: Continue hemodialysis Tuesdays, and Saturdays. Seen during session today. Tolerating well. D/C IVF as his diarrhea has resolved and po intake improved. Avoid gadolinium. Medication should be adjusted for his end-stage renal disease when indicated. (2) Bacteremia Plan: Strep viridans isolated. Origin uncertain Infectious disease following. Repeat blood cultures are negative. Infection is not dialysis related and outpatient antibiotics will not be covered by the dialysis unit although antibiotics can be administered at the dialysis facility 3 days a week if provided to the facility. Administration of antibiotics on other days will have to be arranged by manager of case if required. (3) Hypertension Plan: Hold hypertensive medications pending improvement in blood pressure. (4) DKA, type 1 Plan: Management per primary care physician. (5) Anemia of renal disease Plan: Continue Epogen. (6) C. difficile diarrhea Plan: on po vanc (Stella Faulkner) Plan The exam, history, and the medical decision-making described in the above note were completed with the assistance of the PA-C. I reviewed and agree with the findings presented. (Wilfredo Reyes MD) Problem Qualifiers (1) DKA, type 1: Qualified Code: E10.10 - Type 1 diabetes mellitus with ketoacidosis without coma Stella Faulkner Dec 15, 2016 11:35 Wilfredo Reyes MD Dec 17, 2016 10:10
[2016-12-15] MEDS: GELATIN 12 MM/7 MM FOAM TOP PRN (11:50)
[2016-12-15] MEDS: EPOETIN ALFA 10,000 UNITS/ML VIAL SQ SCH (11:50)
[2016-12-15] MEDS: SODIUM CHLOR 0.9% 1000 ML INJ 1,000 ML IV PRN (11:51)
[2016-12-15] MEDS: PANTOPRAZOLE SODIUM 40 MG VIAL IV PUSH SCH ×2 (13:10→21:18)
[2016-12-15] MEDS: SODIUM CHLORIDE 0.9% FLUSH 5 ML FLUSH IV FLUSH SCH ×2 (13:13→21:19)
--- NOTE | 2016-12-15 13:58 | HHI.PR ---
Subjective Remarks f/u for infection. patient asking to go home. He fell today and hit his eye while going off the commode. I did not witness this. He denied any visual changes, DUARTE, N/V, or any pain. Otherwise no acute events. Objective Vitals Vital Signs Date Time Temp Pulse Resp B/P Pulse Ox O2 Delivery O2 Flow Rate FiO2 12/15/16 12:00 98.0 83 18 136/65 97 12/15/16 09:58 98 21 12/15/16 08:00 98.3 72 18 145/70 98 12/15/16 04:00 98.1 81 24 122/70 95 12/15/16 00:00 98.0 79 24 118/62 96 12/14/16 22:00 98.4 80 24 112/70 96 12/14/16 20:00 97.6 79 26 114/62 97 12/14/16 16:00 98.4 80 18 130/81 97 I/O 12/14/16 12/14/16 12/14/16 12/15/16 12/15/16 12/15/16 07:00 15:00 23:00 07:00 15:00 23:00 Intake Total 480 ml 263 ml 463 ml Output Total 3000 ml Balance 480 ml 263 ml 463 ml -3000 ml Intake Oral 480 ml IV Total 263 ml 463 ml Hemodialysis 3000 ml # Voids 2 0 # Bowel Movements 1 4 Result Diagram: 12/14/16 0458 12/15/16 0620 Objective Remarks GENERAL: CARDIOVASCULAR: Regular rate and rhythm without murmurs, gallops, or rubs. RESPIRATORY: Breath sounds equal bilaterally. No accessory muscle use. GASTROINTESTINAL: Abdomen soft, non-tender, nondistended. MUSCULOSKELETAL: No cyanosis, or edema. BACK: Nontender without obvious deformity. No CVA tenderness. Procedures None. Medications and IVs Current Medications Ondansetron HCl (Zofran Inj) 4 mg ONCE ONCE IVP Last administered on 12/08/16t 01:48; Start 12/08/16 at 01:15; Stop 12/08/16 at 01:16; Status DC IV Flush 2 ml 2 ml UNSCH PRN IVF FLUSH AFTER USING IV ACCESS; Start 12/08/16 at 01:15; Stop 12/08/16 at 04:08; Status DC Sodium Chloride 250 ml @ 250 mls/hr BOLUS ONCE IV Last administered on 01:47; Start 12/08/16 at 01:15; Stop 12/08/16 at 02:14; Status DC Sodium Chloride 250 ml @ 250 mls/hr BOLUS ONCE IV Last administered on 02:20; Start 12/08/16 at 02:15; Stop 12/08/16 at 03:14; Status DC Pantoprazole Sodium 80 mg/ Sodium Chloride 100 ml @ 10 mls/hr CONTINUOUS IV Last administered on 12/08/16 03:49; Start 12/08/16 at 02:15; Stop 12/08/16 at 06: 21; Status DC Pantoprazole Sodium 80 mg/ Sodium Chloride 35 ml @ 420 mls/hr BOLUS ONCE IV Last administered on 12/08/16 02:20; Start 12/08/16 at 02:15; Stop 12/08/16 at 02: 19; Status DC Dextrose/Sodium Chloride (D5W-NS 1000 ml Inj) 1,000 ml @ 200 mls/hr Q5H IV ; Start 12/08/16 at 03:17; Stop 12/08/16 at 03:26; Status DC Insulin Human Regular 6 units 6 units BOLUS ONCE IV PUSH ; Start 12/08/16 at 03: 30; Stop 12/08/16 at 03:30; Status DC Insulin Human Regular 100 units/ Sodium Chloride 100 ml @ 0 mls/hr TITRATE IV ; Start 12/08/16 at 03:30; Stop 12/08/16 at 03:30; Status DC Potassium Chloride 100 ml @ 50 mls/hr Q2H PRN IV SEE LABEL COMMENTS; Start 12/08/16 at 03:30; Stop 12/08/16 at 03:30; Status DC Potassium Chloride 100 ml @ 50 mls/hr Q2H PRN IV SEE LABEL COMMENTS; Start 12/08/16 at 03:30; Stop 12/08/16 at 03:30; Status DC Potassium Chloride 100 ml @ 50 mls/hr Q2H PRN IV SEE LABEL COMMENTS; Start 12/08/16 at 03:30; Stop 12/08/16 at 03:30; Status DC Potassium Chloride 100 ml @ 50 mls/hr Q2H PRN IV SEE LABEL COMMENTS; Start 12/08/16 at 03:30; Stop 12/08/16 at 03:30; Status DC Sodium Chloride 500 ml @ 500 mls/hr BOLUS ONCE IV Last administered on 03:41; Start 12/08/16 at 03:30; Stop 12/08/16 at 04:29; Status DC Dextrose/Sodium Chloride (D5W-NS 1000 ml Inj) 1,000 ml @ 200 mls/hr Q5H IV ; Start 12/08/16 at 03:19; Stop 12/08/16 at 12:29; Status DC Insulin Human Regular 6 units 6 units BOLUS ONCE IV PUSH Last administered on 12/08/16 03:42; Start 12/08/16 at 03:30; Stop 12/08/16 at 03:31; Status DC Sodium Chloride 1,000 ml @ 999 mls/hr BOLUS ONCE IV Last administered on 04:13; Start 12/08/16 at 04:00; Stop 12/08/16 at 05:00; Status DC Insulin Human Regular/Sodium Chloride (NovoLIN R (IV INFUSION)/NS Inj) 100 ml @ 0 mls/hr TITRATE IV Last administered on 12/08/16 04:37; Start 12/08/16 at 04:00 ; Stop 12/08/16 at 22:00; Status DC Dextrose (D50w (Vial) Inj) 25 ml UNSCH PRN IV PUSH SEE LABEL COMMENTS; Start at 04:00; Stop 12/08/16 at 22:00; Status DC Miscellaneous Information 1 1 ONCE ONCE XX Last administered on 12/08/16 04:00 ; Start 12/08/16 at 04:00; Stop 12/08/16 at 04:01; Status DC Sodium Chloride (NS 1000 ml Inj) 1,000 ml @ 50 mls/hr Q20H IV ; Start 12/08/16 at 04:00; Stop 12/09/16 at 02:55; Status DC Sodium Bicarbonate (Sodium Bicarbonate 8.4% Inj) 50 meq ONCE ONCE IV PUSH Last administered on 12/08/16 04:12; Start 12/08/16 at 04:00; Stop 12/08/16 at 04: 01; Status DC Sodium Bicarbonate (Sodium Bicarbonate 8.4% Inj) 50 meq ONCE ONCE IV PUSH Last administered on 12/08/16 04:24; Start 12/08/16 at 04:00; Stop 12/08/16 at 04: 01; Status DC IV Flush (NS Flush) 2 ml UNSCH PRN IV FLUSH FLUSH AFTER USING IV ACCESS Last administered on 12/14/16 22:33; Start 12/08/16 at 04:00 IV Flush (NS Flush) 2 ml BID IV FLUSH Last administered on 12/15/16 13:13; Start 12/08/16 at 09:00 Albuterol/ Ipratropium (Duoneb Neb) 1 ampule Q4HR NEB PRN INH WHEEZING; Start 12/08/16 at 04:00 Miscellaneous Information 1 Q361D XX ; Start 12/08/16 at 04:00 Chlorhexidine Gluconate (Chlorhexidine 2% Cloth) Taper DAILY@04 TOP Last administered on 12/12/16 04:00; Start 12/08/16 at 04:00; Stop 12/04/17 at 03:59 Chlorhexidine Gluconate 3 pack 3 pack UNSCH PRN TOP HYGIENIC CARE; Start at 04:00 Pantoprazole Sodium 80 mg/ Sodium Chloride 35 ml @ 420 mls/hr ONCE ONCE IV ; Start 12/08/16 at 05:15; Stop 12/08/16 at 05:19; Status DC Pantoprazole Sodium 80 mg/ Sodium Chloride 100 ml @ 10 mls/hr Q10H IV Last administered on 12/09/16 11:14; Start 12/08/16 at 05:15; Stop 12/09/16 at 18:10; Status DC Piperacillin Sod/ Tazobactam Sod 50 ml @ 100 mls/hr Q8H IV Last administered on 12/09/16 20:12; Start 12/08/16 at 04:15; Stop 12/10/16 at 03:00; Status DC Vancomycin HCl 1000 mg/Sodium Chloride 250 ml @ 250 mls/hr ONCE ONCE IV ; Start 12/08/16 at 05:00; Stop 12/08/16 at 05:59; Status DC Pharmacy Profile Note 0 ml @ 0 mls/hr UNSCH OTHER ; Start 12/08/16 at 04:15; Stop 12/08/16 at 11:22; Status DC Sodium Chloride (NS 1000 ml Inj) 1,000 ml @ 999 mls/hr BOLUS ONCE IV ; Start 12/08/16 at 05:30; Stop 12/08/16 at 06:30; Status DC Insulin Human Regular 10 units 10 units ONCE ONCE IV PUSH Last administered on 12/08/16 05:00; Start 12/08/16 at 05:30; Stop 12/08/16 at 05:31; Status DC Sodium Chloride 1,000 ml @ 999 mls/hr BOLUS ONCE IV Last administered on 10:06; Start 12/08/16 at 08:15; Stop 12/08/16 at 09:15; Status DC Sodium Chloride 1,000 ml @ 999 mls/hr BOLUS ONCE IV Last administered on 10:06; Start 12/08/16 at 09:15; Stop 12/08/16 at 10:21; Status DC Sodium Chloride (NS 1000 ml Inj) 1,000 ml @ 0 mls/hr Q0M PRN IV For Prime & Rinse Back; Start 12/08/16 at 11:25; Status UNV Heparin Sodium (Porcine) 8000 units 8,000 units UNSCH PRN IVF WITH DIALYSIS; Start 12/08/16 at 11:30; Status UNV Sodium Chloride 1,000 ml @ 200 mls/hr Q5H PRN IV WITH DIALYSIS; Start 12/08/16 at 11:25; Status UNV Sodium Chloride (NS 1000 ml Inj) 1,000 ml @ 0 mls/hr Q0M PRN IV WITH DIALYSIS; Start 12/08/16 at 11:25; Status UNV Mannitol (Mannitol Inj) 12.5 gm UNSCH PRN IV WITH DIALYSIS; Start 12/08/16 at 11 :30; Status UNV Albumin Human (Albumin 25% Inj) 25 gm UNSCH PRN IV WITH DIALYSIS; Start at 11:30; Status UNV IV Flush (NS Flush) 5 ml UNSCH PRN IVF WITH DIALYSIS; Start 12/08/16 at 11:30; Status UNV Heparin Sodium (Porcine) (Heparin Inj) UNSCH PRN .XX WITH DIALYSIS; Start 12/08 at 11:30; Status UNV Gentamicin Sulfate (Gentamicin (Dialysis) Inj) 20 mg UNSCH PRN IV WITH DIALYSIS ; Start 12/08/16 at 11:30; Status UNV Ondansetron HCl (Zofran Inj) 4 mg UNSCH PRN IV WITH DIALYSIS; Start 12/08/16 at 11:30; Status UNV Acetaminophen (Tylenol) 650 mg UNSCH PRN PO for headach, pain, temp > 101F; Start 12/08/16 at 11:30; Status UNV Diphenhydramine HCl (Benadryl) 25 mg UNSCH PRN PO for hives/itching/anaphylaxis ; Start 12/08/16 at 11:30; Status UNV Nitroglycerin (Nitrostat Sl) 0.4 mg UNSCH PRN SL CHEST PAIN; Start 12/08/16 at 11:30; Status UNV Clonidine (Catapres) 0.1 mg UNSCH PRN PO for BP > 180/100 X 2 readings; Start 12/08/16 at 11:30; Status UNV Gelatin 1 foam 1 foam UNSCH PRN TOP SEE LABEL COMMENTS; Start 12/08/16 at 11:30 ; Status UNV Sodium Chloride (NS 1000 ml Inj) 1,000 ml @ 0 mls/hr Q0M PRN IV For Prime & Rinse Back; Start 12/08/16 at 11:22 Heparin Sodium (Porcine) 8000 units 8,000 units UNSCH PRN IVF WITH DIALYSIS; Start 12/08/16 at 11:30 Sodium Chloride 1,000 ml @ 200 mls/hr Q5H PRN IV WITH DIALYSIS Last administered on 12/15/16t 11:51; Start 12/08/16 at 11:22 Sodium Chloride (NS 1000 ml Inj) 1,000 ml @ 0 mls/hr Q0M PRN IV WITH DIALYSIS; Start 12/08/16 at 11:22 Mannitol (Mannitol Inj) 12.5 gm UNSCH PRN IV WITH DIALYSIS; Start 12/08/16 at 11 :30 Albumin Human (Albumin 25% Inj) 25 gm UNSCH PRN IV WITH DIALYSIS; Start at 11:30 IV Flush (NS Flush) 5 ml UNSCH PRN IVF WITH DIALYSIS; Start 12/08/16 at 11:30 Heparin Sodium (Porcine) (Heparin Inj) UNSCH PRN .XX WITH DIALYSIS; Start 12/08 at 11:30 Gentamicin Sulfate (Gentamicin (Dialysis) Inj) 20 mg UNSCH PRN IV WITH DIALYSIS ; Start 12/08/16 at 11:30 Ondansetron HCl (Zofran Inj) 4 mg UNSCH PRN IV WITH DIALYSIS; Start 12/08/16 at 11:30 Acetaminophen (Tylenol) 650 mg UNSCH PRN PO for headach, pain, temp > 101F; Start 12/08/16 at 11:30 Diphenhydramine HCl (Benadryl) 25 mg UNSCH PRN PO for hives/itching/anaphylaxis ; Start 12/08/16 at 11:30 Nitroglycerin (Nitrostat Sl) 0.4 mg UNSCH PRN SL CHEST PAIN; Start 12/08/16 at 11:30 Clonidine (Catapres) 0.1 mg UNSCH PRN PO for BP > 180/100 X 2 readings; Start 12/08/16 at 11:30 Gelatin 1 foam 1 foam UNSCH PRN TOP SEE LABEL COMMENTS Last administered on 11:50; Start 12/08/16 at 11:30 Dextrose/Sodium Chloride (D5W-NS 1000 ml Inj) 1,000 ml @ 50 mls/hr Q20H IV Last administered on 12/08/16 13:24; Start 12/08/16 at 13:00; Stop 12/09/16 at 02: 55; Status DC Miscellaneous Information 1 ONCE ONCE XX Last administered on 12/08/16 20:00; Start 12/08/16 at 20:00; Stop 12/08/16 at 20:09; Status DC Miscellaneous Information 1 ONCE ONCE XX Last administered on 12/08/16 20:00; Start 12/08/16 at 20:00; Stop 12/08/16 at 20:08; Status DC Insulin Detemir (Levemir Inj) 12 units Q12H SQ Last administered on 12/08/16 20 :20; Start 12/08/16 at 20:00; Stop 12/09/16 at 02:57; Status DC Insulin Human Regular (NovoLIN R SUPPLEMENTAL SCALE) 1 Q3HR SQ Last administered on 12/11/16 08:00; Start 12/08/16 at 20:00; Stop 12/11/16 at 08:12; Status DC Dextrose (D50w (Vial) Inj) 25 ml UNSCH PRN IV PUSH HYPOGLYCEMIA-SEE COMMENTS Last administered on 12/09/16 14:52; Start 12/08/16 at 20:00; Stop 12/11/16 at 08: 12; Status DC Glucagon 1 mg 1 mg UNSCH PRN OTHER HYPOGLYCEMIA-SEE COMMENTS Last administered on 12/09/16 03:45; Start 12/08/16 at 20:00; Stop 12/11/16 at 08:12; Status DC Dextrose (D5W 1000 ml Inj) 1,000 ml @ 50 mls/hr Q20H IV Last administered on 05:39; Start 12/09/16 at 03:00; Stop 12/14/16 at 11:04; Status DC Insulin Detemir 6 units 6 units Q12H SQ ; Start 12/09/16 at 07:00; Stop 12/09/16 at 07:50; Status DC Potassium Chloride 100 ml @ 50 mls/hr BOLUS ONCE IV Last administered on 08:04; Start 12/09/16 at 08:00; Stop 12/09/16 at 09:59; Status DC Vancomycin HCl 1000 mg/Sodium Chloride 250 ml @ 250 mls/hr ONCE ONCE IV Last administered on 12/09/16 11:14; Start 12/09/16 at 10:00; Stop 12/09/16 at 10:59; Status DC Piperacillin Sod/ Tazobactam Sod (Zosyn 2.25 Gm Premix) 50 ml @ 100 mls/hr Q8H IV Last administered on 12/11/16 03:36; Start 12/10/16 at 04:00; Stop 12/11/16 at 13:16; Status DC Pantoprazole Sodium (Protonix Inj) 40 mg Q12H IV PUSH Last administered on 12/15 13:10; Start 12/09/16 at 20:00 Epoetin Mark (Epogen Inj) 10,000 units WITH DIALYSIS SQ Last administered on 11:50; Start 12/10/16 at 11:30 Propofol (Diprivan 200 Mg/20 ml Inj) 200 mg STK-MED ONCE IV ; Start 12/10/16 at 19:29; Stop 12/10/16 at 20:08; Status DC Miscellaneous Information ALL NURSING DEPARTME... UNSCH PRN XX SEE LABEL COMMENTS; Start 12/10/16 at 20:15; Stop 12/11/16 at 20:14; Status DC Dextrose (D50w (Vial) Inj) 25 ml UNSCH PRN IV PUSH HYPOGLYCEMIA-SEE COMMENTS; Start 12/11/16 at 08:15; Stop 12/12/16 at 11:35; Status DC Glucagon (Glucagon Inj) 1 mg UNSCH PRN OTHER HYPOGLYCEMIA-SEE COMMENTS; Start 12/11/16 at 08:15; Stop 12/12/16 at 11:35; Status DC Insulin Aspart (NovoLOG SUPPLEMENTAL SCALE) 1 ACHS SLIDING SCALE SQ Last administered on 12/11/16 13:00; Start 12/11/16 at 11:00; Stop 12/12/16 at 11:17; Status DC Insulin Aspart (NovoLOG INJ) 4 units TIDAC SQ Last administered on 12/11/16 13: 00; Start 12/11/16 at 12:00; Stop 12/12/16 at 11:17; Status DC Insulin Detemir 7 units 7 units Q12HR SQ Last administered on 12/11/16 20:06; Start 12/11/16 at 09:00; Stop 12/12/16 at 11:17; Status DC Ceftriaxone Sodium/Sodium Chloride (Rocephin Inj/NS Inj) 100 ml @ 200 mls/hr Q24H IV Last administered on 12/14/16 14:04; Start 12/11/16 at 14:00 Potassium Chloride 20 meq 20 meq ONCE ONCE PO Last administered on 12/12/16 12 :03; Start 12/12/16 at 09:00; Stop 12/12/16 at 09:06; Status DC Potassium Chloride 100 ml @ 50 mls/hr Q2H IV Last administered on 12/12/16 13: 00; Start 12/12/16 at 11:00; Stop 12/12/16 at 14:59; Status DC Potassium Chloride (KCl 20 Meq Premix Inj) 100 ml @ 50 mls/hr Q2H IV ; Start at 16:00; Stop 12/12/16 at 16:00; Status DC Loperamide HCl (Imodium) 2 mg Q6H PRN PO DIARRHEA; Start 12/12/16 at 11:15; Stop 12/12/16 at 15:02; Status DC Insulin Aspart (NovoLOG INJ) 2 units TIDAC SQ Last administered on 12/15/16 13 :16; Start 12/12/16 at 12:00 Insulin Detemir (Levemir Inj) 5 units HS SQ Last administered on 12/14/16 20: 31; Start 12/12/16 at 21:00 Dextrose (D50w (Vial) Inj) 25 ml UNSCH PRN IV PUSH HYPOGLYCEMIA-SEE COMMENTS; Start 12/12/16 at 11:15 Glucagon (Glucagon Inj) 1 mg UNSCH PRN OTHER HYPOGLYCEMIA-SEE COMMENTS; Start 12/12/16 at 11:15 Insulin Aspart (NovoLOG SUPPLEMENTAL SCALE) 1 ACHS SLIDING SCALE SQ Last administered on 12/15/16 13:12; Start 12/12/16 at 16:00 Metronidazole (Flagyl) 500 mg Q8HR PO Last administered on 12/13/16 14:00; Start 12/12/16 at 22:00; Stop 12/13/16 at 14:39; Status DC Vancomycin HCl 125 mg 125 mg Q6H PO Last administered on 12/13/16 10:24; Start 12/12/16 at 16:00; Stop 12/13/16 at 14:39; Status DC Magnesium Sulfate/ Dextrose (Magnesium Sulfate 1 Gm Premix) 100 ml @ 100 mls/ hr ONCE ONCE IV Last administered on 12/13/16 11:58; Start 12/13/16 at 11:30; Stop 12/13/16 at 12:29; Status DC Vancomycin HCl 500 mg 500 mg Q6H PO Last administered on 12/15/16 13:11; Start 12/13/16 at 16:00 Metronidazole 100 ml @ 100 mls/hr Q8H IV Last administered on 12/15/16 06:15 ; Start 12/13/16 at 15:00 Sodium Chloride (NS 1000 ml Inj) 1,000 ml @ 50 mls/hr Q20H IV Last administered on 12/15/16 06:15; Start 12/14/16 at 11:15; Stop 12/15/16 at 11:36 ; Status DC A/P Problem List: (1) Diabetic ketoacidosis ICD Code: E13.10 Status: Acute (2) Hypotension ICD Code: I95.9 Status: Acute (3) Severe sepsis ICD Code: A41.9 Status: Acute (4) UGIB (upper gastrointestinal bleed) ICD Code: K92.2 Status: Acute (5) Lactic acidosis ICD Code: E87.2 Status: Acute (6) Leukocytosis ICD Code: D72.829 Status: Acute (7) Hyperglycemia due to type 1 diabetes mellitus ICD Code: E10.65 Status: Acute (8) History of CVA with residual deficit ICD Code: I69.30 Status: Acute (9) CAD (coronary artery disease) ICD Code: I25.10 Status: Acute (10) ESRD (end stage renal disease) ICD Code: N18.6 Status: Chronic Assessment and Plan Mr. Wyatt is a 51-year-old male with a history of type 1 diabetes, CVA, ESRD currently on dialysis on Saturday and Saturday who was admitted to the hospital from his intermediate due to coffee ground emesis. In the ER hemoglobin was 11, WBC count 16.3 with 91% neutrophils. He was found to have a blood sugar of 929, lactic acid of 4.1 and anion gap of 34. Beta hydroxybutyric acid was also elevated at 10.97 indicating DKA. He was given 6 units of IV insulin, and was started on DKA insulin protocol. Patient was also started on Vanc and Zosyn for suspected sepsis. Blood culture grew viridans streptococcus. - Diabetic ketoacidosis - Type 1 diabetes mellitus - And iron gap improved from 34 to 17. - on Levemir 5 units QHS, pre-meal 2 units TIDAC, sliding scale insulin - low. - Viridans Strep bacteremia - Echo negative for any vegetations. - Currently on Ceftriaxone 2g Qday. ID following. -per ID most likely need 2 weeks of IV antibiotics. - Diarrhea + C. Diff PCR. on vancomycin. will need 2 weeks more after completed course of treatment. - Upper GI bleed - s/p EGD 12/11/2016 --> Duodenal ulcers, gastritis, esophagitis. - anemia secondary to acute GI blood loss. - Continue Protonix BID. - Transfuse as needed for Hgb < 7.0. - ESRD - HD on , , Sat. - Nephrology is following. -Deconditioned -consult PT Full code. SCDs. Discharge Planning okay discharge once cleared by ID and patient able to get antibiotics infusion. recommend to nurse putting patient by nursing station or sitter. Problem Qualifiers (1) Diabetic ketoacidosis: (2) Hypotension: Qualified Code: I95.9 - Hypotension, unspecified hypotension type (3) CAD (coronary artery disease): Tamy Cook MD Dec 15, 2016 13:58
[2016-12-15] MEDS: cefTRIAXone INJ 2,000 MG in SODIUM CHLORIDE 0.9% INJ 100 ML IV SCH (16:01)
[2016-12-15] MEDS: INSULIN DETEMIR 100 UNITS/ML VIAL SQ SCH (21:18)
[2016-12-16] VITALS (7 sets, daily range): BP systolic 107–134; BP diastolic 56–62; PULSE 67–92; RESP 18–20; TEMP 97.3–98.7; O2SAT 92–94
[2016-12-16] MEDS: CHLORHEXIDINE GLUCONATE 2 % 1 PACK (2 CLOTHS) TOP SCH (03:19)
[2016-12-16] MEDS: VANCOMYCIN 500 MG VIAL (FOR ORAL USE ONLY) PO SCH ×4 (03:40→22:57)
[2016-12-16] MEDS: metroNIDAZOLE 500 MG INJ 100 ML IV SCH ×3 (05:55→22:58)
[2016-12-16] MEDS: INSULIN ASPART SUPPLEMENTAL SCALE SQ SCH ×4 (05:59→22:58)
[2016-12-16 06:44] LABS: HEMATOCRIT 23.2 % (39.0-51.0); MEAN CELL VOLUME 99.7 FL (80.0-100.0); MEAN CORPUSCULAR HEMOGLOBIN 33.3 PG (27.0-34.0); MEAN CORPUSCULAR HGB CONC 33.4 % (32.0-36.0); PLATELET COUNT 130 TH/MM3 (150-450); RED BLOOD COUNT 2.33 MIL/MM3 (4.50-5.90); RED CELL DISTRIBUTION WIDTH 13.6 % (11.6-17.2); REVIEW FLAG FINAL; WHITE BLOOD COUNT 4.5 TH/MM3 (4.0-11.0)
[2016-12-16 07:04] LABS: BICARBONATE 31.4 MEQ/L (21.0-32.0); POTASSIUM 3.2 MEQ/L (3.5-5.1)
[2016-12-16] MEDS: PANTOPRAZOLE SODIUM 40 MG VIAL IV PUSH SCH ×2 (08:26→22:57)
[2016-12-16] MEDS: INSULIN ASPART 1,000 UNITS/10 ML VIAL SQ SCH ×3 (08:26→17:08)
[2016-12-16] MEDS ORDERED: POTASSIUM CHLORIDE 20 MEQ CONTROLLED RELEASE TAB PO ONE (10:30)
[2016-12-16 10:53] LABS: TRANSFERRIN IRON PROFILE 102 MG/DL (200-360)
[2016-12-16 10:56] LABS: FERRITIN 1561 NG/ML (26-388)
[2016-12-16] MEDS: SODIUM CHLORIDE 0.9% FLUSH 5 ML FLUSH IV FLUSH SCH ×2 (11:32→22:57)
[2016-12-16] MEDS: cefTRIAXone INJ 2,000 MG in SODIUM CHLORIDE 0.9% INJ 100 ML IV SCH (14:28)
--- NOTE | 2016-12-16 16:26 | HHI.PR ---
Subjective Remarks f/u for bacteremia and C diff patient has no complaints. He is asking to go home. Denied any abdominal pain, N/V. remains afebrile. his mother is at the bedside. Objective Vitals Vital Signs Date Time Temp Pulse Resp B/P Pulse Ox O2 Delivery O2 Flow Rate FiO2 12/16/16 12:00 98.0 70 20 119/58 12/16/16 09:27 93 21 12/16/16 08:00 97.3 92 20 107/60 92 12/16/16 04:00 98.7 77 20 118/56 94 12/16/16 00:00 97.5 85 18 115/57 94 12/15/16 20:00 Room Air 12/15/16 20:00 97.7 80 18 138/67 94 I/O 12/15/16 12/15/16 12/15/16 12/16/16 12/16/16 12/16/16 07:00 15:00 23:00 07:00 15:00 23:00 Intake Total 463 ml 240 ml 120 ml Output Total 3000 ml Balance 463 ml -2760 ml 120 ml Intake Oral 240 ml 120 ml IV Total 463 ml Hemodialysis 3000 ml # Voids 0 2 1 # Bowel Movements 4 4 1 Result Diagram: 12/16/16 0600 12/16/16 0600 Objective Remarks GENERAL: CARDIOVASCULAR: Regular rate and rhythm without murmurs, gallops, or rubs. RESPIRATORY: Breath sounds equal bilaterally. No accessory muscle use. GASTROINTESTINAL: Abdomen soft, non-tender, nondistended. MUSCULOSKELETAL: No cyanosis, or edema. BACK: Nontender without obvious deformity. No CVA tenderness. Procedures None. Medications and IVs Current Medications Ondansetron HCl (Zofran Inj) 4 mg ONCE ONCE IVP Last administered on 12/08/16 01:48; Start 12/08/16 at 01:15; Stop 12/08/16 at 01:16; Status DC IV Flush 2 ml 2 ml UNSCH PRN IVF FLUSH AFTER USING IV ACCESS; Start 12/08/16 at 01:15; Stop 12/08/16 at 04:08; Status DC Sodium Chloride 250 ml @ 250 mls/hr BOLUS ONCE IV Last administered on 01:47; Start 12/08/16 at 01:15; Stop 12/08/16 at 02:14; Status DC Sodium Chloride 250 ml @ 250 mls/hr BOLUS ONCE IV Last administered on 02:20; Start 12/08/16 at 02:15; Stop 12/08/16 at 03:14; Status DC Pantoprazole Sodium 80 mg/ Sodium Chloride 100 ml @ 10 mls/hr CONTINUOUS IV Last administered on 12/08/16 03:49; Start 12/08/16 at 02:15; Stop 12/08/16 at 06: 21; Status DC Pantoprazole Sodium 80 mg/ Sodium Chloride 35 ml @ 420 mls/hr BOLUS ONCE IV Last administered on 12/08/16 02:20; Start 12/08/16 at 02:15; Stop 12/08/16 at 02: 19; Status DC Dextrose/Sodium Chloride (D5W-NS 1000 ml Inj) 1,000 ml @ 200 mls/hr Q5H IV ; Start 12/08/16 at 03:17; Stop 12/08/16 at 03:26; Status DC Insulin Human Regular 6 units 6 units BOLUS ONCE IV PUSH ; Start 12/08/16 at 03: 30; Stop 12/08/16 at 03:30; Status DC Insulin Human Regular 100 units/ Sodium Chloride 100 ml @ 0 mls/hr TITRATE IV ; Start 12/08/16 at 03:30; Stop 12/08/16 at 03:30; Status DC Potassium Chloride 100 ml @ 50 mls/hr Q2H PRN IV SEE LABEL COMMENTS; Start 12/08/16 at 03:30; Stop 12/08/16 at 03:30; Status DC Potassium Chloride 100 ml @ 50 mls/hr Q2H PRN IV SEE LABEL COMMENTS; Start 12/08/16 at 03:30; Stop 12/08/16 at 03:30; Status DC Potassium Chloride 100 ml @ 50 mls/hr Q2H PRN IV SEE LABEL COMMENTS; Start 12/08/16 at 03:30; Stop 12/08/16 at 03:30; Status DC Potassium Chloride 100 ml @ 50 mls/hr Q2H PRN IV SEE LABEL COMMENTS; Start 12/08/16 at 03:30; Stop 12/08/16 at 03:30; Status DC Sodium Chloride 500 ml @ 500 mls/hr BOLUS ONCE IV Last administered on 03:41; Start 12/08/16 at 03:30; Stop 12/08/16 at 04:29; Status DC Dextrose/Sodium Chloride (D5W-NS 1000 ml Inj) 1,000 ml @ 200 mls/hr Q5H IV ; Start 12/08/16 at 03:19; Stop 12/08/16 at 12:29; Status DC Insulin Human Regular 6 units 6 units BOLUS ONCE IV PUSH Last administered on 12/08/16 03:42; Start 12/08/16 at 03:30; Stop 12/08/16 at 03:31; Status DC Sodium Chloride 1,000 ml @ 999 mls/hr BOLUS ONCE IV Last administered on 04:13; Start 12/08/16 at 04:00; Stop 12/08/16 at 05:00; Status DC Insulin Human Regular/Sodium Chloride (NovoLIN R (IV INFUSION)/NS Inj) 100 ml @ 0 mls/hr TITRATE IV Last administered on 12/08/16 04:37; Start 12/08/16 at 04:00 ; Stop 12/08/16 at 22:00; Status DC Dextrose (D50w (Vial) Inj) 25 ml UNSCH PRN IV PUSH SEE LABEL COMMENTS; Start at 04:00; Stop 12/08/16 at 22:00; Status DC Miscellaneous Information 1 1 ONCE ONCE XX Last administered on 12/08/16 04:00 ; Start 12/08/16 at 04:00; Stop 12/08/16 at 04:01; Status DC Sodium Chloride (NS 1000 ml Inj) 1,000 ml @ 50 mls/hr Q20H IV ; Start 12/08/16 at 04:00; Stop 12/09/16 at 02:55; Status DC Sodium Bicarbonate (Sodium Bicarbonate 8.4% Inj) 50 meq ONCE ONCE IV PUSH Last administered on 12/08/16 04:12; Start 12/08/16 at 04:00; Stop 12/08/16 at 04: 01; Status DC Sodium Bicarbonate (Sodium Bicarbonate 8.4% Inj) 50 meq ONCE ONCE IV PUSH Last administered on 12/08/16 04:24; Start 12/08/16 at 04:00; Stop 12/08/16 at 04: 01; Status DC IV Flush (NS Flush) 2 ml UNSCH PRN IV FLUSH FLUSH AFTER USING IV ACCESS Last administered on 12/14/16 22:33; Start 12/08/16 at 04:00 IV Flush (NS Flush) 2 ml BID IV FLUSH Last administered on 12/16/16 11:32; Start 12/08/16 at 09:00 Albuterol/ Ipratropium (Duoneb Neb) 1 ampule Q4HR NEB PRN INH WHEEZING; Start 12/08/16 at 04:00 Miscellaneous Information 1 Q361D XX ; Start 12/08/16 at 04:00 Chlorhexidine Gluconate (Chlorhexidine 2% Cloth) Taper DAILY@04 TOP Last administered on 12/12/16 04:00; Start 12/08/16 at 04:00; Stop 12/04/17 at 03:59 Chlorhexidine Gluconate 3 pack 3 pack UNSCH PRN TOP HYGIENIC CARE; Start at 04:00 Pantoprazole Sodium 80 mg/ Sodium Chloride 35 ml @ 420 mls/hr ONCE ONCE IV ; Start 12/08/16 at 05:15; Stop 12/08/16 at 05:19; Status DC Pantoprazole Sodium 80 mg/ Sodium Chloride 100 ml @ 10 mls/hr Q10H IV Last administered on 12/09/16 11:14; Start 12/08/16 at 05:15; Stop 12/09/16 at 18:10; Status DC Piperacillin Sod/ Tazobactam Sod 50 ml @ 100 mls/hr Q8H IV Last administered on 12/09/16 20:12; Start 12/08/16 at 04:15; Stop 12/10/16 at 03:00; Status DC Vancomycin HCl 1000 mg/Sodium Chloride 250 ml @ 250 mls/hr ONCE ONCE IV ; Start 12/08/16 at 05:00; Stop 12/08/16 at 05:59; Status DC Pharmacy Profile Note 0 ml @ 0 mls/hr UNSCH OTHER ; Start 12/08/16 at 04:15; Stop 12/08/16 at 11:22; Status DC Sodium Chloride (NS 1000 ml Inj) 1,000 ml @ 999 mls/hr BOLUS ONCE IV ; Start 12/08/16 at 05:30; Stop 12/08/16 at 06:30; Status DC Insulin Human Regular 10 units 10 units ONCE ONCE IV PUSH Last administered on 12/08/16 05:00; Start 12/08/16 at 05:30; Stop 12/08/16 at 05:31; Status DC Sodium Chloride 1,000 ml @ 999 mls/hr BOLUS ONCE IV Last administered on 10:06; Start 12/08/16 at 08:15; Stop 12/08/16 at 09:15; Status DC Sodium Chloride 1,000 ml @ 999 mls/hr BOLUS ONCE IV Last administered on 10:06; Start 12/08/16 at 09:15; Stop 12/08/16 at 10:21; Status DC Sodium Chloride (NS 1000 ml Inj) 1,000 ml @ 0 mls/hr Q0M PRN IV For Prime & Rinse Back; Start 12/08/16 at 11:25; Status UNV Heparin Sodium (Porcine) 8000 units 8,000 units UNSCH PRN IVF WITH DIALYSIS; Start 12/08/16 at 11:30; Status UNV Sodium Chloride 1,000 ml @ 200 mls/hr Q5H PRN IV WITH DIALYSIS; Start 12/08/16 at 11:25; Status UNV Sodium Chloride (NS 1000 ml Inj) 1,000 ml @ 0 mls/hr Q0M PRN IV WITH DIALYSIS; Start 12/08/16 at 11:25; Status UNV Mannitol (Mannitol Inj) 12.5 gm UNSCH PRN IV WITH DIALYSIS; Start 12/08/16 at 11 :30; Status UNV Albumin Human (Albumin 25% Inj) 25 gm UNSCH PRN IV WITH DIALYSIS; Start at 11:30; Status UNV IV Flush (NS Flush) 5 ml UNSCH PRN IVF WITH DIALYSIS; Start 12/08/16 at 11:30; Status UNV Heparin Sodium (Porcine) (Heparin Inj) UNSCH PRN .XX WITH DIALYSIS; Start 12/08 at 11:30; Status UNV Gentamicin Sulfate (Gentamicin (Dialysis) Inj) 20 mg UNSCH PRN IV WITH DIALYSIS ; Start 12/08/16 at 11:30; Status UNV Ondansetron HCl (Zofran Inj) 4 mg UNSCH PRN IV WITH DIALYSIS; Start 12/08/16 at 11:30; Status UNV Acetaminophen (Tylenol) 650 mg UNSCH PRN PO for headach, pain, temp > 101F; Start 12/08/16 at 11:30; Status UNV Diphenhydramine HCl (Benadryl) 25 mg UNSCH PRN PO for hives/itching/anaphylaxis ; Start 12/08/16 at 11:30; Status UNV Nitroglycerin (Nitrostat Sl) 0.4 mg UNSCH PRN SL CHEST PAIN; Start 12/08/16 at 11:30; Status UNV Clonidine (Catapres) 0.1 mg UNSCH PRN PO for BP > 180/100 X 2 readings; Start 12/08/16 at 11:30; Status UNV Gelatin 1 foam 1 foam UNSCH PRN TOP SEE LABEL COMMENTS; Start 12/08/16 at 11:30 ; Status UNV Sodium Chloride (NS 1000 ml Inj) 1,000 ml @ 0 mls/hr Q0M PRN IV For Prime & Rinse Back; Start 12/08/16 at 11:22 Heparin Sodium (Porcine) 8000 units 8,000 units UNSCH PRN IVF WITH DIALYSIS; Start 12/08/16 at 11:30 Sodium Chloride 1,000 ml @ 200 mls/hr Q5H PRN IV WITH DIALYSIS Last administered on 12/15/16t 11:51; Start 12/08/16 at 11:22 Sodium Chloride (NS 1000 ml Inj) 1,000 ml @ 0 mls/hr Q0M PRN IV WITH DIALYSIS; Start 12/08/16 at 11:22 Mannitol (Mannitol Inj) 12.5 gm UNSCH PRN IV WITH DIALYSIS; Start 12/08/16 at 11 :30 Albumin Human (Albumin 25% Inj) 25 gm UNSCH PRN IV WITH DIALYSIS; Start at 11:30 IV Flush (NS Flush) 5 ml UNSCH PRN IVF WITH DIALYSIS; Start 12/08/16 at 11:30 Heparin Sodium (Porcine) (Heparin Inj) UNSCH PRN .XX WITH DIALYSIS; Start 12/08 at 11:30 Gentamicin Sulfate (Gentamicin (Dialysis) Inj) 20 mg UNSCH PRN IV WITH DIALYSIS ; Start 12/08/16 at 11:30 Ondansetron HCl (Zofran Inj) 4 mg UNSCH PRN IV WITH DIALYSIS; Start 12/08/16 at 11:30 Acetaminophen (Tylenol) 650 mg UNSCH PRN PO for headach, pain, temp > 101F; Start 12/08/16 at 11:30 Diphenhydramine HCl (Benadryl) 25 mg UNSCH PRN PO for hives/itching/anaphylaxis ; Start 12/08/16 at 11:30 Nitroglycerin (Nitrostat Sl) 0.4 mg UNSCH PRN SL CHEST PAIN; Start 12/08/16 at 11:30 Clonidine (Catapres) 0.1 mg UNSCH PRN PO for BP > 180/100 X 2 readings; Start 12/08/16 at 11:30 Gelatin 1 foam 1 foam UNSCH PRN TOP SEE LABEL COMMENTS Last administered on 11:50; Start 12/08/16 at 11:30 Dextrose/Sodium Chloride (D5W-NS 1000 ml Inj) 1,000 ml @ 50 mls/hr Q20H IV Last administered on 12/08/16 13:24; Start 12/08/16 at 13:00; Stop 12/09/16 at 02: 55; Status DC Miscellaneous Information 1 ONCE ONCE XX Last administered on 12/08/16 20:00; Start 12/08/16 at 20:00; Stop 12/08/16 at 20:09; Status DC Miscellaneous Information 1 ONCE ONCE XX Last administered on 12/08/16 20:00; Start 12/08/16 at 20:00; Stop 12/08/16 at 20:08; Status DC Insulin Detemir (Levemir Inj) 12 units Q12H SQ Last administered on 12/08/16 20 :20; Start 12/08/16 at 20:00; Stop 12/09/16 at 02:57; Status DC Insulin Human Regular (NovoLIN R SUPPLEMENTAL SCALE) 1 Q3HR SQ Last administered on 12/11/16 08:00; Start 12/08/16 at 20:00; Stop 12/11/16 at 08:12; Status DC Dextrose (D50w (Vial) Inj) 25 ml UNSCH PRN IV PUSH HYPOGLYCEMIA-SEE COMMENTS Last administered on 12/09/16 14:52; Start 12/08/16 at 20:00; Stop 12/11/16 at 08: 12; Status DC Glucagon 1 mg 1 mg UNSCH PRN OTHER HYPOGLYCEMIA-SEE COMMENTS Last administered on 12/09/16 03:45; Start 12/08/16 at 20:00; Stop 12/11/16 at 08:12; Status DC Dextrose (D5W 1000 ml Inj) 1,000 ml @ 50 mls/hr Q20H IV Last administered on 05:39; Start 12/09/16 at 03:00; Stop 12/14/16 at 11:04; Status DC Insulin Detemir 6 units 6 units Q12H SQ ; Start 12/09/16 at 07:00; Stop 12/09/16 at 07:50; Status DC Potassium Chloride 100 ml @ 50 mls/hr BOLUS ONCE IV Last administered on 08:04; Start 12/09/16 at 08:00; Stop 12/09/16 at 09:59; Status DC Vancomycin HCl 1000 mg/Sodium Chloride 250 ml @ 250 mls/hr ONCE ONCE IV Last administered on 12/09/16 11:14; Start 12/09/16 at 10:00; Stop 12/09/16 at 10:59; Status DC Piperacillin Sod/ Tazobactam Sod (Zosyn 2.25 Gm Premix) 50 ml @ 100 mls/hr Q8H IV Last administered on 12/11/16 03:36; Start 12/10/16 at 04:00; Stop 12/11/16 at 13:16; Status DC Pantoprazole Sodium (Protonix Inj) 40 mg Q12H IV PUSH Last administered on 12/16 08:26; Start 12/09/16 at 20:00 Epoetin Mark (Epogen Inj) 10,000 units WITH DIALYSIS SQ Last administered on 11:50; Start 12/10/16 at 11:30 Propofol (Diprivan 200 Mg/20 ml Inj) 200 mg STK-MED ONCE IV ; Start 12/10/16 at 19:29; Stop 12/10/16 at 20:08; Status DC Miscellaneous Information ALL NURSING DEPARTME... UNSCH PRN XX SEE LABEL COMMENTS; Start 12/10/16 at 20:15; Stop 12/11/16 at 20:14; Status DC Dextrose (D50w (Vial) Inj) 25 ml UNSCH PRN IV PUSH HYPOGLYCEMIA-SEE COMMENTS; Start 12/11/16 at 08:15; Stop 12/12/16 at 11:35; Status DC Glucagon (Glucagon Inj) 1 mg UNSCH PRN OTHER HYPOGLYCEMIA-SEE COMMENTS; Start 12/11/16 at 08:15; Stop 12/12/16 at 11:35; Status DC Insulin Aspart (NovoLOG SUPPLEMENTAL SCALE) 1 ACHS SLIDING SCALE SQ Last administered on 12/11/16 13:00; Start 12/11/16 at 11:00; Stop 12/12/16 at 11:17; Status DC Insulin Aspart (NovoLOG INJ) 4 units TIDAC SQ Last administered on 12/11/16 13: 00; Start 12/11/16 at 12:00; Stop 12/12/16 at 11:17; Status DC Insulin Detemir 7 units 7 units Q12HR SQ Last administered on 12/11/16 20:06; Start 12/11/16 at 09:00; Stop 12/12/16 at 11:17; Status DC Ceftriaxone Sodium/Sodium Chloride (Rocephin Inj/NS Inj) 100 ml @ 200 mls/hr Q24H IV Last administered on 12/16/16 14:28; Start 12/11/16 at 14:00 Potassium Chloride 20 meq 20 meq ONCE ONCE PO Last administered on 12/12/16 12 :03; Start 12/12/16 at 09:00; Stop 12/12/16 at 09:06; Status DC Potassium Chloride 100 ml @ 50 mls/hr Q2H IV Last administered on 12/12/16 13: 00; Start 12/12/16 at 11:00; Stop 12/12/16 at 14:59; Status DC Potassium Chloride (KCl 20 Meq Premix Inj) 100 ml @ 50 mls/hr Q2H IV ; Start at 16:00; Stop 12/12/16 at 16:00; Status DC Loperamide HCl (Imodium) 2 mg Q6H PRN PO DIARRHEA; Start 12/12/16 at 11:15; Stop 12/12/16 at 15:02; Status DC Insulin Aspart (NovoLOG INJ) 2 units TIDAC SQ Last administered on 12/16/16 12 :20; Start 12/12/16 at 12:00 Insulin Detemir (Levemir Inj) 5 units HS SQ Last administered on 12/15/16 21: 18; Start 12/12/16 at 21:00 Dextrose (D50w (Vial) Inj) 25 ml UNSCH PRN IV PUSH HYPOGLYCEMIA-SEE COMMENTS; Start 12/12/16 at 11:15 Glucagon (Glucagon Inj) 1 mg UNSCH PRN OTHER HYPOGLYCEMIA-SEE COMMENTS; Start 12/12/16 at 11:15 Insulin Aspart (NovoLOG SUPPLEMENTAL SCALE) 1 ACHS SLIDING SCALE SQ Last administered on 12/16/16 12:26; Start 12/12/16 at 16:00 Metronidazole (Flagyl) 500 mg Q8HR PO Last administered on 12/13/16 14:00; Start 12/12/16 at 22:00; Stop 12/13/16 at 14:39; Status DC Vancomycin HCl 125 mg 125 mg Q6H PO Last administered on 12/13/16 10:24; Start 12/12/16 at 16:00; Stop 12/13/16 at 14:39; Status DC Magnesium Sulfate/ Dextrose (Magnesium Sulfate 1 Gm Premix) 100 ml @ 100 mls/ hr ONCE ONCE IV Last administered on 12/13/16 11:58; Start 12/13/16 at 11:30; Stop 12/13/16 at 12:29; Status DC Vancomycin HCl 500 mg 500 mg Q6H PO Last administered on 12/16/16 15:54; Start 12/13/16 at 16:00 Metronidazole 100 ml @ 100 mls/hr Q8H IV Last administered on 12/16/16 15:54 ; Start 12/13/16 at 15:00 Sodium Chloride (NS 1000 ml Inj) 1,000 ml @ 50 mls/hr Q20H IV Last administered on 12/15/16 06:15; Start 12/14/16 at 11:15; Stop 12/15/16 at 11:36 ; Status DC Potassium Chloride (KCl) 20 meq ONCE ONCE PO Last administered on 12/16/16 11 :32; Start 12/16/16 at 10:30; Stop 12/16/16 at 10:31; Status DC A/P Problem List: (1) Diabetic ketoacidosis ICD Code: E13.10 Status: Acute (2) Hypotension ICD Code: I95.9 Status: Acute (3) Severe sepsis ICD Code: A41.9 Status: Acute (4) UGIB (upper gastrointestinal bleed) ICD Code: K92.2 Status: Acute (5) Lactic acidosis ICD Code: E87.2 Status: Acute (6) Leukocytosis ICD Code: D72.829 Status: Acute (7) Hyperglycemia due to type 1 diabetes mellitus ICD Code: E10.65 Status: Acute (8) History of CVA with residual deficit ICD Code: I69.30 Status: Acute (9) CAD (coronary artery disease) ICD Code: I25.10 Status: Acute (10) ESRD (end stage renal disease) ICD Code: N18.6 Status: Chronic Assessment and Plan Mr. Wyatt is a 51-year-old male with a history of type 1 diabetes, CVA, ESRD currently on dialysis on Saturday and Saturday who was admitted to the hospital from his [facility] due to coffee ground emesis. In the ER hemoglobin was 11, WBC count 16.3 with 91% neutrophils. He was found to have a blood sugar of 929, lactic acid of 4.1 and anion gap of 34. Beta hydroxybutyric acid was also elevated at 10.97 indicating DKA. He was given 6 units of IV insulin, and was started on DKA insulin protocol. Patient was also started on Vanc and Zosyn for suspected sepsis. Blood culture grew viridans streptococcus. - Diabetic ketoacidosis - Type 1 diabetes mellitus - And iron gap improved from 34 to 17. - on Levemir 5 units QHS, pre-meal 2 units TIDAC, sliding scale insulin - low. - Viridans Strep bacteremia - Echo negative for any vegetations. - Currently on Ceftriaxone 2g Qday. ID following. -per ID most likely need 2 weeks of IV antibiotics. - Diarrhea + C. Diff PCR. on vancomycin. will need 2 weeks more after completed course of treatment. - Upper GI bleed - s/p EGD 12/11/2016 --> Duodenal ulcers, gastritis, esophagitis. - anemia secondary to acute GI blood loss. - Continue Protonix BID. - Transfuse as needed for Hgb < 7.0. - ESRD - HD on , , Sat. - Nephrology is following. -Deconditioned -consult PT Full code. SCDs. Discharge Planning okay discharge once cleared by ID and patient able to get antibiotics infusion. d/w with patient's mother and patient at bedside. Problem Qualifiers (1) Diabetic ketoacidosis: (2) Hypotension: Qualified Code: I95.9 - Hypotension, unspecified hypotension type (3) CAD (coronary artery disease): Tamy Cook MD Dec 16, 2016 16:26
[2016-12-16] MEDS: INSULIN DETEMIR 100 UNITS/ML VIAL SQ SCH (22:57)
[2016-12-17] VITALS (8 sets, daily range): BP systolic 120–150; BP diastolic 63–81; PULSE 65–81; RESP 16–18; TEMP 97.9–98.6; O2SAT 94–98
[2016-12-17] MEDS: CHLORHEXIDINE GLUCONATE 2 % 1 PACK (2 CLOTHS) TOP SCH (02:53)
[2016-12-17] MEDS: VANCOMYCIN 500 MG VIAL (FOR ORAL USE ONLY) PO SCH ×3 (04:11→16:26)
[2016-12-17] MEDS: metroNIDAZOLE 500 MG INJ 100 ML IV SCH ×2 (06:14→16:26)
[2016-12-17] MEDS: INSULIN ASPART SUPPLEMENTAL SCALE SQ SCH ×4 (06:14→22:43)
[2016-12-17 06:52] LABS: HEMATOCRIT 23.8 % (39.0-51.0); MEAN CELL VOLUME 99.7 FL (80.0-100.0); MEAN CORPUSCULAR HEMOGLOBIN 33.9 PG (27.0-34.0); PLATELET COUNT 163 TH/MM3 (150-450); RED BLOOD COUNT 2.38 MIL/MM3 (4.50-5.90); REVIEW FLAG FINAL; WHITE BLOOD COUNT 5.3 TH/MM3 (4.0-11.0)
[2016-12-17 07:30] LABS: BICARBONATE 28.6 MEQ/L (21.0-32.0); POTASSIUM 3.3 MEQ/L (3.5-5.1)
--- NOTE | 2016-12-17 10:12 | HHI.NPPN ---
Subjective History of Present Illness This patient is a 51-year-old male with a history of multiple medical problems including diabetes mellitus, hypertension, previous CVA and end-stage renal disease. Patient receives hemodialysis as an outpatient TTS. Patient presented to the emergency room with hematemesis but was subsequently noted to have a blood sugar of 929 and evidence of metabolic acidosis. Patient was also hypotensive. Blood cultures now apparently growing a strep species. Interval History Patient indicated that his diarrhea has stopped. Review of Systems General Constitutional: Fatigue Objective Data Data 12/16/16 12/17/16 19:00 07:00 Intake Total 240 ml 600 ml Balance 240 ml 600 ml Intake Oral 240 ml 600 ml # Voids 2 3 # Bowel Movements 4 4 Vital Signs Date Time Temp Pulse Resp B/P Pulse Ox O2 Delivery O2 Flow Rate FiO2 12/17/16 08:08 98.6 70 18 137/63 95 12/17/16 04:00 97.9 75 18 137/65 95 12/17/16 00:00 98.2 78 18 138/67 97 12/16/16 20:00 Room Air 12/16/16 20:00 98.3 78 18 134/62 93 12/16/16 18:15 Room Air 12/16/16 16:00 98.6 67 20 117/59 93 12/16/16 12:00 98.0 70 20 119/58 -: 12/17/16 0600 12/17/16 0600 Physical Exam General Appearance: No Acute Distress, Comfortable Eyes Eye Exam: Sclera White Neck Neck Exam: Trachea Midline Pulmonary Resp Exam: Clear Bilaterally, Breath Sounds Equal, No Distress Cardiology CV Exam: Regular, Normal Sinus Rhythm Gastrointestinal/Abdomen GI Exam: Soft, Non-Tender Integumentary Skin Exam: Clear, Warm Extremeties Extremities Exam: No Edema Neurologic Neuro Exam: Alert, Awake Assessment/Plan Problem List: (1) ESRD (end stage renal disease) Plan: Continue hemodialysis Tuesdays, and Saturdays. Seen during session today. Tolerating well. Discharge planning in progress. Outpatient dialysis to continue she is a and Saturdays and the patient will be followed up in the outpatient dialysis facility. Defer potassium replacement is potassium should self-correct with end-stage renal disease and his dialysis is tomorrow. Avoid gadolinium. Medication should be adjusted for his end-stage renal disease when indicated. (2) Bacteremia Plan: Strep viridans isolated. Origin uncertain Infectious disease following. Repeat blood cultures are negative. Infection is not dialysis related and outpatient antibiotics will not be covered by the dialysis unit although antibiotics can be administered at the dialysis facility 3 days a week if provided to the facility. Administration of antibiotics on other days will have to be arranged by case liner if required. (3) Hypertension Plan: Hold hypertensive medications pending improvement in blood pressure. (4) DKA, type 1 Plan: Management per primary care physician. (5) Anemia of renal disease Plan: Continue Epogen. (6) C. difficile diarrhea Plan: on po vanc Problem Qualifiers (1) DKA, type 1: Qualified Code: E10.10 - Type 1 diabetes mellitus with ketoacidosis without coma Wilfredo Reyes MD Dec 17, 2016 10:12
[2016-12-17] MEDS ORDERED: POTASSIUM CHLORIDE 20 MEQ CONTROLLED RELEASE TAB PO ONE (10:15)
[2016-12-17] MEDS: INSULIN ASPART 1,000 UNITS/10 ML VIAL SQ SCH ×3 (10:30→16:27)
[2016-12-17] MEDS: PANTOPRAZOLE SODIUM 40 MG VIAL IV PUSH SCH ×2 (10:30→22:45)
[2016-12-17] MEDS: SODIUM CHLORIDE 0.9% FLUSH 5 ML FLUSH IV FLUSH SCH ×2 (10:30→22:45)
[2016-12-17] MEDS ORDERED: LEVEMIR SQ (12:02)
[2016-12-17] MEDS ORDERED: METO25TA3 PO (12:06)
[2016-12-17] MEDS ORDERED: LISI2.5T3 PO (12:08)
[2016-12-17] MEDS ORDERED: PROT40TA PO (12:10)
[2016-12-17] MEDS ORDERED: PILL SPLITTER OTHER PRN (12:30)
[2016-12-17] MEDS: buPROPion HCL 75 MG TAB PO SCH (13:00)
[2016-12-17] MEDS: cefTRIAXone INJ 2,000 MG in SODIUM CHLORIDE 0.9% INJ 100 ML IV SCH (13:01)
--- NOTE | 2016-12-17 16:56 | HHI.IDPN ---
Subjective Subjective Remarks doing good denies diarrhea, but 8 BMs were doc'd afebrile repeat BC negative - final Antibiotics CFTX Allergies: Coded Allergies: Bee Sting (Unverified Allergy, Severe, 11/04/16) Contrast Media (Unverified Allergy, Severe, 11/04/16) Objective . Vital Signs Date Time Temp Pulse Resp B/P Pulse Ox O2 Delivery O2 Flow Rate FiO2 12/17/16 12:00 98.5 69 18 137/69 98 12/17/16 08:08 98.6 70 18 137/63 95 12/17/16 08:00 Room Air 12/17/16 04:00 97.9 75 18 137/65 95 12/17/16 00:00 98.2 78 18 138/67 97 12/16/16 20:00 Room Air 12/16/16 20:00 98.3 78 18 134/62 93 12/16/16 18:15 Room Air 12/16/16 12/16/16 12/17/16 15:00 23:00 07:00 Intake Total 240 ml 360 ml 240 ml Balance 240 ml 360 ml 240 ml Intake Oral 240 ml 360 ml 240 ml # Voids 2 2 1 # Bowel Movements 4 2 2 . Laboratory Tests Test 12/16/16 12/17/16 06:00 06:00 White Blood Count 4.5 TH/MM3 5.3 TH/MM3 Red Blood Count 2.33 MIL/MM3 2.38 MIL/MM3 Hemoglobin 7.8 GM/DL 8.1 GM/DL Hematocrit 23.2 % 23.8 % Mean Corpuscular Volume 99.7 FL 99.7 FL Mean Corpuscular Hemoglobin 33.3 PG 33.9 PG Mean Corpuscular Hemoglobin 33.4 % 34.0 % Concent Red Cell Distribution Width 13.6 % 14.0 % Platelet Count 130 TH/MM3 163 TH/MM3 Mean Platelet Volume 8.6 FL 8.5 FL Laboratory Tests Test 12/16/16 12/17/16 06:00 06:00 Sodium Level 136 MEQ/L 134 MEQ/L Potassium Level 3.2 MEQ/L 3.3 MEQ/L Chloride Level 95 MEQ/L 94 MEQ/L Carbon Dioxide Level 31.4 MEQ/L 28.6 MEQ/L Anion Gap 10 MEQ/L 11 MEQ/L Blood Urea Nitrogen 24 MG/DL 33 MG/DL Creatinine 4.70 MG/DL 6.19 MG/DL Estimat Glomerular Filtration 13 ML/MIN 10 ML/MIN Rate Random Glucose 250 MG/DL 296 MG/DL Calcium Level 7.5 MG/DL 7.5 MG/DL Phosphorus Level 2.5 MG/DL 2.7 MG/DL Iron Level 70 MCG/DL Total Iron Binding Capacity 143 MCG/DL Percent Iron Saturation 49.0 % Ferritin 1561 NG/ML Albumin 1.7 GM/DL 1.8 GM/DL Imaging Last Impressions Chest X-Ray 12/09/16 0600 Signed Impressions: Service Date/Time: Friday, December 09, 2016 03:48 - CONCLUSION: Stable chest with no focal lung disease Bruce Mayorga MD Upper Extremity Ultrasound 12/09/16 0000 Signed Impressions: Service Date/Time: Friday, December 09, 2016 09:59 - CONCLUSION: 1. There is nonocclusive small area of thrombus within the proximal right basilic vein. 2. Remaining veins of the right upper extremity are patent. Bruce Rossi MD Physical Exam CONSTITUTIONAL/GENERAL: This is a thin chronically ill appearing male patient, in no apparent distress. TUBES/LINES/DRAINS: SKIN: No jaundice, rashes, or lesions. . Skin temperature appropriate. Not diaphoretic. ENT: oral mucosae moist CARDIOVASCULAR: Regular rate and rhythm without murmurs, gallops, or rubs. No JVD. Peripheral pulses symmetric. RESPIRATORY/CHEST: Symmetric, unlabored respirations. Clear to auscultation. Breath sounds equal bilaterally. No wheezes, rales, or rhonchi. GASTROINTESTINAL: Abdomen soft, non-tender, slightly distended. well healed median laparomy scar MUSCULOSKELETAL: Extremities without clubbing, cyanosis, NEUROLOGICAL: Awake and alert. Motor and sensory grossly within normal limits. Follows commands. Assessment & Plan Remarks Streptococcal bacteremia ? source likely GI - doubt endovasc infx, repeat BC negative DKA GIB 2/2 PUD Persistent C.diff , hypervirulent 027 strain: still severe diarrhea with up to 8 BMs a day - dc CFTX - complete 2 weeks of abx (thru 12/22); will stitch to vancomycin IV - cont vanco 125 mg po x 2 weeks - thru 01/05 OK to d/c to SNF dw RN dw case mngr Ana Lilia Park MD Dec 17, 2016 16:56
--- NOTE | 2016-12-17 16:56 | HHI.FF ---
Infusion Therapy Location of Infusion Therapy: [facility] ([facility] Patient Information Patient Weight 51.7 kg Diagnosis: Coded Allergies: Bee Sting (Unverified Allergy, Severe, 11/04/16) Contrast Media (Unverified Allergy, Severe, 11/04/16) Administer Medication Vancomycin 1 gram IV q 48 hours w/Hemodialysis ,,Sat Start Treatment: Dec 18, 2016 Stop Treatment: Dec 22, 2016 Additional Information Venous access: Other ([facility]) Additional Instructions [x] Peripheral flush and dressing changes per protocol [x] Implanted port and central product line manager: * Implanted port: 10 ml Normal Saline followed by 5 ml Heparin 100 units/ml Heparin flush after each use and monthly to maintain. [] May leave port accessed during therapy. [] May leave peripheral site accessed for duration of therapy. [x] If patient has SOB or respiratory distress, check oxygen saturation. If less than 90% or clinical signs of respiratory distress, administer oxygen at 2 L/min. via nasal cannula and notify physician. [x] Anaphylaxis/Reaction orders: * Stop infusion. * Keep IV line open with saline flush. * Notify physician. * Monitor vital signs every 15 minutes until symptoms resolve. * Check Oxygen saturation; Oxygen at 2 L/min. via nasal cannula if less than 90% or clinical signs of respiratory distress. * Administer diphenhydramine (Benadryl) 25 mg IV STAT, (unless patient has received as pre-med). May repeat once, if necessary. * Solu-Cortef 250 mg IVP over 30-60 seconds, use 100 mg vials for each dissolution. * Epinephrine (1mg/1 ml) 0.3 mg subcutaneously or IVP now with any signs of respiratory distress. * Check with physician for new additional pre-med orders if patient is re- challenged or re-treated. [x] May remove PICC line when treatment complete, after confirming with Physician. [x] If the patient is admitted to the hospital, the ED, or transferred via [facility] , complete transfer form including medication reconciliation order sheet. Laboratory Tests Additional Information Blood cultures x 2 after his IV abx are completed Ana Lilia Park MD Dec 17, 2016 16:56
--- NOTE | 2016-12-17 16:57 | HHI.DS ---
Discharge Summary Admission Date Dec 08, 2016 at 03:59 Discharge Date: Dec 17, 2016 Admitting Diagnosis DKA, severe sepsis, hypotension, upper GI bleed (1) Diabetic ketoacidosis ICD Code: E13.10 Diagnosis: Principal (2) Severe sepsis ICD Code: A41.9 Diagnosis: Principal (3) UGIB (upper gastrointestinal bleed) ICD Code: K92.2 Diagnosis: Principal (4) History of CVA with residual deficit ICD Code: I69.30 Diagnosis: Secondary (5) CAD (coronary artery disease) ICD Code: I25.10 Diagnosis: Secondary (6) ESRD (end stage renal disease) ICD Code: N18.6 Diagnosis: Secondary (7) Bacteremia ICD Code: R78.81 Diagnosis: Principal (8) C. difficile diarrhea ICD Code: A04.7 Diagnosis: Principal Procedures None. Brief History - From Admission Patient is a 50-[facility]-old male [facility] with history of type 1 diabetes, prior CVA x 2, end-stage renal disease on dialysis Saturday, hypertension, COPD, anxiety depression who was [facility] the [facility] to the ER for evaluation of coffee ground emesis. In the ER hemoglobin was 11, WBC count 16.3 with 91% neutrophils. He was found to have a blood sugar of 929, lactic acid of 4.1 and anion gap of 34. Beta hydroxybutyric acid was also elevated at 10.97 indicating DKA. He was given 6 units of IV insulin, and was started on DKA insulin protocol without including the IV fluids due to end-stage renal disease. He received 1 L of normal saline bolus. I evaluated the patient in the ED he appears critically ill very dehydrated. I have ordered 2 more additional liters of fluid bolus, and started him ICU insulin protocol algorithm 2. Normal saline maintenance fluid will be given at 50 ML per hour with additional boluses as needed. Patient appears septic at this time source is unclear. Had been placed on empiric Zosyn and vancomycin. Patient is a very poor historian and not much history can be obtained from him. CBC/BMP: 12/17/16 0600 12/17/16 0600 Significant Findings Laboratory Tests Test 12/15/16 12/16/16 12/17/16 06:20 06:00 06:00 Potassium Level 3.4 MEQ/L 3.2 MEQ/L 3.3 MEQ/L (3.5-5.1) (3.5-5.1) (3.5-5.1) Chloride Level 97 MEQ/L 95 MEQ/L 94 MEQ/L (98-107) (98-107) (98-107) Blood Urea Nitrogen 29 MG/DL (7-18) 24 MG/DL (7-18) 33 MG/DL (7-18) Creatinine 6.80 MG/DL 4.70 MG/DL 6.19 MG/DL (0.60-1.30) (0.60-1.30) (0.60-1.30) Estimat Glomerular Filtration 9 ML/MIN (>89) 13 ML/MIN (>89) 10 ML/MIN (>89) Rate Random Glucose 179 MG/DL 250 MG/DL 296 MG/DL (74-106) (74-106) (74-106) Calcium Level 7.5 MG/DL 7.5 MG/DL 7.5 MG/DL (8.5-10.1) (8.5-10.1) (8.5-10.1) Albumin 1.6 GM/DL 1.7 GM/DL 1.8 GM/DL (3.4-5.0) (3.4-5.0) (3.4-5.0) Red Blood Count 2.33 MIL/MM3 2.38 MIL/MM3 (4.50-5.90) (4.50-5.90) Hemoglobin 7.8 GM/DL 8.1 GM/DL (13.0-17.0) (13.0-17.0) Hematocrit 23.2 % 23.8 % (39.0-51.0) (39.0-51.0) Platelet Count 130 TH/MM3 (150-450) Total Iron Binding Capacity 143 MCG/DL (250-450) Ferritin 1561 NG/ML (26-388) Sodium Level 134 MEQ/L (136-145) Imaging Last Impressions Chest X-Ray 12/09/16 0600 Signed Impressions: Service Date/Time: Friday, December 09, 2016 03:48 - CONCLUSION: Stable chest with no focal lung disease Bruce Mayorga MD Upper Extremity Ultrasound 12/09/16 0000 Signed Impressions: Service Date/Time: Friday, December 09, 2016 09:59 - CONCLUSION: 1. There is nonocclusive small area of thrombus within the proximal right basilic vein. 2. Remaining veins of the right upper extremity are patent. Bruce Rossi MD PE at Discharge GENERAL: CARDIOVASCULAR: Regular rate and rhythm without murmurs, gallops, or rubs. RESPIRATORY: Breath sounds equal bilaterally. No accessory muscle use. GASTROINTESTINAL: Abdomen soft, non-tender, nondistended. MUSCULOSKELETAL: No cyanosis, or edema. BACK: Nontender without obvious deformity. No CVA tenderness. Pt update on day of discharge patient had no complaints. he asked again when he is going to go home. denied any N/V or abdominal pain. diarrhea improved. remains afebrile. Hospital Course Mr. Wyatt is a 51-year-old male with a history of type 1 diabetes, CVA, ESRD currently on dialysis on Saturday and Saturday who was [facility] to [facility] his [facility] due to coffee ground emesis. In the ER hemoglobin was 11, WBC count 16.3 with 91% neutrophils. He was found to have a blood sugar of 929, lactic acid of 4.1 and anion gap of 34. Beta hydroxybutyric acid was also elevated at 10.97 indicating DKA. He was given 6 units of IV insulin, and was started on DKA insulin protocol. Patient was also started on Vanc and Zosyn for suspected sepsis. Blood culture grew viridans streptococcus. - Diabetic ketoacidosis - Type 1 diabetes mellitus - And iron gap improved from 34 initially and was treated on the protocol with IVFs and insulin gtt. that improved. -he was easily transitioned to Levemir 5 units QHS, pre-meal 2 units TIDAC, sliding scale insulin - low. - Viridans Strep bacteremia -patient treated empirically for severe sepsis and cultures found to be positive. -repeat blood cultures were negative. - Echo negative for any vegetations. -ID consulted and he was put on Ceftriaxone 2g Qday. -per ID most likely need 2 weeks of IV antibiotics. - Diarrhea + C. Diff PCR. patient was initially put on flagyl but due to high virilent strain vancomycin oral was added diarrhea improved during hospital course. per ID he will need 2 weeks more of oral vanco after completed course of IV antibiotic treatment. - Upper GI bleed -Gi consulted and s/p EGD 12/11/2016 --> Duodenal ulcers, gastritis, esophagitis. -patient was put on protonix BID. - anemia secondary to acute GI blood loss. - Continue Protonix BID. - Transfuse as needed for Hgb < 7.0. - ESRD - HD on , , Sat. - Nephrology is following. -Deconditioned -consult PT who recommend SNF. Pt Condition on Discharge: Stable Discharge Disposition: Discharge to SNF Discharge Time: > 30 minutes Discharge Instructions DIET: Follow Instructions for: Diabetic Diet Activities you can perform: Regular-No Restrictions Follow up Referrals: Cardiology - 2 Weeks Gastroenterology - 2 Weeks Infectious Disease - 2 Weeks PCP Follow-up - 1 Week New Medications: Lisinopril (Lisinopril) 2.5 Mg Tab 2.5 MG PO DAILY #30 Ref 0 TAB Metoprolol Tartrate (Metoprolol Tartrate) 25 Mg Tab 25 MG PO BID cardiac #60 Ref 0 TAB Metronidazole (Flagyl) 500 Mg Tab 500 MG PO TID Infection Days 8 Ref 0 TAB Pantoprazole (Protonix) 40 Mg Tab 40 MG PO BID Ulcer Prevention #30 Ref 0 TAB Insulin Detemir Inj (Levemir Inj) 1,000 unit/ 10 ML Vial 5 UNITS SQ HS diabetes #1 Ref 0 VIAL Vancomycin Inj (Vancomycin Inj) 500 Mg Inj 500 MG PO Q6H patient has to take until 2 weeks after IV antibiotics are discontinued. C. diff colitis Days 22 Ref 0 INJECTION Continued Medications: Aspirin (Aspirin) 81 Mg Chew 81 MG CHEW DAILY Ref 0 TAB B-Complex W/ C & Folic Acid (Folbee Plus) 1 Tab 1 TAB PO DAILY Nutritional Supplement #30 Ref 0 TAB Bupropion HCl (Bupropion HCl) 75 Mg Tab 75 MG PO TID Control Depression Ref 0 TAB Escitalopram (Escitalopram) 10 Mg Tab 10 MG PO DAILY #30 Ref 0 TAB Ferrous Sulfate (Ferrous Sulfate) 325 Mg Tab 325 MG PO DAILY Nutritional Supplement #30 Ref 0 TAB Furosemide (Furosemide) 20 Mg Tab 20 MG PO DAILY #30 Ref 0 TAB Glucagon Inj (Glucagon Inj) 1 Mg/Ml Inj 1 MG IM ONCE PRN Blood Sugar Management #1 Ref 0 VIAL Insulin Aspart Inj (Novolog Inj) 1,000 Unit/10 Ml Vial 0 SQ DIRECTED Sliding Scale as directed. Blood Sugar Management #10 Ref 0 ML Nutritional Supplements (Nepro) 1 Liq Liq Prochlorperazine Maleate (Prochlorperazine Maleate) 10 Mg Tab 10 MG PO Q4H PRN NAUSEA OR VOMITING Ref 0 TAB Sevelamer Carbonate (Renvela) 800 Mg Tab 800 MG PO TID Control phosphorous levels #90 Ref 0 TAB Tamsulosin (Tamsulosin) 0.4 Mg Cap 0.4 MG PO DAILY Manage Prostate Problems #30 Ref 0 CAP Discontinued Medications: Amlodipine (Amlodipine) 10 Mg Tab 10 MG PO DAILY Blood Pressure Management #30 Ref 0 TAB Amoxicillin-Clavulanate (Augmentin) 500-125 mg Tab 500 MG PO Q8HR Infection Days 7 TAB Hydralazine (Hydralazine) 100 Mg Tab 100 MG PO Q8HR Take with meals Blood Pressure Management Ref 0 TAB Insulin Detemir Inj (Levemir Inj) 1,000 unit/ 10 ML Vial 4 UNITS SQ HS diabetes #30 INJECTION Lisinopril (Lisinopril) 40 Mg Tab 40 MG PO DAILY Blood Pressure Management #30 Ref 0 TAB Metoprolol Tartrate (Metoprolol Tartrate) 50 Mg Tab 75 MG PO BID #60 Ref 0 TAB Omeprazole (Omeprazole) 20 Mg Tab 20 MG PO DAILY #30 Ref 0 TAB Additional Information ceftriazone 2 g daily for 8 more days. Tamy Cook MD Dec 17, 2016 16:57
[2016-12-17] MEDS ORDERED: VANCOMYCIN INJ 1,000 MG in SODIUM CHLOR 0.9% 250 ML INJ 250 ML IV SCH (17:00)
[2016-12-17] MEDS: INSULIN DETEMIR 100 UNITS/ML VIAL SQ SCH (22:42)
[2016-12-17] MEDS: METOPROLOL TARTRATE 25 MG TAB PO SCH (22:43)
[2016-12-18] MEDS: VANCOMYCIN 500 MG VIAL (FOR ORAL USE ONLY) PO SCH ×4 (02:03→17:21)
[2016-12-18] MEDS: CHLORHEXIDINE GLUCONATE 2 % 1 PACK (2 CLOTHS) TOP SCH (04:00)
[2016-12-18 04:55] VITALS: BP 127/62; PULSE 83; RESP 16; TEMP 98.9; O2SAT 100
[2016-12-18] MEDS: INSULIN ASPART SUPPLEMENTAL SCALE SQ SCH ×3 (05:36→16:00)
[2016-12-18 08:00] VITALS: BP 107/56; PULSE 78; RESP 18; TEMP 97; O2SAT 98
[2016-12-18] MEDS: SODIUM CHLORIDE 0.9% FLUSH 5 ML FLUSH IV FLUSH SCH (08:42)
[2016-12-18] MEDS: METOPROLOL TARTRATE 25 MG TAB PO SCH (08:42)
[2016-12-18] MEDS: PANTOPRAZOLE SODIUM 40 MG VIAL IV PUSH SCH (08:42)
[2016-12-18] MEDS: INSULIN ASPART 1,000 UNITS/10 ML VIAL SQ SCH ×3 (08:42→17:21)
[2016-12-18] MEDS: buPROPion HCL 75 MG TAB PO SCH ×3 (08:43→17:21)
[2016-12-18] MEDS ORDERED: TAMSULOSIN HCL 0.4 MG CAP PO SCH (09:00)
[2016-12-18] MEDS ORDERED: LISINOPRIL 5 MG TAB PO SCH (09:00)
[2016-12-18] MEDS ORDERED: ESCITALOPRAM OXALATE 10 MG TAB PO SCH (09:00)
[2016-12-18 11:47] VITALS: BP 130/54; PULSE 63; RESP 18; TEMP 97; O2SAT 97
--- NOTE | 2016-12-18 12:13 | HHI.NPPN ---
Subjective History of Present Illness This patient is a 51-year-old male with a history of multiple medical problems including diabetes mellitus, hypertension, previous CVA and end-stage renal disease. Patient receives hemodialysis as an outpatient TTS. Patient presented to the emergency room with hematemesis but was subsequently noted to have a blood sugar of 929 and evidence of metabolic acidosis. Patient was also hypotensive. Blood cultures now apparently growing a strep species. Interval History Patient had no verbal complaints today. Review of Systems General Constitutional: Fatigue Objective Data Data 12/17/16 12/18/16 19:00 07:00 Intake Total 240 ml 560 ml Output Total 200 ml Balance 40 ml 560 ml Intake Oral 240 ml 560 ml Output Urine Total 200 ml # Voids 6 # Bowel Movements 1 7 Vital Signs Date Time Temp Pulse Resp B/P Pulse Ox O2 Delivery O2 Flow Rate FiO2 12/18/16 11:47 97.0 63 18 130/54 97 12/18/16 09:11 Room Air 21 12/18/16 08:00 97.0 78 18 107/56 98 12/18/16 04:55 98.9 83 16 127/62 100 12/17/16 23:25 98.3 79 16 129/63 94 12/17/16 20:00 Room Air 12/17/16 19:45 98.1 81 16 120/63 95 12/17/16 17:58 96 21 12/17/16 16:00 98.6 65 18 150/81 96 -: 12/17/16 0600 12/17/16 0600 Physical Exam General Appearance: No Acute Distress, Comfortable Eyes Eye Exam: Sclera White Neck Neck Exam: Trachea Midline Pulmonary Resp Exam: Clear Bilaterally, Breath Sounds Equal, No Distress Cardiology CV Exam: Regular, Normal Sinus Rhythm Gastrointestinal/Abdomen GI Exam: Soft, Non-Tender Integumentary Skin Exam: Clear, Warm Extremeties Extremities Exam: No Edema Neurologic Neuro Exam: Alert, Awake Assessment/Plan Problem List: (1) ESRD (end stage renal disease) Plan: Patient for discharge today postdialysis. Will be followed up in the outpatient dialysis facility. Arrangements have been made to provide a facility with vancomycin for administration. Patient's infection not dialysis related and the antibiotic will be provided to the facility. Avoid gadolinium. Medication should be adjusted for his end-stage renal disease when indicated. (2) Bacteremia Plan: Strep viridans isolated. Origin uncertain Infectious disease following. Repeat blood cultures are negative. Infection is not dialysis related and outpatient antibiotics will not be covered by the dialysis unit although antibiotics can be administered at the dialysis facility 3 days a week if provided to the facility. Administration of antibiotics on other days will have to be arranged by piano case maker if required. (3) Hypertension Plan: Hold hypertensive medications pending improvement in blood pressure. (4) DKA, type 1 Plan: Management per primary care physician. (5) Anemia of renal disease Plan: Continue Epogen. (6) C. difficile diarrhea Plan: on po vanc Problem Qualifiers (1) DKA, type 1: Qualified Code: E10.10 - Type 1 diabetes mellitus with ketoacidosis without coma Wilfredo Reyes MD Dec 18, 2016 12:13
[2016-12-18] MEDS ORDERED: VANC500I3 PO (12:40)
[2016-12-18] MEDS: SODIUM CHLOR 0.9% 1000 ML INJ 1,000 ML IV PRN (15:57)
[2016-12-18] MEDS: EPOETIN ALFA 10,000 UNITS/ML VIAL SQ SCH (15:58)
--- NOTE | 2016-12-18 16:51 | HHI.PR ---
Subjective Remarks f./u for discharge patient seen in dialysis he has no complaints stated diarrhea has improved he asking to go home. Objective Vitals Vital Signs Date Time Temp Pulse Resp B/P Pulse Ox O2 Delivery O2 Flow Rate FiO2 12/18/16 11:47 97.0 63 18 130/54 97 12/18/16 09:11 Room Air 21 12/18/16 08:00 97.0 78 18 107/56 98 12/18/16 04:55 98.9 83 16 127/62 100 12/17/16 23:25 98.3 79 16 129/63 94 12/17/16 20:00 Room Air 12/17/16 19:45 98.1 81 16 120/63 95 12/17/16 17:58 96 21 I/O 12/17/16 12/17/16 12/17/16 12/18/16 12/18/16 12/18/16 07:00 15:00 23:00 07:00 15:00 23:00 Intake Total 240 ml 240 ml 360 ml 200 ml Output Total 200 ml 3000 ml Balance 240 ml 40 ml 360 ml 200 ml -3000 ml Intake Oral 240 ml 240 ml 360 ml 200 ml Output Urine Total 200 ml Hemodialysis 3000 ml # Voids 1 2 4 # Bowel Movements 2 1 3 4 Result Diagram: 12/17/16 0600 12/17/16 0600 Objective Remarks GENERAL: CARDIOVASCULAR: Regular rate and rhythm without murmurs, gallops, or rubs. RESPIRATORY: Breath sounds equal bilaterally. No accessory muscle use. GASTROINTESTINAL: Abdomen soft, non-tender, nondistended. MUSCULOSKELETAL: No cyanosis, or edema. BACK: Nontender without obvious deformity. No CVA tenderness. Procedures None. Medications and IVs Current Medications Ondansetron HCl (Zofran Inj) 4 mg ONCE ONCE IVP Last administered on 12/08/16 01:48; Start 12/08/16 at 01:15; Stop 12/08/16 at 01:16; Status DC IV Flush 2 ml 2 ml UNSCH PRN IVF FLUSH AFTER USING IV ACCESS; Start 12/08/16 at 01:15; Stop 12/08/16 at 04:08; Status DC Sodium Chloride 250 ml @ 250 mls/hr BOLUS ONCE IV Last administered on 01:47; Start 12/08/16 at 01:15; Stop 12/08/16 at 02:14; Status DC Sodium Chloride 250 ml @ 250 mls/hr BOLUS ONCE IV Last administered on 02:20; Start 12/08/16 at 02:15; Stop 12/08/16 at 03:14; Status DC Pantoprazole Sodium 80 mg/ Sodium Chloride 100 ml @ 10 mls/hr CONTINUOUS IV Last administered on 12/08/16 03:49; Start 12/08/16 at 02:15; Stop 12/08/16 at 06: 21; Status DC Pantoprazole Sodium 80 mg/ Sodium Chloride 35 ml @ 420 mls/hr BOLUS ONCE IV Last administered on 12/08/16 02:20; Start 12/08/16 at 02:15; Stop 12/08/16 at 02: 19; Status DC Dextrose/Sodium Chloride (D5W-NS 1000 ml Inj) 1,000 ml @ 200 mls/hr Q5H IV ; Start 12/08/16 at 03:17; Stop 12/08/16 at 03:26; Status DC Insulin Human Regular 6 units 6 units BOLUS ONCE IV PUSH ; Start 12/08/16 at 03: 30; Stop 12/08/16 at 03:30; Status DC Insulin Human Regular 100 units/ Sodium Chloride 100 ml @ 0 mls/hr TITRATE IV ; Start 12/08/16 at 03:30; Stop 12/08/16 at 03:30; Status DC Potassium Chloride 100 ml @ 50 mls/hr Q2H PRN IV SEE LABEL COMMENTS; Start 12/08/16 at 03:30; Stop 12/08/16 at 03:30; Status DC Potassium Chloride 100 ml @ 50 mls/hr Q2H PRN IV SEE LABEL COMMENTS; Start 12/08/16 at 03:30; Stop 12/08/16 at 03:30; Status DC Potassium Chloride 100 ml @ 50 mls/hr Q2H PRN IV SEE LABEL COMMENTS; Start 12/08/16 at 03:30; Stop 12/08/16 at 03:30; Status DC Potassium Chloride 100 ml @ 50 mls/hr Q2H PRN IV SEE LABEL COMMENTS; Start 12/08/16 at 03:30; Stop 12/08/16 at 03:30; Status DC Sodium Chloride 500 ml @ 500 mls/hr BOLUS ONCE IV Last administered on 03:41; Start 12/08/16 at 03:30; Stop 12/08/16 at 04:29; Status DC Dextrose/Sodium Chloride (D5W-NS 1000 ml Inj) 1,000 ml @ 200 mls/hr Q5H IV ; Start 12/08/16 at 03:19; Stop 12/08/16 at 12:29; Status DC Insulin Human Regular 6 units 6 units BOLUS ONCE IV PUSH Last administered on 12/08/16 03:42; Start 12/08/16 at 03:30; Stop 12/08/16 at 03:31; Status DC Sodium Chloride 1,000 ml @ 999 mls/hr BOLUS ONCE IV Last administered on 04:13; Start 12/08/16 at 04:00; Stop 12/08/16 at 05:00; Status DC Insulin Human Regular/Sodium Chloride (NovoLIN R (IV INFUSION)/NS Inj) 100 ml @ 0 mls/hr TITRATE IV Last administered on 12/08/16 04:37; Start 12/08/16 at 04:00 ; Stop 12/08/16 at 22:00; Status DC Dextrose (D50w (Vial) Inj) 25 ml UNSCH PRN IV PUSH SEE LABEL COMMENTS; Start at 04:00; Stop 12/08/16 at 22:00; Status DC Miscellaneous Information 1 1 ONCE ONCE XX Last administered on 12/08/16 04:00 ; Start 12/08/16 at 04:00; Stop 12/08/16 at 04:01; Status DC Sodium Chloride (NS 1000 ml Inj) 1,000 ml @ 50 mls/hr Q20H IV ; Start 12/08/16 at 04:00; Stop 12/09/16 at 02:55; Status DC Sodium Bicarbonate (Sodium Bicarbonate 8.4% Inj) 50 meq ONCE ONCE IV PUSH Last administered on 12/08/16 04:12; Start 12/08/16 at 04:00; Stop 12/08/16 at 04: 01; Status DC Sodium Bicarbonate (Sodium Bicarbonate 8.4% Inj) 50 meq ONCE ONCE IV PUSH Last administered on 12/08/16 04:24; Start 12/08/16 at 04:00; Stop 12/08/16 at 04: 01; Status DC IV Flush (NS Flush) 2 ml UNSCH PRN IV FLUSH FLUSH AFTER USING IV ACCESS Last administered on 12/14/16 22:33; Start 12/08/16 at 04:00 IV Flush (NS Flush) 2 ml BID IV FLUSH Last administered on 12/18/16 08:42; Start 12/08/16 at 09:00 Albuterol/ Ipratropium (Duoneb Neb) 1 ampule Q4HR NEB PRN INH WHEEZING; Start 12/08/16 at 04:00 Miscellaneous Information 1 Q361D XX ; Start 12/08/16 at 04:00 Chlorhexidine Gluconate (Chlorhexidine 2% Cloth) Taper DAILY@04 TOP Last administered on 12/12/16 04:00; Start 12/08/16 at 04:00; Stop 12/04/17 at 03:59 Chlorhexidine Gluconate 3 pack 3 pack UNSCH PRN TOP HYGIENIC CARE; Start at 04:00 Pantoprazole Sodium 80 mg/ Sodium Chloride 35 ml @ 420 mls/hr ONCE ONCE IV ; Start 12/08/16 at 05:15; Stop 12/08/16 at 05:19; Status DC Pantoprazole Sodium 80 mg/ Sodium Chloride 100 ml @ 10 mls/hr Q10H IV Last administered on 12/09/16 11:14; Start 12/08/16 at 05:15; Stop 12/09/16 at 18:10; Status DC Piperacillin Sod/ Tazobactam Sod 50 ml @ 100 mls/hr Q8H IV Last administered on 12/09/16 20:12; Start 12/08/16 at 04:15; Stop 12/10/16 at 03:00; Status DC Vancomycin HCl 1000 mg/Sodium Chloride 250 ml @ 250 mls/hr ONCE ONCE IV ; Start 12/08/16 at 05:00; Stop 12/08/16 at 05:59; Status DC Pharmacy Profile Note 0 ml @ 0 mls/hr UNSCH OTHER ; Start 12/08/16 at 04:15; Stop 12/08/16 at 11:22; Status DC Sodium Chloride (NS 1000 ml Inj) 1,000 ml @ 999 mls/hr BOLUS ONCE IV ; Start 12/08/16 at 05:30; Stop 12/08/16 at 06:30; Status DC Insulin Human Regular 10 units 10 units ONCE ONCE IV PUSH Last administered on 12/08/16 05:00; Start 12/08/16 at 05:30; Stop 12/08/16 at 05:31; Status DC Sodium Chloride 1,000 ml @ 999 mls/hr BOLUS ONCE IV Last administered on 10:06; Start 12/08/16 at 08:15; Stop 12/08/16 at 09:15; Status DC Sodium Chloride 1,000 ml @ 999 mls/hr BOLUS ONCE IV Last administered on 10:06; Start 12/08/16 at 09:15; Stop 12/08/16 at 10:21; Status DC Sodium Chloride (NS 1000 ml Inj) 1,000 ml @ 0 mls/hr Q0M PRN IV For Prime & Rinse Back; Start 12/08/16 at 11:25; Status UNV Heparin Sodium (Porcine) 8000 units 8,000 units UNSCH PRN IVF WITH DIALYSIS; Start 12/08/16 at 11:30; Status UNV Sodium Chloride 1,000 ml @ 200 mls/hr Q5H PRN IV WITH DIALYSIS; Start 12/08/16 at 11:25; Status UNV Sodium Chloride (NS 1000 ml Inj) 1,000 ml @ 0 mls/hr Q0M PRN IV WITH DIALYSIS; Start 12/08/16 at 11:25; Status UNV Mannitol (Mannitol Inj) 12.5 gm UNSCH PRN IV WITH DIALYSIS; Start 12/08/16 at 11 :30; Status UNV Albumin Human (Albumin 25% Inj) 25 gm UNSCH PRN IV WITH DIALYSIS; Start at 11:30; Status UNV IV Flush (NS Flush) 5 ml UNSCH PRN IVF WITH DIALYSIS; Start 12/08/16 at 11:30; Status UNV Heparin Sodium (Porcine) (Heparin Inj) UNSCH PRN .XX WITH DIALYSIS; Start 12/08 at 11:30; Status UNV Gentamicin Sulfate (Gentamicin (Dialysis) Inj) 20 mg UNSCH PRN IV WITH DIALYSIS ; Start 12/08/16 at 11:30; Status UNV Ondansetron HCl (Zofran Inj) 4 mg UNSCH PRN IV WITH DIALYSIS; Start 12/08/16 at 11:30; Status UNV Acetaminophen (Tylenol) 650 mg UNSCH PRN PO for headach, pain, temp > 101F; Start 12/08/16 at 11:30; Status UNV Diphenhydramine HCl (Benadryl) 25 mg UNSCH PRN PO for hives/itching/anaphylaxis ; Start 12/08/16 at 11:30; Status UNV Nitroglycerin (Nitrostat Sl) 0.4 mg UNSCH PRN SL CHEST PAIN; Start 12/08/16 at 11:30; Status UNV Clonidine (Catapres) 0.1 mg UNSCH PRN PO for BP > 180/100 X 2 readings; Start 12/08/16 at 11:30; Status UNV Gelatin 1 foam 1 foam UNSCH PRN TOP SEE LABEL COMMENTS; Start 12/08/16 at 11:30 ; Status UNV Sodium Chloride (NS 1000 ml Inj) 1,000 ml @ 0 mls/hr Q0M PRN IV For Prime & Rinse Back; Start 12/08/16 at 11:22 Heparin Sodium (Porcine) 8000 units 8,000 units UNSCH PRN IVF WITH DIALYSIS; Start 12/08/16 at 11:30 Sodium Chloride 1,000 ml @ 200 mls/hr Q5H PRN IV WITH DIALYSIS Last administered on 12/18/16t 15:57; Start 12/08/16 at 11:22 Sodium Chloride (NS 1000 ml Inj) 1,000 ml @ 0 mls/hr Q0M PRN IV WITH DIALYSIS; Start 12/08/16 at 11:22 Mannitol (Mannitol Inj) 12.5 gm UNSCH PRN IV WITH DIALYSIS; Start 12/08/16 at 11 :30 Albumin Human (Albumin 25% Inj) 25 gm UNSCH PRN IV WITH DIALYSIS; Start at 11:30 IV Flush (NS Flush) 5 ml UNSCH PRN IVF WITH DIALYSIS; Start 12/08/16 at 11:30 Heparin Sodium (Porcine) (Heparin Inj) UNSCH PRN .XX WITH DIALYSIS; Start 12/08 at 11:30 Gentamicin Sulfate (Gentamicin (Dialysis) Inj) 20 mg UNSCH PRN IV WITH DIALYSIS ; Start 12/08/16 at 11:30 Ondansetron HCl (Zofran Inj) 4 mg UNSCH PRN IV WITH DIALYSIS; Start 12/08/16 at 11:30 Acetaminophen (Tylenol) 650 mg UNSCH PRN PO for headach, pain, temp > 101F; Start 12/08/16 at 11:30 Diphenhydramine HCl (Benadryl) 25 mg UNSCH PRN PO for hives/itching/anaphylaxis ; Start 12/08/16 at 11:30 Nitroglycerin (Nitrostat Sl) 0.4 mg UNSCH PRN SL CHEST PAIN; Start 12/08/16 at 11:30 Clonidine (Catapres) 0.1 mg UNSCH PRN PO for BP > 180/100 X 2 readings; Start 12/08/16 at 11:30 Gelatin 1 foam 1 foam UNSCH PRN TOP SEE LABEL COMMENTS Last administered on 11:50; Start 12/08/16 at 11:30 Dextrose/Sodium Chloride (D5W-NS 1000 ml Inj) 1,000 ml @ 50 mls/hr Q20H IV Last administered on 12/08/16 13:24; Start 12/08/16 at 13:00; Stop 12/09/16 at 02: 55; Status DC Miscellaneous Information 1 ONCE ONCE XX Last administered on 12/08/16 20:00; Start 12/08/16 at 20:00; Stop 12/08/16 at 20:09; Status DC Miscellaneous Information 1 ONCE ONCE XX Last administered on 12/08/16 20:00; Start 12/08/16 at 20:00; Stop 12/08/16 at 20:08; Status DC Insulin Detemir (Levemir Inj) 12 units Q12H SQ Last administered on 12/08/16 20 :20; Start 12/08/16 at 20:00; Stop 12/09/16 at 02:57; Status DC Insulin Human Regular (NovoLIN R SUPPLEMENTAL SCALE) 1 Q3HR SQ Last administered on 12/11/16 08:00; Start 12/08/16 at 20:00; Stop 12/11/16 at 08:12; Status DC Dextrose (D50w (Vial) Inj) 25 ml UNSCH PRN IV PUSH HYPOGLYCEMIA-SEE COMMENTS Last administered on 12/09/16 14:52; Start 12/08/16 at 20:00; Stop 12/11/16 at 08: 12; Status DC Glucagon 1 mg 1 mg UNSCH PRN OTHER HYPOGLYCEMIA-SEE COMMENTS Last administered on 12/09/16 03:45; Start 12/08/16 at 20:00; Stop 12/11/16 at 08:12; Status DC Dextrose (D5W 1000 ml Inj) 1,000 ml @ 50 mls/hr Q20H IV Last administered on 05:39; Start 12/09/16 at 03:00; Stop 12/14/16 at 11:04; Status DC Insulin Detemir 6 units 6 units Q12H SQ ; Start 12/09/16 at 07:00; Stop 12/09/16 at 07:50; Status DC Potassium Chloride 100 ml @ 50 mls/hr BOLUS ONCE IV Last administered on 08:04; Start 12/09/16 at 08:00; Stop 12/09/16 at 09:59; Status DC Vancomycin HCl 1000 mg/Sodium Chloride 250 ml @ 250 mls/hr ONCE ONCE IV Last administered on 12/09/16 11:14; Start 12/09/16 at 10:00; Stop 12/09/16 at 10:59; Status DC Piperacillin Sod/ Tazobactam Sod (Zosyn 2.25 Gm Premix) 50 ml @ 100 mls/hr Q8H IV Last administered on 12/11/16 03:36; Start 12/10/16 at 04:00; Stop 12/11/16 at 13:16; Status DC Pantoprazole Sodium (Protonix Inj) 40 mg Q12H IV PUSH Last administered on 12/18 08:42; Start 12/09/16 at 20:00 Epoetin Mark (Epogen Inj) 10,000 units WITH DIALYSIS SQ Last administered on 15:58; Start 12/10/16 at 11:30 Propofol (Diprivan 200 Mg/20 ml Inj) 200 mg STK-MED ONCE IV ; Start 12/10/16 at 19:29; Stop 12/10/16 at 20:08; Status DC Miscellaneous Information ALL NURSING DEPARTME... UNSCH PRN XX SEE LABEL COMMENTS; Start 12/10/16 at 20:15; Stop 12/11/16 at 20:14; Status DC Dextrose (D50w (Vial) Inj) 25 ml UNSCH PRN IV PUSH HYPOGLYCEMIA-SEE COMMENTS; Start 12/11/16 at 08:15; Stop 12/12/16 at 11:35; Status DC Glucagon (Glucagon Inj) 1 mg UNSCH PRN OTHER HYPOGLYCEMIA-SEE COMMENTS; Start 12/11/16 at 08:15; Stop 12/12/16 at 11:35; Status DC Insulin Aspart (NovoLOG SUPPLEMENTAL SCALE) 1 ACHS SLIDING SCALE SQ Last administered on 12/11/16 13:00; Start 12/11/16 at 11:00; Stop 12/12/16 at 11:17; Status DC Insulin Aspart (NovoLOG INJ) 4 units TIDAC SQ Last administered on 12/11/16 13: 00; Start 12/11/16 at 12:00; Stop 12/12/16 at 11:17; Status DC Insulin Detemir 7 units 7 units Q12HR SQ Last administered on 12/11/16 20:06; Start 12/11/16 at 09:00; Stop 12/12/16 at 11:17; Status DC Ceftriaxone Sodium/Sodium Chloride (Rocephin Inj/NS Inj) 100 ml @ 200 mls/hr Q24H IV Last administered on 12/17/16 13:01; Start 12/11/16 at 14:00; Stop at 17:07; Status DC Potassium Chloride 20 meq 20 meq ONCE ONCE PO Last administered on 12/12/16 12 :03; Start 12/12/16 at 09:00; Stop 12/12/16 at 09:06; Status DC Potassium Chloride 100 ml @ 50 mls/hr Q2H IV Last administered on 12/12/16 13: 00; Start 12/12/16 at 11:00; Stop 12/12/16 at 14:59; Status DC Potassium Chloride (KCl 20 Meq Premix Inj) 100 ml @ 50 mls/hr Q2H IV ; Start at 16:00; Stop 12/12/16 at 16:00; Status DC Loperamide HCl (Imodium) 2 mg Q6H PRN PO DIARRHEA; Start 12/12/16 at 11:15; Stop 12/12/16 at 15:02; Status DC Insulin Aspart (NovoLOG INJ) 2 units TIDAC SQ Last administered on 12/18/16 12 :06; Start 12/12/16 at 12:00 Insulin Detemir (Levemir Inj) 5 units HS SQ Last administered on 12/17/16 22: 42; Start 12/12/16 at 21:00 Dextrose (D50w (Vial) Inj) 25 ml UNSCH PRN IV PUSH HYPOGLYCEMIA-SEE COMMENTS; Start 12/12/16 at 11:15 Glucagon (Glucagon Inj) 1 mg UNSCH PRN OTHER HYPOGLYCEMIA-SEE COMMENTS; Start 12/12/16 at 11:15 Insulin Aspart (NovoLOG SUPPLEMENTAL SCALE) 1 ACHS SLIDING SCALE SQ Last administered on 12/18/16 12:06; Start 12/12/16 at 16:00 Metronidazole (Flagyl) 500 mg Q8HR PO Last administered on 12/13/16 14:00; Start 12/12/16 at 22:00; Stop 12/13/16 at 14:39; Status DC Vancomycin HCl 125 mg 125 mg Q6H PO Last administered on 12/13/16 10:24; Start 12/12/16 at 16:00; Stop 12/13/16 at 14:39; Status DC Magnesium Sulfate/ Dextrose (Magnesium Sulfate 1 Gm Premix) 100 ml @ 100 mls/ hr ONCE ONCE IV Last administered on 12/13/16 11:58; Start 12/13/16 at 11:30; Stop 12/13/16 at 12:29; Status DC Vancomycin HCl 500 mg 500 mg Q6H PO Last administered on 12/17/16 16:26; Start 12/13/16 at 16:00; Stop 12/17/16 at 17:08; Status DC Metronidazole 100 ml @ 100 mls/hr Q8H IV Last administered on 12/17/16 16:26 ; Start 12/13/16 at 15:00; Stop 12/17/16 at 17:08; Status DC Sodium Chloride (NS 1000 ml Inj) 1,000 ml @ 50 mls/hr Q20H IV Last administered on 12/15/16 06:15; Start 12/14/16 at 11:15; Stop 12/15/16 at 11:36 ; Status DC Potassium Chloride (KCl) 20 meq ONCE ONCE PO Last administered on 12/16/16 11 :32; Start 12/16/16 at 10:30; Stop 12/16/16 at 10:31; Status DC Potassium Chloride (KCl) 20 meq ONCE ONCE PO Last administered on 12/17/16 13 :04; Start 12/17/16 at 10:15; Stop 12/17/16 at 10:16; Status DC Bupropion HCl (Wellbutrin) 75 mg TID PO Last administered on 12/18/16 12:05; Start 12/17/16 at 13:00 Escitalopram Oxalate (Lexapro) 10 mg DAILY PO Last administered on 12/18/16 08 :42; Start 12/18/16 at 09:00 Tamsulosin HCl (Flomax) 0.4 mg DAILY PO Last administered on 12/18/16 08:42; Start 12/18/16 at 09:00 Lisinopril (Prinivil) 2.5 mg DAILY PO Last administered on 12/18/16 08:42; Start 12/18/16 at 09:00 Metoprolol Tartrate (Lopressor) 25 mg Q12HR PO Last administered on 12/18/16 08:42; Start 12/17/16 at 21:00 Miscellaneous (Pill Splitter) 1 ea UNSCH PRN OTHER SEE LABEL COMMENTS; Start at 12:30 Vancomycin HCl 125 mg 125 mg Q6H PO Last administered on 12/18/16 12:05; Start 12/18/16 at 00:00; Stop 01/05/17 at 00:00 Vancomycin HCl/ Sodium Chloride (Vancomycin Inj/ NS 250 ml Inj) 250 ml @ 250 mls/hr WITH DIALYSIS IV Last administered on 12/18/16 15:58; Start 12/17/16 at 17:00 A/P Problem List: (1) Diabetic ketoacidosis ICD Code: E13.10 Status: Acute (2) Severe sepsis ICD Code: A41.9 Status: Acute (3) UGIB (upper gastrointestinal bleed) ICD Code: K92.2 Status: Acute (4) History of CVA with residual deficit ICD Code: I69.30 Status: Acute (5) CAD (coronary artery disease) ICD Code: I25.10 Status: Acute (6) ESRD (end stage renal disease) ICD Code: N18.6 Status: Chronic (7) Bacteremia ICD Code: R78.81 Status: Acute (8) C. difficile diarrhea ICD Code: A04.7 Status: Acute Assessment and Plan Mr. Wyatt is a 51-year-old male with a history of type 1 diabetes, CVA, ESRD currently on dialysis on Saturday and Saturday who [facility] coffee ground emesis. In the ER hemoglobin was 11, WBC count 16.3 with 91% neutrophils. He was found to have a blood sugar of 929, lactic acid of 4.1 and anion gap of 34. Beta hydroxybutyric acid was also elevated at 10.97 indicating DKA. He was given 6 units of IV insulin, and was started on DKA insulin protocol. Patient was also started on Vanc and Zosyn for suspected sepsis. Blood culture grew viridans streptococcus. - Diabetic ketoacidosis - Type 1 diabetes mellitus - And iron gap improved from 34 to 17. - on Levemir 5 units QHS, pre-meal 2 units TIDAC, sliding scale insulin - low. - Viridans Strep bacteremia - Echo negative for any vegetations. - Currently on Ceftriaxone 2g Qday. ID following. -per ID most likely need 2 weeks of IV antibiotics. - Diarrhea + C. Diff PCR. vancomycin decrease to 125mg and recommend until 01/05/17. - Upper GI bleed - s/p EGD 12/11/2016 --> Duodenal ulcers, gastritis, esophagitis. - anemia secondary to acute GI blood loss. - Continue Protonix BID. - Transfuse as needed for Hgb < 7.0. - ESRD - HD on , , Sat. - Nephrology is following. -Deconditioned -consult PT Full code. SCDs. Discharge Planning patient cleared for discharge. Problem Qualifiers (1) Diabetic ketoacidosis: (2) CAD (coronary artery disease): Tamy Cook MD Dec 18, 2016 16:51
[2016-12-18 18:15] VITALS: O2SAT 97
== END 2016-12-18 19:15 | DRG 871 ==
LOC: NEPC 00:59 → NEDA 03:59 → HIME 06:20 → N04A 12-12 16:10 → N04B 12-15 15:25
PROVIDERS: ADMIT Family Medicine; ATTEND Family Medicine
PROC: 5A1D60Z (ICD-10-PCS; 2016-12-08)
PROC: 02HV33Z Insertion of Infusion Device into Superior Vena Cava, Percutaneous Approach (ICD-10-PCS; principal; 2016-12-09)
PROC: 0DB98ZX Excision of Duodenum, Via Natural or Artificial Opening Endoscopic, Diagnostic (ICD-10-PCS; 2016-12-10)
PROC: 0DB68ZX Excision of Stomach, Via Natural or Artificial Opening Endoscopic, Diagnostic (ICD-10-PCS; 2016-12-10)
PROC: 0DB58ZX Excision of Esophagus, Via Natural or Artificial Opening Endoscopic, Diagnostic (ICD-10-PCS; 2016-12-10)
DX: A40.8 Other streptococcal sepsis (principal); G93.41 Metabolic encephalopathy; R65.20 Severe sepsis without septic shock; E10.10 Type 1 diabetes mellitus with ketoacidosis without coma; K26.4 Chronic or unspecified duodenal ulcer with hemorrhage; A04.7 Enterocolitis due to Clostridium difficile; N18.6 End stage renal disease; I12.0 Hypertensive chronic kidney disease with stage 5 chronic kidney disease or end stage renal disease; N25.81 Secondary hyperparathyroidism of renal origin; K92.1 Melena; D62 Acute posthemorrhagic anemia; K26.9 Duodenal ulcer, unspecified as acute or chronic, without hemorrhage or perforation; E10.22 Type 1 diabetes mellitus with diabetic chronic kidney disease; I25.10 Atherosclerotic heart disease of native coronary artery without angina pectoris; E86.0 Dehydration; E10.649 Type 1 diabetes mellitus with hypoglycemia without coma; D63.1 Anemia in chronic kidney disease; I25.2 Old myocardial infarction; K21.0 Gastro-esophageal reflux disease with esophagitis; K29.70 Gastritis, unspecified, without bleeding; J44.9 Chronic obstructive pulmonary disease, unspecified; Z79.4 Long term (current) use of insulin; Z86.73 Personal history of transient ischemic attack (TIA), and cerebral infarction without residual deficits; Z87.11 Personal history of peptic ulcer disease; Z99.2 Dependence on renal dialysis; Z91.030 Bee allergy status; Z91.041 Radiographic dye allergy status
CPT/HCPCS: 36556; 36600; 71010; 76937; 80048; 80053; 80069; 80076; 82010; 82728; 82805; 82948; 83540; 83550; 83605; 83690; 83735; 84155; 84484; 85014; 85018; 85025; 85027; 85610; 85730; 87040; 87186; 87205; 87493; 87641; 88305; 88312; 90935; 93306; 93971; 96361; 96365; 96374; 96375; 96376; C9113; J0696; J1610; J1815; J1817; J2405; J2543; J3370; J3475; J3480; J7030; J7040; J7042; J7050; J7070; Q4081

== ENCOUNTER 2017-02-26 06:52 | Observation (INO) | payer MEDICARE, MEDICAID ==
[2017-02-26] VITALS (7 sets, daily range): BP systolic 104–117; BP diastolic 52–84; PULSE 63–90; RESP 13–18; TEMP 96.3–97.8; O2SAT 97–100
[~2017-02-26] VITALS: Ht 165.1 cm; Wt 56.1 kg
[~2017-02-26 06:52] MED LIST changes: -AMLO10TA2 PO; -AUGM500T7 PO; -HYDR-3801 PO; +LISI2.5T3 PO; -LISI40TA PO; +METO25TA3 PO; -METO50TA PO; -OMEP20TA PO; +PROT40TA PO; +VANC500I3 PO
--- NOTE | 2017-02-26 07:30 | PD ---
HPI Chief Complaint: General Weakness Time Seen by Provider: 07:13 Travel History International Travel<30 days: No Contact w/Intl Traveler<30days: No Traveled to known affect area: No History of Present Illness HPI This is a 51-year-old man, long-term resident of Center with intermediate, was sent from the dialysis Center of [facility] today for altered mental status and lethargy. Patient reportedly had a critical high blood sugar this morning. He was given 10 units of insulin the intermediate. He was sent to dialysis. Speaking with the dialysis nurse, they found him slumped over in the waiting room, drooling, sluggishly responsive. They also noted increased anasarca and whole-body edema. Therefore he often has a little bit of edema in his legs but not anasarca. They also report that he is not normally sluggish. He had a temperature there of 99.1. He was sent to the emergency department from dialysis. Patient only complaint is swelling. He denies any pain. He has some bruising on his face from a fall about a week or so ago. He states he otherwise has been feeling generally well. Denies any chest pain, trouble breathing, abdominal pain, or vomiting. He does make urine. Denies any change in his urination. 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 Logan Reyes. Left AV fistula. Anemia Hyperparathyroidism Social History Alcohol Use: No Tobacco Use: No (2 PPD) Allergies-Medications (Allergen,Severity, Reaction): Coded Allergies: Bee Sting (Unverified Allergy, Severe, 11/04/16) Contrast Media (Unverified Allergy, Severe, 11/04/16) Reported Meds & Prescriptions Reported Meds & Active Scripts Active Vancomycin Inj (Vancomycin HCl) 500 Mg Inj 125 Mg PO Q6H 18 Days take until January 05, 2017 Protonix (Pantoprazole Sodium) 40 Mg Tab 40 Mg PO BID Lisinopril 2.5 Mg Tab 2.5 Mg PO DAILY Metoprolol Tartrate 25 Mg Tab 25 Mg PO BID Levemir Inj (Insulin Detemir) 1,000 unit/ 10 ML Vial 5 Units SQ HS Reported Prochlorperazine Maleate 10 Mg Tab 10 Mg PO Q4H PRN Glucagon Inj 1 Mg/Ml Inj 1 Mg IM ONCE PRN Novolog Inj (Insulin Aspart) 1,000 Unit/10 Ml Vial 0 SQ DIRECTED Sliding Scale as directed. Nepro (Nutritional Supplements) 1 Liq Liq Tamsulosin (Tamsulosin HCl) 0.4 Mg Cap 0.4 Mg PO DAILY Renvela (Sevelamer Carbonate) 800 Mg Tab 800 Mg PO TID Furosemide 20 Mg Tab 20 Mg PO DAILY Folbee Plus (B-Complex W/ C & Folic Acid) 1 Tab 1 Tab PO DAILY Ferrous Sulfate 325 Mg Tab 325 Mg PO DAILY Escitalopram (Escitalopram Oxalate) 10 Mg Tab 10 Mg PO DAILY Bupropion HCl 75 Mg Tab 75 Mg PO TID Aspirin 81 Mg Chew 81 Mg CHEW DAILY Review of Systems Except as stated in HPI: all other systems reviewed are Neg Physical Exam Narrative GENERAL: 51-year-old man, chronically ill-appearing, nontoxic. SKIN: Focused skin assessment warm/dry. HEAD: Atraumatic. Normocephalic. EYES: Pupils equal and round. No scleral icterus. No injection or drainage. He had a little bit of ecchymosis around the right eye, with some periorbital edema. There is no erythema or inflammation or redness. ENT: No nasal bleeding or discharge. Mucous membranes pink and moist. NECK: Trachea midline. No JVD. CARDIOVASCULAR: Regular rate and rhythm. No murmur appreciated. RESPIRATORY: No accessory muscle use. Clear to auscultation. Breath sounds equal bilaterally. GASTROINTESTINAL: Abdomen soft, non-tender, nondistended. Hepatic and splenic margins not palpable. MUSCULOSKELETAL: No obvious deformities. Minimal edema in the lower extremities but seems to be in edema in both upper extremities. NEUROLOGICAL: Drowsy, sleeping through the exam. Will awaken easily will answer some questions but is somewhat sluggish. No obvious cranial nerve deficits. No facial asymmetry. Generally weak throughout but no obvious asymmetry. Founder / Ceo strength seems symmetric. Strength in plantar flexion seem symmetric. Sensations intact throughout. Data Data Last Documented VS Vital Signs Date Time Temp Pulse Resp B/P Pulse Ox O2 Delivery O2 Flow Rate FiO2 02/26/17 08:50 67 18 112/63 100 Room Air 02/26/17 07:09 97.8 Orders Complete Blood Count With Diff (5/23/17 07:13) Comprehensive Metabolic Panel (02/26/17 07:13) Troponin I (02/26/17 07:13) Electrocardiogram (02/26/17 ) Urinalysis - C+S If Indicated (02/26/17 07:13) Cath For Specimen (02/26/17 07:13) Chest, Single Ap (02/26/17 ) Ct Brain W/O Iv Contrast(Rout) (02/26/17 ) Lactic Acid (02/26/17 07:22) Blood Culture (02/26/17 07:22) Vascular Access Team Consult/P PRN (02/26/17 07:24) Vascular Poc Ultrasound (02/26/17 ) Insulin Aspart Inj (Novolog Inj) (02/26/17 08:45) Labs Laboratory Tests Test 02/26/17 02/26/17 02/26/17 07:15 07:20 08:00 Lactic Acid Level 3.4 mmol/L White Blood Count 10.1 TH/MM3 Red Blood Count 3.58 MIL/MM3 Hemoglobin 12.2 GM/DL Hematocrit 38.0 % Mean Corpuscular Volume 106.0 FL Mean Corpuscular Hemoglobin 34.2 PG Mean Corpuscular Hemoglobin 32.2 % Concent Red Cell Distribution Width 13.5 % Platelet Count 150 TH/MM3 Mean Platelet Volume 8.5 FL Neutrophils (%) (Auto) 87.1 % Lymphocytes (%) (Auto) 7.0 % Monocytes (%) (Auto) 5.1 % Eosinophils (%) (Auto) 0.1 % Basophils (%) (Auto) 0.7 % Neutrophils # (Auto) 8.8 TH/MM3 Lymphocytes # (Auto) 0.7 TH/MM3 Monocytes # (Auto) 0.5 TH/MM3 Eosinophils # (Auto) 0.0 TH/MM3 Basophils # (Auto) 0.1 TH/MM3 CBC Comment DIFF FINAL Differential Comment Sodium Level 135 MEQ/L Potassium Level 4.9 MEQ/L Chloride Level 94 MEQ/L Carbon Dioxide Level 22.5 MEQ/L Anion Gap 19 MEQ/L Blood Urea Nitrogen 63 MG/DL Creatinine 7.01 MG/DL Estimat Glomerular Filtration 8 ML/MIN Rate Random Glucose 403 MG/DL Calcium Level 8.5 MG/DL Total Bilirubin 0.4 MG/DL Aspartate Amino Transf 22 U/L (AST/SGOT) Alanine Aminotransferase 27 U/L (ALT/SGPT) Alkaline Phosphatase 186 U/L Troponin I 0.02 NG/ML Total Protein 4.9 GM/DL Albumin 1.9 GM/DL Urine Color YELLOW Urine Turbidity HAZY Urine pH 8.0 Urine Specific [place] 1.012 Urine Protein 30 mg/dL Urine Glucose (UA) 1000 mg/dL Urine Ketones NEG mg/dL Urine Occult Blood MOD Urine Nitrite NEG Urine Bilirubin NEG Urine Urobilinogen LESS THAN 2.0 MG/DL Urine Leukocyte Esterase SMALL Urine RBC 35 /hpf Urine WBC 7 /hpf Urine Squamous Epithelial <1 /hpf Cells Urine Bacteria FEW /hpf Microscopic Urinalysis Comment CULT NOT INDICATED MDM Medical Decision Making Medical Screen Exam Complete: Yes Emergency Medical Condition: Yes Interpretation(s) My review of EKG: Normal sinus rhythm at a rate of 78, low QRS voltage, normal intervals, no ischemia. LABS: CBC is remarkable for mild anemia, macrocytic indices. CMP remarkable for elevated BUN/creatinine, glucose 403 Lactate 3.4 Troponin negative Chest x-ray negative Head CT: Atrophy and ischemic changes. Differential Diagnosis Infection, head injury, electrolyte abnormality, adverse effect of medication, volume overload, other Narrative Course Medical decision making INITIAL: 51-year-old male presents to the emergency department with altered mental status and lethargy. No clear focal deficits. Blood sugar is high. Patient reportedly is a difficult brittle diabetic. We'll recheck labs, x-ray, CT head, EKG. Patient will likely need admission for further evaluation, treatment, dialysis. Diagnosis Primary Impression: Altered mental status Additional Impression: Hyperglycemia Admitting Information Admitting Physician Requests: Admit Santos Khoury MD February 26, 2017 07:30 Santos Khoury MD February 26, 2017 07:30
[2017-02-26 07:32] LABS: AUTOMATED NEUTROPHIL # 8.8 TH/MM3 (1.8-7.7); BASOPHIL # 0.1 TH/MM3 (0-0.2); BASOPHIL % 0.7 % (0.0-2.0); EOSINOPHIL % 0.1 % (0.0-4.0); HEMO FLAGS DIFF FINAL; LYMPHOCYTE # 0.7 TH/MM3 (1.0-4.8); MEAN CORPUSCULAR HEMOGLOBIN 34.2 PG (27.0-34.0); MEAN CORPUSCULAR HGB CONC 32.2 % (32.0-36.0); MONO % 5.1 % (0.0-8.0); NEUT % 87.1 % (16.0-70.0); PLATELET COUNT 150 TH/MM3 (150-450); RED BLOOD COUNT 3.58 MIL/MM3 (4.50-5.90); RED CELL DISTRIBUTION WIDTH 13.5 % (11.6-17.2); WHITE BLOOD COUNT 10.1 TH/MM3 (4.0-11.0)
[2017-02-26 08:07] LABS: ALKALINE PHOSPHATASE 186 U/L (45-117); ALT (GPT) 27 U/L (12-78); ANION GAP 19 MEQ/L (5-15); AST (GOT) 22 U/L (15-37); BICARBONATE 22.5 MEQ/L (21.0-32.0); BLOOD UREA NITROGEN 63 MG/DL (7-18); CHLORIDE 94 MEQ/L (98-107); GLOMERULAR FILTRATION RATE 8 ML/MIN (>89); POTASSIUM 4.9 MEQ/L (3.5-5.1); SODIUM (NA) 135 MEQ/L (136-145); TOTAL BILIRUBIN ADULT 0.4 MG/DL (0.2-1.0)
[2017-02-26 08:44] LABS: BACTERIA, URINE FEW /hpf; BLOOD, URINE MOD (NEG); COMMENT (UR) CULT NOT INDICATED; CULTURE IF INDICATED CULT NOT INDICATED; GLUCOSE,URINE 1000 mg/dL (NEG); KETONE, URINE NEG (NEG); NITRITE,URINE NEG (NEG); SQUAMOUS EPITHELIAL CELL URINE <1 /hpf (0-5); URINE COLOR YELLOW (YELLW/STRAW)
[2017-02-26] MEDS ORDERED: INSULIN ASPART 1,000 UNITS/10 ML VIAL SQ ONE (08:45)
--- NOTE | 2017-02-26 08:46 | RADRPT ---
EXAM DATE/TIME: 02/26/2017 07:51 [facility] COMPARISON: CHEST SINGLE AP, December 09, 2016, 10:49. INDICATIONS : Short of breath. MEDICAL HISTORY : Myocardial infarction. Hypercholesterolemia. Hypertension. GERD. ESRD.Cardiovascular problems. CVA. C AD. Diabetic. Dialysis. TIA SURGICAL HISTORY : Appendectomy. Left arm AVF ENCOUNTER: Initial ACUITY: 1 day PAIN SCORE: Non-responsive. LOCATION: Bilateral chest FINDINGS: A single view of the chest demonstrates the lungs to be symmetrically aerated without evidence of mas s, infiltrate or effusion. The cardiomediastinal contours are unremarkable. Osseous structures are intact. CONCLUSION: No acute disease. Darren Soler MD on February 26, 2017 at 8:44 Board Certified Radiologist. This report was verified electronically.
--- NOTE | 2017-02-26 08:50 | RADRPT ---
EXAM DATE/TIME: 02/26/2017 08:18 [facility] COMPARISON: No previous studies available for comparison. INDICATIONS : Altered mental status, lethargy RADIATION DOSE: 36.04 CTDIvol (mGy) MEDICAL HISTORY : Cerebrovascular disease. Hypertension. Cardiovascular disease SURGICAL HISTORY : Appendectomy. ENCOUNTER: Initial ACUITY: 1 day PAIN SCALE: Non-responsive LOCATION: cranial TECHNIQUE: Multiple contiguous axial images were obtained of the head. Using automated exposure control and adj ustment of the mA and/or kV according to patient size, radiation dose was kept as low as reasonably a chievable to obtain optimal diagnostic quality images. FINDINGS: There is marked central and cortical atrophy with dilatation of ventricular and sulcal spaces. Areas of low density bilaterally. There is no parenchymal hemorrhage, acute infarction or mass lesion ident ified. There are no extra-axial fluid collections appreciated. The posterior fossa is unremarkable with midline fourth ventricle. The portion of the orbits and paranasal sinuses visualized are unrema rkable. CONCLUSION: Cerebral atrophy and chronic ischemic changes. Darren Soler MD on February 26, 2017 at 8:47 Board Certified Radiologist. This report was verified electronically.
[2017-02-26] MEDS ORDERED: GLUCAGON 1 MG/ML VIAL OTHER PRN (09:30)
[2017-02-26] MEDS ORDERED: ONDANSETRON HCL 4 MG/2 ML VIAL IV PUSH PRN (09:30)
--- NOTE | 2017-02-26 10:28 | PD.CONS ---
[facility] Service Nephrology Consult Requested By Dr. Khoury Reason for Consult Known ESRD on HD Primary Care Physician Unknown History of Present Illness The patient is a 51 yo [place] male who is known to our services for ESRD on HD TTSS. He came to the outpatient unit this AM with altered mental status and worsening of R eye swelling and pain. He was sent to this facility via [facility] for further evaluation. Glucose on arrival was >400. States he is not feeling well---facial pain, weakness. Head CT and CXR reviewed and showed no acute process. He is known for brittle diabetes and has been hospitalized many times in the past for the same. Has L AVF. Denies any NVDC. Appetite good. Of note, fell in care home last week and hit his head. No LOC that I am aware of. According to outpatient dialysis nurse, he has been in his normal state of health until he arrived this AM (Stella Faulkner) Review of Systems Constitutional: COMPLAINS OF: Fatigue Eyes: COMPLAINS OF: Blurred vision, Eye inflammation, Eye pain (Stella Faulkner) Past Family Social History Allergies: Coded Allergies: Bee Sting (Unverified Allergy, Severe, 11/04/16) Contrast Media (Unverified Allergy, Severe, 11/04/16) Past Medical History End-stage renal disease Diabetes mellitus Hypertension History of CVA Anemia renal disease Secondary hyperparathyroidism of renal disease COPD. Past Surgical History Placement of a left upper extremity brachiocephalic fistula. Appendectomy. Reported Medications Reported Meds & Active Scripts Active Vancomycin Inj (Vancomycin HCl) 500 Mg Inj 125 Mg PO Q6H 18 Days take until January 05, 2017 Protonix (Pantoprazole Sodium) 40 Mg Tab 40 Mg PO BID Lisinopril 2.5 Mg Tab 2.5 Mg PO DAILY Metoprolol Tartrate 25 Mg Tab 25 Mg PO BID Levemir Inj (Insulin Detemir) 1,000 unit/ 10 ML Vial 5 Units SQ HS Reported Prochlorperazine Maleate 10 Mg Tab 10 Mg PO Q4H PRN Glucagon Inj 1 Mg/Ml Inj 1 Mg IM ONCE PRN Novolog Inj (Insulin Aspart) 1,000 Unit/10 Ml Vial 0 SQ DIRECTED Sliding Scale as directed. Nepro (Nutritional Supplements) 1 Liq Liq Tamsulosin (Tamsulosin HCl) 0.4 Mg Cap 0.4 Mg PO DAILY Renvela (Sevelamer Carbonate) 800 Mg Tab 800 Mg PO TID Furosemide 20 Mg Tab 20 Mg PO DAILY Folbee Plus (B-Complex W/ C & Folic Acid) 1 Tab 1 Tab PO DAILY Ferrous Sulfate 325 Mg Tab 325 Mg PO DAILY Escitalopram (Escitalopram Oxalate) 10 Mg Tab 10 Mg PO DAILY Bupropion HCl 75 Mg Tab 75 Mg PO TID Aspirin 81 Mg Chew 81 Mg CHEW DAILY Active Ordered Medications Current Medications Medications (Trade) Dose Ordered Sig/Mateo Route Start Time Stop Time Status Last Admin (D50w (Vial) Inj) 50 ml UNSCH PRN IV 02/26/17 09:30 (Glucagon Inj) 1 mg UNSCH PRN OTHER 02/26/17 09:30 (Zofran Inj) 4 mg Q8H PRN IV PUSH 02/26/17 09:30 Family History [place] Social History Lives in nursing facility Smokes 1 ppd Denies EtOH Denies illicits (Stella Faulkner) Physical Exam Vital Signs Vital Signs Date Time Temp Pulse Resp B/P Pulse Ox O2 Delivery O2 Flow Rate FiO2 02/26/17 08:50 67 18 112/63 100 Room Air 02/26/17 07:09 97.8 79 18 107/52 100 Room Air 02/26/17 07:09 80 18 100 Room Air Physical Exam GENERAL: Laying in bed in NAD. States he is not feeling well. SKIN: Warm and dry. HEAD: Atraumatic. Normocephalic. EYES: R eye is erythematous and swollen shut with some drainage. ENT: No nasal bleeding or discharge. Mucous membranes pink and moist. NECK: Trachea midline. No JVD. CARDIOVASCULAR: Regular rate and rhythm. RESPIRATORY: No accessory muscle use. Clear to auscultation. Breath sounds equal bilaterally. GASTROINTESTINAL: Abdomen soft, non-tender, nondistended. Hepatic and splenic margins not palpable. MUSCULOSKELETAL: Extremities without clubbing, cyanosis. 2+ pitting edema bilat upper extremities, no present in LEs NEUROLOGICAL: Awake and alert. PSYCHIATRIC: Appropriate mood and affect; insight and judgment normal. Laboratory Laboratory Tests Test 02/26/17 02/26/17 02/26/17 07:15 07:20 08:00 Lactic Acid Level 3.4 White Blood Count 10.1 Red Blood Count 3.58 Hemoglobin 12.2 Hematocrit 38.0 Mean Corpuscular Volume 106.0 Mean Corpuscular Hemoglobin 34.2 Mean Corpuscular Hemoglobin 32.2 Concent Red Cell Distribution Width 13.5 Platelet Count 150 Mean Platelet Volume 8.5 Neutrophils (%) (Auto) 87.1 Lymphocytes (%) (Auto) 7.0 Monocytes (%) (Auto) 5.1 Eosinophils (%) (Auto) 0.1 Basophils (%) (Auto) 0.7 Neutrophils # (Auto) 8.8 Lymphocytes # (Auto) 0.7 Monocytes # (Auto) 0.5 Eosinophils # (Auto) 0.0 Basophils # (Auto) 0.1 CBC Comment DIFF FINAL Differential Comment Sodium Level 135 Potassium Level 4.9 Chloride Level 94 Carbon Dioxide Level 22.5 Anion Gap 19 Blood Urea Nitrogen 63 Creatinine 7.01 Estimat Glomerular Filtration 8 Rate Random Glucose 403 Calcium Level 8.5 Total Bilirubin 0.4 Aspartate Amino Transf 22 (AST/SGOT) Alanine Aminotransferase 27 (ALT/SGPT) Alkaline Phosphatase 186 Troponin I 0.02 Total Protein 4.9 Albumin 1.9 Urine Color YELLOW Urine Turbidity HAZY Urine pH 8.0 Urine Specific [place] 1.012 Urine Protein 30 Urine Glucose (UA) 1000 Urine Ketones NEG Urine Occult Blood MOD Urine Nitrite NEG Urine Bilirubin NEG Urine Urobilinogen LESS THAN 2.0 Urine Leukocyte Esterase SMALL Urine RBC 35 Urine WBC 7 Urine Squamous Epithelial <1 Cells Urine Bacteria FEW Microscopic Urinalysis Comment CULT NOT INDICATED Date/Time Procedure Status Source Growth 02/26/17 07:40 Aerobic Blood Culture Received Blood Peripheral Pending 02/26/17 07:40 Anaerobic Blood Culture Received Blood Peripheral Pending (Stella Faulkner) Result Diagram: 02/26/1720 02/26/1720 Imaging Last Impressions Head CT 02/26/17 0000 Signed Impressions: Service Date/Time: Sunday, February 26, 2017 08:18 - CONCLUSION: Cerebral atrophy and chronic ischemic changes. Darren Soler MD Chest X-Ray 02/26/17 0000 Signed Impressions: Service Date/Time: Sunday, February 26, 2017 07:51 - CONCLUSION: No acute disease. Darren Soler MD (Stella Faulkner) Assessment and Plan Problem List: (1) ESRD (end stage renal disease) Plan: To continue on HD TTS as per outpatient schedule. Will check doppler studies of bilat UEs to evaluate edema. BCx pending Medications should be adjusted for the patient's ESRD. Avoid gadolinium. (2) Benign hypertension Plan: BP borderline low. Hold home medications and monitor. (3) Hyperglycemia Plan: Mgmt as per primary (4) Facial trauma Plan: CT reviewed. Periorbital swelling significant. Defer to primary (5) Hypoalbuminemia Plan: Unclear if related to malnutrition versus other. Will check LFTs. (Stella Faulkner) Problem List: (1) ESRD (end stage renal disease) Plan: To continue on HD TTS as per outpatient schedule. Will check doppler studies of bilat UEs to evaluate edema. BCx pending Medications should be adjusted for the patient's ESRD. Avoid gadolinium. (2) Benign hypertension Plan: BP borderline low. Hold home medications and monitor. (3) Hyperglycemia Plan: Mgmt as per primary (4) Facial trauma Plan: CT reviewed. Periorbital swelling significant. Defer to primary (5) Hypoalbuminemia Plan: Unclear if related to malnutrition versus other. Will check LFTs. Assessment and Plan The exam, history, and the medical decision-making described in the above note were completed with the assistance of the PA-C. I reviewed and agree with the findings presented. I attest that I had a [id number] encounter with the patient on the same day, and personally performed and documented my assessment and findings in the medical record. (Wilfredo Reyes MD) Stella Faulkner February 26, 2017 10:28 Wilfredo Reyes MD February 26, 2017 11:03
[2017-02-26] MEDS ORDERED: HYDR-3801 PO (10:42)
[2017-02-26] MEDS ORDERED: DOXA1TAB35 PO (10:42)
[2017-02-26] MEDS ORDERED: PARO40TA2 PO (10:42)
[2017-02-26] MEDS ORDERED: NEPHTAB3 PO (10:42)
[2017-02-26] MEDS ORDERED: AMLO10TA2 PO (10:42)
[2017-02-26] MEDS ORDERED: NORC5TAB PO (10:47)
[2017-02-26] MEDS ORDERED: LEVEMIR SQ (10:47)
[2017-02-26] MEDS ORDERED: METO-426 PO (10:47)
[2017-02-26] MEDS ORDERED: OMEP20TA PO (10:47)
[2017-02-26] MEDS ORDERED: SODIUM CHLOR 0.9% 1000 ML INJ 1,000 ML IV PRN ×3 (11:44)
[2017-02-26] MEDS ORDERED: HEPARIN SODIUM - IV 10,000 UNITS/10 ML VIAL PRN (11:45)
[2017-02-26] MEDS ORDERED: cloNIDine HCL 0.1 MG TAB PO PRN (11:45)
[2017-02-26] MEDS ORDERED: diphenhydrAMINE HCL 25 MG CAP PO PRN (11:45)
[2017-02-26] MEDS ORDERED: HEPARIN SODIUM - IV 10,000 UNITS/10 ML VIAL IVF PRN (11:45)
[2017-02-26] MEDS ORDERED: GELATIN 12 MM/7 MM FOAM TOP PRN (11:45)
[2017-02-26] MEDS ORDERED: MANNITOL 12.5 GM/50 ML VIAL IV PRN (11:45)
[2017-02-26] MEDS ORDERED: ONDANSETRON HCL 4 MG/2 ML VIAL IV PRN (11:45)
[2017-02-26] MEDS ORDERED: NITROGLYCERIN 0.4 MG SL 25 TABS/BTL SL PRN (11:45)
[2017-02-26] MEDS ORDERED: ALBUMIN HUMAN 25% 25 GM/100 ML BAGP IV PRN (11:45)
[2017-02-26] MEDS ORDERED: SODIUM CHLORIDE 0.9% FLUSH 10 ML FLUSH IV FLUSH PRN (11:45)
[2017-02-26] MEDS ORDERED: ACETAMINOPHEN 325 MG TAB PO PRN (11:45)
[2017-02-26] MEDS ORDERED: GENTAMICIN SULFATE (DIALYSIS USE ONLY) 20 MG/2 ML VIAL IV PRN (11:45)
[2017-02-26] MEDS: INSULIN ASPART SUPPLEMENTAL SCALE SQ SCH ×2 (11:48→22:09)
--- NOTE | 2017-02-26 11:58 | RADRPT ---
EXAM DATE/TIME: 02/26/2017 10:37 [facility] COMPARISON: No previous studies available for comparison. INDICATIONS : Bilateral arm swelling. MEDICAL HISTORY : Hypertension. Myocardial infarction. Gastroesophageal reflux disease. Left AVF. Diabetic. ESRD. C VA. Hyperparathyroid. Anemia renal disease. SURGICAL HISTORY : Appendectomy. Left arm AFV. ENCOUNTER: Subsequent ACUITY: 1 day PAIN SCORE: 3/10 LOCATION: Bilateral arm. FINDINGS: RIGHT UPPER EXTREMITY: There is spontaneous flow documented in the brachial, basilic, axillary, and subclavian veins. Howeve r, the cephalic vein is not definitively visualized. The vessels are compressible and augmentation re sponse is documented. No filling defects are seen. The flow is phasic with respiration. Direction of flow in the jugular vein is caudal. LEFT UPPER EXTREMITY: There is spontaneous flow documented in the brachial, basilic, cephalic, axillary, and subclavian vei ns. The vessels are compressible and augmentation response is documented. No filling defects are se en. The flow is phasic with respiration. However, there is nonocclusive thrombus within the interna l jugular vein. This vessel is not completely compressible. CONCLUSION: 1. Nonocclusive thrombus within the left internal jugular vein. Remaining left upper extremity veins are patent. 2. No right upper extremity DVT is seen. Bruce Rossi MD on February 26, 2017 at 11:54 Board Certified Radiologist. This report was verified electronically.
[2017-02-26 12:57] LABS: INDIRECT BILIRUBIN 0.3 MG/DL (0.0-0.8); TOTAL BILIRUBIN ADULT 0.4 MG/DL (0.2-1.0)
--- NOTE | 2017-02-26 13:26 | HHI.HP ---
HPI Service [facility] Primary Care Physician Unknown Admission Diagnosis altered mental status, hyperglycemia Diagnoses: (1) Hyperglycemia Diagnosis: Principal Chief Complaint: altered mental status Travel History International Travel<30 Days: No Contact w/Intl Traveler <30 Da: No Traveled to Known Affected Are: No History of Present Illness patient is a 51 y/o male with ESRD- on HD, diabetes and history of CVA who was sent to ER from dialysis center because of altered mental status. reportedly they found him slumped over in the waiting room, drooling with sluggish response and a high blood sugar earlier today. there's a history of fall recently. he denies any focal weakness, headache, chest pain, sob or fever. although he's concerned about his swelling of the arms and legs. Review of Systems Constitutional: DENIES: Fever, Weight loss, Chills, Night Sweats Eyes: DENIES: Blurred vision, Diplopia, Vision loss, Double Vision Ears, nose, mouth, throat: DENIES: Tinnitus, Vertigo, Throat pain, Epistaxis Respiratory: DENIES: Apneas, Cough, Snoring, Wheezing, Hemoptysis, Sputum production, Shortness of breath Cardiovascular: COMPLAINS OF: Lower Extremity Edema, DENIES: Chest pain, Palpitations, Syncope, Dyspnea on Exertion, PND, Orthopnea, Claudication Gastrointestinal: DENIES: Abdominal pain, Black stools, Bloody stools, Constipation, Diarrhea, Nausea, Vomiting, Difficulty Swallowing, Anorexia Genitourinary: DENIES: Urinary frequency, Urgency, Hematuria, Dysuria Musculoskeletal: DENIES: Joint pain, Muscle aches, Stiffness, Joint Swelling Integumentary: DENIES: Rash Neurologic: DENIES: Abnormal gait, Headache, Localized weakness, Paresthesias, Seizures, Speech Problems, Tremor, Poor Balance Psychiatric: DENIES: Anxiety, Confusion, Mood changes, Depression, Hallucinations, Agitation, Suicidal Ideation, Homicidal Ideation, Delusions Past Family Social History Past Medical History ESRD-on HD diabetes mellitus hypertension history of CVA Past Surgical History appendectomy AVF placement Reported Medications Vancomycin Inj (Vancomycin HCl) 500 Mg Inj 125 Mg PO Q6H 18 Days take until January 05, 2017 Protonix (Pantoprazole Sodium) 40 Mg Tab 40 Mg PO BID Lisinopril 2.5 Mg Tab 2.5 Mg PO DAILY Metoprolol Tartrate 25 Mg Tab 25 Mg PO BID Levemir Inj (Insulin Detemir) 1,000 unit/ 10 ML Vial 5 Units SQ HS Reported Prochlorperazine Maleate 10 Mg Tab 10 Mg PO Q4H PRN Glucagon Inj 1 Mg/Ml Inj 1 Mg IM ONCE PRN Novolog Inj (Insulin Aspart) 1,000 Unit/10 Ml Vial 0 SQ DIRECTED Sliding Scale as directed. Nepro (Nutritional Supplements) 1 Liq Liq Tamsulosin (Tamsulosin HCl) 0.4 Mg Cap 0.4 Mg PO DAILY Renvela (Sevelamer Carbonate) 800 Mg Tab 800 Mg PO TID Furosemide 20 Mg Tab 20 Mg PO DAILY Folbee Plus (B-Complex W/ C & Folic Acid) 1 Tab 1 Tab PO DAILY Ferrous Sulfate 325 Mg Tab 325 Mg PO DAILY Escitalopram (Escitalopram Oxalate) 10 Mg Tab 10 Mg PO DAILY Bupropion HCl 75 Mg Tab 75 Mg PO TID Aspirin 81 Mg Chew 81 Mg CHEW DAILY Allergies: Coded Allergies: Bee Sting (Unverified Allergy, Severe, 11/04/16) Contrast Media (Unverified Allergy, Severe, 11/04/16) Active Ordered Medications Current Medications Insulin Aspart (NovoLOG INJ) 10 units ONCE ONCE SQ Last administered on 08:48; Start 02/26/17 at 08:45; Stop 02/26/17 at 08:46; Status DC Dextrose (D50w (Vial) Inj) 50 ml UNSCH PRN IV HYPOGLYCEMIA-SEE COMMENTS; Start 02/26/17 at 09:30 Glucagon (Glucagon Inj) 1 mg UNSCH PRN OTHER HYPOGLYCEMIA-SEE COMMENTS; Start 02/26/17 at 09:30 Insulin Aspart (NovoLOG SUPPLEMENTAL SCALE) 1 ACHS SLIDING SCALE SQ Last administered on 02/26/17 11:48; Start 02/26/17 at 11:00 Ondansetron HCl 4 mg 4 mg Q8H PRN IV PUSH NAUSEA; Start 02/26/17 at 09:30 Sodium Chloride (NS 1000 ml Inj) 1,000 ml @ 0 mls/hr Q0M PRN IV For Prime & Rinse Back; Start 02/26/17 at 11:44 Heparin Sodium (Porcine) 8000 units 8,000 units UNSCH PRN IVF WITH DIALYSIS; Start 02/26/17 at 11:45 Sodium Chloride 1,000 ml @ 200 mls/hr Q5H PRN IV WITH DIALYSIS; Start 02/26/17 at 11:44 Sodium Chloride (NS 1000 ml Inj) 1,000 ml @ 0 mls/hr Q0M PRN IV WITH DIALYSIS; Start 02/26/17 at 11:44 Mannitol (Mannitol Inj) 12.5 gm UNSCH PRN IV WITH DIALYSIS; Start 02/26/17 at 11:45 Albumin Human (Albumin 25% Inj) 25 gm UNSCH PRN IV WITH DIALYSIS; Start at 11:45 Sodium Chloride (NS Flush) 5 ml UNSCH PRN IV FLUSH WITH DIALYSIS; Start at 11:45 Heparin Sodium (Porcine) (Heparin Inj) UNSCH PRN .XX WITH DIALYSIS; Start at 11:45 Gentamicin Sulfate (Gentamicin (Dialysis) Inj) 20 mg UNSCH PRN IV WITH DIALYSIS ; Start 02/26/17 at 11:45 Ondansetron HCl (Zofran Inj) 4 mg UNSCH PRN IV WITH DIALYSIS; Start 02/26/17 at 11:45 Acetaminophen (Tylenol) 650 mg UNSCH PRN PO for headach, pain, temp > 101F; Start 02/26/17 at 11:45 Diphenhydramine HCl (Benadryl) 25 mg UNSCH PRN PO for hives/itching/anaphylaxis ; Start 02/26/17 at 11:45 Nitroglycerin (Nitrostat Sl) 0.4 mg UNSCH PRN SL CHEST PAIN; Start 02/26/17 at 11:45 Clonidine (Catapres) 0.1 mg UNSCH PRN PO for BP > 180/100 X 2 readings; Start 02/26/17 at 11:45 Gelatin (Gelfoam 12 Mm/7 Mm Top) 1 foam UNSCH PRN TOP SEE LABEL COMMENTS; Start 02/26/17 at 11:45 Social History smokes a few cigarettes a day. Physical Exam Vital Signs Vital Signs Date Time Temp Pulse Resp B/P Pulse Ox O2 Delivery O2 Flow Rate FiO2 02/26/17 12:48 72 18 104/60 100 Room Air 02/26/17 11:51 97 21 02/26/17 11:03 63 18 117/84 97 Room Air 02/26/17 08:50 67 18 112/63 100 Room Air 02/26/17 07:09 97.8 79 18 107/52 100 Room Air 02/26/17 07:09 80 18 100 Room Air Physical Exam GENERAL: This is a well-nourished, well-developed patient, in no apparent distress. skin; right periorbital edema HEAD: Atraumatic. Normocephalic. No temporal or scalp tenderness. EYES: Pupils equal round and reactive. Extraocular motions intact. No scleral icterus. No injection or drainage. ENT: Nose without bleeding, purulent drainage or septal hematoma. Throat without erythema, tonsillar hypertrophy or exudate. Uvula midline. Airway patent. NECK: Trachea midline. No JVD or lymphadenopathy. Supple, nontender, no meningeal signs. CARDIOVASCULAR: Regular rate and rhythm without murmurs, gallops, or rubs. RESPIRATORY: Clear to auscultation. Breath sounds equal bilaterally. No wheezes , rales, or rhonchi. GASTROINTESTINAL: Abdomen soft, non-tender, nondistended. No hepato-splenomegaly , or palpable masses. No guarding. MUSCULOSKELETAL: Extremities with bilateral pedal edema and swelling of both upper extremities NEUROLOGICAL: Awake and alert. Cranial nerves II through XII intact. Motor and sensory grossly within normal limits. Five out of 5 muscle strength in all muscle groups. Normal speech. Laboratory Laboratory Tests Test 02/26/17 02/26/17 02/26/17 07:15 07:20 08:00 Lactic Acid Level 3.4 White Blood Count 10.1 Red Blood Count 3.58 Hemoglobin 12.2 Hematocrit 38.0 Mean Corpuscular Volume 106.0 Mean Corpuscular Hemoglobin 34.2 Mean Corpuscular Hemoglobin 32.2 Concent Red Cell Distribution Width 13.5 Platelet Count 150 Mean Platelet Volume 8.5 Neutrophils (%) (Auto) 87.1 Lymphocytes (%) (Auto) 7.0 Monocytes (%) (Auto) 5.1 Eosinophils (%) (Auto) 0.1 Basophils (%) (Auto) 0.7 Neutrophils # (Auto) 8.8 Lymphocytes # (Auto) 0.7 Monocytes # (Auto) 0.5 Eosinophils # (Auto) 0.0 Basophils # (Auto) 0.1 CBC Comment DIFF FINAL Differential Comment Sodium Level 135 Potassium Level 4.9 Chloride Level 94 Carbon Dioxide Level 22.5 Anion Gap 19 Blood Urea Nitrogen 63 Creatinine 7.01 Estimat Glomerular Filtration 8 Rate Random Glucose 403 Calcium Level 8.5 Total Bilirubin 0.4 Direct Bilirubin 0.1 Indirect Bilirubin 0.3 Aspartate Amino Transf 21 (AST/SGOT) Alanine Aminotransferase 26 (ALT/SGPT) Alkaline Phosphatase 178 Troponin I 0.02 Total Protein 4.9 Albumin 1.9 Urine Color YELLOW Urine Turbidity HAZY Urine pH 8.0 Urine Specific [place] 1.012 Urine Protein 30 Urine Glucose (UA) 1000 Urine Ketones NEG Urine Occult Blood MOD Urine Nitrite NEG Urine Bilirubin NEG Urine Urobilinogen LESS THAN 2.0 Urine Leukocyte Esterase SMALL Urine RBC 35 Urine WBC 7 Urine Squamous Epithelial <1 Cells Urine Bacteria FEW Microscopic Urinalysis Comment CULT NOT INDICATED Date/Time Procedure Status Source Growth 02/26/17 07:40 Aerobic Blood Culture Received Blood Peripheral Pending 02/26/17 07:40 Anaerobic Blood Culture Received Blood Peripheral Pending Result Diagram: 02/26/1771902/26/17719 Imaging Last Impressions Upper Extremity Ultrasound 02/26/17 0000 Signed Impressions: Service Date/Time: Sunday, February 26, 2017 10:37 - CONCLUSION: 1. Nonocclusive thrombus within the left internal jugular vein. Remaining left upper extremity veins are patent. 2. No right upper extremity DVT is seen. Bruce Rossi MD Head CT 02/26/17 0000 Signed Impressions: Service Date/Time: Sunday, February 26, 2017 08:18 - CONCLUSION: Cerebral atrophy and chronic ischemic changes. Darren Soler MD Chest X-Ray 02/26/17 0000 Signed Impressions: Service Date/Time: Sunday, February 26, 2017 07:51 - CONCLUSION: No acute disease. Darren Soler MD EKG; sinus rhythm with no acute ST-T changes Assessment and Plan Assessment and Plan A/P - acute encephalopathy with history of CVA CT head with no acute abnormality- continue neuro-checks- will check carotid doppler and consult neurology. -ESRD- on HD ; consulted nephrology; HD per nephrology -upper extremity swelling; will check the venous doppler of the upper extremities. -hypertension; BP on low side; resume BB- hold amlodipine and hydralazine- continue to monitor and adjust the regimen as needed. -diabetes mellitus;uncontrolled; resume long acting insulin- start on accu- check with SSI -DVT prophylaxis with SCD's Discussed Condition With ER physician and the patient. Chey Pugh MD February 26, 2017 13:26
--- NOTE | 2017-02-26 18:01 | PD.CONS ---
History of Present Illness Service Neurology Consult Requested By medical Reason for Consult confusion Primary Care Physician Unknown History of Present Illness 51 y/o male with ESRD- on HD, diabetes was sent to ER from dialysis center because of altered mental status. glucose >400. he is currently in dialysis and feels better. he was sent in from [place] [facility]. bp 107/ 52. no fever, no leukocytosis. ct brain naicp. no mathews, no neck pain, no focal weakness, no vision loss. b12 nml 10/2016 Review of Systems as above and hp Past Family Social History Past Medical History ESRD-on HD diabetes mellitus hypertension history of CVA Past Surgical History appendectomy AVF placement Reported Medications Vancomycin Inj (Vancomycin HCl) 500 Mg Inj 125 Mg PO Q6H 18 Days take until January 05, 2017 Protonix (Pantoprazole Sodium) 40 Mg Tab 40 Mg PO BID Lisinopril 2.5 Mg Tab 2.5 Mg PO DAILY Metoprolol Tartrate 25 Mg Tab 25 Mg PO BID Levemir Inj (Insulin Detemir) 1,000 unit/ 10 ML Vial 5 Units SQ HS Reported Prochlorperazine Maleate 10 Mg Tab 10 Mg PO Q4H PRN Glucagon Inj 1 Mg/Ml Inj 1 Mg IM ONCE PRN Novolog Inj (Insulin Aspart) 1,000 Unit/10 Ml Vial 0 SQ DIRECTED Sliding Scale as directed. Nepro (Nutritional Supplements) 1 Liq Liq Tamsulosin (Tamsulosin HCl) 0.4 Mg Cap 0.4 Mg PO DAILY Renvela (Sevelamer Carbonate) 800 Mg Tab 800 Mg PO TID Furosemide 20 Mg Tab 20 Mg PO DAILY Folbee Plus (B-Complex W/ C & Folic Acid) 1 Tab 1 Tab PO DAILY Ferrous Sulfate 325 Mg Tab 325 Mg PO DAILY Escitalopram (Escitalopram Oxalate) 10 Mg Tab 10 Mg PO DAILY Bupropion HCl 75 Mg Tab 75 Mg PO TID Aspirin 81 Mg Chew 81 Mg CHEW DAILY Allergies: Coded Allergies: Bee Sting (Unverified Allergy, Severe, 11/04/16) Contrast Media (Unverified Allergy, Severe, 11/04/16) Social History smokes a few cigarettes a day. Review of Systems All other ROS: ROS reviewed as documented in chart Past Family Social History Allergies: Coded Allergies: Bee Sting (Unverified Allergy, Severe, 11/04/16) Contrast Media (Unverified Allergy, Severe, 11/04/16) Active Ordered Medications Current Medications Medications (Trade) Dose Ordered Sig/Mateo Route Start Time Stop Time Status Last Admin (D50w (Vial) Inj) 50 ml UNSCH PRN IV 02/26/17 09:30 (Glucagon Inj) 1 mg UNSCH PRN OTHER 02/26/17 09:30 Ondansetron HCl 4 mg 4 mg Q8H PRN IV PUSH 02/26/17 09:30 (NS 1000 ml Inj) 1,000 ml @ 0 mls/hr Q0M PRN IV 02/26/17 11:44 Heparin Sodium (Porcine) 8000 units 8,000 units UNSCH PRN IVF 02/26/17 11:45 Sodium Chloride 1,000 ml @ 200 mls/hr Q5H PRN IV 02/26/17 11:44 (NS 1000 ml Inj) 1,000 ml @ 0 mls/hr Q0M PRN IV 02/26/17 11:44 (Mannitol Inj) 12.5 gm UNSCH PRN IV 02/26/17 11:45 (Albumin 25% Inj) 25 gm UNSCH PRN IV 02/26/17 11:45 02/26/17 14:16 (NS Flush) 5 ml UNSCH PRN IV FLUSH 02/26/17 11:45 (Heparin Inj) UNSCH PRN .XX 02/26/17 11:45 (Gentamicin (Dialysis) Inj) 20 mg UNSCH PRN IV 02/26/17 11:45 (Zofran Inj) 4 mg UNSCH PRN IV 02/26/17 11:45 (Tylenol) 650 mg UNSCH PRN PO 02/26/17 11:45 (Benadryl) 25 mg UNSCH PRN PO 02/26/17 11:45 (Nitrostat Sl) 0.4 mg UNSCH PRN SL 02/26/17 11:45 (Catapres) 0.1 mg UNSCH PRN PO 02/26/17 11:45 (Gelfoam 12 Mm/7 Mm Top) 1 foam UNSCH PRN TOP 02/26/17 11:45 (Aspirin Chew) 81 mg DAILY PO 02/27/17 09:00 (Cardura) 2 mg HS PO 02/26/17 21:00 (Ferrous Sulfate) 325 mg DAILY PO 02/27/17 09:00 (Lasix) 20 mg DAILY PO 02/27/17 09:00 (Levemir Inj) 10 units HS SQ 02/26/17 21:00 (Lopressor) 75 mg BID PO 02/26/17 21:00 (Protonix) 40 mg BID PO 02/26/17 21:00 (Renvela) 800 mg TID PO 02/26/17 18:00 (Nephrocaps) 1 cap DAILY PO 02/27/17 09:00 Exam I&O / VS Vital Signs Date Time Temp Pulse Resp B/P Pulse Ox O2 Delivery O2 Flow Rate FiO2 02/26/17 12:48 72 18 104/60 100 Room Air 02/26/17 11:51 97 21 02/26/17 11:03 63 18 117/84 97 Room Air 02/26/17 08:50 67 18 112/63 100 Room Air 02/26/17 07:09 97.8 79 18 107/52 100 Room Air 02/26/17 07:09 80 18 100 Room Air General: Alert and Oriented, No acute distress Eye: EOMI Respiratory: Non-labored respirations Neurologic: Alert, Oriented Psychiatric: Cooperative, Appropriate mood & affect Exam Comments alert, getting hd, ox 1-2, not to date, follows, eomi, vff face sym, traore to gravity with slow distal ext movements, moderate edema in ue and le, le reduced pin in stocking distribution, no clonus, planterflexor Review/Management Diagnosis/Plan: (1) Encephalopathy, metabolic Plan: improved appears 2/2 hyperglycemia/metabolic r/o infarct recs mri/mra brain glucose control follow exam (2) Benign hypertension Plan: bp control (3) Cervical spondylosis Plan: check mri cspine, r/o cord lesion with weakness and hx of fall Problem Qualifiers (1) Cervical spondylosis: Qualified Code: M47.812 - Osteoarthritis of cervical spine, unspecified spinal osteoarthritis complication status Daryn Edwards MD February 26, 2017 18:01
[2017-02-26] MEDS: SEVELAMER CARBONATE 800 MG TAB PO SCH (20:04)
--- NOTE | 2017-02-26 20:12 | EKG ---
Date Performed: 02/26/2017 Time Performed: 07:25:05 PTAGE: 51 years EKG: Sinus rhythm LOW QRS VOLTAGE IN EXTREMITY LEADS BORDERLINE ECG PREVIOUS TRACING : 07/02/2015 15.20 Compared to prior tracing no significant change DOCTOR: Kenneth Kahn Interpretating Date/Time 02/26/2017 20:11:25
--- NOTE | 2017-02-26 20:23 | RADRPT ---
EXAM DATE/TIME: 02/26/2017 19:44 [facility] COMPARISON: No previous studies available for comparison. INDICATIONS : Cerebrovascular accident. MEDICAL HISTORY : Hypertension. Myocardial infarction. Gastroesophageal reflux disease. Left AVF. Diabetic. ESRD. CVA. Hyperparathyroid. Anemia renal disease. SURGICAL HISTORY : Appendectomy. Left arm AV fistula. ENCOUNTER: Initial ACUITY: 1 day PAIN SCORE: 0/10 LOCATION: Bilateral neck PEAK SYSTOLIC VELOCITIES (cm/sec): ICA/CCA RATIO: Right: 0.9 Left: 0.9 ICA: Right: 71 Left: 83 CCA: Right: 82 Left: 91 ECA: Right: 82 Left: 72 VERTEBRAL: Right: 33 antegrade Left: 34 antegrade Elevated flow velocities and ICA/CCA ratios have been found to correlate with increased degrees of vessel stenosis, calculated as percentage of diameter relative to a normal segment of distal ICA/CCA FINDINGS: RIGHT CAROTID: Calcified plaque is noted in the carotid artery and bulb and internal carotid artery with areas of po sterior shadowing. The waveforms are within normal limits. LEFT CAROTID: Calcified plaque is noted in the carotid artery and bulb as well as the internal carotid arteries. Th e waveforms are within normal limits. VERTEBRAL ARTERIES: Antegrade flow is seen in both vertebral arteries. MISCELLANEOUS: Nonocclusive deep venous thrombosis is noted in the left jugular vein. CONCLUSION: 1. Nonocclusive thrombus was noted in the left jugular vein. 2. Bilateral calcified plaque in both carotid systems with less than 40% diameter stenosis by velocit y criteria. Monster Navarro MD on February 26, 2017 at 20:20 Board Certified Radiologist. This report was verified electronically.
[2017-02-26] MEDS ORDERED: DOXAZOSIN MESYLATE 2 MG TAB PO SCH (21:00)
[2017-02-26] MEDS ORDERED: INSULIN DETEMIR 100 UNITS/ML VIAL SQ SCH (21:00)
[2017-02-26] MEDS ORDERED: METOPROLOL TARTRATE 25 MG TAB PO SCH (21:00)
--- NOTE | 2017-02-26 21:10 | RADRPT ---
EXAM DATE/TIME: 02/26/2017 20:36 [facility] COMPARISON: CT BRAIN W/O CONTRAST, February 26, 2017, 8:18. INDICATIONS : CVA. Altered mental status and lethargy. MEDICAL HISTORY : Hypertension. Gastroesophageal reflux disease. Myocardial infarction. Diabetes. Renal disease. SURGICAL HISTORY : Left AV fistula. ENCOUNTER: Subsequent ACUITY: 1 day PAIN SCORE: 5/10 LOCATION: cranial TECHNIQUE: Multiplanar, multisequence MRI of the brain was performed without contrast. FINDINGS: CEREBRUM: There is diffuse moderate to severe atrophic change with sulcal and ventricular prominence. No eviden ce of midline shift, mass lesion, hemorrhage or acute infarction. No extraaxial fluid collections ar e seen. The pituitary gland and suprasellar cistern are normal in configuration. WHITE MATTER: On the flair weighted images there is increased signal in the centrum semiovale and periventricular w gwyn matter consistent with chronic small vessel ischemic change. There are old lacunar infarcts in t he basal ganglia. POSTERIOR FOSSA: There are old lacunar infarcts in the roberth. The 4th ventricle is midline. The cerebellopontine angle is unremarkable. There is diffuse cerebellar atrophy. DIFFUSION IMAGING: No focal areas of restricted diffusion are seen. No evidence of acute infarction. EXTRACRANIAL: The visualized portions of the orbits and paranasal sinuses are unremarkable. CONCLUSION: 1. No acute hemorrhage, mass or stroke. 2. Severe atrophic change and chronic small vessel ischemic changes. 3. Old lacunar infarcts. 4. Cerebellar atrophy. Monster Navarro MD on February 26, 2017 at 21:06 Board Certified Radiologist. This report was verified electronically.
--- NOTE | 2017-02-26 21:38 | RADRPT ---
EXAM DATE/TIME: 02/26/2017 20:36 [facility] COMPARISON: No previous studies available for comparison. INDICATIONS : Myelopathy. Altered mental status and lethargy. Cerebral atrophy. MEDICAL HISTORY : Gastroesophageal reflux disease. Hypertension. Myocardial infarction. Diabetes. Renal disease. SURGICAL HISTORY : Left AV shunt. ENCOUNTER: Subsequent ACUITY: 1 day PAIN SCORE: 5/10 LOCATION: neck TECHNIQUE: Multiplanar, multisequence MRI examination of the cervical spine was performed. FINDINGS: Patient's head is turned to the left. VERTEBRAE: Normal vertebral body height. Homogeneous marrow signal. ALIGNMENT: There is a grade 1 anterior spondylolisthesis of C4 on C5 of approximately 3-4 mm. CORD: Normal configuration and signal. POST FOSSA: The cerebellar tonsils are normal in position. C2-C3: The thecal sac has a normal configuration. There is no evidence of disc herniation or spinal canal s tenosis. The neural foramina are patent bilaterally. C3-C4: The thecal sac has a normal configuration. There is no evidence of disc herniation or spinal canal s tenosis. The neural foramina are patent bilaterally. C4-C5: There is a minimal disc bulge with mild flattening of the anterior thecal sac. Degenerative changes a re noted involving the right facet joint with hypertrophy and moderate narrowing of the neural forami na. There is no evidence of disc herniation or spinal canal stenosis. The left neuroforamina remains patent. C5-C6: The thecal sac has a normal configuration. There is no evidence of disc herniation or spinal canal s tenosis. The neural foramina are patent bilaterally. C6-C7: The thecal sac has a normal configuration. There is no evidence of disc herniation or spinal canal s tenosis. The neural foramina are patent bilaterally. C7-T1: The thecal sac has a normal configuration. There is no evidence of disc herniation or spinal canal s tenosis. The neural foramina are patent bilaterally. CONCLUSION: 1. Grade 1 anterior spondylolisthesis of C4 on C5 with 3-4 mm. 2. Mild disc bulge at C4-5 with minimal flattening of the anterior thecal sac. 3. Degenerative changes involving the right C4-5 facet joint with hypertrophy and moderate narrowing of the right neural foramina. 4. The cervical cord is intact. Monster Navarro MD on February 26, 2017 at 21:31 Board Certified Radiologist. This report was verified electronically.
[2017-02-26] MEDS: PANTOPRAZOLE SOD 40 MG DELAYED RELEASE TAB PO SCH (22:10)
--- NOTE | 2017-02-26 22:56 | RADRPT ---
EXAM DATE/TIME: 02/26/2017 20:36 [facility] COMPARISON: No previous studies available for comparison. INDICATIONS : Altered mental status and lethargy. MEDICAL HISTORY : Hypertension. Gastroesophageal reflux disease. Myocardial infarction. Diabetes. Renal disease. SURGICAL HISTORY : Left AV shunt. ENCOUNTER: Subsequent ACUITY: 1 day PAIN SCORE: 5/10 LOCATION: Cranial Please note a normal MRA of the brain does not entirely exclude the possibility of a small aneurysm, nor the possibility of distal intracranial vessel disease. TECHNIQUE: 3D time of flight MRA was performed. Source images, multiplanar STS MIP, and 3D volume MIP reconstru ctions were reviewed. FINDINGS: There is excellent visualization of the major intracranial arteries out to the second-order branch ve ssels. There is no evidence for aneurysm, vessel truncation or stenosis, and no evidence for vascula r malformation. CONCLUSION: Unremarkable exam. Monster Navarro MD on February 26, 2017 at 21:29 Board Certified Radiologist. This report was verified electronically.
[2017-02-27] VITALS (8 sets, daily range): BP systolic 73–104; BP diastolic 52–69; PULSE 16–81; RESP 16–18; TEMP 96.3–97.4; O2SAT 96–100
[2017-02-27] MEDS: INSULIN ASPART SUPPLEMENTAL SCALE SQ SCH ×3 (06:03→18:23)
[2017-02-27] MEDS: DEXTROSE 50% IN WATER 50 ML VIAL(D50) IV PRN ×2 (06:04→07:41)
[2017-02-27 06:42] LABS: HEMATOCRIT 30.8 % (39.0-51.0); MEAN CELL VOLUME 104.8 FL (80.0-100.0); MEAN CORPUSCULAR HEMOGLOBIN 34.3 PG (27.0-34.0); MEAN CORPUSCULAR HGB CONC 32.7 % (32.0-36.0); PLATELET COUNT 102 TH/MM3 (150-450); RED BLOOD COUNT 2.94 MIL/MM3 (4.50-5.90); RED CELL DISTRIBUTION WIDTH 13.2 % (11.6-17.2); REVIEW FLAG FINAL; WHITE BLOOD COUNT 7.1 TH/MM3 (4.0-11.0)
[2017-02-27 07:07] LABS: POTASSIUM 3.6 MEQ/L (3.5-5.1)
--- NOTE | 2017-02-27 08:15 | HHI.PR ---
Review/Management Diagnosis/Plan: (1) DVT (deep venous thrombosis) Plan: +non-occluive thrombus in left jugular medical to tx (2) Encephalopathy, metabolic Plan: improved appears 2/2 hyperglycemia/metabolic brittle dm; glucose 40's this am recs mri/mra brain-negative for acute infarct glucose control no driving neuro sign off (3) Benign hypertension Plan: bp control (4) Cervical spondylosis Plan: check mri cspine- no cord lesion p.t., posture, outpatient f/u Subjective Subjective Comments glucose drops No headache No chest pain No dyspnea Active Medications Current Medications Medications (Trade) Dose Ordered Sig/Mateo Route Start Time Stop Time Status Last Admin (D50w (Vial) Inj) 50 ml UNSCH PRN IV 02/26/17 09:30 02/27/17 07:41 (Glucagon Inj) 1 mg UNSCH PRN OTHER 02/26/17 09:30 Ondansetron HCl 4 mg 4 mg Q8H PRN IV PUSH 02/26/17 09:30 (NS 1000 ml Inj) 1,000 ml @ 0 mls/hr Q0M PRN IV 02/26/17 11:44 Heparin Sodium (Porcine) 8000 units 8,000 units UNSCH PRN IVF 02/26/17 11:45 Sodium Chloride 1,000 ml @ 200 mls/hr Q5H PRN IV 02/26/17 11:44 (NS 1000 ml Inj) 1,000 ml @ 0 mls/hr Q0M PRN IV 02/26/17 11:44 (Mannitol Inj) 12.5 gm UNSCH PRN IV 02/26/17 11:45 (Albumin 25% Inj) 25 gm UNSCH PRN IV 02/26/17 11:45 02/26/17 14:16 (NS Flush) 5 ml UNSCH PRN IV FLUSH 02/26/17 11:45 (Heparin Inj) UNSCH PRN .XX 02/26/17 11:45 (Gentamicin (Dialysis) Inj) 20 mg UNSCH PRN IV 02/26/17 11:45 (Zofran Inj) 4 mg UNSCH PRN IV 02/26/17 11:45 (Tylenol) 650 mg UNSCH PRN PO 02/26/17 11:45 (Benadryl) 25 mg UNSCH PRN PO 02/26/17 11:45 (Nitrostat Sl) 0.4 mg UNSCH PRN SL 02/26/17 11:45 (Catapres) 0.1 mg UNSCH PRN PO 02/26/17 11:45 (Gelfoam 12 Mm/7 Mm Top) 1 foam UNSCH PRN TOP 02/26/17 11:45 (Aspirin Chew) 81 mg DAILY PO 02/27/17 09:00 (Cardura) 2 mg HS PO 02/26/17 21:00 02/26/17 22:10 (Ferrous Sulfate) 325 mg DAILY PO 02/27/17 09:00 (Lasix) 20 mg DAILY PO 02/27/17 09:00 (Levemir Inj) 10 units HS SQ 02/26/17 21:00 02/26/17 22:09 (Lopressor) 75 mg BID PO 02/26/17 21:00 02/26/17 22:10 (Protonix) 40 mg BID PO 02/26/17 21:00 02/26/17 22:10 (Renvela) 800 mg TID PO 02/26/17 18:00 02/26/17 20:04 (Nephrocaps) 1 cap DAILY PO 02/27/17 09:00 Allergies Allergies Coded Allergies Bee Sting (Unverified Allergy, Severe, 11/04/16) Contrast Media (Unverified Allergy, Severe, 11/04/16) Review of Systems All other ROS: ROS reviewed as documented in chart Exam I&O / VS 02/26/17 02/26/17 02/27/17 15:00 23:00 07:00 Output Total 1000 ml Balance -1000 ml Output Hemodialysis 1000 ml Vital Signs Date Time Temp Pulse Resp B/P Pulse Ox O2 Delivery O2 Flow Rate FiO2 02/27/17 08:06 84/52 Automatic Cuff 02/27/17 07:57 21 02/27/17 04:00 97.1 81 17 100/69 99 02/27/17 00:00 97.2 73 18 97/55 98 02/26/17 20:00 96.3 90 17 111/62 98 02/26/17 18:30 97.6 74 13 109/56 100 02/26/17 12:48 72 18 104/60 100 Room Air 02/26/17 11:51 97 21 02/26/17 11:03 63 18 117/84 97 Room Air 02/26/17 08:50 67 18 112/63 100 Room Air General: Alert and Oriented, No acute distress Eye: EOMI Respiratory: Non-labored respirations Neurologic: Alert, Oriented Psychiatric: Cooperative, Appropriate mood & affect Exam Comments alert, ox 1-2, not to date, follows, hypophonic speech, eomi, vff face sym, traore to gravity with slow distal ext movements, moderate edema in ue and le, le reduced pin in stocking distribution, Objective Micro and Labs Laboratory Tests Test 02/27/17 05:15 White Blood Count 7.1 Red Blood Count 2.94 Hemoglobin 10.1 Hematocrit 30.8 Mean Corpuscular Volume 104.8 Mean Corpuscular Hemoglobin 34.3 Mean Corpuscular Hemoglobin 32.7 Concent Red Cell Distribution Width 13.2 Platelet Count 102 Mean Platelet Volume 8.5 Sodium Level 139 Potassium Level 3.6 Chloride Level 98 Carbon Dioxide Level 31.0 Anion Gap 10 Blood Urea Nitrogen 41 Creatinine 4.93 Estimat Glomerular Filtration 12 Rate Random Glucose 45 Calcium Level 8.0 Phosphorus Level 4.0 Albumin 1.7 Date/Time Procedure Status Source Growth 02/26/17 07:40 Aerobic Blood Culture Received Blood Peripheral Pending 02/26/17 07:40 Anaerobic Blood Culture Received Blood Peripheral Pending Problem Qualifiers (1) DVT (deep venous thrombosis): Qualified Code: I82.90 - Deep vein thrombosis (DVT) of non-extremity vein, unspecified chronicity (2) Cervical spondylosis: Qualified Code: M47.812 - Osteoarthritis of cervical spine, unspecified spinal osteoarthritis complication status Daryn Edwards MD February 27, 2017 08:15
--- NOTE | 2017-02-27 08:36 | HHI.PR ---
Subjective Remarks in no acute distress. denies pain, dizziness. noted that his BP was on low side. had hypoglycemic episode earlier this morning for which he received dextrose. d/w the RN. Objective Vitals Vital Signs Date Time Temp Pulse Resp B/P Pulse Ox O2 Delivery O2 Flow Rate FiO2 02/27/17 08:06 84/52 Automatic Cuff 02/27/17 07:57 21 02/27/17 04:00 97.1 81 17 100/69 99 02/27/17 00:00 97.2 73 18 97/55 98 02/26/17 20:00 96.3 90 17 111/62 98 02/26/17 18:30 97.6 74 13 109/56 100 02/26/17 12:48 72 18 104/60 100 Room Air 02/26/17 11:51 97 21 02/26/17 11:03 63 18 117/84 97 Room Air 02/26/17 08:50 67 18 112/63 100 Room Air I/O 02/26/17 02/26/17 02/26/17 02/27/17 02/27/17 02/27/17 07:00 15:00 23:00 07:00 15:00 23:00 Output Total 1000 ml Balance -1000 ml Output Hemodialysis 1000 ml Result Diagram: 02/27/17 0515 02/27/17 0515 Imaging Last Impressions Upper Extremity Ultrasound 02/26/17 0000 Signed Impressions: Service Date/Time: Sunday, February 26, 2017 10:37 - CONCLUSION: 1. Nonocclusive thrombus within the left internal jugular vein. Remaining left upper extremity veins are patent. 2. No right upper extremity DVT is seen. Bruce Rossi MD Head CT 02/26/17 0000 Signed Impressions: Service Date/Time: Sunday, February 26, 2017 08:18 - CONCLUSION: Cerebral atrophy and chronic ischemic changes. Darren Soler MD Chest X-Ray 02/26/17 0000 Signed Impressions: Service Date/Time: Sunday, February 26, 2017 07:51 - CONCLUSION: No acute disease. Darren Soler MD Cervical Spine MRI 02/26/17 0000 Signed Impressions: Service Date/Time: Sunday, February 26, 2017 20:36 - CONCLUSION: 1. Grade 1 anterior spondylolisthesis of C4 on C5 with 3-4 mm. 2. Mild disc bulge at C4-5 with minimal flattening of the anterior thecal sac. 3. Degenerative changes involving the right C4-5 facet joint with hypertrophy and moderate narrowing of the right neural foramina. 4. The cervical cord is intact. Monster Navarro MD Carotid Artery Ultrasound 02/26/17 0000 Signed Impressions: Service Date/Time: Sunday, February 26, 2017 19:44 - CONCLUSION: 1. Nonocclusive thrombus was noted in the left jugular vein. 2. Bilateral calcified plaque in both carotid systems with less than 40%% diameter stenosis by velocity criteria. Monster Navarro MD Brain MRI 02/26/17 0000 Signed Impressions: Service Date/Time: Sunday, February 26, 2017 20:36 - CONCLUSION: 1. No acute hemorrhage, mass or stroke. 2. Severe atrophic change and chronic small vessel ischemic changes. 3. Old lacunar infarcts. 4. Cerebellar atrophy. Monster Navarro MD Objective Remarks GENERAL: in no apparent distress. CARDIOVASCULAR: Regular rate and regular rhythm without murmurs, gallops, or rubs. RESPIRATORY: Clear to auscultation. Breath sounds equal bilaterally. No wheezes , rales, or rhonchi. GASTROINTESTINAL: Abdomen soft, non-tender, nondistended. Normal, active bowel sounds MUSCULOSKELETAL: Extremities with bilateral upper extremity edema NEURO: Alert & Oriented x4 to person, place, time, situation. Moves all ext x4 Medications and IVs Current Medications Insulin Aspart (NovoLOG INJ) 10 units ONCE ONCE SQ Last administered on 08:48; Start 02/26/17 at 08:45; Stop 02/26/17 at 08:46; Status DC Dextrose (D50w (Vial) Inj) 50 ml UNSCH PRN IV HYPOGLYCEMIA-SEE COMMENTS Last administered on 02/27/17 07:41; Start 02/26/17 at 09:30 Glucagon (Glucagon Inj) 1 mg UNSCH PRN OTHER HYPOGLYCEMIA-SEE COMMENTS; Start 02/26/17 at 09:30 Insulin Aspart (NovoLOG SUPPLEMENTAL SCALE) 1 ACHS SLIDING SCALE SQ Last administered on 02/26/17 22:09; Start 02/26/17 at 11:00 Ondansetron HCl 4 mg 4 mg Q8H PRN IV PUSH NAUSEA; Start 02/26/17 at 09:30 Sodium Chloride (NS 1000 ml Inj) 1,000 ml @ 0 mls/hr Q0M PRN IV For Prime & Rinse Back; Start 02/26/17 at 11:44 Heparin Sodium (Porcine) 8000 units 8,000 units UNSCH PRN IVF WITH DIALYSIS; Start 02/26/17 at 11:45 Sodium Chloride 1,000 ml @ 200 mls/hr Q5H PRN IV WITH DIALYSIS; Start 02/26/17 at 11:44 Sodium Chloride (NS 1000 ml Inj) 1,000 ml @ 0 mls/hr Q0M PRN IV WITH DIALYSIS; Start 02/26/17 at 11:44 Mannitol (Mannitol Inj) 12.5 gm UNSCH PRN IV WITH DIALYSIS; Start 02/26/17 at 11:45 Albumin Human (Albumin 25% Inj) 25 gm UNSCH PRN IV WITH DIALYSIS Last administered on 02/26/17t 14:16; Start 02/26/17 at 11:45 Sodium Chloride (NS Flush) 5 ml UNSCH PRN IV FLUSH WITH DIALYSIS; Start at 11:45 Heparin Sodium (Porcine) (Heparin Inj) UNSCH PRN .XX WITH DIALYSIS; Start at 11:45 Gentamicin Sulfate (Gentamicin (Dialysis) Inj) 20 mg UNSCH PRN IV WITH DIALYSIS ; Start 02/26/17 at 11:45 Ondansetron HCl (Zofran Inj) 4 mg UNSCH PRN IV WITH DIALYSIS; Start 02/26/17 at 11:45 Acetaminophen (Tylenol) 650 mg UNSCH PRN PO for headach, pain, temp > 101F; Start 02/26/17 at 11:45 Diphenhydramine HCl (Benadryl) 25 mg UNSCH PRN PO for hives/itching/anaphylaxis ; Start 02/26/17 at 11:45 Nitroglycerin (Nitrostat Sl) 0.4 mg UNSCH PRN SL CHEST PAIN; Start 02/26/17 at 11:45 Clonidine (Catapres) 0.1 mg UNSCH PRN PO for BP > 180/100 X 2 readings; Start 02/26/17 at 11:45 Gelatin (Gelfoam 12 Mm/7 Mm Top) 1 foam UNSCH PRN TOP SEE LABEL COMMENTS; Start 02/26/17 at 11:45 Aspirin (Aspirin Chew) 81 mg DAILY PO ; Start 02/27/17 at 09:00 Doxazosin Mesylate (Cardura) 2 mg HS PO Last administered on 02/26/17 22:10; Start 02/26/17 at 21:00 Ferrous Sulfate (Ferrous Sulfate) 325 mg DAILY PO ; Start 02/27/17 at 09:00 Furosemide (Lasix) 20 mg DAILY PO ; Start 02/27/17 at 09:00 Insulin Detemir (Levemir Inj) 10 units HS SQ Last administered on 02/26/17 22: 09; Start 02/26/17 at 21:00 Metoprolol Tartrate (Lopressor) 75 mg BID PO Last administered on 02/26/17 22: 10; Start 02/26/17 at 21:00 Pantoprazole Sodium (Protonix) 40 mg BID PO Last administered on 02/26/17 22: 10; Start 02/26/17 at 21:00 Sevelamer Carbonate (Renvela) 800 mg TID PO Last administered on 02/26/17 20: 04; Start 02/26/17 at 18:00 Vitamin B Complex/ Vit C/Folic Acid (Nephrocaps) 1 cap DAILY PO NS; Start at 09:00 Pantoprazole Sodium (Protonix) 20 mg DAILY PO ; Start 02/27/17 at 09:00; Stop at 09:00; Status DC A/P Assessment and Plan A/P - acute encephalopathy with history of CVA-now seems to be at his baseline CT and MRI brain with no acute abnormality- cardotid doppler with no significant stenosis. neurology consult appreciated; neurology has signed off. -ESRD- on HD ; consulted nephrology; HD per nephrology -left internal jugular vein thrombosis with left AVF- consider anticoagulation- awaiting nephrology follow-up. -hypertension; BP on low side; hold BB- continue to hold amlodipine and hydralazine- continue to monitor and adjust the regimen as needed. -brittle diabetes mellitus with hypoglycemic episodes; decrease the levemir- will adjust the insulin sliding scale coverage- continue to monitor the blood sugar closely. -DVT prophylaxis with SCD's Chey Pugh MD February 27, 2017 08:36
[2017-02-27] MEDS ORDERED: DEXTROSE 50% IN WATER 50 ML VIAL(D50) IV PRN (08:45)
[2017-02-27] MEDS ORDERED: GLUCAGON 1 MG/ML VIAL OTHER PRN (08:45)
[2017-02-27] MEDS ORDERED: PANTOPRAZOLE SOD 20 MG DELAYED RELEASE TAB PO SCH (09:00)
[2017-02-27] MEDS ORDERED: FUROSEMIDE 20 MG TAB PO SCH (09:00)
[2017-02-27 09:02] LABS: BICARBONATE 31.6 MEQ/L (21.0-32.0); POTASSIUM 3.9 MEQ/L (3.5-5.1)
[2017-02-27] MEDS: SEVELAMER CARBONATE 800 MG TAB PO SCH ×3 (10:10→18:20)
[2017-02-27] MEDS: PANTOPRAZOLE SOD 40 MG DELAYED RELEASE TAB PO SCH ×2 (10:10→23:36)
[2017-02-27] MEDS: VITAMIN B CMPLX/VITC/FOLIC AC CAP PO SCH (10:10)
[2017-02-27] MEDS: ASPIRIN 81 MG CHEW TAB PO SCH (10:10)
[2017-02-27] MEDS: FERROUS SULFATE 325 MG (65 MG ELEMENTAL IRON) TAB PO SCH (10:11)
--- NOTE | 2017-02-27 17:02 | HHI.NPPN ---
Subjective History of Present Illness The patient is a 51 yo [place] male who is known to our services for ESRD on HD TTSS. He came to the outpatient unit this AM with altered mental status and worsening of R eye swelling and pain. He was sent to this facility via [facility] for further evaluation. Glucose on arrival was >400. States he is not feeling well---facial pain, weakness. Head CT and CXR reviewed and showed no acute process. He is known for brittle diabetes and has been hospitalized many times in the past for the same. Has L AVF. Denies any NVDC. Appetite good. Of note, fell in [facility] last week and hit his head. No LOC that I am aware of. According to outpatient dialysis nurse, he has been in his normal state of health until he arrived this AM Interval History Pt looking and feeling much better today. HD yesterday with only 1L UF as BP low. 1 episode of diarrhea today---screening for C. diff. States appetite good. Objective Data Data 02/26/17 02/27/17 19:00 07:00 Output Total 1000 ml Balance -1000 ml Hemodialysis 1000 ml Vital Signs Date Time Temp Pulse Resp B/P Pulse Ox O2 Delivery O2 Flow Rate FiO2 02/27/17 16:42 97.4 69 16 104/66 100 02/27/17 12:50 96.3 16 16 92/57 100 02/27/17 10:17 92/52 02/27/17 08:46 96.6 65 16 73/55 96 88/55 02/27/17 08:06 84/52 Automatic Cuff 02/27/17 07:57 21 02/27/17 04:00 97.1 81 17 100/69 99 02/27/17 00:00 97.2 73 18 97/55 98 02/26/17 20:00 96.3 90 17 111/62 98 02/26/17 18:30 97.6 74 13 109/56 100 -: 02/27/17 0515 02/27/17 0811 Medication Review Current Medications Medications (Trade) Dose Ordered Sig/Mateo Route Start Time Stop Time Status Last Admin Ondansetron HCl 4 mg 4 mg Q8H PRN IV PUSH 02/26/17 09:30 (NS 1000 ml Inj) 1,000 ml @ 0 mls/hr Q0M PRN IV 02/26/17 11:44 Heparin Sodium (Porcine) 8000 units 8,000 units UNSCH PRN IVF 02/26/17 11:45 Sodium Chloride 1,000 ml @ 200 mls/hr Q5H PRN IV 02/26/17 11:44 (NS 1000 ml Inj) 1,000 ml @ 0 mls/hr Q0M PRN IV 02/26/17 11:44 (Mannitol Inj) 12.5 gm UNSCH PRN IV 02/26/17 11:45 (Albumin 25% Inj) 25 gm UNSCH PRN IV 02/26/17 11:45 02/26/17 14:16 (NS Flush) 5 ml UNSCH PRN IV FLUSH 02/26/17 11:45 (Heparin Inj) UNSCH PRN .XX 02/26/17 11:45 (Gentamicin (Dialysis) Inj) 20 mg UNSCH PRN IV 02/26/17 11:45 (Zofran Inj) 4 mg UNSCH PRN IV 02/26/17 11:45 (Tylenol) 650 mg UNSCH PRN PO 02/26/17 11:45 (Benadryl) 25 mg UNSCH PRN PO 02/26/17 11:45 (Nitrostat Sl) 0.4 mg UNSCH PRN SL 02/26/17 11:45 (Catapres) 0.1 mg UNSCH PRN PO 02/26/17 11:45 (Gelfoam 12 Mm/7 Mm Top) 1 foam UNSCH PRN TOP 02/26/17 11:45 (Aspirin Chew) 81 mg DAILY PO 02/27/17 09:00 02/27/17 10:10 (Cardura) 2 mg HS PO 02/26/17 21:00 02/26/17 22:10 (Ferrous Sulfate) 325 mg DAILY PO 02/27/17 09:00 02/27/17 10:11 (Lasix) 20 mg DAILY PO 02/27/17 09:00 (Lopressor) 75 mg BID PO 02/26/17 21:00 Hold 02/26/17 22:10 (Protonix) 40 mg BID PO 02/26/17 21:00 02/27/17 10:10 (Renvela) 800 mg TID PO 02/26/17 18:00 02/27/17 14:27 (Nephrocaps) 1 cap DAILY PO 02/27/17 09:00 02/27/17 10:10 (Levemir Inj) 5 units HS SQ 02/27/17 21:00 (D50w (Vial) Inj) 50 ml UNSCH PRN IV 02/27/17 08:45 (Glucagon Inj) 1 mg UNSCH PRN OTHER 02/27/17 08:45 Physical Exam General Appearance: No Acute Distress Eyes Eye Remarks Ecchymosis present R eye, but swelling much improved. Pulmonary Resp Exam: Clear Bilaterally, Breath Sounds Equal Cardiology CV Exam: Regular, Normal Sinus Rhythm Gastrointestinal/Abdomen GI Exam: Soft, Non-Tender Integumentary Skin Exam: Clear, Warm Extremeties Extremities Exam: No Edema Neurologic Neuro Exam: Alert, Awake, Oriented Psychiatric Psych Exam: Appropriate Responses Assessment/Plan Problem List: (1) ESRD (end stage renal disease) Plan: To continue on HD TTS as per outpatient schedule. UE edema much improved. US reviewed and shows nonocclusive thrombus in LIJ. Uncertain if this is chronic. Will defer to primary care in regards to need for anticoagulation. Medications should be adjusted for the patient's ESRD. Avoid gadolinium. (2) Benign hypertension Plan: BP has been low in house Hold Lasix and Doxazosin. May need Midodrine with HD--monitor for now. (3) Hyperglycemia Plan: Mgmt as per primary (4) Facial trauma Plan: CT reviewed. Periorbital swelling significant. Defer to primary (5) Hypoalbuminemia Plan: Unclear if related to malnutrition versus other. LFTs normal Check liver US in the AM. Alk phos elevated. Will check bone specific AP to help discern etiology. Stella Faulkner February 27, 2017 17:02
[2017-02-27 17:58] LABS: C. DIFF EPI 027 PRESUMPTIVE POSITIVE (NEGATIVE); C. DIFF TOXIN PCR POSITIVE (NEGATIVE)
[2017-02-27] MEDS ORDERED: INSULIN DETEMIR 100 UNITS/ML VIAL SQ SCH (21:00)
[2017-02-27] MEDS: metroNIDAZOLE 500 MG INJ 100 ML IV SCH (23:36)
[2017-02-28] VITALS: BP 97/53; PULSE 75; RESP 16; TEMP 96.9; O2SAT 93
[2017-02-28] MEDS: INSULIN ASPART SUPPLEMENTAL SCALE SQ SCH ×4 (00:07→18:51)
[2017-02-28 04:00] VITALS: BP 95/58; PULSE 71; RESP 18; TEMP 97.1; O2SAT 94
[2017-02-28] MEDS: metroNIDAZOLE 500 MG INJ 100 ML IV SCH (05:36)
[2017-02-28 07:35] LABS: HEMATOCRIT 32.6 % (39.0-51.0); MEAN CELL VOLUME 104.3 FL (80.0-100.0); MEAN CORPUSCULAR HEMOGLOBIN 34.9 PG (27.0-34.0); MEAN CORPUSCULAR HGB CONC 33.4 % (32.0-36.0); PLATELET COUNT 131 TH/MM3 (150-450); RED BLOOD COUNT 3.13 MIL/MM3 (4.50-5.90); RED CELL DISTRIBUTION WIDTH 13.4 % (11.6-17.2); REVIEW FLAG FINAL; WHITE BLOOD COUNT 7.4 TH/MM3 (4.0-11.0)
[2017-02-28 08:16] LABS: BICARBONATE 28.8 MEQ/L (21.0-32.0); POTASSIUM 4.2 MEQ/L (3.5-5.1)
[2017-02-28 08:33] VITALS: BP 109/56; PULSE 77; RESP 18; TEMP 96.3; O2SAT 97
[2017-02-28 09:17] LABS: TOTAL PROTEIN SPE 4.4 GM/DL (6.0-7.6)
[2017-02-28 09:48] LABS: KAPPA LAMBDA RATIO 1.47 (1.57-3.93)
[2017-02-28] MEDS: SEVELAMER CARBONATE 800 MG TAB PO SCH ×3 (10:06→18:43)
[2017-02-28] MEDS: FERROUS SULFATE 325 MG (65 MG ELEMENTAL IRON) TAB PO SCH (10:06)
[2017-02-28] MEDS: VITAMIN B CMPLX/VITC/FOLIC AC CAP PO SCH (10:06)
[2017-02-28] MEDS: PANTOPRAZOLE SOD 40 MG DELAYED RELEASE TAB PO SCH (10:06)
[2017-02-28] MEDS: VANCOMYCIN 500 MG VIAL (FOR ORAL USE ONLY) PO SCH ×3 (10:06→18:43)
[2017-02-28] MEDS: ASPIRIN 81 MG CHEW TAB PO SCH (10:06)
[2017-02-28 11:51] LABS: ALBUMIN SPE 2.17 GM/DL (3.50-5.00); ALPHA 1 GLOBULIN 0.19 GM/DL (0.11-0.29); ALPHA 2 GLOBULIN 0.84 GM/DL (0.22-1.00); BETA GLOBULINS (SPE) 0.52 GM/DL (0.53-1.03)
--- NOTE | 2017-02-28 11:53 | RADRPT ---
EXAM DATE/TIME: 02/28/2017 10:15 [facility] COMPARISON: No previous studies available for comparison. INDICATIONS : Hypoalbuminemia. MEDICAL HISTORY : Myocardial infarction. Hypercholesterolemia. TIA x2. [place]. Coronary artery disease. HTN. Pneumoni a. GERD. Renal disease and failure. Diabetes. Anemia. Depression. Anxiety. Anticoagulant therapy. Cd iff. SURGICAL HISTORY : Appendectomy. Right shoulder repair. Dialysis. Left arm AV shunt. ENCOUNTER: Initial ACUITY: 2 days PAIN SCORE: 4/10 LOCATION: Bilateral upper quadrant MEASUREMENTS: LIVER: 21.2 cm length COMMON DUCT: 2 mm RIGHT KIDNEY: 8.4 x 3.5 x 3.2 cm SPLEEN: 10.7 cm length FINDINGS: LIVER: Mild increased echotexture without focal lesion or ductal dilatation. Main portal vein is patent wit h hepatopedal blood flow. COMMON DUCT: No intraluminal mass or stone visualized. GALLBLADDER: Contains no stones, demonstrates no wall thickening or pericholecystic fluid. There is an echogenic polypoid nonmobile structure along the gallbladder wall measuring 5 mm. PANCREAS: The visualized portions are within normal limits. RIGHT KIDNEY: No hydronephrosis, stone or mass. There is anechoic avascular lesion at the lower pole measuring 11 mm. SPLEEN: No focal lesion. There is trace perihepatic free fluid. A left pleural effusion is visualized. CONCLUSION: 1. Hepatomegaly with suspected mild steatosis. 2. Trace perihepatic free fluid and left pleural effusion. 3. There is a 5 mm gallbladder polyp. Given the small size a benign cholesterol polyp is the favored etiology. Bruce Rossi MD on February 28, 2017 at 11:48 Board Certified Radiologist. This report was verified electronically.
[2017-02-28 12:35] VITALS: BP 106/58; PULSE 75; RESP 18; TEMP 96.4; O2SAT 97
--- NOTE | 2017-02-28 13:02 | HHI.PR ---
Subjective Remarks Follow-up metabolic encephalopathy 02/28/17-patient seen and examined, back to his baseline per nursing report. Plan for HD today. Blood glucose okay. Objective Vitals Vital Signs Date Time Temp Pulse Resp B/P Pulse Ox O2 Delivery O2 Flow Rate FiO2 02/28/17 12:35 96.4 75 18 106/58 97 02/28/17 08:33 96.3 77 18 109/56 97 02/28/17 04:00 97.1 71 18 95/58 94 02/28/17 00:00 96.9 75 16 97/53 93 02/27/17 20:00 97.4 73 18 104/56 96 02/27/17 16:42 97.4 69 16 104/66 100 I/O 02/27/17 02/27/17 02/27/17 02/28/17 02/28/17 02/28/17 07:00 15:00 23:00 07:00 15:00 23:00 Intake Total 520 ml Balance 520 ml Intake Oral 520 ml # Bowel Movements 1 Result Diagram: 02/28/17 0619 02/28/17 0617 Imaging Last Impressions Liver Ultrasound 02/28/17 0000 Signed Impressions: Service Date/Time: February 10:15 - CONCLUSION: 1. Hepatomegaly with suspected mild steatosis. 2. Trace perihepatic free fluid and left pleural effusion. 3. There is a 5 mm gallbladder polyp. Given the small size a benign cholesterol polyp is the favored etiology. Bruce Rossi MD Upper Extremity Ultrasound 02/26/17 0000 Signed Impressions: Service Date/Time: Sunday, February 26, 2017 10:37 - CONCLUSION: 1. Nonocclusive thrombus within the left internal jugular vein. Remaining left upper extremity veins are patent. 2. No right upper extremity DVT is seen. Bruce Rossi MD Head Magnetic Resonance Angiography 02/26/17 0000 Signed Impressions: Service Date/Time: Sunday, February 26, 2017 20:36 - CONCLUSION: Unremarkable exam. Monster Navarro MD Head CT 02/26/17 0000 Signed Impressions: Service Date/Time: Sunday, February 26, 2017 08:18 - CONCLUSION: Cerebral atrophy and chronic ischemic changes. Darren Soler MD Chest X-Ray 5/23/17 0000 Signed Impressions: Service Date/Time: Sunday, February 26, 2017 07:51 - CONCLUSION: No acute disease. Darren Soler MD Cervical Spine MRI 02/26/17 Signed Impressions: Service Date/Time: Sunday, February 26, 2017 20:36 - CONCLUSION: 1. Grade 1 anterior spondylolisthesis of C4 on C5 with 3-4 mm. 2. Mild disc bulge at C4-5 with minimal flattening of the anterior thecal sac. 3. Degenerative changes involving the right C4-5 facet joint with hypertrophy and moderate narrowing of the right neural foramina. 4. The cervical cord is intact. Monster Navarro MD Carotid Artery Ultrasound 02/26/17 Signed Impressions: Service Date/Time: Sunday, February 26, 2017 19:44 - CONCLUSION: 1. Nonocclusive thrombus was noted in the left jugular vein. 2. Bilateral calcified plaque in both carotid systems with less than 40%% diameter stenosis by velocity criteria. Monster Navarro MD Brain MRI 02/26/17 Signed Impressions: Service Date/Time: Sunday, February 26, 2017 20:36 - CONCLUSION: 1. No acute hemorrhage, mass or stroke. 2. Severe atrophic change and chronic small vessel ischemic changes. 3. Old lacunar infarcts. 4. Cerebellar atrophy. Monster Navarro MD Objective Remarks GENERAL: NAD SKIN: Warm and dry. HEAD: Normocephalic. EYES: No scleral icterus. No injection or drainage. NECK: Supple, trachea midline. No JVD or lymphadenopathy. CARDIOVASCULAR: Regular rate and rhythm without murmurs, gallops, or rubs. RESPIRATORY: Breath sounds equal bilaterally. No accessory muscle use. GASTROINTESTINAL: Abdomen soft, non-tender, nondistended. MUSCULOSKELETAL: No cyanosis, or edema. BACK: Nontender without obvious deformity. No CVA tenderness. Procedures none A/P Problem List: (1) Hyperglycemia ICD Code: R73.9 Status: Acute (2) DKA, type 1 ICD Code: E10.10 Status: Acute (3) Acute metabolic encephalopathy due to hypoglycemia ICD Code: G93.41 Status: Acute (4) Acute metabolic encephalopathy ICD Code: G93.41 Status: Acute (5) ESRD (end stage renal disease) on dialysis ICD Code: N18.6 Status: Acute Assessment and Plan 51-year-old man with 1- acute metabolic encephalopathy with history of CVA-this could've been also secondary to hypoglycemia Stable and patient back now to his baseline Appreciate input from neurology 2-ESRD- on HD ; consulted nephrology; HD per nephrology 3-Left internal jugular vein Nonocclusive thrombus- unsure if this is chronic versus acute. Continue with conservative management 4-Hypertension; continue to hold amlodipine and hydralazine- consider adding midodrine if no improvement 5-Brittle diabetes mellitus with hypoglycemic episodes: Blood glucose okay and continue with Levemir 5 units at bedtime along with sliding scale insulin 6-History of C. difficile: Continue with Flagyl and by mouth vancomycin DVT prophylaxis with SCD's Darren Orellana MD February 28, 2017 13:02
[2017-02-28] MEDS ORDERED: METR-1 PO (13:05)
[2017-02-28] MEDS ORDERED: LEVEMIR SQ (13:05)
[2017-02-28] MEDS ORDERED: VANC500I3 PO (13:09)
--- NOTE | 2017-02-28 13:12 | HHI.DS ---
Discharge Summary Admission Date February 26, 2017 at 09:23 Discharge Date: February 28, 2017 Admitting Diagnosis altered mental status, hyperglycemia (1) Hyperglycemia ICD Code: R73.9 (2) DKA, type 1 ICD Code: E10.10 (3) Acute metabolic encephalopathy due to hypoglycemia ICD Code: G93.41 (4) Acute metabolic encephalopathy ICD Code: G93.41 (5) ESRD (end stage renal disease) on dialysis ICD Code: N18.6 Procedures none Brief History - From Admission patient is a 51 y/o male with ESRD- on HD, diabetes and history of CVA who was sent to ER from dialysis center because of altered mental status. reportedly they found him slumped over in the waiting room, drooling with sluggish response and a high blood sugar earlier today. there's a history of fall recently. he denies any focal weakness, headache, chest pain, sob or fever. although he's concerned about his swelling of the arms and legs. CBC/BMP: 02/28/17 0619 02/28/17 0617 Significant Findings Laboratory Tests Test 02/26/17 02/26/17 02/26/17 02/27/17 07:15 07:20 08:00 05:15 Lactic Acid Level 3.4 mmol/L (0.4-2.0) Red Blood Count 3.58 MIL/MM3 2.94 MIL/MM3 (4.50-5.90) (4.50-5.90) Hemoglobin 12.2 GM/DL 10.1 GM/DL (13.0-17.0) (13.0-17.0) Hematocrit 38.0 % 30.8 % (39.0-51.0) (39.0-51.0) Mean Corpuscular Volume 106.0 FL 104.8 FL (80.0-100.0) (80.0-100.0) Mean Corpuscular Hemoglobin 34.2 PG 34.3 PG (27.0-34.0) (27.0-34.0) Neutrophils (%) (Auto) 87.1 % (16.0-70.0) Lymphocytes (%) (Auto) 7.0 % (9.0-44.0) Neutrophils # (Auto) 8.8 TH/MM3 (1.8-7.7) Lymphocytes # (Auto) 0.7 TH/MM3 (1.0-4.8) Sodium Level 135 MEQ/L (136-145) Chloride Level 94 MEQ/L (98-107) Anion Gap 19 MEQ/L (5-15) Blood Urea Nitrogen 63 MG/DL (7-18) 41 MG/DL (7-18) Creatinine 7.01 MG/DL 4.93 MG/DL (0.60-1.30) (0.60-1.30) Estimat Glomerular Filtration 8 ML/MIN (>89) 12 ML/MIN (>89) Rate Random Glucose 403 MG/DL 45 MG/DL (74-106) (74-106) Alkaline Phosphatase 178 U/L (45-117) Total Protein 4.9 GM/DL (6.4-8.2) Albumin 1.9 GM/DL 1.7 GM/DL (3.4-5.0) (3.4-5.0) Urine Turbidity HAZY (CLEAR) Urine Protein 30 mg/dL (NEG-TRACE) Urine Glucose (UA) 1000 mg/dL (NEG) Urine Occult Blood MOD (NEG) Urine Leukocyte Esterase SMALL (NEG) Urine RBC 35 /hpf (0-3) Urine WBC 7 /hpf (0-5) Urine Bacteria FEW /hpf (NONE) Platelet Count 102 TH/MM3 (150-450) Calcium Level 8.0 MG/DL (8.5-10.1) Test 02/27/17 02/27/17 02/28/17 02/28/17 08:11 11:40 06:17 06:19 Chloride Level 96 MEQ/L 97 MEQ/L (98-107) (98-107) Blood Urea Nitrogen 42 MG/DL (7-18) 56 MG/DL (7-18) Creatinine 5.15 MG/DL 5.89 MG/DL (0.60-1.30) (0.60-1.30) Estimat Glomerular Filtration 12 ML/MIN (>89) 10 ML/MIN (>89) Rate Calcium Level 8.1 MG/DL 8.0 MG/DL (8.5-10.1) (8.5-10.1) Stool C. difficile Toxin (PCR) POSITIVE (NEGATIVE) Stl C. difficile Toxin PRESUMPTIVE Epiderm 027 POSITIVE (NEGATIVE) Random Glucose 113 MG/DL (74-106) Total Protein 4.4 GM/DL (6.0-7.6) Albumin 1.7 GM/DL (3.4-5.0) Albumin/Globulin Ratio 0.98 (1.39-2.23) Beta Globulins 0.52 GM/DL (0.53-1.03) Immunoglobulin G Total 471 MG/DL (660-1640) Immunoglobulin M 304 MG/DL (40-247) Immunoglobulin [place]/Lambda 1.47 Ratio (1.57-3.93) [place] Light Chain Analysis 144 MG/DL (170-370) Red Blood Count 3.13 MIL/MM3 (4.50-5.90) Hemoglobin 10.9 GM/DL (13.0-17.0) Hematocrit 32.6 % (39.0-51.0) Mean Corpuscular Volume 104.3 FL (80.0-100.0) Mean Corpuscular Hemoglobin 34.9 PG (27.0-34.0) Platelet Count 131 TH/MM3 (150-450) Imaging Last Impressions Liver Ultrasound 02/28/17 Signed Impressions: Service Date/Time: February 10:15 - CONCLUSION: 1. Hepatomegaly with suspected mild steatosis. 2. Trace perihepatic free fluid and left pleural effusion. 3. There is a 5 mm gallbladder polyp. Given the small size a benign cholesterol polyp is the favored etiology. Bruce Rossi MD Upper Extremity Ultrasound 02/26/17 Signed Impressions: Service Date/Time: Sunday, February 26, 2017 10:37 - CONCLUSION: 1. Nonocclusive thrombus within the left internal jugular vein. Remaining left upper extremity veins are patent. 2. No right upper extremity DVT is seen. Bruce Rossi MD Head Magnetic Resonance Angiography 02/26/17 0000 Signed Impressions: Service Date/Time: Sunday, February 26, 2017 20:36 - CONCLUSION: Unremarkable exam. Monster Navarro MD Head CT 02/26/17 0000 Signed Impressions: Service Date/Time: Sunday, February 26, 2017 08:18 - CONCLUSION: Cerebral atrophy and chronic ischemic changes. Darren Soler MD Chest X-Ray 02/26/17 Signed Impressions: Service Date/Time: Sunday, February 26, 2017 07:51 - CONCLUSION: No acute disease. Darren Soler MD Cervical Spine MRI 02/26/17 Signed Impressions: Service Date/Time: Sunday, February 26, 2017 20:36 - CONCLUSION: 1. Grade 1 anterior spondylolisthesis of C4 on C5 with 3-4 mm. 2. Mild disc bulge at C4-5 with minimal flattening of the anterior thecal sac. 3. Degenerative changes involving the right C4-5 facet joint with hypertrophy and moderate narrowing of the right neural foramina. 4. The cervical cord is intact. Monster Navarro MD Carotid Artery Ultrasound 02/26/17 Signed Impressions: Service Date/Time: Sunday, February 26, 2017 19:44 - CONCLUSION: 1. Nonocclusive thrombus was noted in the left jugular vein. 2. Bilateral calcified plaque in both carotid systems with less than 40%% diameter stenosis by velocity criteria. Monster Navarro MD Brain MRI 02/26/17 Signed Impressions: Service Date/Time: Sunday, February 26, 2017 20:36 - CONCLUSION: 1. No acute hemorrhage, mass or stroke. 2. Severe atrophic change and chronic small vessel ischemic changes. 3. Old lacunar infarcts. 4. Cerebellar atrophy. Monster Navarro MD PE at Discharge GENERAL: NAD SKIN: Warm and dry. HEAD: Normocephalic. EYES: No scleral icterus. No injection or drainage. NECK: Supple, trachea midline. No JVD or lymphadenopathy. CARDIOVASCULAR: Regular rate and rhythm without murmurs, gallops, or rubs. RESPIRATORY: Breath sounds equal bilaterally. No accessory muscle use. GASTROINTESTINAL: Abdomen soft, non-tender, nondistended. MUSCULOSKELETAL: No cyanosis, or edema. BACK: Nontender without obvious deformity. No CVA tenderness. Hospital Course Patient was admitted secondary to metabolic encephalopathy likely due to hypoglycemia which neurology was consulted. His Conditions improved. Patient was found to have low blood pressure for which all oral antihypertensive medications were held. His basal insulin was decreased to 5 units at bedtime and patient was also treated for episode of hypoglycemia. Nephrology was consulted and he was continued on dialysis. He was continued on treatment for C. difficile. Will continue to hold all oral antihypertensive medications. Pt Condition on Discharge: Stable Discharge Disposition: Discharge Home Discharge Time: > 30 minutes Discharge Instructions DIET: Follow Instructions for: Diabetic Diet Activities you can perform: Regular-No Restrictions Follow up Referrals: Nephrology PCP Follow-up - 2-3 Days New Medications: Insulin Detemir Inj (Levemir Inj) 1,000 unit/ 10 ML Vial 5 UNITS SQ HS Blood Sugar Management #100 INJECTION Metronidazole (Flagyl) 500 Mg Tab 500 MG PO Q8HR Infection #21 TAB Vancomycin Inj (Vancomycin Inj) 500 Mg Inj 250 MG PO QID Infection #40 INJECTION Continued Medications: Aspirin (Aspirin) 81 Mg Chew 81 MG PO DAILY Ref 0 TAB B-Complex W/ C & Folic Acid (Nephro-Shy) 1 Tab 1 TAB PO DAILY Nutritional Supplement #30 Ref 0 TAB Escitalopram (Escitalopram) 10 Mg Tab 10 MG PO DAILY #30 Ref 0 TAB Ferrous Sulfate (Ferrous Sulfate) 325 Mg Tab 325 MG PO DAILY Nutritional Supplement #30 Ref 0 TAB Insulin Aspart Inj (Novolog Inj) 1,000 Unit/10 Ml Vial 0 SQ DIRECTED Sliding Scale as directed. Blood Sugar Management #10 Ref 0 ML Omeprazole (Omeprazole) 20 Mg Tab 20 MG PO DAILY #30 Ref 0 TAB Sevelamer Carbonate (Renvela) 800 Mg Tab 800 MG PO TID Control phosphorous levels #90 Ref 0 TAB Discontinued Medications: Glucagon Inj (Glucagon Inj) 1 Mg/Ml Inj 1 MG IM ONCE PRN Blood Sugar Management #1 Ref 0 VIAL Hydrocodone-Acetaminophen ([place]) 5-325 mg Tab 1 TAB PO Q4H PRN PAIN Ref 0 TAB Insulin Detemir Inj (Levemir Inj) 1,000 unit/ 10 ML Vial 10 UNITS SQ HS Do not mix with any other Insulin. Blood Sugar Management Ref 0 VIAL Pantoprazole (Protonix) 40 Mg Tab 40 MG PO BID Ulcer Prevention #30 Ref 0 TAB Darren Orellana MD February 28, 2017 13:12
[2017-02-28] MEDS ORDERED: metroNIDAZOLE 500 MG TAB PO SCH (14:00)
--- NOTE | 2017-02-28 16:23 | MG ---
cc: KE KRAFT M.D. Lab No: [id number] Date: Age: Sex: M Race: Awake, drowsy and asleep recording. Hyperventilation not performed. Left-sided weakness, lethargy, syncope. Aspirin. A diffuse 6 hertz 60 microvolt rhythm is seen. The recording overall is synchronous and symmetric. No hemisphere asymmetries are noted. No epileptiform or seizure activity was noted. Photic stimulation was performed at the end of the recording is without significant posterior driving. IMPRESSION: Diffuse 5 Hz slowing consistent with a mild to moderate diffuse encephalopathy but no focal abnormality was noted. No seizure activity was seen. MD DERRICK Mejia/BRANDO /3:13 PM /4:21 PM
[2017-03-02 23:51] LABS: KAPPA/LAMBDA FREE 1.15 (0.26-1.65)
== END 2017-02-28 19:10 ==
LOC: NEPE 06:52 → NEDA 09:23 → INTOOBSV 09:23 → HOCA 17:55
PROVIDERS: ADMIT Hospitalist; ATTEND Hospitalist
DX: E10.65 Type 1 diabetes mellitus with hyperglycemia (principal); I13.2 Hypertensive heart and chronic kidney disease with heart failure and with stage 5 chronic kidney disease, or end stage renal disease; N18.6 End stage renal disease; E10.22 Type 1 diabetes mellitus with diabetic chronic kidney disease; E10.10 Type 1 diabetes mellitus with ketoacidosis without coma; I50.9 Heart failure, unspecified; G93.41 Metabolic encephalopathy; I82.C12 Acute embolism and thrombosis of left internal jugular vein; I25.10 Atherosclerotic heart disease of native coronary artery without angina pectoris; M47.812 Spondylosis without myelopathy or radiculopathy, cervical region; M79.89 Other specified soft tissue disorders; R22.0 Localized swelling, mass and lump, head; D63.1 Anemia in chronic kidney disease; N25.81 Secondary hyperparathyroidism of renal origin; J44.9 Chronic obstructive pulmonary disease, unspecified; K21.9 Gastro-esophageal reflux disease without esophagitis; F17.210 Nicotine dependence, cigarettes, uncomplicated; Z99.2 Dependence on renal dialysis; Z86.73 Personal history of transient ischemic attack (TIA), and cerebral infarction without residual deficits; Z91.030 Bee allergy status; Z91.041 Radiographic dye allergy status; Z79.82 Long term (current) use of aspirin
CPT/HCPCS: 70450; 70544; 70551; 71010; 72141; 76705; 76937; 80048; 80053; 80069; 80076; 81001; 82784; 82948; 83605; 83883; 84078; 84165; 84484; 85025; 85027; 86334; 87040; 87493; 90935; 93005; 93880; 93970; 95819; 96372; 96374; 97163; 99285; G0257; G0378; G8988; J1815; J7030; P9047; P9612

== ENCOUNTER 2017-03-27 23:32 | Emergency (ER) | payer MEDICARE, MEDICAID ==
[~2017-03-27] VITALS: Ht 170.2 cm; Wt 70.0 kg
[~2017-03-27 23:32] MED LIST changes: +AMLO10TA2 PO; +DOXA1TAB35 PO; -FOLBTAB2 PO; -GLUC0.8I2 IM; +HYDR-3801 PO; -LISI2.5T3 PO; +METO-426 PO; -METO25TA3 PO; +METR-1 PO; +NEPHTAB3 PO; -NEPRLIQ; +OMEP20TA PO; +PARO40TA2 PO; -PROT40TA PO; -TAMS0.4C4 PO
[2017-03-27 23:37] VITALS: BP 133/76; PULSE 76; RESP 18; TEMP 98.1; O2SAT 100
[2017-03-28] MEDS ORDERED: FERR324T4 PO (00:09)
[2017-03-28] MEDS ORDERED: TAMS0.4C4 PO (00:12)
--- NOTE | 2017-03-28 01:25 | PD ---
HPI Chief Complaint: Fall Time Seen by Provider: 00:06 Travel History International Travel<30 days: No Contact w/Intl Traveler<30days: No Traveled to known affect area: No History of Present Illness HPI This [facility] for [facility] of a fall. He actually rolled out of bed and struck his nose on the ground. No LOC. He has no headache and no neck pain. He denies any pain in his face. He had a brief epistaxis that resolved spontaneously. Duration 2 hours. Symptoms severity is very mild. No alleviating factors. He says he feels fine and just wants to go back home. He did not want to come here but the staff sent him PFSH Past Medical History Hx Anticoagulant Therapy: Yes Anemia: Yes Anxiety: Yes Depression: Yes Heart Rhythm Problems: No Cancer: No Cardiovascular Problems: Yes High Cholesterol: Yes Chest Pain: No Congestive Heart Failure: No Cerebrovascular Accident: Yes Coronary Artery Disease: Yes Diabetes: Yes Patient Takes Glucophage: No Dialysis: Yes (M,W,F) Diminished Hearing: No Endocrine: Yes Gastrointestinal Disorders: Yes (GERD) GERD: Yes Genitourinary: Yes Headaches: No Hiatal Hernia: No Hypertension: Yes Immune Disorder: No Kidney Stones: No Musculoskeletal: No Neurologic: Yes (TIA HX x2, ATAXIA) Psychiatric: Yes (ANXIETY/ DEPRESSION) Reproductive: No Respiratory: No Immunizations Current: Yes Myocardial Infarction: Yes (X 2) Pneumonia: Yes (X 2) Renal Failure: Yes Seizures: No Thyroid Disease: No Ulcer: No Influenza Vaccination: No Past Surgical History Appendectomy: Yes Other Surgery: Yes (SHUNT PLACED TO LEFT ARM ) Social History Alcohol Use: No Tobacco Use: Yes (1/2 PPD) Substance Use: No Allergies-Medications (Allergen,Severity, Reaction): Coded Allergies: Bee Sting (Unverified Allergy, Severe, 03/27/17) Contrast Media (Unverified Allergy, Severe, 03/27/17) Reported Meds & Prescriptions Reported Meds & Active Scripts Active Vancomycin Inj (Vancomycin HCl) 500 Mg Inj 250 Mg PO QID Flagyl (Metronidazole) 500 Mg Tab 500 Mg PO Q8HR Levemir Inj (Insulin Detemir) 1,000 unit/ 10 ML Vial 5 Units SQ HS Reported Tamsulosin (Tamsulosin HCl) 0.4 Mg Cap 0.4 Mg PO HS Ferrous Sulfate DR (Ferrous Sulfate) 324 Mg Tabdr 324 Mg PO DAILY Omeprazole 20 Mg Tab 20 Mg PO DAILY Metoprolol Tartrate 75 Mg Tab 75 Mg PO BID Doxazosin (Doxazosin Mesylate) 2 Mg Tab 2 Mg PO HS Amlodipine (Amlodipine Besylate) 10 Mg Tab 10 Mg PO DAILY Paroxetine (Paroxetine HCl) 40 Mg Tab 40 Mg PO DAILY Nephro-Shy (B-Complex W/ C & Folic Acid) 1 Tab 1 Tab PO DAILY Hydralazine (Hydralazine HCl) 100 Mg Tab 100 Mg PO TID Take with meals Prochlorperazine Maleate 10 Mg Tab 10 Mg PO Q4H PRN Novolog Inj (Insulin Aspart) 1,000 Unit/10 Ml Vial 0 SQ DIRECTED Sliding Scale as directed. Renvela (Sevelamer Carbonate) 800 Mg Tab 800 Mg PO TID Furosemide 20 Mg Tab 20 Mg PO DAILY Escitalopram (Escitalopram Oxalate) 10 Mg Tab 10 Mg PO DAILY Bupropion HCl 75 Mg Tab 75 Mg PO TID Aspirin 81 Mg Chew 81 Mg PO DAILY Review of Systems General / Constitutional: No: Fever HENT: No: Headaches Cardiovascular: No: Chest Pain or Discomfort Physical Exam Narrative NECK: Symmetrical appearance, midline trachea. No mass or crepitus. Thyroid without enlargement, tenderness, or mass. SKIN: Focused skin assessment reveals no rash or ulcers. Skin is warm and dry. Palpation shows no induration or nodules. Face: No nasal bridge tenderness or deformity. Has some dried blood in the right nares but no active bleeding No facial bone tenderness Data Data Last Documented VS Vital Signs Date Time Temp Pulse Resp B/P Pulse Ox O2 Delivery O2 Flow Rate FiO2 03/27/17 23:37 98.1 76 18 133/76 100 MDM Medical Decision Making Medical Screen Exam Complete: Yes Emergency Medical Condition: Yes Medical Record Reviewed: Yes Differential Diagnosis Facial contusion, epistaxis, cervical strain Narrative Course I have reviewed the patient's electronic medical record. He has a very complex medical history and multiple chronic problems Patient is asymptomatic and wants to go home. I don't see any indication for emergent imaging. [facility] the [facility] Diagnosis Primary Impression: Facial contusion Qualified Code: S00.83XA - Facial contusion, initial encounter Additional Impression: Epistaxis Additional Instructions: Follow-up with [facility] Med/Other Pt SpecificInfo: Other Disposition: 03 DISCHARGE TO SNF Condition: Stable Jermaine Blanc MD Mar 28, 2017 01:24
== END 2017-03-28 05:55 ==
LOC: NEPC 23:32
DX: S00.83XA Contusion of other part of head, initial encounter (principal); R04.0 Epistaxis; D64.9 Anemia, unspecified; E11.9 Type 2 diabetes mellitus without complications; I10 Essential (primary) hypertension; E78.00 Pure hypercholesterolemia, unspecified; I25.10 Atherosclerotic heart disease of native coronary artery without angina pectoris; N19 Unspecified kidney failure; W06.XXXA Fall from bed, initial encounter
CPT/HCPCS: 99283

== ENCOUNTER 2017-06-01 12:45 | Emergency (ER) | payer MEDICARE, MEDICAID ==
[~2017-06-01] VITALS: Ht 165.1 cm; Wt 60.0 kg
[~2017-06-01 12:45] MED LIST changes: +FERR324T4 PO; -FERR325T PO; +TAMS0.4C4 PO
[2017-06-01 12:55] VITALS: BP 127/67; PULSE 107; RESP 18; TEMP 99.5; O2SAT 98
--- NOTE | 2017-06-01 13:21 | PD ---
HPI Chief Complaint: Fall Time Seen by Provider: 13:12 Travel History International Travel<30 days: No Contact w/Intl Traveler<30days: No Traveled to known affect area: No History of Present Illness HPI 51-year-old male that presents to the ED for evaluation of fall. Per patient he fell out of his wheelchair by accident. Per patient he lost his balance and fell and hit his head. Patient has abrasions to the forehead and nose. Per patient he did not lose consciousness. This happened after he was released from dialysis center after he finishes does. He has no complaints other than wanting ice chips. He has no pain anywhere else. He has no pain on the head. He does take blood thinners. [facility]. Patient has a history of CVA with ataxia and TIAs in the past as well as ESRD on dialysis Tuesdays and Saturdays. Follow was not witnessed by any of the staff as patient wasn't really release and was wearing transportation. Patient was sent here for evaluation. He complains of nothing. He has no other signs of injury. Patient is for the most part wheelchair bound secondary to the CVAs. PFSH Past Medical History Hx Anticoagulant Therapy: Yes Anemia: Yes Anxiety: Yes Depression: Yes Heart Rhythm Problems: No Cancer: No Cardiovascular Problems: Yes High Cholesterol: Yes Chest Pain: No Congestive Heart Failure: No Cerebrovascular Accident: Yes Coronary Artery Disease: Yes Diabetes: Yes Dialysis: Yes (M,W,F) Diminished Hearing: No Endocrine: Yes Gastrointestinal Disorders: Yes (GERD) GERD: Yes Genitourinary: Yes Headaches: No Hiatal Hernia: No Hypertension: Yes Immune Disorder: No Kidney Stones: No Musculoskeletal: No Neurologic: Yes (TIA HX x2, ATAXIA) Psychiatric: Yes (ANXIETY/ DEPRESSION) Reproductive: No Respiratory: No Immunizations Current: Yes Myocardial Infarction: Yes (X 2) Pneumonia: Yes (X 2) Renal Failure: Yes Seizures: No Thyroid Disease: No Ulcer: No Past Surgical History Appendectomy: Yes Other Surgery: Yes (SHUNT PLACED TO LEFT ARM ) Social History Alcohol Use: No Tobacco Use: Yes (1/2 PPD) Substance Use: No Allergies-Medications (Allergen,Severity, Reaction): Coded Allergies: bee venom protein (honey bee) (Unverified Allergy, Severe, 06/01/17) diatrizoate meglumine (Unverified Allergy, Severe, 06/01/17) gadobenic acid (Unverified Allergy, Severe, 06/01/17) gadodiamide (Unverified Allergy, Severe, 06/01/17) gadoteridol (Unverified Allergy, Severe, 06/01/17) iodixanol (Unverified Allergy, Severe, 06/01/17) iohexol (Unverified Allergy, Severe, 06/01/17) Reported Meds & Prescriptions Reported Meds & Active Scripts Active Vancomycin Inj (Vancomycin HCl) 500 Mg Inj 250 Mg PO QID Flagyl (Metronidazole) 500 Mg Tab 500 Mg PO Q8HR Levemir Inj (Insulin Detemir) 1,000 unit/ 10 ML Vial 5 Units SQ HS Reported Tamsulosin (Tamsulosin HCl) 0.4 Mg Cap 0.4 Mg PO HS Ferrous Sulfate DR (Ferrous Sulfate) 324 Mg Tabdr 324 Mg PO DAILY Omeprazole 20 Mg Tab 20 Mg PO DAILY Metoprolol Tartrate 75 Mg Tab 75 Mg PO BID Doxazosin (Doxazosin Mesylate) 2 Mg Tab 2 Mg PO HS Amlodipine (Amlodipine Besylate) 10 Mg Tab 10 Mg PO DAILY Paroxetine (Paroxetine HCl) 40 Mg Tab 40 Mg PO DAILY Nephro-Shy (B-Complex W/ C & Folic Acid) 1 Tab 1 Tab PO DAILY Hydralazine (Hydralazine HCl) 100 Mg Tab 100 Mg PO TID Take with meals Prochlorperazine Maleate 10 Mg Tab 10 Mg PO Q4H PRN Novolog Inj (Insulin Aspart) 1,000 Unit/10 Ml Vial 0 SQ DIRECTED Sliding Scale as directed. Renvela (Sevelamer Carbonate) 800 Mg Tab 800 Mg PO TID Furosemide 20 Mg Tab 20 Mg PO DAILY Escitalopram (Escitalopram Oxalate) 10 Mg Tab 10 Mg PO DAILY Bupropion HCl 75 Mg Tab 75 Mg PO TID Aspirin 81 Mg Chew 81 Mg PO DAILY Review of Systems Except as stated in HPI: all other systems reviewed are Neg Physical Exam Narrative GENERAL: SKIN: Warm and dry. HEAD: Atraumatic. Normocephalic. EYES: Pupils equal and round 4 mm reactive to light and accommodation. No scleral icterus. No injection or drainage. ENT: No nasal bleeding or discharge. Mucous membranes pink and moist. Tongue is midline. No uvula deviation. NECK: Trachea midline. No JVD. CARDIOVASCULAR: Regular rate and rhythm. No murmurs, S3, S4. RESPIRATORY: No accessory muscle use. Clear to auscultation. Breath sounds equal bilaterally. GASTROINTESTINAL: Abdomen soft, non-tender, nondistended. Hepatic and splenic margins not palpable. MUSCULOSKELETAL: Extremities without clubbing, cyanosis, or edema. No obvious deformities. Full range of motion of the upper and lower extremities bilaterally. 2+ pulses bilaterally. NEUROLOGICAL: Awake and alert. No obvious cranial nerve deficits. Motor grossly within normal limits. Five out of 5 muscle strength in the arms and legs. Normal speech. PSYCHIATRIC: Appropriate mood and affect; insight and judgment normal. Data Data Last Documented VS Vital Signs Date Time Temp Pulse Resp B/P (MAP) Pulse Ox O2 Delivery O2 Flow Rate FiO2 06/01/17 13:00 18 97 Room Air 06/01/17 12:55 99.5 107 127/67 (87) Orders Orders Ct Brain W/O Iv Contrast(Rout) (06/01/17 13:12) Ct Cerv Spine W/O Contrast (06/01/17 13:12) Ct Facial Bones W/O Iv Cont (06/01/17 13:12) Bedside Glucose RAMA.AC&HS (06/01/17 13:17) Wound Care (06/01/17 13:21) Mri C Spine W/O Contrast (06/01/17 ) MDM Medical Decision Making Medical Screen Exam Complete: Yes Emergency Medical Condition: Yes Medical Record Reviewed: Yes Interpretation(s) ra Last Impressions Maxillofacial CT 06/01/171311 Signed Impressions: Service Date/Time: Thursday, June 01, 2017 13:23 - CONCLUSION: No evidence of fracture or soft tissue abnormality. Imaged portion of the brain demonstrates stable diffuse severe white matter atrophic changes.. Rita Bello MD Head CT 06/01/171311 Signed Impressions: Service Date/Time: Thursday, June 01, 2017 13:23 - CONCLUSION: Stable exam. No evidence of acute abnormality.. Rita Bello MD Cervical Spine CT 06/01/171311 Signed Impressions: Service Date/Time: Thursday, June 01, 2017 13:23 - CONCLUSION: No prior imaging of the cervical spine is available for comparison. There is grade one anterolisthesis of C4 on C5 with widening of the right facet joint at this level. The chronicity of this is unknown and there is no appreciable soft tissue abnormality seen on CT. Endplate sclerosis at the level of C4/C5 suggest possible chronic changes, however, given history of trauma recommend further evaluation with MRI to evaluate for soft tissue edema. These findings were relayed to the referring physician at 2 PM on June 01, 2017. Rita Bello MD Last Impressions Maxillofacial CT 06/01/17 1312 Signed Impressions: Service Date/Time: Thursday, June 01, 2017 13:23 - CONCLUSION: No evidence of fracture or soft tissue abnormality. Imaged portion of the brain demonstrates stable diffuse severe white matter atrophic changes.. Rita Bello MD Head CT 06/01/17 1312 Signed Impressions: Service Date/Time: Thursday, June 01, 2017 13:23 - CONCLUSION: Stable exam. No evidence of acute abnormality.. Rita Bello MD Cervical Spine CT 06/01/17 1312 Signed Impressions: Service Date/Time: Thursday, June 01, 2017 13:23 - CONCLUSION: No prior imaging of the cervical spine is available for comparison. There is grade one anterolisthesis of C4 on C5 with widening of the right facet joint at this level. The chronicity of this is unknown and there is no appreciable soft tissue abnormality seen on CT. Endplate sclerosis at the level of C4/C5 suggest possible chronic changes, however, given history of trauma recommend further evaluation with MRI to evaluate for soft tissue edema. These findings were relayed to the referring physician at 2 PM on June 01, 2017. Rita Bello MD Cervical Spine MRI 06/01/17 0000 Signed Impressions: Service Date/Time: Thursday, June 01, 2017 14:35 - CONCLUSION: Stable grade 1 anterolisthesis of C4 on C5 without evidence of adjacent ligaments injury. Findings are consistent with chronic process. Rita Bello MD Differential Diagnosis Head injury versus head bleed versus abrasion versus normal exam versus mechanical fall Narrative Course 51-year-old male that presents to the ED for evaluation of head injury after a fall from his wheelchair today. Patient was properly examined and was found to have signs and symptoms consistent appears to be mechanical fall. No sign of LOC. Patient does take blood thinners. He at this time is neurovascular intact although he does have some chronic deficits especially weakness in the lower legs secondary to his previous CVA. Patient is wheelchair-bound for the most part. Patient finished his dialysis. At this time recommend imaging of the head as patient does take blood thinners to make sure patient doesn't have any acute bleed. Patient was given wound care. Imaging showed no sign of acute bony injury or bleed but there was an abnormality on the CT of the cervical spine which I was contacted by the radiologist recommended we do an MRI because of concern for possible soft tissue injury. MRI was ordered. MRI did not show any sign of acute disease. This appears to be chronic. This time patient [facility] be [facility] Patient was told findings and agrees with plan. Close follow with PCP. Case discussed with my attending Dr Jaimes who agrees with plan. See ED for any worsening symptoms. Diagnosis Primary Impression: Head injury, acute Qualified Codes: S09.90XA - Unspecified injury of head, initial encounter Additional Impressions: Fall Qualified Codes: W19.XXXA - Unspecified fall, initial encounter Multiple abrasions Patient Instructions: General Instructions Additional Instructions: Follow-up with PCP. See ED for any worsening symptoms. Continue taking medications as prescribed. Med/Other Pt SpecificInfo: No Change to Meds Disposition: 01 DISCHARGE HOME Condition: Stable Bhanu Ferreira Jun 01, 2017 13:21
--- NOTE | 2017-06-01 13:40 | RADRPT ---
EXAM DATE/TIME: 06/01/2017 13:23 [facility] COMPARISON: CT BRAIN W/O CONTRAST, February 26, 2017, 8:18. INDICATIONS : Fall from wheelchair, found on ground. RADIATION DOSE: 56.35 CTDIvol (mGy) MEDICAL HISTORY : Stroke. Cardiovascular disease Renal failure, acute. SURGICAL HISTORY : Appendectomy. ENCOUNTER: Initial ACUITY: 1 day PAIN SCALE: Non-responsive LOCATION: cranial TECHNIQUE: Multiple contiguous axial images were obtained of the head. Using automated exposure control and adj ustment of the mA and/or kV according to patient size, radiation dose was kept as low as reasonably a chievable to obtain optimal diagnostic quality images. DICOM format image data is available electro nically for review and comparison. FINDINGS: CEREBRUM: There is diffuse white matter atrophic changes, stable from prior exam. Stable prominence of the vent ricles and sulci secondary to diffuse white matter atrophy. No evidence of mass effect or midline shelley ft. No intra-axial or extra-axial fluid collection. No evidence of hemorrhage. POSTERIOR FOSSA: Stable old infarct involving the midbrain on the left. EXTRACRANIAL: The visualized portion of the orbits is intact. SKULL: The calvaria is intact. No evidence of skull fracture. CONCLUSION: Stable exam. No evidence of acute abnormality.. Rita Bello MD on June 01, 2017 at 13:37 Board Certified Radiologist. This report was verified electronically.
--- NOTE | 2017-06-01 13:49 | RADRPT ---
EXAM DATE/TIME: 06/01/2017 13:23 [facility] COMPARISON: CT BRAIN W/O CONTRAST, June 01, 2017, 13:23. INDICATIONS : Fall from wheelchair, found on ground. RADIATION DOSE: 44.17 CTDIvol (mGy) MEDICAL HISTORY : Stroke. Cardiovascular disease Renal failure, chronic. SURGICAL HISTORY : Appendectomy. ENCOUNTER: Initial ACUITY: 1 day PAIN SCORE: Non-responsive LOCATION: facial TECHNIQUE: Volumetric scanning of the facial bones was performed. Using automated exposure control and adjustme nt of the mA and/or kV according to patient size, radiation dose was kept as low as reasonably achiev able to obtain optimal diagnostic quality images. DICOM format image data is available electronicall y for review and comparison. FINDINGS: ORBITS: The orbital and infraorbital osseous structures are intact. The retroconal structures have a normal configuration. No radiopaque foreign bodies are seen. NASAL BONE: The nasal bone and maxillary spine are intact ZYGOMATIC ARCHES: Symmetric without evidence of fracture. SINUSES: The maxillary, ethmoid and frontal sinuses are intact. No air-fluid levels seen. NASAL CAVITY: The nasal septum is intact and midline. The lacrimal ducts are intact. SOFT TISSUES: No radiopaque foreign bodies seen. No soft-tissue swelling is seen. INTRACRANIAL: No intracranial air seen. CRIBIFORM PLATE: Grossly intact. CONCLUSION: No evidence of fracture or soft tissue abnormality. Imaged portion of the brain demonstrates stable d iffuse severe white matter atrophic changes.. Rita Bello MD on June 01, 2017 at 13:46 Board Certified Radiologist. This report was verified electronically.
--- NOTE | 2017-06-01 14:02 | RADRPT ---
EXAM DATE/TIME: 06/01/2017 13:23 [facility] COMPARISON: No previous studies available for comparison. INDICATIONS : Fall from wheelchair, found on ground. RADIATION DOSE: 19.19 CTDIvol (mGy) MEDICAL HISTORY : Stroke. Cardiovascular disease Renal failure, chronic. SURGICAL HISTORY : Appendectomy. ENCOUNTER: Initial ACUITY: 1 day PAIN SCALE: Non-responsive LOCATION: neck TECHNIQUE: Volumetric scanning of the cervical spine was performed. Multiplanar reconstructions in the sagittal, coronal and oblique axial planes were performed. Using automated exposure control and adjustment o f the mA and/or kV according to patient size, radiation dose was kept as low as reasonably achievable to obtain optimal diagnostic quality images. DICOM format image data is available electronically f or review and comparison. FINDINGS: There is grade 1 anterolisthesis of C4 on C5 with widening of the right facet joint. No adjacent soft tissue abnormality is seen in the chronicity of this is unknown. However, given the history of traum a recommend further evaluation with MRI cervical spine to evaluate for adjacent edema. The vertebral bodies are normal in size, shape and mineralization. No fractures are visualized. Soft tissues are significant for extensive areas of sclerosis. No evidence of significant disc protru marques or neural foraminal narrowing. The lungs are clear. CONCLUSION: No prior imaging of the cervical spine is available for comparison. There is grade one anterolisthesi s of C4 on C5 with widening of the right facet joint at this level. The chronicity of this is unknown and there is no appreciable soft tissue abnormality seen on CT. Endplate sclerosis at the level of C 4/C5 suggest possible chronic changes, however, given history of trauma recommend further evaluation with MRI to evaluate for soft tissue edema. These findings were relayed to the referring physician at 2 PM on June 01, 2017. Rita Bello MD on June 01, 2017 at 13:48 Board Certified Radiologist. This report was verified electronically.
--- NOTE | 2017-06-01 15:26 | RADRPT ---
EXAM DATE/TIME: 06/01/2017 14:35 [facility] COMPARISON: MRI CERVICAL SPINE W/O CONTRAST, February 26, 2017, 20:36. INDICATIONS : Trauma. Fall. Abnormal CT MEDICAL HISTORY : Diabetes mellitus type 2. Renal failure, chronic. SURGICAL HISTORY : AV shunt for dialysis. ENCOUNTER: Initial ACUITY: 1 day PAIN SCORE: 0/10 LOCATION: Paraspinal TECHNIQUE: Multiplanar, multisequence MRI examination of the cervical spine was performed. FINDINGS: Limited imaging of the cervical spine is performed secondary to patient combativeness. Sagittal T2 se quences and axial T2 GRE sequences are obtained. Vertebral bodies are normal in size, shape and signal with grade 1 anterolisthesis of C4 on C5, stabl e from prior exam. There is no evidence of adjacent edema. Axial imaging demonstrates stable predomin antly right-sided facet degenerative changes again without evidence of adjacent soft tissue edema. No evidence of cord compression. CONCLUSION: Stable grade 1 anterolisthesis of C4 on C5 without evidence of adjacent ligaments injury. Findings ar e consistent with chronic process. Rita Bello MD on June 01, 2017 at 15:19 Board Certified Radiologist. This report was verified electronically.
== END 2017-06-01 17:22 | disposition home or self-care (01) ==
LOC: NEPE 12:45
DX: S00.81XA Abrasion of other part of head, initial encounter (principal); I69.393 Ataxia following cerebral infarction; I12.0 Hypertensive chronic kidney disease with stage 5 chronic kidney disease or end stage renal disease; E11.22 Type 2 diabetes mellitus with diabetic chronic kidney disease; N18.6 End stage renal disease; W05.0XXA Fall from non-moving wheelchair, initial encounter; Z79.4 Long term (current) use of insulin; Z99.2 Dependence on renal dialysis
CPT/HCPCS: 70450; 70486; 72125; 72141; 99285

== ENCOUNTER 2017-08-10 17:32 | Inpatient (IN) | payer MEDICARE, MEDICAID ==
[~2017-08-10 17:32] MED LIST changes: +ASPI-516 PO; -ASPI81CH PO; -OMEP20TA PO; +OMEP20TA93 PO
[2017-08-10] MEDS ORDERED: SODIUM CHLOR 0.9% 1000 ML INJ 1,000 ML IV ONE (17:47)
[2017-08-10 17:48] VITALS: O2SAT 100
--- NOTE | 2017-08-10 18:04 | RADRPT ---
EXAM DATE/TIME: 08/10/2017 17:44 [facility] COMPARISON: CT BRAIN W/O CONTRAST, June 01, 2017, 13:23. INDICATIONS : Left sided weakness. RADIATION DOSE: 56.35 CTDIvol (mGy) MEDICAL HISTORY : Non-responsive. SURGICAL HISTORY : Non-responsive. ENCOUNTER: Initial ACUITY: 1 day PAIN SCALE: Non-responsive LOCATION: cranial TECHNIQUE: Multiple contiguous axial images were obtained of the head. Using automated exposure control and adj ustment of the mA and/or kV according to patient size, radiation dose was kept as low as reasonably a chievable to obtain optimal diagnostic quality images. DICOM format image data is available electro nically for review and comparison. FINDINGS: Carotid artery and vertebral artery calcifications. There is diffuse atrophy greatest in the parietal regions. Multiple remote basal ganglia lacunar infarcts are noted as well as pontine or infarct and or recurrent heart is unchanged. There are no signs of acute infarct, hemorrhage, or mass. No fractur es. CONCLUSION: No significant change has occurred. This report was called to Dr. Blanc at 5:58 PM on 08/10/[address] Browning.. Noam Browning MD on August 10, 2017 at 17:56 Board Certified Radiologist. This report was verified electronically.
[2017-08-10 18:12] VITALS: BP 120/75; PULSE 65; RESP 23; TEMP 98.7; O2SAT 100
[2017-08-10 18:20] LABS: AUTOMATED NEUTROPHIL # 5.7 TH/MM3 (1.8-7.7); BASOPHIL # 0.1 TH/MM3 (0-0.2); BASOPHIL % 1.4 % (0.0-2.0); EOSINOPHIL % 0.5 % (0.0-4.0); HEMATOCRIT 39.5 % (39.0-51.0); HEMO FLAGS DIFF FINAL; LYMPHOCYTE # 0.7 TH/MM3 (1.0-4.8); MEAN CELL VOLUME 96.6 FL (80.0-100.0); MEAN CORPUSCULAR HEMOGLOBIN 31.2 PG (27.0-34.0); MEAN CORPUSCULAR HGB CONC 32.3 % (32.0-36.0); MONO % 9.4 % (0.0-8.0); NEUT % 78.7 % (16.0-70.0); PLATELET COUNT 273 TH/MM3 (150-450); RED BLOOD COUNT 4.08 MIL/MM3 (4.50-5.90); RED CELL DISTRIBUTION WIDTH 16.1 % (11.6-17.2); WHITE BLOOD COUNT 7.2 TH/MM3 (4.0-11.0)
[2017-08-10 18:21] LABS: I-STAT POTASSIUM 4.5 MMOL/L (3.5-4.9); I-STAT SODIUM 137 MMOL/L (138-146)
--- NOTE | 2017-08-10 18:30 | PD ---
HPI Chief Complaint: Altered Mental Status Time Seen by Provider: 17:36 Travel History International Travel<30 days: No Contact w/Intl Traveler<30days: No Traveled to known affect area: No History of Present Illness HPI This patient is brought in as a stroke alert. senior living patient with history of stroke. He is a diabetic dialysis patient. He is wheelchair-bound. He was last seen in his baseline state at 1 PM. He arrived outside of the TPA window. I spoke with neurologist after evaluating the patient. He agreed the patient would not be a TPA candidate. Patient cannot provide any history or review of systems. He is nonverbal. The fdc paperwork reports him as usually able to speak. PFSH Past Medical History Hx Anticoagulant Therapy: Yes Anemia: Yes Anxiety: Yes Depression: Yes Heart Rhythm Problems: No Cancer: No Cardiovascular Problems: Yes High Cholesterol: Yes Chest Pain: No Congestive Heart Failure: No Cerebrovascular Accident: Yes Coronary Artery Disease: Yes Diabetes: Yes Dialysis: Yes (M,W,F) Diminished Hearing: No Endocrine: Yes Gastrointestinal Disorders: Yes (GERD) GERD: Yes Genitourinary: Yes Headaches: No Hiatal Hernia: No Hypertension: Yes Immune Disorder: No Kidney Stones: No Musculoskeletal: No Neurologic: Yes (TIA HX x2, ATAXIA) Psychiatric: Yes (ANXIETY/ DEPRESSION) Reproductive: No Respiratory: No Immunizations Current: Yes Myocardial Infarction: Yes (X 2) Pneumonia: Yes (X 2) Renal Failure: Yes Seizures: No Thyroid Disease: No Ulcer: No Past Surgical History Appendectomy: Yes Other Surgery: Yes (SHUNT PLACED TO LEFT ARM ) Social History Alcohol Use: No Tobacco Use: Yes (1/2 PPD) Substance Use: No Allergies-Medications (Allergen,Severity, Reaction): Coded Allergies: bee venom protein (honey bee) (Unverified Allergy, Severe, 06/01/17) diatrizoate meglumine (Unverified Allergy, Severe, 06/01/17) gadobenic acid (Unverified Allergy, Severe, 06/01/17) gadodiamide (Unverified Allergy, Severe, 06/01/17) gadoteridol (Unverified Allergy, Severe, 06/01/17) iodixanol (Unverified Allergy, Severe, 06/01/17) iohexol (Unverified Allergy, Severe, 06/01/17) Reported Meds & Prescriptions Reported Meds & Active Scripts Active Reported Bisacodyl Supp (Bisacodyl) 10 Mg Supp 10 Mg RECTAL DAILY PRN Loperamide (Loperamide HCl) 2 Mg Cap 2 Mg PO DIRECTED PRN One capsule after each loose stool. Not to exceed 8 capsules per day. Tylenol (Acetaminophen) 325 Mg Tab 325 Mg PO Q4H PRN Vitamin C (Ascorbic Acid) 250 Mg Chew 500 Mg CHEW BID Levemir Flextouch Pen Inj (Insulin Detemir) 300 unit/3 ML Pen 1 Units SQ Clonazepam 0.5 Mg Tab 0.5 Mg PO BID Hydrocodone-Acetaminophen 7.5-325 mg Tab 1 Tab PO TIDAC Metoprolol Tartrate 25 Mg Tab 25 Mg PO BID Tamsulosin (Tamsulosin HCl) 0.4 Mg Cap 0.4 Mg PO HS Ferrous Sulfate DR (Ferrous Sulfate) 324 Mg Tabdr 324 Mg PO DAILY Omeprazole 20 Mg Tab 20 Mg PO DAILY Novolog Inj (Insulin Aspart) 1,000 Unit/10 Ml Vial 0 SQ DIRECTED Sliding Scale as directed. Renvela (Sevelamer Carbonate) 800 Mg Tab 800 Mg PO TID Escitalopram (Escitalopram Oxalate) 10 Mg Tab 10 Mg PO DAILY Aspirin 81 Mg Chew 81 Mg PO DAILY Review of Systems ROS Limitations: Clinical Condition, Altered Mental Status, Poor Historian Physical Exam Narrative GENERAL: Thin disheveled patient who looks older than documented age . SKIN: Focused skin assessment reveals no rash and nodules. Skin is Warm and dry. HEAD: Atraumatic. Normocephalic. EYES: Pupils equal and round. No scleral icterus. No injection or drainage. ENT: No nasal bleeding or discharge. Mucous membranes pink and moist. NECK: Trachea midline. No JVD. CARDIOVASCULAR: Regular rate and rhythm. No murmur appreciated. RESPIRATORY: No accessory muscle use. Clear to auscultation. Breath sounds equal bilaterally. GASTROINTESTINAL: Abdomen soft, non-tender, nondistended. Hepatic and splenic margins not palpable. MUSCULOSKELETAL: Has contracted lower extremities. No clubbing. No cyanosis. No edema. NEUROLOGICAL: Eyes are open spontaneously. He withdraws to pain stimuli. He is nonverbal. GCS 10. He's got a good gag and is controlling his airway. Doesn't move his left arm. Is moving right arm and both legs to some degree PSYCHIATRIC: Appropriate mood and affect; insight and judgment poor . Data Data Last Documented VS Vital Signs Date Time Temp Pulse Resp B/P (MAP) Pulse Ox O2 Delivery O2 Flow Rate FiO2 08/10/17 19:02 98 16 162/85 (110) 96 Nasal Cannula 3.00 08/10/17 18:12 98.7 08/10/17 17:51 21 Orders Orders Diet Npo (08/10/17 Dinner) Activity Bed Rest (08/10/17 ) Electrocardiogram (08/10/17 ) I-Stat Creatinine (08/10/17 17:47) I-Stat Profile (08/10/17 17:47) Prothrombin Time / Inr (Pt) (08/10/17 17:47) Act Partial Throm Time (Ptt) (08/10/17 17:47) Complete Blood Count With Diff (08/10/17 17:47) Fibrinogen (08/10/17 17:47) Creatine Kinase (Cpk) (08/10/17 17:47) Troponin I (08/10/17 17:47) Type And Screen (08/10/17 17:47) Ct Brain W/O Iv Contrast(Rout) (08/10/17 ) Consult Neurology (08/10/17 ) Blood Glucose (08/10/17 17:47) Ecg Monitoring (08/10/17 17:47) Neuro Checks Q2HX12,Q4H (08/10/17 17:47) Nursing Bedside Swallow Assess .ONCE (08/10/17 17:47) Iv Access Insert/Monitor (08/10/17 17:47) NPO (08/10/17 17:47) Oximetry (08/10/17 17:47) Oxygen Administration (08/10/17 17:47) Sodium Chlor 0.9% 1000 Ml Inj (Ns 1000 M (08/10/17 17:47) Resp Oxygen Dashawn C Titrat 1-4 L (08/10/17 17:47) (Hub Use Only)Inp Phy Cons/Ref (08/10/17 ) Admit To Inpatient (08/10/17 ) Nih Stroke Scale - Nihss .On admission and discharge (08/10/17 18:48) Neuro Checks Q4H (08/10/17 18:48) Notify Dr: Other (08/10/17 18:48) Consult Pt Eval & Treat (08/10/17 18:48) Case Management Consult (08/10/17 ) Activity Bed Rest (08/10/17 18:48) Nursing Bedside Swallow Assess .ONCE (08/10/17 18:48) Scd Bilateral/Knee High RAMA.QSHIFT (08/10/17 18:48) Hemoglobin (Hgb) A1c (08/10/17 18:48) Lipid Profile (08/11/17 06:00) Us Carotid Arteries Comp Bilat (08/10/17 ) Mra Brain W/O Contrast (Cow) (08/10/17 ) Mri Brain W/O Contrast (08/10/17 ) Resp Oxygen Dashawn C Titrat 1-4 L (08/10/17 ) ^ Hold Medication (08/10/17 18:48) Sodium Chloride 0.9% Flush (Ns Flush) (08/10/17 21:00) Sodium Chloride 0.9% Flush (Ns Flush) (08/10/17 19:00) Bedside Glucose RAMA.CSUGAR (08/10/17 18:48) ^ Discontinue Insulin Orders (08/10/17 18:48) Insulin Aspart Supplemtl Scale (Novolog (08/10/17 21:00) Dextrose 50% In Jacquelyn (Vial) Inj (D50w (Vi (08/10/17 19:00) Glucagon Inj (Glucagon Inj) (08/10/17 19:00) Consult Rehab Medicine (08/10/17 18:48) Real Estate Account Executive / Telemetry RAMA.Q8H (08/10/17 18:48) Consult Stroke Navigator (08/10/17 ) Scd Bilateral/Knee High RAMA.BID (08/10/17 18:48) Inpatient Certification (08/10/17 ) Admit Order (Ed Use Only) (08/10/17 19:06) Labs Laboratory Tests Test 08/10/17 17:45 White Blood Count 7.2 TH/MM3 Red Blood Count 4.08 MIL/MM3 Hemoglobin 12.8 GM/DL Bedside Hemoglobin 13.9 G/DL Hematocrit 39.5 % Bedside Hematocrit 41.0 % Mean Corpuscular Volume 96.6 FL Mean Corpuscular Hemoglobin 31.2 PG Mean Corpuscular Hemoglobin Concent 32.3 % Red Cell Distribution Width 16.1 % Platelet Count 273 TH/MM3 Mean Platelet Volume 7.9 FL Neutrophils (%) (Auto) 78.7 % Lymphocytes (%) (Auto) 10.0 % Monocytes (%) (Auto) 9.4 % Eosinophils (%) (Auto) 0.5 % Basophils (%) (Auto) 1.4 % Neutrophils # (Auto) 5.7 TH/MM3 Lymphocytes # (Auto) 0.7 TH/MM3 Monocytes # (Auto) 0.7 TH/MM3 Eosinophils # (Auto) 0.0 TH/MM3 Basophils # (Auto) 0.1 TH/MM3 CBC Comment DIFF FINAL Differential Comment Prothrombin Time 11.0 SEC Prothromb Time International Ratio 1.0 RATIO Activated Partial Thromboplast Time 32.2 SEC Fibrinogen 349 mg/dL Bedside Sodium 137 MMOL/L Bedside Potassium 4.5 MMOL/L Bedside Chloride 100 MMOL/L Bedside Blood Urea Nitrogen 21 MG/DL Bedside Creatinine 3.3 MG/DL Bedside Glucose 319 MG/DL [facility] Medical Decision Making Medical Screen Exam Complete: Yes Emergency Medical Condition: Yes Medical Record Reviewed: Yes Differential Diagnosis Ischemic CVA, intracranial hemorrhage, TIA Narrative Course I have reviewed the patient's electronic medical record. Saw this patient back in March 2017 after a fall out of bed with no symptoms I've ordered a stroke alert protocol I reviewed brain CT with radiologist. There is no real hemorrhage. There is numerous old ischemic insults bilaterally IV placed I had ordered IV dye studies to evaluate vasculature but patient has allergy to IV contrast dye and I've canceled those. I reviewed all lab studies. He does have hyperglycemia Case discussed with hospitalist will admit. He has significant altered mental status seems to have left arm weakness that looks significant. He is now aphasic He does not meet TPA standards I also reviewed with neurologist who has been consulted Critical Care Narrative Aggregate critical care time was 36 minutes. Time to perform other separately billable procedures was not included in the critical care time. My time did not include minutes spent treating any other patients simultaneously or on activities that did not directly contribute to the patient's treatment. The services I provided to this patient were to treat and/or prevent clinically significant deterioration that could result in: Ischemic CVA, hemorrhagic CVA, permanent neurologic deficit, cardiopulmonary arrest I provided critical care services requiring my management, as noted below: Chart data review, documentation time, medication orders and management, vital sign assessments/reviewing monitor data, ordering and reviewing lab tests, ordering and interpreting/reviewing x-rays and diagnostic studies, care of the patient and discussion of the patient with the admitting physicians. Diagnosis Primary Impression: Ischemic stroke Additional Impressions: Altered mental status Qualified Codes: R40.1 - Stupor ESRD (end stage renal disease) Hyperglycemia due to type 1 diabetes mellitus Admitting Information Admitting Physician Requests: Admit Jermaine Blanc MD Aug 10, 2017 18:30
[2017-08-10 18:31] LABS: APTT (PATIENT) 32.2 SEC (24.3-30.1)
[2017-08-10] MEDS ORDERED: CLON0.5T PO (18:58)
[2017-08-10] MEDS ORDERED: HYDR-3580 PO (18:58)
[2017-08-10] MEDS ORDERED: METO25TA3 PO (18:58)
[2017-08-10] MEDS ORDERED: INSU1INJ5 SQ (19:00)
[2017-08-10] MEDS ORDERED: GLUCAGON 1 MG/ML VIAL OTHER PRN (19:00)
[2017-08-10] MEDS ORDERED: LOPE2CAP PO (19:00)
[2017-08-10] MEDS ORDERED: SODIUM CHLORIDE 0.9% FLUSH 5 ML FLUSH IV FLUSH PRN (19:00)
[2017-08-10] MEDS ORDERED: TYLE325T PO (19:00)
[2017-08-10] MEDS ORDERED: VITA250C3 CHEW (19:00)
[2017-08-10] MEDS ORDERED: BISA10SU3 RECTAL (19:00)
[2017-08-10] MEDS ORDERED: DEXTROSE 50% IN WATER 50 ML VIAL(D50) IV PUSH PRN (19:00)
[2017-08-10 19:02] VITALS: BP 162/85; PULSE 98; RESP 16; O2SAT 96
[2017-08-10 19:13] LABS: CREATINE KINASE 35 U/L (39-308)
[2017-08-10 20:00] VITALS: BP 167/91; PULSE 95; RESP 20; TEMP 97.9; O2SAT 100
[2017-08-10] MEDS ORDERED: TAMSULOSIN HCL 0.4 MG CAP PO SCH (21:00)
[2017-08-10] MEDS: SODIUM CHLORIDE 0.9% FLUSH 5 ML FLUSH IV FLUSH SCH (21:00)
[2017-08-10] MEDS: METOPROLOL TARTRATE 25 MG TAB PO SCH (21:00)
[2017-08-10] MEDS: clonazePAM 0.5 MG TAB PO SCH (21:00)
[2017-08-10] MEDS: INSULIN ASPART SUPPLEMENTAL SCALE SQ SCH (21:00)
--- NOTE | 2017-08-10 21:04 | HHI.HP ---
[facility] Edvin Tobar MD Admission Diagnosis stroke alert Diagnoses: Travel History International Travel<30 Days: No Contact w/Intl Traveler <30 Da: No Traveled to Known Affected Are: No History of Present Illness 51-year-old male with a past medical history significant for insulin-dependent diabetes mellitus and end-stage renal disease on dialysis brought in from a longterm as a stroke alert. At the time of my examination, the patient is nonverbal and unable to follow commands. Per ED notes, the patient was last seen on his baseline around 1 PM. Per longterm report the patient is usually verbal. He has significant weakness on his left side without any spontaneous movements. Labs were significant for creatinine of 3.3. Review of Systems Unable to obtain as patient is nonverbal Past Family Social History Past Medical History (Obtained from records reveal) End-stage renal disease on dialysis Insulin-dependent diabetes mellitus Hypertension History of CVA Past Surgical History Obtained from records reviewed Appendectomy AVF placement Reported Medications Reported Meds & Active Scripts Active Reported Bisacodyl Supp (Bisacodyl) 10 Mg Supp 10 Mg RECTAL DAILY PRN Loperamide (Loperamide HCl) 2 Mg Cap 2 Mg PO DIRECTED PRN One capsule after each loose stool. Not to exceed 8 capsules per day. Tylenol (Acetaminophen) 325 Mg Tab 325 Mg PO Q4H PRN Vitamin C (Ascorbic Acid) 250 Mg Chew 500 Mg CHEW BID Levemir Flextouch Pen Inj (Insulin Detemir) 300 unit/3 ML Pen 1 Units SQ Clonazepam 0.5 Mg Tab 0.5 Mg PO BID Hydrocodone-Acetaminophen 7.5-325 mg Tab 1 Tab PO TIDAC Metoprolol Tartrate 25 Mg Tab 25 Mg PO BID Tamsulosin (Tamsulosin HCl) 0.4 Mg Cap 0.4 Mg PO HS Ferrous Sulfate DR (Ferrous Sulfate) 324 Mg Tabdr 324 Mg PO DAILY Omeprazole 20 Mg Tab 20 Mg PO DAILY Novolog Inj (Insulin Aspart) 1,000 Unit/10 Ml Vial 0 SQ DIRECTED Sliding Scale as directed. Renvela (Sevelamer Carbonate) 800 Mg Tab 800 Mg PO TID Escitalopram (Escitalopram Oxalate) 10 Mg Tab 10 Mg PO DAILY Aspirin 81 Mg Chew 81 Mg PO DAILY Allergies: Coded Allergies: bee venom protein (honey bee) (Unverified Allergy, Severe, 06/01/17) diatrizoate meglumine (Unverified Allergy, Severe, 06/01/17) gadobenic acid (Unverified Allergy, Severe, 06/01/17) gadodiamide (Unverified Allergy, Severe, 06/01/17) gadoteridol (Unverified Allergy, Severe, 06/01/17) iodixanol (Unverified Allergy, Severe, 06/01/17) iohexol (Unverified Allergy, Severe, 06/01/17) Family History Unable to obtain from patient Social History Lives in a longterm. Unable to obtain further information from patient. Physical Exam Vital Signs Vital Signs Date Time Temp Pulse Resp B/P (MAP) Pulse Ox O2 Delivery O2 Flow Rate FiO2 08/10/17 20:17 08/10/17 19:07 18 100 Nasal Cannula 2.00 08/10/17 19:02 98 16 162/85 (110) 96 Nasal Cannula 3.00 08/10/17 18:12 98.7 65 23 120/75 (90) 100 08/10/17 17:51 100 Room Air 08/10/17 17:51 Room Air 21 08/10/17 17:48 100 21 08/10/17 17:40 84 Physical Exam GENERAL: White male lying in bed, nonverbal, unable to follow commands SKIN: Erythema on right upper extremity, dressed without shadowing HEAD: Atraumatic. Normocephalic. No temporal or scalp tenderness. EYES: Pupils equal round and reactive. Extraocular motions intact. No scleral icterus. No injection or drainage. ENT: Nose without bleeding, purulent drainage or septal hematoma. Throat without erythema, tonsillar hypertrophy or exudate. Uvula midline. Airway patent. NECK: Trachea midline. No JVD or lymphadenopathy. Supple, nontender, no meningeal signs. CARDIOVASCULAR: Regular rate and rhythm without murmurs, gallops, or rubs. RESPIRATORY: Clear to auscultation. Breath sounds equal bilaterally. No wheezes , rales, or rhonchi. GASTROINTESTINAL: Abdomen soft, non-tender, nondistended. No hepato-splenomegaly , or palpable masses. No guarding. MUSCULOSKELETAL: Extremities without clubbing, cyanosis, or edema. No joint tenderness, effusion, or edema noted. NEUROLOGICAL: Patient unable to follow commands. Currently nonverbal. Unable to spontaneously move left upper and lower extremities. Laboratory Laboratory Tests Test 08/10/17 17:45 White Blood Count 7.2 Red Blood Count 4.08 Hemoglobin 12.8 Bedside Hemoglobin 13.9 Hematocrit 39.5 Bedside Hematocrit 41.0 Mean Corpuscular Volume 96.6 Mean Corpuscular Hemoglobin 31.2 Mean Corpuscular Hemoglobin Concent 32.3 Red Cell Distribution Width 16.1 Platelet Count 273 Mean Platelet Volume 7.9 Neutrophils (%) (Auto) 78.7 Lymphocytes (%) (Auto) 10.0 Monocytes (%) (Auto) 9.4 Eosinophils (%) (Auto) 0.5 Basophils (%) (Auto) 1.4 Neutrophils # (Auto) 5.7 Lymphocytes # (Auto) 0.7 Monocytes # (Auto) 0.7 Eosinophils # (Auto) 0.0 Basophils # (Auto) 0.1 CBC Comment DIFF FINAL Differential Comment Prothrombin Time 11.0 Prothromb Time International Ratio 1.0 Activated Partial Thromboplast Time 32.2 Fibrinogen 349 Bedside Sodium 137 Bedside Potassium 4.5 Bedside Chloride 100 Bedside Blood Urea Nitrogen 21 Bedside Creatinine 3.3 Bedside Glucose 319 Total Creatine Kinase 35 Troponin I LESS THAN 0.02 Result Diagram: 08/10/17 1749 Caprini VTE Risk Assessment Caprini VTE Risk Assessment: Mod/High Risk (score >= 2) Caprini Risk Assessment Model Point Value = 1 Point Value = 2 Point Value = 3 Point Value = 5 Age 41-60 Minor surgery BMI > 25 kg/m2 Swollen legs Varicose veins or History of unexplained or recurrent spontaneous Oral contraceptives or hormone replacement Sepsis (< 1 month) Serious lung disease, including pneumonia (< 1 month) Abnormal pulmonary function Acute myocardial infarction Congestive heart failure (< 1 month) History of inflammatory bowel disease Medical patient at bed rest Age 61-74 Arthroscopic surgery Major open surgery (> 45 min) Laparoscopic surgery (> 45 min) Malignancy Confined to bed (> 72 hours) Immobilizing plaster cast Central venous access Age >= 75 History of VTE Family history of VTE Factor V Leiden Prothrombin [id number] Lupus anticoagulant Anticardiolipin antibodies Elevated serum homocysteine Heparin-induced thrombocytopenia Other congenital or acquired thrombophilia Stroke (< 1 month) Elective arthroplasty Hip, pelvis, or leg fracture Acute spinal cord injury (< 1 month) Prophylaxis Regimen Total Risk Factor Score Risk Level Prophylaxis Regimen 0-1 Low Early ambulation 2 Moderate Order ONE of the following: *Sequential Compression Device (SCD) *Heparin 5000 units SQ BID 3-4 Higher Order ONE of the following medications: *Heparin 5000 units SQ TID *Enoxaparin/Lovenox 40 mg SQ daily (WT < 150 kg, CrCl > 30 mL/min) *Enoxaparin/Lovenox 30 mg SQ daily (WT < 150 kg, CrCl > 10-29 mL/min) *Enoxaparin/Lovenox 30 mg SQ BID (WT < 150 kg, CrCl > 30 mL/min) AND/OR *Sequential Compression Device (SCD) 5 or more Highest Order ONE of the following medications: *Heparin 5000 units SQ TID (Preferred with Epidurals) *Enoxaparin/Lovenox 40 mg SQ daily (WT < 150 kg, CrCl > 30 mL/min) *Enoxaparin/Lovenox 30 mg SQ daily (WT < 150 kg, CrCl > 10-29 mL/min) *Enoxaparin/Lovenox 30 mg SQ BID (WT < 150 kg, CrCl > 30 mL/min) AND *Sequential Compression Device (SCD) Assessment and Plan Assessment and Plan 51-year-old male with hypertension, history of previous CVA, insulin-dependent diabetes mellitus and end-stage renal disease requiring dialysis presents as a stroke alert from his longterm. 1. CVA Significant left-sided weakness Patient currently nonverbal and unable to follow commands Stroke workup initiated included MRI/MRA/carotid ultrasound/echo Neurology consulted, appreciate recommendations Patient arrived outside the TPA window Head of bed flat Nothing by mouth Permissive hypertension 2. End-stage renal disease, dialysis dependent Nephrology consulted, appreciate assistance Creatinine 3.3, potassium within normal limits 3. Insulin-dependent diabetes mellitus Low-dose SSI Holding home insulin as patient nothing by mouth 4. Hypertension Continue home medications if SBP greater than 200, DBP greater than 100 FEN Nothing by mouth NS 70 cc/hour Electrolytes: Monitor and replete when necessary Heparin Physician Certification 2 Midnight Certification Type: Admission for Inpatient Services Order for Inpatient Services The services are ordered in accordance with Medicare regulations or non- Medicare payer requirements, as applicable. In the case of services not specified as inpatient-only, they are appropriately provided as inpatient services in accordance with the 2-midnight benchmark. Estimated LOS (days): 2 2 days is the estimated time the patient will need to remain in the hospital, assuming treatment plan goals are met and no additional complications. Post-Hospital Plan: Not yet determined Suma Kraus MD Aug 10, 2017 21:04
[2017-08-10] MEDS: PANTOPRAZOLE SOD 20 MG DELAYED RELEASE TAB PO SCH (21:30)
[2017-08-10] MEDS: HEPARIN SODIUM - SQ 10,000 UNITS/ML VIAL SQ SCH (21:44)
[2017-08-11] VITALS (12 sets, daily range): BP systolic 137–188; BP diastolic 66–91; PULSE 94–107; RESP 18–20; TEMP 97.8–102.8; O2SAT 95–100
[2017-08-11] MEDS: HEPARIN SODIUM - SQ 10,000 UNITS/ML VIAL SQ SCH ×2 (05:21→15:08)
[2017-08-11] MEDS: INSULIN ASPART SUPPLEMENTAL SCALE SQ SCH ×4 (08:00→21:00)
[2017-08-11 08:22] LABS: AUTOMATED NEUTROPHIL # 9.1 TH/MM3 (1.8-7.7); BASOPHIL # 0.2 TH/MM3 (0-0.2); BASOPHIL % 1.4 % (0.0-2.0); EOSINOPHIL % 0.3 % (0.0-4.0); HEMATOCRIT 43.1 % (39.0-51.0); HEMO FLAGS DIFF FINAL; LYMPH % 12.2 % (9.0-44.0); LYMPHOCYTE # 1.4 TH/MM3 (1.0-4.8); MEAN CELL VOLUME 99.6 FL (80.0-100.0); MEAN CORPUSCULAR HEMOGLOBIN 31.3 PG (27.0-34.0); MEAN CORPUSCULAR HGB CONC 31.4 % (32.0-36.0); MONO % 9.1 % (0.0-8.0); PLATELET COUNT 265 TH/MM3 (150-450); RED BLOOD COUNT 4.33 MIL/MM3 (4.50-5.90); RED CELL DISTRIBUTION WIDTH 15.9 % (11.6-17.2); WHITE BLOOD COUNT 11.8 TH/MM3 (4.0-11.0)
[2017-08-11 08:47] LABS: ALKALINE PHOSPHATASE 133 U/L (45-117); ALT (GPT) 16 U/L (12-78); ANION GAP 19 MEQ/L (5-15); AST (GOT) 15 U/L (15-37); BICARBONATE 16.8 MEQ/L (21.0-32.0); BLOOD UREA NITROGEN 27 MG/DL (7-18); CHLORIDE 98 MEQ/L (98-107); GLOMERULAR FILTRATION RATE 14 ML/MIN (>89); HDL CHOLESTEROL 36.7 MG/DL (40.0-60.0); LDL CHOLESTEROL 67 MG/DL (0-99); POTASSIUM 5.1 MEQ/L (3.5-5.1); SODIUM (NA) 134 MEQ/L (136-145); TOTAL BILIRUBIN ADULT 0.4 MG/DL (0.2-1.0)
[2017-08-11] MEDS: SEVELAMER CARBONATE 800 MG TAB PO SCH ×3 (09:00→17:18)
[2017-08-11] MEDS: ESCITALOPRAM OXALATE 10 MG TAB PO SCH (09:00)
[2017-08-11] MEDS: ASPIRIN 81 MG CHEW TAB PO SCH (09:00)
[2017-08-11] MEDS: FERROUS SULFATE 325 MG (65 MG ELEMENTAL IRON) TAB PO SCH (09:00)
[2017-08-11] MEDS: METOPROLOL TARTRATE 25 MG TAB PO SCH (09:00)
[2017-08-11] MEDS: SODIUM CHLORIDE 0.9% FLUSH 5 ML FLUSH IV FLUSH SCH ×2 (09:00→21:00)
[2017-08-11] MEDS: clonazePAM 0.5 MG TAB PO SCH ×2 (09:00→21:00)
[2017-08-11] MEDS: PANTOPRAZOLE SOD 20 MG DELAYED RELEASE TAB PO SCH (09:00)
[2017-08-11] MEDS ORDERED: NON-FORMULARY DRUG (Ferrous Sulfate DR 324 MG) PO SCH (09:00)
[2017-08-11] MEDS ORDERED: NON-FORMULARY DRUG (Omeprazole 20 MG) PO SCH (09:00)
--- NOTE | 2017-08-11 09:27 | RADRPT ---
EXAM DATE/TIME: 08/10/2017 19:43 [facility] COMPARISON: US CAROTID ARTERIES, February 26, 2017, 19:44. INDICATIONS : Syncope. MEDICAL HISTORY : Hypertension. Myocardial infarction. Gastroesophageal reflux disease. Left AVF. Diabetic. ESRD. CVA. Hyperparathyroid. Anemia renal disease. SURGICAL HISTORY : Appendectomy. Left arm AV fistula. ENCOUNTER: Subsequent ACUITY: 2 days PAIN SCORE: 0/10 LOCATION: Bilateral neck PEAK SYSTOLIC VELOCITIES (cm/sec): ICA/CCA RATIO: Right: 0.9 Left: 1.4 ICA: Right: 68 Left: 100 CCA: Right: 75 Left: 71 ECA: Right: 117 Left: 163 VERTEBRAL: Right: 42 antegrade Left: 45 antegrade Elevated flow velocities and ICA/CCA ratios have been found to correlate with increased degrees of vessel stenosis, calculated as percentage of diameter relative to a normal segment of distal ICA/CCA FINDINGS: RIGHT CAROTID: No significant stenosis is visualized. The waveforms are within normal limits. LEFT CAROTID: No significant stenosis is visualized. The waveforms are within normal limits. VERTEBRAL ARTERIES: Antegrade flow is seen in both vertebral arteries. MISCELLANEOUS: None. CONCLUSION: Normal examination. Stable moderate atherosclerotic disease without obvious stenosis Santos Fernandes MD on August 11, 2017 at 9:23 Board Certified Radiologist. This report was verified electronically.
--- NOTE | 2017-08-11 09:44 | RADRPT ---
EXAM DATE/TIME: 08/11/2017 09:08 [facility] COMPARISON: MRI BRAIN W/O CONTRAST, February 26, 2017, 20:36. INDICATIONS : Aphasia. Flaccid left side. MEDICAL HISTORY : Renal failure, chronic. Diabetes mellitus type 2. SURGICAL HISTORY : Appendectomy. ENCOUNTER: Initial ACUITY: 2 day PAIN SCORE: 0/10 LOCATION: cranial TECHNIQUE: Multiplanar, multisequence MRI of the brain was performed without contrast. FINDINGS: CEREBRUM: The ventricles are prominent for age. There is a large abnormal amount of abnormal signal involving t he right anterior cerebral and portions of the middle cerebral artery distribution. The right frontal and temporal lobes show marked increased signal in on the T2 images suggesting ongoing infarction. N o extraaxial fluid collections are seen. The pituitary gland and suprasellar cistern are normal in c onfiguration. WHITE MATTER: N addition increased signal within the periventricular white matter suggesting ischemic demyelinizati on POSTERIOR FOSSA: The cerebellum and brainstem are intact except for 2 mm area in the left cerebellar hemisphere likely additional tiny stroke. The 4th ventricle is midline. The cerebellopontine angle is unremarkable. The cerebellar tonsils are normal in position. DIFFUSION IMAGING: Large area of restricted diffusion involving the right frontal and temporal lobes measuring at least 11 x 5.0 cm. EXTRACRANIAL: The visualized portions of the orbits are unremarkable. Some mucoperiosteal thickening of the right m axillary sinus. CONCLUSION: Large right frontal and temporal stroke . Tiny stroke in the left cerebellar hemisphere. Diffuse atr ophy. No evidence of hemorrhage or significant mass effect at this point. Santos Fernandes MD on August 11, 2017 at 9:38 Board Certified Radiologist. This report was verified electronically.
[2017-08-11] MEDS ORDERED: INSULIN DETEMIR 100 UNITS/ML VIAL SQ SCH (09:45)
--- NOTE | 2017-08-11 09:57 | RADRPT ---
EXAM DATE/TIME: 08/11/2017 09:08 [facility] COMPARISON: No previous studies available for comparison. INDICATIONS : Aphasia. Flaccid left side. MEDICAL HISTORY : Diabetes mellitus type 2. Renal failure, chronic. SURGICAL HISTORY : Appendectomy. ENCOUNTER: Initial ACUITY: 2 day PAIN SCORE: 0/10 LOCATION: cranial Please note a normal MRA of the brain does not entirely exclude the possibility of a small aneurysm, nor the possibility of distal intracranial vessel disease. TECHNIQUE: 3D time of flight MRA was performed. Source images, multiplanar STS MIP, and 3D volume MIP reconstru ctions were reviewed. FINDINGS: There is has been a significant change since February. The right middle and anterior cerebral vessels are not well identified. The floor of the right internal carotid artery stops in the cavernous portion. The left internal carotid bifurcation is visualized. There is a small left anterior cerebral artery. There is no evidence for aneurysm, and no evidence for vascular malformation. 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 The left frontal artery is narrowed but a similar pattern to February. Santos Fernandes MD on August 11, 2017 at 9:52 Board Certified Radiologist. This report was verified electronically.
--- NOTE | 2017-08-11 10:44 | HHI.PR ---
Subjective Remarks Follow-up of a 51 year old male with PMH of CVA with left side residual weakness , DM insulin dependent, ESRD on HD, and HTN. Patient was brought to the ED as a stroke alert from senior living after patient became non-verbal. He was seen and examined in room, no family present at this time. He is nonverbal although able to follow simple commands. Left sided weakness noted. He is moving his right side spontaneously and on command. Speech therapy is in to see patient, but not able to pass as he is not swallowing. Exam and history is limited due to patient no being verbal. He is able to shake head "no" to pain but further questions not answered. Objective Vitals Vital Signs Date Time Temp Pulse Resp B/P (MAP) Pulse Ox O2 Delivery O2 Flow Rate FiO2 08/11/17 09:14 102.0 107 20 180/82 (114) 100 08/11/17 07:31 100 Nasal Cannula 2.00 08/11/17 06:50 95 08/11/17 04:00 97.8 97 20 188/91 (123) 100 08/11/17 00:00 98.5 101 20 168/81 (110) 97 08/10/17 20:17 08/10/17 20:00 97.9 95 20 167/91 (116) 100 08/10/17 19:07 18 100 Nasal Cannula 2.00 08/10/17 19:02 98 16 162/85 (110) 96 Nasal Cannula 3.00 08/10/17 18:12 98.7 65 23 120/75 (90) 100 08/10/17 17:51 100 Room Air 08/10/17 17:51 Room Air 21 08/10/17 17:48 100 21 08/10/17 17:40 84 Result Diagram: 08/11/17 0735 08/11/17 0735 Imaging Last Impressions Head Magnetic Resonance Angiography 08/11/17 0000 Signed Impressions: Service Date/Time: Friday, August 11, 2017 09:08 - CONCLUSION: The right frontal and middle arteries are occluded. The left frontal artery is narrowed but a similar pattern to February. Santos Fernandes MD Carotid Artery Ultrasound 08/11/17 0000 Signed Impressions: Service Date/Time: Thursday, August 10, 2017 19:43 - CONCLUSION: Normal examination. Stable moderate atherosclerotic disease without obvious stenosis Santos Fernandes MD Brain MRI 08/11/17 0000 Signed Impressions: Service Date/Time: Friday, August 11, 2017 09:08 - CONCLUSION: Large right frontal and temporal stroke . Tiny stroke in the left cerebellar hemisphere. Diffuse atrophy. No evidence of hemorrhage or significant mass effect at this point. Santos Fernandes MD Head CT 08/10/17 0000 Signed Impressions: Service Date/Time: Thursday, August 10, 2017 17:44 - CONCLUSION: No significant change has occurred. This report was called to Dr. Blanc at 5: 58 PM on 08/10/[address] Browning.. Noam Browning MD Objective Remarks GENERAL: White thin male lying in bed, nonverbal, unable to follow simple commands on right side. SKIN: Warm and dry, right upper arm AV fistula with +bruit and thrill. HEAD: Atraumatic. Normocephalic. No temporal or scalp tenderness. EYES: Pupils equal round and reactive. Extraocular motions intact. No scleral icterus. No injection or drainage. ENT: Nose without bleeding, purulent drainage or septal hematoma. Throat without erythema, tonsillar hypertrophy or exudate. Uvula midline. Airway patent. NECK: Trachea midline. No JVD. CARDIOVASCULAR: Tachycardia regular rate and rhythm without murmurs, gallops, or rubs. RESPIRATORY: Clear to auscultation. Breath sounds equal bilaterally. No wheezes , rales, or rhonchi. GASTROINTESTINAL: Abdomen soft, non-tender, nondistended. No guarding. MUSCULOSKELETAL: Extremities without clubbing, cyanosis, or edema. No joint tenderness, effusion, or edema noted. NEUROLOGICAL: Patient following simple commands on right side +4. Left arm contracted, not following commands, left leg with +1 plantar and dorsi flexion. Currently nonverbal. Left side facial droop noted. A/P Problem List: (1) Diabetes mellitus ICD Code: E11.9 - Type 2 diabetes mellitus without complications (2) CVA (cerebral vascular accident) ICD Code: I63.9 - Cerebral infarction, unspecified Status: Acute (3) ESRD (end stage renal disease) on dialysis ICD Code: N18.6 - End stage renal disease; Z99.2 - Dependence on renal dialysis Status: Chronic (4) Hypertension ICD Code: I10 - Hypertension Status: Chronic Assessment and Plan 51-year-old male with hypertension, history of previous CVA, insulin-dependent diabetes mellitus and end-stage renal disease requiring dialysis presents as a stroke alert from his senior living. Family including mother and sister arrived at bedside at 10:30am. CVA - Significant left-sided weakness, family repots this was present at senior living, residual of old CVA - Patient currently nonverbal, following simple commands on right upper and lower extremities. - Stroke workup initiated included MRI/MRA/carotid ultrasound/echo - Neurology consulted awaiting recommendations - Patient arrived outside the TPA window - Head of bed flat - Nothing by mouth, did not pass swallow evaluation. - Permissive hypertension End-stage renal disease, dialysis dependent - Nephrology consulted, appreciate assistance - Creatinine 4.56, potassium 5.1 Insulin-dependent diabetes mellitus - Low-dose SSI, BS high, AM glucose was 433 despite being NPO. - Switch patient over to Medium ISS, however family repots he is a brittle diabetic and BS will drop low, switched back to Low ISS, resume Levemir 5units BID - Continue to monitor BS as patient is NPO Hypertension - Continue home medications if SBP greater than 200, DBP greater than 100 Febrile, acute - Slight increase in WBC count this AM and febrile. - Workup for underlying infection, orders for BC X2, UA, and chest x-ray. Patient not verbal, unable to assess if symptomatic. - Depending on chest x-ray may need to be stated on treatment for possible aspiration PNA - Ceftriaxone 1G daily and Azithromycin 250mg daily IV Attending Statement The exam, history, and the medical decision-making described in the above note were completed with the assistance of the mid-level provider. I reviewed and agree with the findings presented. I attest that I had a [id number] encounter with the patient on the same day, and personally performed and documented my assessment and findings in the medical record. Patient continues to be nonverbal. His sister and mother at the bedside during the interview. Per family members patient was able to talk and stated that he was able to move his left side but it was weak and he was in a wheelchair. They 've noticed a drastic decline in mental status and that he moving his left side. Patient continues to be very lethargic. He is able to follow command. Seems that he has left-sided hemineglect. Patient's sister also stated that patient's brittle diabetic and that we need to watch the amount of insulin he is given. She stated that he can go very low. GENERAL:in NAD SKIN: Warm and dry. HEAD: Normocephalic. EYES: No scleral icterus. No injection or drainage. NECK: Supple, trachea midline. No JVD or lymphadenopathy. CARDIOVASCULAR: Regular rate and rhythm without murmurs, gallops, or rubs. RESPIRATORY: Breath sounds equal bilaterally. No accessory muscle use. GASTROINTESTINAL: Abdomen soft, non-tender, nondistended. NEURO AAO X 0. Patient does follow some commands. He is able to move his right upper and lower extremity. Able to squeeze my hand. He does neglect his left side. No movements in the left side. Unable to speak. Patient is also lethargic. CVA -Imaging review as noted above. Extensive stroke. -Neurologist consulted and recommended to continue aspirin. -Allow permissive hypertension. -PT, OT, speech therapist are to consulted. -Continue with telemetry. -Continue with stroke protocol. Uncontrolled diabetes -Blood sugars and the 400s. -Will start Levemir. Since patient is a brittle diabetic with start low dose. Continue a low-dose insulin sliding scale. Uncontrolled hypertension -Will allow permissive hypertension. Fever -Patient developed a fever today of 102. WBC did increase from 7000-11,000. -will do a fever work. Will get UA, chest x-ray and blood cultures. At the moment no source of infection. Discussed extensively about the care with patient, and his family who were at the bedside. Problem Qualifiers (1) Diabetes mellitus: Qualified Codes: E11.22 - Type 2 diabetes mellitus with diabetic chronic kidney disease; N18.6 - End stage renal disease; Z79.4 - MCFP (current) use of insulin; Z99.2 - Dependence on renal dialysis Julieth Quinones Aug 11, 2017 10:44 Tamy Cook MD Aug 11, 2017 14:20
[2017-08-11] MEDS ORDERED: INSULIN ASPART SUPPLEMENTAL SCALE SQ SCH (12:00)
--- NOTE | 2017-08-11 12:07 | RADRPT ---
EXAM DATE/TIME: 08/11/2017 10:50 [facility] COMPARISON: CHEST SINGLE AP, February 26, 2017, 7:51. INDICATIONS : Fever MEDICAL HISTORY : Renal failure, chronic. Diabetes mellitus type 2. SURGICAL HISTORY : Appendectomy. ENCOUNTER: Initial ACUITY: 1 day PAIN SCORE: Non-responsive. LOCATION: Bilateral chest FINDINGS: A single view of the chest demonstrates the lungs to be symmetrically aerated without evidence of mas s, infiltrate or effusion. The cardiomediastinal contours are unremarkable. Osseous structures are intact. CONCLUSION: No acute cardiopulmonary disease demonstrated. Bruce Daniels MD on August 11, 2017 at 12:04 Board Certified Radiologist. This report was verified electronically.
--- NOTE | 2017-08-11 12:20 | EKG ---
Date Performed: 08/10/2017 Time Performed: 18:18:54 PTAGE: 51 years EKG: Sinus rhythm LOW QRS VOLTAGE IN EXTREMITY LEADS ABNORMAL ECG PREVIOUS TRACING : 02/26/2017 07.25 Baseline artifact significantly limits the accuracy of the interpretation. DOCTOR: [place]uy [place] Interpretating Date/Time 08/11/2017 12:19:00
[2017-08-11 13:33] LABS: BACTERIA, URINE RARE /hpf; BLOOD, URINE NEG (NEG); GLUCOSE,URINE 1000 mg/dL (NEG); KETONE, URINE 40 mg/dL (NEG); NITRITE,URINE NEG (NEG); PH, URINE 7.5 (5.0-8.5); URINE COLOR YELLOW (YELLW/STRAW)
[2017-08-11 13:40] LABS: HEMOGLOBIN A1a 1.4 %; HEMOGLOBIN A1b 1.5 %; HEMOGLOBIN Ao 76.1 %; HEMOGLOBIN F 1.8 %; HEMOGLOBIN LA1C 3.4 %
[2017-08-11 13:46] LABS: COMMENT (UR) CATH-CULTURE IND; CULTURE IF INDICATED CATH CULTURE IND
[2017-08-11] MEDS ORDERED: ONDANSETRON HCL 4 MG/2 ML VIAL IV PUSH PRN (14:00)
[2017-08-11] MEDS ORDERED: PANTOPRAZOLE SODIUM 40 MG VIAL IV PUSH SCH (14:00)
[2017-08-11] MEDS: RESP: ALBUTEROL 2.5 MG/IPRATROPIUM 0.5 MG NEB (SCH) NEB ×2 (15:19→20:54)
[2017-08-11] MEDS: ACETAMINOPHEN 650 MG SUPP RECTAL PRN (17:52)
[2017-08-11] MEDS ORDERED: cefTRIAXone INJ 1,000 MG in SODIUM CHLORIDE 0.9% INJ 100 ML IV SCH (20:00)
[2017-08-12] VITALS (7 sets, daily range): BP systolic 132–157; BP diastolic 72–74; PULSE 97–120; RESP 18–26; TEMP 99.8–101.6; O2SAT 97–100
[2017-08-12] MEDS: HEPARIN SODIUM - SQ 10,000 UNITS/ML VIAL SQ SCH ×2 (00:05→05:41)
[2017-08-12] MEDS: RESP: ALBUTEROL 2.5 MG/IPRATROPIUM 0.5 MG NEB (SCH) NEB ×2 (03:46→09:35)
--- NOTE | 2017-08-12 06:21 | MB ---
cc: LOUIS SMITH DATE OF CONSULTATION 08/11/2017 REASON FOR CONSULTATION Stroke alert. HISTORY OF PRESENT ILLNESS Mr. Wyatt is a 51-year-old male who is nonverbal with left-sided hemiparesis, who presented to the [facility] Emergency Room as a Stroke Alert. The patient was assessed by the emergency room physician and the patient was outside the therapeutic window for IV t-PA. He has had history of stroke with residual facial weakness and left-sided weakness. Head CT scan that was unremarkable. The patient has history of end-stage renal disease, diabetes mellitus, hemodialysis, hypertension. The patient was admitted to hospital for further workup. During the encounter the patient's mother and sister are at the bedside. The patient is minimally verbal, awake, answers in a soft voice, a few words, nods his head yes and no, squeezes hands, moves the right side of the body, sticks out tongue. As per the sister two weeks ago the patient was more verbal. He would understand but he would have difficulty saying words and sometimes slurring with words, but he was more comprehensive. She states that the initial stroke was in 2001 when he was in a diabetic with a massive heart attack and followed by two strokes, as she states which left him with left-sided weakness and dysarthria. The sister is not certain what blood thinner he is on. He currently resides in a snf. REVIEW OF SYSTEMS A 12-point review of systems is negative except for what is stated in the HPI. Past medical history is obtained from medical records sister and mother at the bedside. PAST MEDICAL HISTORY 1. End-stage renal disease on dialysis. 2. Insulin-dependent diabetes mellitus. 3. Hypertension. 4. 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 5. History of diabetic coma in 2001 with massive heart attack. PAST SURGICAL HISTORY 1. Appendectomy. 2. AVF placement. MEDICATIONS 1. loperamide 2. Tylenol. 3. Vitamin. 4. Levemir. 5. Clonazepam. 6. Hydrocodone. 7. Acetaminophen. 8. Metoprolol. 9. Tamsulosin. 10. Ferrous sulfate. 11. Omeprazole. 12. NovoLog. 13. Renvela. 14. Escitalopram. 15. Aspirin 81. ALLERGIES DIATRIZOATE. GADOBENIC ACID. GADODIAMIDE. GADOTERIDOL. IODIXANOL. IOHEXOL. FAMILY HISTORY Noncontributory. SOCIAL HISTORY Lives in a snf. PHYSICAL EXAMINATION GENERAL: Awake, sleepy, arousable. Minimally verbal, tachypnea, looks dehydrated, acidotic. HEENT: Atraumatic, normocephalic. Intermittent gazing to the right. Left facial palsy. Intact hearing. NECK: Supple. No signs of meningeal irritation. CARDIOVASCULAR: Regular rate and rhythm. RESPIRATORY: Clear to auscultation. No wheezes. ABDOMEN: Soft abdomen, nontender, nondistended. MUSCULOSKELETAL: Left-sided spastic weakness with contractures. No edema. NEUROLOGIC: Awake, lethargic. Right gaze deviation. Minimally verbal. Nods his head to questions. Waves to his mother on the right-hand, squeezes fingers on the right side. Sticks out his tongue. No nystagmus. Pupils 3 mm, equal reacting to light. Left facial palsy, chronic left upper and lower spastic weakness. Right upper and lower extremity within normal. Plantar - right downgoing, left upgoing. DIAGNOSTICS TESTS LABORATORY DATA WBC 11.2, hemoglobin 13.6, MCV 99.6, platelet count 265. Sodium 134, anion gap 9 , carbon dioxide 16.8, random glucose 43, BUN is 27, creatinine 4.56, albumin 2.6, triglycerides 267, HDL 36.7. DIAGNOSTIC IMAGING - Head CT scan without contrast: No significant change has occurred. There is diffuse atrophy, greatest in the parietal region. Multiple remote basal ganglia lacunar infarcts. - HEAD/BRAIN MRI w/o contrast revealed large right frontal and temporal stroke, tiny stroke in the left cerebellar hemisphere, diffuse atrophy. No evidence of hemorrhage or significant mass effect at this point. - CAROTID ULTRASOUND :Normal examination, atherosclerotic disease. - HEAD MRA Right SURFBOARD DESIGNER and MCA are occluded. The left frontal artery is occluded. DIAGNOSTIC IMPRESSION 1. History of remote stroke with residual left-sided weakness in 2001. 2. Worsening of left-sided weakness and speech difficulty. 3. Diabetes mellitus. 4. Probable diabetic ketoacidosis. 5. Leukocytosis. 6. End-stage renal disease, dialysis dependent. 7. Hypertension, uncontrolled. 8. TIA. 9. Recrudescence of remote stroke symptoms, the patient has history of. CLINICAL COUNSELING Discussed the case with the mother and his daughter with the patient in the exam room. Currently the patient looks dehydrated, acidotic, elevated blood sugar and blood pressure with worsening of his stroke symptoms. Imaging did not show evidence of an acute restricted diffusion; however, there is evidence of involvement of the right ICA and MCA with evolving ischemic stroke. The patient is on aspirin 81 mg. PLAN 1. Neuro checks q. 1 hourly. 2. Continue aspirin 81 mg. 3. The right hemisphere of the brain is massively involved in both territories of the right NILS and right MCA, thus to increase or switch to a different blood thinner will not be recommended at this time for concern of hemorrhagic conversion. 4. Treat acute medical problems, supportive medical therapy. 5. Goal blood pressure 135-140/75-80. 6. Elevated head of bed. 7. No need for permissive hypertension. 8. Maintain euglycemia and euthermia. 9. Speech therapy recommendations are appreciated. 10. PT/OT recommendations are appreciated. 11. DVT prophylaxis with SCDs. 12. GI prophylaxis. Thank you for the opportunity to participate in the care of your patient. MD POORNIMA Brewer/PALAK /1:20 PM /7:00 AM LORNE
[2017-08-12] MEDS: INSULIN ASPART SUPPLEMENTAL SCALE SQ SCH (08:04)
[2017-08-12] MEDS: ESCITALOPRAM OXALATE 10 MG TAB PO SCH (08:05)
[2017-08-12] MEDS: clonazePAM 0.5 MG TAB PO SCH (08:05)
[2017-08-12] MEDS: SODIUM CHLORIDE 0.9% FLUSH 5 ML FLUSH IV FLUSH SCH (08:05)
[2017-08-12] MEDS: ASPIRIN 81 MG CHEW TAB PO SCH (08:05)
[2017-08-12] MEDS: FERROUS SULFATE 325 MG (65 MG ELEMENTAL IRON) TAB PO SCH (08:05)
[2017-08-12] MEDS: SEVELAMER CARBONATE 800 MG TAB PO SCH (08:05)
[2017-08-12] MEDS ORDERED: SODIUM CHLOR 0.9% 1000 ML INJ 1,000 ML IV ONE (09:00)
[2017-08-12] MEDS ORDERED: SODIUM CHLORID 0.9% 500 ML INJ 500 ML IV ONE (09:00)
[2017-08-12] MEDS ORDERED: Vancomycin Consult Pharmacy 1 EA OTHER SCH (09:00)
[2017-08-12] MEDS: ACETAMINOPHEN 650 MG SUPP RECTAL PRN (09:06)
[2017-08-12] MEDS ORDERED: CEFEPIME INJ 1,000 MG in SODIUM CHLORIDE 0.9% INJ 100 ML IV ONE (09:15)
[2017-08-12] MEDS ORDERED: SODIUM CHLOR 0.9% 1000 ML INJ 1,000 ML IV SCH ×2 (09:30→11:15)
--- NOTE | 2017-08-12 10:24 | HHI.PR ---
Subjective Remarks Follow-up for CVA and fevers Patient continued to spike fevers and he is becoming tachycardic this morning. Blood sugars still very labile. Patient continues to follow commands but it nonverbal. He is able to grossly move his right upper and lower extremity. He still cannot move his left side. Patient is only able to nod no but he cannot nod yes. Patient given Tylenol with no improvement in fevers. Objective Vitals Vital Signs Date Time Temp Pulse Resp B/P (MAP) Pulse Ox O2 Delivery O2 Flow Rate FiO2 08/12/17 09:37 99 Nasal Cannula 2.00 08/12/17 08:13 101.6 116 26 157/73 (101) 100 08/12/17 04:00 99.8 113 18 154/74 (100) 97 08/12/17 00:00 99.8 97 18 132/72 (92) 98 08/11/17 20:54 95 Nasal Cannula 2.00 08/11/17 20:00 101.7 101 18 137/73 (94) 99 08/11/17 19:45 106 08/11/17 19:06 102.6 94 18 151/71 (97) 100 08/11/17 16:00 102.8 101 20 149/66 (93) 100 08/11/17 12:27 102.3 103 20 182/84 (116) 100 I/O 08/11/17 08/11/17 08/11/17 08/12/17 08/12/17 08/12/17 07:00 15:00 23:00 07:00 15:00 23:00 Intake Total 1000 ml 100 ml Balance 1000 ml 100 ml Intake IV Total 1000 ml 100 ml # Voids 0 0 # Bowel Movements 1 Result Diagram: 08/11/17 0735 08/12/17 0910 Imaging Last Impressions Head Magnetic Resonance Angiography 08/11/17 0000 Signed Impressions: Service Date/Time: Friday, August 11, 2017 09:08 - CONCLUSION: The right frontal and middle arteries are occluded. The left frontal artery is narrowed but a similar pattern to February. Santos Fernandes MD Chest X-Ray 08/11/17 0000 Signed Impressions: Service Date/Time: Friday, August 11, 2017 10:50 - CONCLUSION: No acute cardiopulmonary disease demonstrated. Bruce Daniels MD Carotid Artery Ultrasound 08/11/17 0000 Signed Impressions: Service Date/Time: Thursday, August 10, 2017 19:43 - CONCLUSION: Normal examination. Stable moderate atherosclerotic disease without obvious stenosis Santos Fernandes MD Brain MRI 08/11/17 0000 Signed Impressions: Service Date/Time: Friday, August 11, 2017 09:08 - CONCLUSION: Large right frontal and temporal stroke . Tiny stroke in the left cerebellar hemisphere. Diffuse atrophy. No evidence of hemorrhage or significant mass effect at this point. Santos Fernandes MD Head CT 08/10/17 0000 Signed Impressions: Service Date/Time: Thursday, August 10, 2017 17:44 - CONCLUSION: No significant change has occurred. This report was called to Dr. Blanc at 5: 58 PM on 08/10/[address] Browning.. Noam Browning MD Objective Remarks GENERAL: in NAD SKIN: Warm and dry. HEAD: Normocephalic. EYES: No scleral icterus. No injection or drainage. NECK: Supple, trachea midline. No JVD or lymphadenopathy. CARDIOVASCULAR: Regular rate and rhythm without murmurs, gallops, or rubs. RESPIRATORY: Breath sounds equal bilaterally, but there is a cough and transmitted upper resp sounds No accessory muscle use. GASTROINTESTINAL: Abdomen soft, non-tender, nondistended. NEURO: Unable to speak. He does follow commands. Cannot move left side. Able to move his right side. Can only nod no unable to nod yes. Medications and IVs Current Medications Sodium Chloride 1,000 ml @ 70 mls/hr [id number] ONCE IV Last administered on 08/10 18:36; Start 08/10/17 at 17:47; Stop 08/11/17 at 08:04; Status DC IV Flush (NS Flush) 2 ml BID IV FLUSH Last administered on 08/12/17 08:05; Start 08/10/17 at 21:00 IV Flush (NS Flush) 2 ml UNSCH PRN IV FLUSH FLUSH AFTER USING IV ACCESS; Start 08/10/17 at 19:00 Insulin Aspart (NovoLOG SUPPLEMENTAL SCALE) 1 ACHS SQ Last administered on 08/11 08:00; Start 08/10/17 at 21:00; Stop 08/11/17 at 09:38; Status DC Dextrose (D50w (Vial) Inj) 50 ml UNSCH PRN IV PUSH HYPOGLYCEMIA-SEE COMMENTS; Start 08/10/17 at 19:00 Glucagon (Glucagon Inj) 1 mg UNSCH PRN OTHER HYPOGLYCEMIA-SEE COMMENTS; Start 08/10/17 at 19:00 Aspirin (Aspirin Chew) 81 mg DAILY PO ; Start 08/11/17 at 09:00 Clonazepam (KlonoPIN) 0.5 mg BID PO ; Start 08/10/17 at 21:00 Escitalopram Oxalate (Lexapro) 10 mg DAILY PO ; Start 08/11/17 at 09:00 Metoprolol Tartrate (Lopressor) 25 mg BID PO ; Start 08/10/17 at 21:00; Status Future Hold Sevelamer Carbonate (Renvela) 800 mg TID PO ; Start 08/11/17 at 09:00 Tamsulosin HCl (Flomax) 0.4 mg HS PO ; Start 08/10/17 at 21:00; Status Future Hold Non-Formulary Medication 324 mg DAILY PO ; Start 08/11/17 at 09:00; Status UNV Non-Formulary Medication 20 mg DAILY PO ; Start 08/11/17 at 09:00; Status UNV Heparin Sodium (Porcine) (Heparin Inj) 5,000 units Q8HR SQ Last administered on 08/12/17 05:41; Start 08/10/17 at 22:00 Ferrous Sulfate (Ferrous Sulfate) 325 mg DAILY PO ; Start 08/11/17 at 09:00 Pantoprazole Sodium (Protonix) 20 mg DAILY PO ; Start 08/10/17 at 21:30; Stop 08/11/17 at 14:04; Status DC Insulin Aspart (NovoLOG SUPPLEMENTAL SCALE) 1 ACHS SLIDING SCALE SQ ; Start at 12:00; Stop 08/11/17 at 12:00; Status DC Insulin Detemir (Levemir Inj) 5 units BID SQ Last administered on 08/11/17 09: 45; Start 08/11/17 at 09:45; Stop 08/11/17 at 17:22; Status DC Insulin Aspart (NovoLOG SUPPLEMENTAL SCALE) 1 ACHS SLIDING SCALE SQ Last administered on 08/12/17 08:04; Start 08/11/17 at 12:00 Albuterol/ Ipratropium (Duoneb Neb) 1 ampule Q6HR NEB NEB Last administered on 08/12/17 09:35; Start 08/11/17 at 16:00 Ondansetron HCl (Zofran Inj) 4 mg Q8H PRN IV PUSH NAUSEA Last administered on 08/11/17 14:59; Start 08/11/17 at 14:00 Pantoprazole Sodium (Protonix Inj) 40 mg Q24H IV PUSH Last administered on 08/11 14:59; Start 08/11/17 at 14:00 Acetaminophen (Tylenol Supp) 650 mg Q6H PRN RECTAL FEVER Last administered on 08/12/17 09:06; Start 08/11/17 at 17:30 Ceftriaxone Sodium 1000 mg/ Sodium Chloride 100 ml @ 200 mls/hr Q24H IV Last administered on 08/12/17 00:02; Start 08/11/17 at 20:00; Stop 08/12/17 at 09:00 ; Status DC Sodium Chloride 1,000 ml @ 999 mls/hr BOLUS ONCE IV ; Start 08/12/17 at 09:00 ; Stop 08/12/17 at 09:01; Status DC Vancomycin HCl 1000 mg/Sodium Chloride 250 ml @ 250 mls/hr ONCE ONCE IV ; Start 08/12/17 at 12:00; Stop 08/12/17 at 12:59; Status Cancel Cefepime HCl 1000 mg/Sodium Chloride 100 ml @ 200 mls/hr ONCE ONCE IV Last administered on 08/12/17 09:17; Start 08/12/17 at 09:15; Stop 08/12/17 at 09:44 ; Status DC Pharmacy Profile Note 0 ml @ 0 mls/hr UNSCH OTHER ; Start 08/12/17 at 09:00; Stop 08/12/17 at 09:37; Status DC Sodium Chloride 500 ml @ 500 mls/hr BOLUS ONCE IV Last administered on 09:00; Start 08/12/17 at 09:00; Stop 08/12/17 at 09:59; Status DC Sodium Chloride 1,000 ml @ 70 mls/hr [id number] IV ; Start 08/12/17 at 09:30 A/P Problem List: (1) Diabetes mellitus ICD Code: E11.9 - Type 2 diabetes mellitus without complications (2) CVA (cerebral vascular accident) ICD Code: I63.9 - Cerebral infarction, unspecified Status: Acute (3) ESRD (end stage renal disease) on dialysis ICD Code: N18.6 - End stage renal disease; Z99.2 - Dependence on renal dialysis Status: Chronic (4) Hypertension ICD Code: I10 - Hypertension Status: Chronic Assessment and Plan 51-year-old male with hypertension, history of previous CVA, insulin-dependent diabetes mellitus and end-stage renal disease requiring dialysis presents as a stroke alert from his retirement. Family including mother and sister arrived at bedside at 10:30am. CVA - CT scan of the brain negative. MRI/MRA showed right frontal and temporal CVA with tiny stroke of the left cerebellum hemisphere. Also right frontal and middle occlude arteries. Clotted ultrasound shows stable atherosclerosis with no stenosis. will placed ECHO. - Neurologist following recommend tight blood pressure control and aspirin. Avoid any other anticoagulant due to increased risk of hemorrhage. Neurology consulted awaiting recommendations -PT/OT/speech therapist consulted. Most likely patient will not be able to swallow based on examination. Very poor prognosis. Will need to consult palliative care. If family wants everything done will need to consider PEG later on when he is stable. Sepsis -Fevers, tachycardia sores possible UTI. Chest x-ray negative. Positive for leukocytosis. Pending blood cultures. Pending labs from today. -Will need to give fluids at the same time will need to be cautious since patient does have end-stage renal disease. Bolus 500 cc/h per restart IV fluids. -DC Rocephin and start vancomycin cefepime. Per pharmacist this needs to be dosed by handicraft or hobby shop manager. Healthcare Insurance Sales Agent is following. -Transferred to the ICU for close monitoring. End-stage renal disease, dialysis dependent - Patient scheduled for dialysis today. Insulin-dependent diabetes mellitus - Patient is a brittle diabetic. Continue with the low-dose insulin signs scope. Will hold Levemir since his blood sugars went to 400s to 80s yesterday. -Continue to monitor Accu-Cheks. Hypertension - Per neurologist no need for permissive hypertension. Most likely subacute. Recommending tight blood pressure control. Blood pressure is normal but we'll need to be cautious since patient is septic. Discharge Planning Very poor prognosis. Multiple attempts were made to call patient's mother and sister no one answered the phone. Unable to leave a voicemail since there was no voicemail. Will transfer patient to the ICU for close monitoring due to sepsis. Palliative care consulted. Discussed with patient's nurse. 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
[2017-08-12] MEDS ORDERED: INSULIN REGULAR (IV INFUSION) 100 UNITS in SODIUM CHLORIDE 0.9% INJ 99 ML IV PRN ×2 (11:00→12:00)
[2017-08-12] MEDS ORDERED: DEXTROSE 50% IN WATER 50 ML VIAL(D50) IV PUSH PRN ×2 (11:00→11:15)
[2017-08-12] MEDS ORDERED: MISC INFORMATION OTHER ONE ×2 (11:00→11:15)
--- NOTE | 2017-08-12 11:24 | PD.CONS ---
[facility] Service Critical Care Medicine Consult Requested By [facility] Reason for Consult Critical Care Management Primary Care Physician Edvin Tobar MD History of Present Illness Admission Diagnosis Diagnosis: (1) Diabetic ketoacidosis Diagnosis: Principal (2) Hypotension Diagnosis: Principal (3) Severe sepsis Diagnosis: Principal (4) UGIB (upper gastrointestinal bleed) Diagnosis: Principal (5) Lactic acidosis Diagnosis: Principal (6) Leukocytosis Diagnosis: Principal (7) Hyperglycemia due to type 1 diabetes mellitus Diagnosis: Principal (8) History of CVA with residual deficit Diagnosis: Secondary (9) CAD (coronary artery disease) Diagnosis: Secondary (10) ESRD (end stage renal disease) Diagnosis: Secondary Chief Complaint: DKA Travel History International Travel<30 Days: No Contact w/Intl Traveler <30 Da: No Traveled to Known Affected Are: No History of Present Illness Patient is a 50-year-old male [facility] resident with history of type 1 diabetes, prior CVA x 2, end-stage renal disease on dialysis Saturday, hypertension, COPD, anxiety depression who was sent from the [facility] to the ER for evaluation of new stroke. He was outside of tPA window. Blood sugars have been poorly controlled and he is transferred to the [facility] for critical care management. Patient is a very poor historian and not much history can be obtained from him. He is clearly severely debilitated. Review of Systems ROS Unobtainable, confused, nonverbal. Past Family Social History Allergies: Coded Allergies: bee venom protein (honey bee) (Unverified Allergy, Severe, 06/01/17) diatrizoate meglumine (Unverified Allergy, Severe, 06/01/17) gadobenic acid (Unverified Allergy, Severe, 06/01/17) gadodiamide (Unverified Allergy, Severe, 06/01/17) gadoteridol (Unverified Allergy, Severe, 06/01/17) iodixanol (Unverified Allergy, Severe, 06/01/17) iohexol (Unverified Allergy, Severe, 06/01/17) Past Medical History PFSH Past Medical History Hx Anticoagulant Therapy: Yes Anemia: Yes Anxiety: Yes Depression: Yes Heart Rhythm Problems: No Cancer: No Cardiovascular Problems: Yes High Cholesterol: Yes Chest Pain: No Congestive Heart Failure: No Cerebrovascular Accident: Yes Coronary Artery Disease: Yes Diabetes: Yes Dialysis: Yes (M,W,F) Diminished Hearing: No Endocrine: Yes Gastrointestinal Disorders: Yes (GERD) GERD: Yes Genitourinary: Yes Headaches: No Hiatal Hernia: No Hypertension: Yes Immune Disorder: No Kidney Stones: No Musculoskeletal: No Neurologic: Yes (TIA HX x2, ATAXIA) Psychiatric: Yes (ANXIETY/ DEPRESSION) Reproductive: No Respiratory: No Immunizations Current: Yes Myocardial Infarction: Yes (X 2) Pneumonia: Yes (X 2) Renal Failure: Yes Seizures: No Thyroid Disease: No Ulcer: No Past Surgical History Appendectomy: Yes Other Surgery: Yes (SHUNT PLACED TO LEFT ARM ) Social History Alcohol Use: No Tobacco Use: Yes (1/2 PPD) Substance Use: No Allergies-Medications Allergies-Medications (Allergen,Severity, Reaction): Coded Allergies: bee venom protein (honey bee) (Unverified Allergy, Severe, 06/01/17) diatrizoate meglumine (Unverified Allergy, Severe, 06/01/17) gadobenic acid (Unverified Allergy, Severe, 06/01/17) gadodiamide (Unverified Allergy, Severe, 06/01/17) gadoteridol (Unverified Allergy, Severe, 06/01/17) iodixanol (Unverified Allergy, Severe, 06/01/17) iohexol (Unverified Allergy, Severe, 06/01/17) Reported Meds & Prescriptions Reported Meds & Active Scripts Active Reported Bisacodyl Supp (Bisacodyl) 10 Mg Supp 10 Mg RECTAL DAILY PRN Loperamide (Loperamide HCl) 2 Mg Cap 2 Mg PO DIRECTED PRN One capsule after each loose stool. Not to exceed 8 capsules per day. Tylenol (Acetaminophen) 325 Mg Tab 325 Mg PO Q4H PRN Vitamin C (Ascorbic Acid) 250 Mg Chew 500 Mg CHEW BID Levemir Flextouch Pen Inj (Insulin Detemir) 300 unit/3 ML Pen 1 Units SQ Clonazepam 0.5 Mg Tab 0.5 Mg PO BID Hydrocodone-Acetaminophen 7.5-325 mg Tab 1 Tab PO TIDAC Metoprolol Tartrate 25 Mg Tab 25 Mg PO BID Tamsulosin (Tamsulosin HCl) 0.4 Mg Cap 0.4 Mg PO HS Ferrous Sulfate DR (Ferrous Sulfate) 324 Mg Tabdr 324 Mg PO DAILY Omeprazole 20 Mg Tab 20 Mg PO DAILY Novolog Inj (Insulin Aspart) 1,000 Unit/10 Ml Vial 0 SQ DIRECTED Sliding Scale as directed. Renvela (Sevelamer Carbonate) 800 Mg Tab 800 Mg PO TID Escitalopram (Escitalopram Oxalate) 10 Mg Tab 10 Mg PO DAILY Aspirin 81 Mg Chew 81 Mg PO DAILY Physical Exam Vital Signs Vital Signs Date Time Temp Pulse Resp B/P (MAP) Pulse Ox O2 Delivery O2 Flow Rate FiO2 08/12/17 09:37 99 Nasal Cannula 2.00 08/12/17 08:13 101.6 116 26 157/73 (101) 100 08/12/17 08:04 120 08/12/17 04:00 99.8 113 18 154/74 (100) 97 08/12/17 00:00 99.8 97 18 132/72 (92) 98 08/11/17 20:54 95 Nasal Cannula 2.00 08/11/17 20:00 101.7 101 18 137/73 (94) 99 08/11/17 19:45 106 08/11/17 19:06 102.6 94 18 151/71 (97) 100 08/11/17 16:00 102.8 101 20 149/66 (93) 100 08/11/17 12:27 102.3 103 20 182/84 (116) 100 Physical Exam Physical Exam Physical Exam Vital Signs Physical Exam GENERAL: This is a chronically ill appearing and debilitated male male , in moderate distress SKIN: No rashes, ecchymoses or lesions. Cool and dry. HEAD: Atraumatic. Normocephalic. EYES: Pupils equal round and reactive ENT: Nose without bleeding. NECK: Trachea midline. Supple, snoring but moving air adequately. CARDIOVASCULAR: Regular rate and rhythm without murmurs, gallops, or rubs. No JVD. RESPIRATORY: Air entry equal bilaterally. Congested, mobile secretions. GASTROINTESTINAL: Abdomen soft, non-tender, nondistended. Well-healed midline scar, no guarding MUSCULOSKELETAL: Extremities without clubbing, cyanosis, or edema. Left arm with patent AVF NEUROLOGICAL: Obtunded. FARSHAD. Laboratory Laboratory Tests Test 08/11/17 12:42 08/11/17 13:17 08/11/17 13:53 08/12/17 09:10 Urine Color YELLOW Urine Turbidity CLEAR Urine pH 7.5 Urine Specific [place] 1.007 Urine Protein 30 Urine Glucose (UA) 1000 Urine Ketones 40 Urine Occult Blood NEG Urine Nitrite NEG Urine Bilirubin NEG Urine Urobilinogen LESS THAN 2.0 Urine Leukocyte Esterase NEG Urine RBC LESS THAN 1 Urine WBC 1 Urine Bacteria RARE Microscopic Urinalysis Comment CATH-CULTURE IND Random Glucose 261 545 B-Hydroxybutyrate 2.22 Date/Time Source Procedure Growth Status 08/11/17 13:22 Blood Peripheral Aerobic Blood Culture - Preliminary NO GROWTH IN 1 DAY Resulted 08/11/17 13:22 Blood Peripheral Anaerobic Blood Culture - Preliminary NO GROWTH IN 1 DAY Resulted 08/11/17 22:40 Nasal Washing Influenza Types A,B Antigen (LANA) - Final NEGATIVE FOR FLU A AND B ANTIGEN.... Complete 08/11/17 12:42 Urine Catheterized Urine Urine Culture Pending Received Result Diagram: 08/11/17 0735 08/12/17 0910 Assessment and Plan Assessment and Plan Assessment and Plan Assessment and Plan Assessment and Plan NEURO: Stroke Alert Acute metabolic encephalopathy History of CVA 2 - No sedation, monitor neuro status closely RESP: Tobacco abuse Probable COPD -Nasal cannula oxygen -DuoNeb every 6 hours when necessary -Incentive spirometry CV: Hypotension Lactic acidosis History of hypertension Coronary artery disease -Normal saline 50 ml per hour. Check troponin -Hold all home antihypertensives at this time due to hypotension GI: Protonix : End-stage renal disease -Monitor renal function closely. Previous records indicate patient is on Saturday schedule -Nephrology consulted ID: Severe sepsis Lactic acidosis -IV vancomycin and Cefepime started. Follow-up on blood urine and sputum culture -Source of sepsis unclear at this time HEME: Anemia of chronic disease -Monitor CBC, CMP, coags ENDO: Diabetic ketoacidosis Type 1 diabetes - Insulin gtt #3 algorithm PROPH: -Bilateral lower extremity SCDs. Avoid chemical DVT prophylaxis secondary to recent upper GI bleed. IV Protonix. LINES: -Utilize peripheral IVs, central line if needed Problem Qualifiers (1) Diabetic ketoacidosis: (2) Hypotension: (3) CAD (coronary artery disease): Overall impression: custodial resident with at least two previous strokes but apparently verbal until recently. Now presents with acute stroke. Has developed DKA and appears to be septic. He is critically ill, hypotensive, and guards his airway marginally. We are trying to contact family for direction. -> Family contacted by Dr. Young. They have requested DNR status. Critical care 43 mins Logan Valiente MD Aug 12, 2017 11:24
[2017-08-12] MEDS ORDERED: DEXT 5%-NACL 0.9% 1000 ML INJ 1,000 ML IV SCH (11:30)
[2017-08-12] MEDS ORDERED: VANCOMYCIN INJ 1,000 MG in SODIUM CHLOR 0.9% 250 ML INJ 250 ML IV ONE (12:00)
[2017-08-12] MEDS ORDERED: ROCURONIUM INJ 50 MG/5 ML VIAL ONE (12:03)
[2017-08-12] MEDS ORDERED: ETOMIDATE 40 MG/20 ML VIAL ONE (12:03)
[2017-08-12] MEDS ORDERED: SUCCINYLCHOLINE CHLORIDE 200 MG/10 ML VIAL ONE (12:03)
--- NOTE | 2017-08-12 12:39 | HHI.CCPN ---
Subjective Remarks/Hospital Course 08/11 : Called to patient's bedside. Patient noted to have a acute hypoxemic respiratory failure, palliative care team had previously been consulted, patient not evaluated yet. Patient was ambu mass ventilator 100% to maintain O2 saturation in preparation for emergency intubation. Family was contacted. The patient's sister who is POA in conjunction with the patient's mother, I updated them on the patient's medical status and the need for emergent intubation. Informed by patient's sister the patient would not want to live this way and requesting Comfort Care measures only, no intubation. I clarified DNR measures with sister Aminah Lott, to include no chest compressions, no shock, no medications to maintain blood pressure. Ms. Lott stated an understanding and requested no interventions be performed. The patient CODE STATUS was made DNR. Objective Vital Signs Date Time Temp Pulse Resp B/P (MAP) Pulse Ox O2 Delivery O2 Flow Rate FiO2 08/12/17 09:37 99 Nasal Cannula 2.00 08/12/17 08:13 101.6 116 26 157/73 (101) 08/10/17 17:51 21 Intake and Output 08/12/17 08/12/17 08/13/17 08:00 16:00 00:00 Intake Total 600 ml Balance 600 ml Result Diagram: 08/11/17 0735 08/12/17 0910 Other Results Microbiology Date/Time Source Procedure Growth Status 08/11/17 22:40 Nasal Washing Influenza Types A,B Antigen (LANA) - Final NEGATIVE FOR FLU A AND B ANTIGEN.... Complete Imaging Last Impressions Head Magnetic Resonance Angiography 08/11/17 0000 Signed Impressions: Service Date/Time: Friday, August 11, 2017 09:08 - CONCLUSION: The right frontal and middle arteries are occluded. The left frontal artery is narrowed but a similar pattern to February. Santos Fernandes MD Chest X-Ray 08/11/17 0000 Signed Impressions: Service Date/Time: Friday, August 11, 2017 10:50 - CONCLUSION: No acute cardiopulmonary disease demonstrated. Bruce Daniels MD Carotid Artery Ultrasound 08/11/17 0000 Signed Impressions: Service Date/Time: Thursday, August 10, 2017 19:43 - CONCLUSION: Normal examination. Stable moderate atherosclerotic disease without obvious stenosis Santos Fernandes MD Brain MRI 08/11/17 0000 Signed Impressions: Service Date/Time: Friday, August 11, 2017 09:08 - CONCLUSION: Large right frontal and temporal stroke . Tiny stroke in the left cerebellar hemisphere. Diffuse atrophy. No evidence of hemorrhage or significant mass effect at this point. Santos Fernandes MD Head CT 08/10/17 0000 Signed Impressions: Service Date/Time: Thursday, August 10, 2017 17:44 - CONCLUSION: No significant change has occurred. This report was called to Dr. Blanc at 5: 58 PM on 08/10/[address] Browning.. Noam Browning MD Objective Remarks Physical Exam Physical Exam Vital Signs Physical Exam GENERAL: This is a chronically ill appearing male male, who appears in moderate distress SKIN: No rashes, ecchymoses or lesions. Cool and dry. HEAD: Atraumatic. Normocephalic. EYES: Pupils equal round and reactive ENT: Nose without bleeding. NECK: Trachea midline. Supple, snoring but moving air well. CARDIOVASCULAR: Regular rate and rhythm without murmurs, gallops, or rubs. No JVD. RESPIRATORY: Air entry equal bilaterally. Congested, mobile secretions. GASTROINTESTINAL: Abdomen soft, non-tender, nondistended. Well-healed midline scar, no guarding MUSCULOSKELETAL: Extremities without clubbing, cyanosis, or edema. Left arm with patent AVF NEUROLOGICAL: Obtunded. FARSHAD. A/P Assessment and Plan Assessment and Plan Assessment and Plan Assessment and Plan NEURO: Stroke Alert Acute metabolic encephalopathy History of CVA 2 -Minimize sedation, monitor neuro status closely -Hold aspirin secondary to GI bleed RESP: Tobacco abuse Probable COPD -Nasal cannula oxygen -DuoNeb every 6 hours when necessary -Incentive spirometry CV: Hypotension Lactic acidosis History of hypertension Coronary artery disease -Normal saline IV fluids 3L bolus and 50 ml per hour. Check troponin -Hold all home antihypertensives at this time due to hypotension GI: Protonix : End-stage renal disease -Monitor renal function closely. Previous records indicate patient is on Saturday schedule -Nephrology consulted ID: Severe sepsis Lactic acidosis -IV vancomycin and Cefepime started. Follow-up on blood urine and sputum culture -Source of sepsis unclear at this time HEME: Anemia of chronic disease -Monitor CBC, CMP, coags ENDO: Diabetic ketoacidosis Type 1 diabetes - Insulin gtt #3 algorithm PROPH: -Bilateral lower extremity SCDs. Avoid chemical DVT prophylaxis secondary to upper GI bleed. IV Protonix infusion LINES: -Utilize peripheral IVs, central line if needed Problem Qualifiers (1) Diabetic ketoacidosis: (2) Hypotension: (3) CAD (coronary artery disease): Dispo: This is a 51-year-old male with acute respiratory decompensation with multiple comorbidities who had previously expressed did not want to continue to live this way requesting no interventions previously to family. No status change to DNR per request of CLAUDE Merritt. Comfort care measures instituted. Palliative care team updated. Critical care 35 mins Physician Oma Her MD Aug 12, 2017 12:39
[2017-08-12] MEDS ORDERED: HYOSCYAMINE 0.5 MG/ML AMP IV PUSH ONE (12:45)
[2017-08-12] MEDS ORDERED: MORPHINE SULFATE 8 MG/ML INJ IV PUSH ONE (12:45)
[2017-08-12] MEDS ORDERED: LORazepam 2 MG/ML VIAL IV PUSH ONE (12:45)
[2017-08-12] MEDS ORDERED: CLINDAMYCIN INJ 600 MG in SODIUM CHLORIDE 0.9% INJ 100 ML IV SCH (13:00)
[2017-08-12] MEDS ORDERED: MORPHINE SULFATE 8 MG/ML INJ IV PUSH PRN (13:15)
[2017-08-12] MEDS ORDERED: HYOSCYAMINE 0.5 MG/ML AMP IV PUSH PRN (13:15)
[2017-08-12] MEDS ORDERED: FUROSEMIDE 20 MG/2 ML VIAL IV PUSH PRN (13:15)
[2017-08-12] MEDS ORDERED: MORPHINE SULFATE 4 MG/ML INJ IV PUSH PRN (13:15)
[2017-08-12] MEDS ORDERED: BISACODYL 10 MG SUPP RECTAL PRN (13:15)
[2017-08-12] MEDS ORDERED: ACETAMINOPHEN 650 MG SUPP RECTAL PRN (13:15)
[2017-08-12] MEDS ORDERED: LORazepam 2 MG/ML VIAL IV PUSH PRN ×3 (13:15)
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
[2017-08-12 15:00] LABS: POTASSIUM 5.7 MEQ/L (3.5-5.1)
[2017-08-12 15:09] LABS: BETA-HYDROXYBUTYRATE 9.61 MMOL/L (0.00-0.39)
--- NOTE | 2017-08-12 15:51 | HHI.DS ---
Summary Note Date of : Aug 12, 2017 Time Of : 15:35 Admission Date Aug 10, 2017 at 19:11 Admitting Diagnosis stroke alert Diagnosis at Time of : (1) Diabetes mellitus ICD Code: E11.9 - Type 2 diabetes mellitus without complications (2) CVA (cerebral vascular accident) ICD Code: I63.9 - Cerebral infarction, unspecified (3) ESRD (end stage renal disease) on dialysis ICD Code: N18.6 - End stage renal disease; Z99.2 - Dependence on renal dialysis (4) Hypertension ICD Code: I10 - Hypertension Brief History 51-year-old male with a past medical history significant for insulin-dependent diabetes mellitus and end-stage renal disease on dialysis brought in from a [facility] as a stroke alert. At the time of my examination, the patient is nonverbal and unable to follow commands. Per ED notes, the patient was last seen on his baseline around 1 PM. Per [facility] report the patient is usually verbal. He has significant weakness on his left side without any spontaneous movements. Labs were significant for creatinine of 3.3. CBC/BMP: 08/11/17 0735 08/12/17 0910 Significant Findings Laboratory Tests Test 08/10/17 17:45 08/11/17 07:35 08/11/17 12:42 08/11/17 13:17 Red Blood Count 4.08 MIL/MM3 (4.50-5.90) 4.33 MIL/MM3 (4.50-5.90) Hemoglobin 12.8 GM/DL (13.0-17.0) Neutrophils (%) (Auto) 78.7 % (16.0-70.0) 77.0 % (16.0-70.0) Monocytes (%) (Auto) 9.4 % (0.0-8.0) 9.1 % (0.0-8.0) Lymphocytes # (Auto) 0.7 TH/MM3 (1.0-4.8) Activated Partial Thromboplast Time 32.2 SEC (24.3-30.1) Bedside Sodium 137 MMOL/L (138-146) Bedside Creatinine 3.3 MG/DL (0.8-1.3) Bedside Glucose 319 MG/DL (60-95) Hemoglobin A1c 9.5 % (4.3-6.0) Total Creatine Kinase 35 U/L (39-308) Troponin I LESS THAN 0.02 NG/ML White Blood Count 11.8 TH/MM3 (4.0-11.0) Mean Corpuscular Hemoglobin Concent 31.4 % (32.0-36.0) Neutrophils # (Auto) 9.1 TH/MM3 (1.8-7.7) Monocytes # (Auto) 1.1 TH/MM3 (0-0.9) Blood Urea Nitrogen 27 MG/DL (7-18) Creatinine 4.56 MG/DL (0.60-1.30) Random Glucose 433 MG/DL (74-106) 261 MG/DL (74-106) Albumin 2.6 GM/DL (3.4-5.0) Alkaline Phosphatase 133 U/L (45-117) Sodium Level 134 MEQ/L (136-145) Carbon Dioxide Level 16.8 MEQ/L (21.0-32.0) Anion Gap 19 MEQ/L (5-15) Estimat Glomerular Filtration Rate 14 ML/MIN (>89) Triglycerides Level 267 MG/DL (42-150) HDL Cholesterol 36.7 MG/DL (40.0-60.0) Urine Protein 30 mg/dL (NEG-TRACE) Urine Glucose (UA) 1000 mg/dL (NEG) Urine Ketones 40 mg/dL (NEG) Urine Bacteria RARE /hpf (NONE) Test 08/11/17 13:53 08/12/17 09:10 B-Hydroxybutyrate 2.22 MMOL/L (0.00-0.39) 9.61 MMOL/L (0.00-0.39) Blood Urea Nitrogen 54 MG/DL (7-18) Creatinine 7.84 MG/DL (0.60-1.30) Random Glucose 551 MG/DL (74-106) Potassium Level 5.7 MEQ/L (3.5-5.1) Carbon Dioxide Level 7.0 MEQ/L (21.0-32.0) Anion Gap 29 MEQ/L (5-15) Estimat Glomerular Filtration Rate 7 ML/MIN (>89) Imaging Last Impressions Head Magnetic Resonance Angiography 08/11/17 0000 Signed Impressions: Service Date/Time: Friday, August 11, 2017 09:08 - CONCLUSION: The right frontal and middle arteries are occluded. The left frontal artery is narrowed but a similar pattern to February. Santos Fernandes MD Chest X-Ray 08/11/17 Signed Impressions: Service Date/Time: Friday, August 11, 2017 10:50 - CONCLUSION: No acute cardiopulmonary disease demonstrated. Bruce Daniels MD Carotid Artery Ultrasound 08/11/17 Signed Impressions: Service Date/Time: Thursday, August 10, 2017 19:43 - CONCLUSION: Normal examination. Stable moderate atherosclerotic disease without obvious stenosis Santos Fernandes MD Brain MRI 08/11/17 Signed Impressions: Service Date/Time: Friday, August 11, 2017 09:08 - CONCLUSION: Large right frontal and temporal stroke . Tiny stroke in the left cerebellar hemisphere. Diffuse atrophy. No evidence of hemorrhage or significant mass effect at this point. Santos Fernandes MD Head CT 08/10/17 Signed Impressions: Service Date/Time: Thursday, August 10, 2017 17:44 - CONCLUSION: No significant change has occurred. This report was called to Dr. Blanc at 5: 58 PM on 08/10/[address] Browning.. Noam Browning MD Hospital Course 08/11 : Called to patient's bedside. Patient noted to have a acute hypoxemic respiratory failure, palliative care team had previously been consulted, patient not evaluated yet. Patient was ambu mass ventilator 100% to maintain O2 saturation in preparation for emergency intubation. Family was contacted. The patient's sister who is POA in conjunction with the patient's mother, I updated them on the patient's medical status and the need for emergent intubation. Informed by patient's sister the patient would not want to live this way and requesting Comfort Care measures only, no intubation. I clarified DNR measures with sister Aminah Lott, to include no chest compressions, no shock, no medications to maintain blood pressure. Ms. Lott stated an understanding and requested no interventions be performed. The patient CODE STATUS was made DNR. 08/11: With family at bedside, Comfort Care measures instituted. The patient at 1535 Oma Reyes MD Aug 12, 2017 15:51
[2017-08-12] MEDS ORDERED: MORPHINE SULFATE 4 MG/ML INJ IV PUSH SCH (16:00)
[2017-08-12] MEDS ORDERED: HYDROmorphone HCL PF 2 MG/ML VIAL IV PUSH SCH (16:00)
[2017-08-12] MEDS ORDERED: LORazepam 2 MG/ML VIAL IV PUSH SCH (16:00)
[2017-08-12] MEDS ORDERED: HEPARIN SODIUM - SQ 10,000 UNITS/ML VIAL SQ SCH (18:00)
[2017-08-13] MEDS ORDERED: CEFEPIME INJ 1,000 MG in SODIUM CHLORIDE 0.9% INJ 100 ML IV SCH (09:00)
== END 2017-08-12 17:54 | disposition expired | DRG 64 ==
LOC: NEPE 17:32 → NEDA 19:11 → N05A 20:19 → N03B 08-12 11:08
PROVIDERS: ADMIT Family Medicine; ATTEND Family Medicine
DX: I63.9 Cerebral infarction, unspecified (principal); N18.6 End stage renal disease; R65.20 Severe sepsis without septic shock; J96.01 Acute respiratory failure with hypoxia; G93.41 Metabolic encephalopathy; A41.9 Sepsis, unspecified organism; E10.10 Type 1 diabetes mellitus with ketoacidosis without coma; I12.0 Hypertensive chronic kidney disease with stage 5 chronic kidney disease or end stage renal disease; I69.354 Hemiplegia and hemiparesis following cerebral infarction affecting left non-dominant side; K92.2 Gastrointestinal hemorrhage, unspecified; Z51.5 Encounter for palliative care; I95.9 Hypotension, unspecified; E10.22 Type 1 diabetes mellitus with diabetic chronic kidney disease; D63.8 Anemia in other chronic diseases classified elsewhere; I25.10 Atherosclerotic heart disease of native coronary artery without angina pectoris; K21.9 Gastro-esophageal reflux disease without esophagitis; I25.2 Old myocardial infarction; I69.322 Dysarthria following cerebral infarction; E86.0 Dehydration; J44.9 Chronic obstructive pulmonary disease, unspecified; M47.812 Spondylosis without myelopathy or radiculopathy, cervical region; R47.01 Aphasia; I69.392 Facial weakness following cerebral infarction; F41.8 Other specified anxiety disorders; Z66 Do not resuscitate; Z72.0 Tobacco use; Z79.4 Long term (current) use of insulin; Z91.030 Bee allergy status; Z99.3 Dependence on wheelchair; Z99.2 Dependence on renal dialysis
CPT/HCPCS: 70450; 70544; 70551; 71010; 80048; 80053; 80061; 81001; 82010; 82435; 82550; 82565; 82947; 82948; 83036; 84132; 84295; 84484; 84520; 85025; 85384; 85610; 85730; 86850; 86900; 86901; 87040; 87086; 87804; 93005; 93880; 94640; 94664; C9113; J0330; J0692; J0696; J1644; J1815; J1980; J2060; J2270; J2405; J7030; J7040